=== PATIENT | female | born 1985 | race Caucasian/White ===

== ENCOUNTER 2023-12-06 06:38 | Outpatient (OUT) | payer BC, MEDICAID, SELFPAY ==
[2023-12-06 08:13] LABS: Basophils Percent Auto 0.3 % (0.2-2.0); Eosinophils Absolute Auto 0.2 10^3/uL (0.0-0.7); Eosinophils Percent Auto 1.7 % (0.9-7.0); Hematocrit 33.5 % (36.0-48.0); Hemoglobin 11.1 g/dL (12.0-16.0); Immature Granulocytes Abs Auto 0.16 10^3/uL (0.00-0.03); Immature Granulocytes Pct Auto 1.6 % (0.0-0.5); Lymphocytes Absolute Auto 1.2 10^3/uL (1.2-3.8); Lymphocytes Percent Auto 12.6 % (20.5-60.0); Mean Corpuscular HGB Conc 33.1 g/dL (29.9-35.2); Mean Corpuscular Hemoglobin 31.7 pg (26.7-34.0); Mean Corpuscular Volume 95.7 fL (81.0-99.0); Mean Platelet Volume 10.4 fL (9.5-13.5); Monocytes Absolute Auto 0.6 10^3/uL (0.3-0.8); Monocytes Percent Auto 6.3 % (1.7-12.0); Neutrophils Absolute Auto 7.5 10^3/uL (1.4-6.5); Neutrophils Percent Auto 77.5 % (43.0-75.0); Platelet Count 205 10^3/uL (150-450); Red Cell Distribution Width 12.3 % (11.0-15.0); White Blood Count 9.7 10^3/uL (4.0-11.0)
[2023-12-06 08:40] LABS: Glucose 1 Hour 140 mg/dL (<130)
== END 2023-12-06 06:39 | disposition home or self-care (01) ==
LOC: LAB 06:42
PROVIDERS: Visit Provider Obstetrics & Gynecology
DX: Z13.1 Encounter for screening for diabetes mellitus (principal)
CPT/HCPCS: 36415; 82950; 85025

== ENCOUNTER 2023-12-11 07:06 | Outpatient (OUT) | payer BC, MEDICAID, SELFPAY ==
[2023-12-11 07:27] LABS: Glucose Fasting 86 mg/dL (<95)
[2023-12-11 08:58] LABS: Glucose 1 Hour 173 mg/dL (<180)
[2023-12-11 09:35] LABS: Glucose 2 Hour 116 mg/dL (<155)
[2023-12-11 11:48] LABS: Glucose 3 Hour 60 mg/dL (<140)
== END 2023-12-11 07:07 | disposition home or self-care (01) ==
LOC: LAB 07:06
PROVIDERS: Visit Provider Obstetrics & Gynecology
DX: R73.09 Other abnormal glucose (principal)
CPT/HCPCS: 36415; 82951; 82952

== ENCOUNTER 2024-01-09 20:08 | Outpatient (OUT) | payer BC, MEDICAID, SELFPAY ==
--- NOTE | 2024-01-09 20:15 | US_ITS ---
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 TECHNIQUE: Ultrasound biophysical profile was performed in the radiology department. FINDINGS: BREATHING MOVEMENTS: 2 GROSS BODY MOVEMENTS: 2 TONE: 2 QUALITATIVE AMNIOTIC FLUID VOLUME: 2 PRESENTATION: Cephalic HEART RATE: 138 H.B./min AMNIOTIC FLUID VOLUME: 19 point cm GESTATIONAL AGE: 32 weeks 6 days CONCLUSION: Total biophysical profile score: 8/8 Electronically authenticated by: IMELDA GOLDEN Date: 01/10/2024 07:49
[2024-01-09 20:49] VITALS: BP 124/67; PULSE 78
[2024-01-09 20:50] VITALS: TEMP 35.8; TEMP 36.1
== END 2024-01-09 21:15 | disposition home or self-care (01) ==
LOC: US 20:12 → FBC 20:13
PROVIDERS: PCP Family Medicine; Visit Provider Obstetrics & Gynecology
DX: O09.523 Supervision of elderly multigravida, third trimester (principal); Z3A.32 32 weeks gestation of pregnancy
CPT/HCPCS: 76818

== ENCOUNTER 2024-01-13 07:20 | Outpatient (OUT) | payer BC, MEDICAID, SELFPAY ==
[2024-01-13 18:10] VITALS: BP 129/75; PULSE 89
== END 2024-01-13 18:56 | disposition home or self-care (01) ==
LOC: FBCO 17:57 → FBC 18:05
PROVIDERS: PCP Family Medicine; Visit Provider Obstetrics & Gynecology
DX: O09.529 Supervision of elderly multigravida, unspecified trimester (principal)
CPT/HCPCS: 59025

== ENCOUNTER 2024-01-16 07:06 | Outpatient (OUT) | payer BC, MEDICAID, SELFPAY ==
--- NOTE | 2024-01-16 19:59 | US_ITS ---
[address] [address] Patient Name: EDILBERTO MEJIA MRN: [facility]:[id number] date: 1985 Sex: F Assigned Patient Location: [facility] Current Patient Location: Accession/Order Number: [id number] Exam Date: 01/16/2024 20:04 Report Date: 01/17/2024 07:15 At the request of: JAH HERNANDEZ Procedure: US OB BPP w non-stress EXAMINATION: US OB BPP w non-stress HISTORY: MULTIGRAVIDA OF ADVANCED MATERNAL AGE O09.523 COMPARISON: No relevant comparison available. TECHNIQUE: Ultrasound biophysical profile was performed in the radiology department. non-reactive stress testing was performed by nursing staff in the birthing center. FINDINGS: BREATHING MOVEMENTS: 2.0 GROSS BODY MOVEMENTS: 2.0 TONE: 2.0 QUALITATIVE AMNIOTIC FLUID VOLUME: 2.0 PRESENTATION: CEPHALIC HEART RATE: 146.7 bpm H.B./min AMNIOTIC FLUID VOLUME: 13.4 cm cm GESTATIONAL AGE: 33 weeks 5 days CONCLUSION: Total biophysical profile score: 8.0 Electronically authenticated by: IMELDA GOLDEN Date: 01/17/2024 07:15
[2024-01-16 20:36] VITALS: BP 110/56; PULSE 76
[2024-01-16 20:38] VITALS: BP 110/56; PULSE 76; TEMP 36.4
== END 2024-01-16 21:00 | disposition home or self-care (01) ==
LOC: US 07:06 → FBC 20:00
PROVIDERS: PCP Family Medicine; Visit Provider Obstetrics & Gynecology
DX: O09.523 Supervision of elderly multigravida, third trimester (principal); Z3A.33 33 weeks gestation of pregnancy
CPT/HCPCS: 76818

== ENCOUNTER 2024-01-20 07:03 | Outpatient (OUT) | payer BC, MEDICAID, SELFPAY ==
--- OUTSIDE RECORDS SUMMARY | 2024-01-20 07:05 | XMS_ITS | CCD ---
Author Organization [facility] Care Team Providers Care Supervisor Broadloom Name Role Phone JAILENEJuan, ANJALI Unavailable Unavailable KARASIK, ANJALI Unavailable Unavailable KARASIK, ANJALI Unavailable Unavailable KARASIK, ANJALI Unavailable Unavailable KARASIK, ANJALI Unavailable Unavailable KARASIK, ANJALI Unavailable Unavailable Jesus Duran M Primary Care Unavailable Jesus Duran Attending Unavailable José Miguel Estes Admitting Unavailable Royce Charles Attending Unavailable Jesus Duran Primary Care Unavailable Ramiro Abarca Consulting Unavailable Services, [facility] Primary Care Provider KENNA BEJARANO Referring Unavailable SERVICES, [facility] Care Unava ilable DOCHEVA, NIKOLINA P Referring Unavailable SERVICES, [facility] Care Unava ilable AYANA LUND Attending Unavailable SERVICES, [facility] Unava ilable DOCHEVA, NIKOLINA P Referring Unavailable SERVICES, [facility] Unava ilable SERVICES, [facility] Care Unava ilable KENNA BEJARANO Referring Unavailable SERVICES, [facility] Care Unava ilable DOCHEVA, NIKOLINA P Attending Unavailable SERVICES, [facility] Care Unava ilable SERVICES, [facility] Primary Care Unava ilable JAH CARRANZA Attending Unavailable DAVID, JAH Attending Unavailable JAH CARRANZA Referring Unavailable SERVICES, [facility] Unava ilable DOCHEVA, NIKOLINA P Referring Unavailable SERVICES, [facility] Care Unava ilable DOCHEVA, NIKOLINA P Referring Unavailable SERVICES, [facility] Unava ilable Allergies Allergy Classification Reported Allergen(s) Allergy Type Date of Onset Reaction(s) Facility (1 source) No Known Medication Allergies; Translations: [No Known Medication Allergies] Propensity to adverse reactions to drug (disorder) [facility] Repository (2 sources) Penicillins; Translations: [PENICILLINS] Drug allergy (disorder) 8 [facility] Repository Medications Current Medications Medication Drug Class(es) Dates Sig (Normalized) Sig (Original) acetaminophen 325 mg oral tablet (7 sources) take 2 tablets by mouth every six hours as needed for pain acetaminophen (TYLENOL) 325 mg tablet Take 2 tablets (650 mg total) by mouth every 6 (six) hours as needed for pain. 0 Active docusate sodium 100 mg oral capsule (6 sources) Start: 10-14-2023 take 1 capsule by mouth once in the morning, then take 1 capsule by mouth at bedtime docusate sodium (COLACE) 100 mg capsule Indications: Constipation during in second trimester Take 1 capsule (100 mg total) by mouth in the morning and 1 capsule (100 mg total) before bedtime. 30 capsule 1 10/14/2023 Active doxylamine succinate 25 mg oral tablet (7 sources) Start: 09-10-2023 take 1 tablet by mouth once daily as needed for nausea doxylamine (UNISOM) 25 mg tablet Indications: Nausea and vomiting during Take 1 tablet (25 mg total) by mouth nightly as needed for sleep or nausea. 30 tablet 1 09/10/2023 Active loratadine 10 mg oral tablet (7 sources) take 1 tablet by mouth in the morning loratadine (CLARITIN) 10 mg tablet Take 1 tablet (10 mg total) by mouth in the morning. 0 Active montelukast 10 mg oral tablet (4 sources) Leukotriene Receptor Antagonist Start: 09-30-2023 take 1 tablet by mouth once daily montelukast (SINGULAIR) 10 mg tablet Take 1 tablet (10 mg total) by mouth nightly. 0 09/30/2023 Active polyethylene glycol 3350 59873 mg powder for oral solution (4 sources) Osmotic Laxative Start: 10-24-2023 End: 02-21-2024 polyethylene glycol (MIRALAX) 17 gram/dose powder Indications: 21 weeks gestation of , Constipation, unspecified constipation type Take 17 g by mouth in the morning for 120 days. 510 g 3 10/24/2023 02/21/2024 Active no115/iron/folic acid ( 19 ORAL) (7 sources) no115/iron/folic acid ( 19 ORAL) Take by mouth. 0 Active psyllium 3400 mg powder for oral suspension (4 sources) take 1 dose by mouth in the morning psyllium (METAMUCIL) 3.4 gram packet Take 1 packet (3.4 g total) by mouth in the morning and 1 packet (3.4 g total) before bedtime. 0 Active pyridoxine hydrochloride 25 mg oral tablet (7 sources) Start: 09-10-2023 pyridoxine, vitamin B6, (B-6) 25 mg tablet Indications: Nausea and vomiting during Take 1 tablet (25 mg total) by mouth in the morning and 1 tablet (25 mg total) at noon and 1 tablet (25 mg total) in the evening and 1 tablet (25 mg total) before bedtime. 120 tablet 1 09/10/2023 Active sennosides, senior living 8.6 mg oral tablet (4 sources) Start: 10-24-2023 senna (SENOKOT) 8.6 mg tablet Indications: 21 weeks gestation of , Constipation, unspecified constipation type Take 1 tablet (8.6 mg total) by mouth as needed for constipation for up to 5 doses. 5 tablet 0 10/24/2023 Active venlafaxine 75 mg oral tablet (7 sources) Serotonin and Norepinephrine Reuptake Inhibitor take 1 tablet by mouth in the morning venlafaxine (EFFEXOR) 75 mg tablet Take 1 tablet (75 mg total) by mouth in the morning. 0 Active Completed/Discontinued Medications Medication Drug Class(es) Dates Sig (Normalized) Sig (Original) aspirin 81 mg chewable tablet (7 sources) Platelet Aggregation Inhibitor, Nonsteroidal Anti-inflammatory Drug Start: 09-10-2023 aspirin 81 mg chewable tablet Indications: Obesity in , Multigravida of advanced maternal age in second trimester , with 15 completed weeks gestation Chew 1 tablet (81 mg total) and swallow in the morning. 90 tablet 2 09/10/2023 Active Problems Active Problems Problem Classification Problem Date Documented Da te Episodic/Chronic Abdominal hernia (14 sources) Incisional hernia; Translations: [Incisional hernia without obstruction or gangrene] Onset: 09-10-2023 09-10-2023 Episodic Anxiety disorders (8 sources) Anxiety; Translations: [Anxiety disorder, unspecified] Onset: 09-10-2023 09-10-2023 Chronic Cancer of cervix (9 sources) Low grade squamous intraepithelial lesion on cytologic smear of cervix (LGSIL); Translations: [Low grade squamous intraepithelial lesion on cervical Papanicolaou smear] Onset: 11-01-2017 10-24-2023 Episodic Headache; including migraine (7 sources) Migraine; Translations: [Migraine, unspecified, not intractable, without status migrainosus] Onset: 09-10-2023 09-10-2023 Chronic Mood disorders (8 sources) Mood disorders; Translations: [Depression, unspecified] Onset: 10-23-2023 06-23-2020 Other complications of (9 sources) Maternal obesity complicating , childbirth and the puerperium, antepartum; Translations: [Obesity complicating , unspecified trimester] Onset: 09-10-2023 09-10-2023 Chronic Other complications of (1 source) Obesity complicating , second trimester; Translations: [Obesity complicating , second trimester] Onset: 09-10-2023 Chronic Other complications of (2 sources) Obesity complicating , unspecified trimester; Translations: [Obesity complicating , unspecified trimester] Onset: 10-24-2023 Chronic Other complications of (10 sources) Multigravida of advanced maternal age; Translations: [Supervision of elderly multigravida, second trimester] Onset: 09-10-2023 10-07-2023 Episodic Other complications of (8 sources) Urinary tract infection in ; Translations: [Unspecified infection of urinary tract in , first trimester] Onset: 10-03-2023 10-07-2023 Episodic Other complications of (8 sources) Maternal syphilis during , childbirth and the puerperium; Translations: [Syphilis complicating , unspecified trimester] Onset: 09-10-2023 09-10-2023 Episodic Other complications of (7 sources) Nausea and vomiting; Translations: [Vomiting of , unspecified] Onset: 09-10-2023 09-10-2023 Episodic Other complications of (7 sources) Varicella non-immune; Translations: [Supervision of other high risk pregnancies, unspecified trimester] Onset: 10-03-2023 10-03-2023 Episodic Other complications of (3 sources) Diseases of the digestive system complicating , second trimester; Translations: [Other current conditions classifiable elsewhere of mother, antepartum condition or complication] Onset: 10-30-2023 10-14-2023 Episodic Other complications of (5 sources) Anxiety in ; Translations: [Other mental disorders complicating , unspecified trimester] Onset: 10-23-2023 10-23-2023 Episodic Other complications of (5 sources) Depressive disorder in mother complicating ; Translations: [Other mental disorders complicating , unspecified trimester] Onset: 10-23-2023 10-23-2023 Episodic Other complications of (2 sources) Syphilis complicating , second trimester; Translations: [Syphilis complicating , second trimester] Onset: 09-10-2023 Episodic Other complications of (1 source) Unspecified infection of urinary tract in , first trimester; Translations: [Unspecified infection of urinary tract in , first trimester] Onset: 10-03-2023 Episodic Other complications of (1 source) Supervision of elderly multigravida, second trimester; Translations: [Supervision of elderly multigravida, second trimester] Onset: 10-30-2023 Episodic Other complications of (1 source) Other mental disorders complicating , unspecified trimester; Translations: [Other mental disorders complicating , unspecified trimester] Onset: 10-23-2023 Episodic Other complications of (2 sources) Supervision of high risk , unspecified, unspecified trimester; Translations: [Supervision of high risk , unspecified, unspecified trimester] Onset: 10-24-2023 Episodic Other complications of (1 source) Syphilis complicating , third trimester; Translations: [Syphilis complicating , third trimester] Onset: 10-30-2023 Episodic Other gastrointestinal disorders (5 sources) Constipation; Translations: [Constipation, unspecified] Onset: 10-24-2023 10-24-2023 Episodic Other gastrointestinal disorders (1 source) Constipation, unspecified; Translations: [Constipation, unspecified] Onset: 10-24-2023 Episodic Other inflammatory condition of skin (2 sources) Psoriasis, unspecified; Translations: [Psoriasis, unspecified] Onset: 09-07-2020 Chronic Other inflammatory condition of skin (8 sources) Psoriasis; Translations: [Psoriasis, unspecified] Onset: 09-10-2023 09-10-2023 Chronic Other nutritional; endocrine; and metabolic disorders (1 source) Morbid (severe) obesity due to excess calories; Translations: [Morbid (severe) obesity due to excess calories] Onset: 09-07-2020 Chronic Other and delivery including normal (1 source) care status; Translations: [Encounter for supervision of normal , unspecified, third trimester] 11-04-2023 Episodic Other screening for suspected conditions (not mental disorders or infectious disease) (2 sources) Encounter for other specified screening; Translations: [Encounter for screening for cervical length] Onset: 10-24-2023 Episodic Residual codes; unclassified (1 source) Gestation period, 19 weeks; Translations: [19 weeks gestation of ] 10-03-2023 Episodic Residual codes; unclassified (1 source) Gestation period, 21 weeks; Translations: [21 weeks gestation of ] 10-23-2023 Episodic Residual codes; unclassified (3 sources) 21 weeks gestation of ; Translations: [21 weeks gestation of ] Onset: 10-24-2023 Episodic Residual codes; unclassified (1 source) Gestation period, 23 weeks; Translations: [23 weeks gestation of ] 11-04-2023 Episodic Residual codes; unclassified (1 source) 23 weeks gestation of ; Translations: [23 weeks gestation of ] Onset: 11-04-2023 Episodic Residual codes; unclassified (1 source) 19 weeks gestation of ; Translations: [19 weeks gestation of ] Onset: 10-07-2023 Episodic Unclassified (1 source) Cellulitis of right lower limb; Translations: [Cellulitis of right lower limb] Onset: 09-07-2020 Unclassified (1 source) Routine Visit Onset: 11-04-2023 Unclassified (1 source) mfm consult Onset: 10-24-2023 Unclassified (1 source) Initial Visit Onset: 09-10-2023 Viral infection (5 sources) Human papilloma virus infection; Translations: [Papillomavirus as the cause of diseases classified elsewhere] Onset: 10-24-2023 10-24-2023 Episodic Past or Other Problems Problem Classification Problem Date Documented Date Episodic/Chronic Skin and subcutaneous tissue infections (1 source) Cutaneous abscess of unspecified foot; Translations: [Cutaneous abscess of unspecified foot] Onset: 09-07-2020 Episodic STDs excluding HIV or hepatitis (1 source) Cervical high risk human papillomavirus (HPV) DNA test positive; Translations: [CERVICAL HIGH RISK HPV DNA TEST POS] Onset: 05-10-2017 Episodic Results Test Name Value Interpretation Reference Range Facility US ABDOMEN LMTD ABDOMEN WALL on 10-25-2023 US ABDOMEN LMTD ABDOMEN WALL US ABDOMEN LMTD ABDOMEN WALL Ultrasound the abdominal wall. INDICATION: Pain. Prior hernia repair. . COMPARISON: CT dated 03/25/2023. TECHNIQUE: Limited ultrasound of the body wall appear pain as delineated by the patient. FINDINGS: In the periumbilical region, community development aide demonstrates a circumscribed 5.3 x 1.3 x 5.1 cm isoechoic lesion, thought to be related to a fat-containing periumbilical hernia sac seen on CT scan of March 2023. This does not appear to significantly change with Valsalva. Velocity Shooter demonstrates potential associated fascial defect measuring approximately 1.2 cm, measured on cine clips. No herniated bowel demonstrated. No fluid collection demonstrate. IMPRESSION: 1. Lipomatous circumscribed lesion in the periumbilical region thought to reflect a narrowneck fat-containingHernia (over lipoma), somewhat similar to March 2023. Correlate with clinical reducibility. 2. No herniated bowel or other fluid collection/soft tissue lesion demonstrated Finalized by José Miguel Kapoor MD on 10/25/2023 11:30 AM Normal [facility] Reagin Ab RPR Ql (S)on 10-24 RPR SCREEN RESPONSE TO THERAPY, SERUM Negative Normal Negative [facility] Comment on above: Result Comment: NOTE Non-treponemal antibodies not detected. For additional information on interpretation of the syphilis reverse algorithm and results, see: [email or web address] Test Performed by: [facility] - [address] [address] Molecular Genetic Pathologist: Williams Joyce M.D. Ph.D.; CLIA# [id number] URINALYSISon 10-07-2023 Bilirubin Ql (U) Negative Normal NEG [facility] BLOOD/HGB Negative Normal NEG [facility] CA OXALATE CRYSTALS PRESENT Abnormal NONE [facility] Color (U) YELLOW Normal YELLOW [facility] Glucose Ql (U) Negative Normal NEG [facility] Ketones Ql (U) Trace Abnormal NEG [facility] Leukocyte esterase Test strip Ql (U) Small Abnormal NEG [facility] MUCOUS PRESENT Abnormal NONE [facility] Nitrite Ql (U) Negative Normal NEG [facility] pH (U) 6.0 [pH] Normal 5.0-8.5 [facility] Protein Ql (U) Trace Abnormal NEG [facility] R.B.CELLS 4 /hpf Normal 0-5 [facility] Specific gravity (U) [Rel density] 1.023 Normal 1.003-1.035 [facility] SQUAMOUS EPITHELIUM 15 /hpf High 0-5 [facility] TURBIDITY CLEAR Normal CLEAR [facility] Urobilinogen (U) [Mass/Vol] mg/dL Normal <1.1 [facility] W.B.CELLS 5 /hpf Normal 0-5 [facility] URINE CULTUREon 10-07-2023 Bacteria identified Cx Nom (U) CULTURE RESULTS NO GROWTH AT <1000 CFU/mL Normal [facility] Comment on above: Performed By: #### 6 30-4 #### [facility] ([id number]) [address] [place] [address], [address] [place] [address] Urinalysison 10-07-2023 Bilirubin Ql (U) Negative Negative^Ne gat nia [facility] Calcium oxalate crystals LM Ql (Urine sed) PRESENT Abnormal NONE^NONE [facility] Color (U) YELLOW YELLOW^YELLOW [facility] Epithelial cells Auto (Urine sed) [#/Area] 15 High [facility] Glucose (U) [Mass/Vol] Negative Negative^Negat nia mg/dL [facility] Hemoglobin Auto test strip Ql (U) Negative Negative^Negat nia [facility] Interpretation and review of laboratory results Abnormal [facility] Ketones (U) [Mass/Vol] Trace Abnormal Negative^Negat nia mg/dL [facility] Leukocyte esterase Auto test strip Ql (U) Small Abnormal Negative^Negat nia [facility] Mucus Ql (Urine sed) PRESENT Abnormal NONE^NONE [facility] Nitrite Auto test strip Ql (U) Negative Negative^Negat nia [facility] pH (U) 6.0 [pH] 5.0 - 8.5 [facility] Protein (U) [Mass/Vol] Trace Abnormal Negative^Negat nia mg/dL [facility] RBC Auto (Urine sed) [#/Area] 4 [facility] Specific gravity Refractometry automated (U) [Rel density] 1.023 1.003 - 1.035 [facility] Turbidity Ql (U) CLEAR CLEAR^CLEAR [facility] Urobilinogen Qn (U) NINF [facility] WBC Auto (Urine sed) [#/Area] 5 [facility] Outside Recordson 01-16-2023 Outside Records [id number]#[id number] Normal [facility] PAP RFX HPV IF ASCon 018 COMMENT Comment Normal [facility] Comment on above: Result Comment: [place] Performed By: #### P APHR7 ####[facility] [address] [place] [address] DIAGNOSIS: Comment Normal [facility] Comment on above: Result Comment: NEGA TIVE FOR INTRAEPITHELIAL LESION AND MALIGNANCY. Performed By: #### P APHR7 ####[facility] [address] [place] [address] Cristiane Methodology: BDFP Normal [facility] Comment on above: Result Comment: The TriPath(R) FocalPoint was unable to read and evaluate thisspecimen. Therefore a manual review was performed. Performed By: #### P APHR7 ####[facility] [address] [place] [address] Note: Comment Normal [facility] Comment on above: Result Comment: The Pap smear is a screening test designed to aid in the detection ofpremalignant and malignant conditions of the uterine cervix. It is not adiagnostic procedure and should not be used as the sole means of detectingcervical cancer. Both false-positive and false-negative reports do occur. . Performed By: #### P APHR7 ####[facility] [address] Cristiane Performed by: Comment Normal [facility] Comment on above: Result Comment: Chato Simon, Lead Instructor/Flight Attendant (ASCP) Performed By: #### P APHR7 ####[facility] [address] [place] [address] Cristiane Reflex Criteria: Comment Normal [facility] Comment on above: Result Comment: The HPV DNA reflex criteria were not met with this specimen resulttherefore, no HPV testing was performed. . Performed By: #### P APHR7 ####[facility] [address] [place] [address] Cristiane Specimen adequacy: Comment Normal [facility] Comment on above: Result Comment: Sati sfactory for evaluation. Endocervical and/or squamous metaplasticcells (endocervical component) are present. Performed By: #### P APHR7 ####[facility] [address] [place] [address] Cristiane . . Normal [facility] Comment on above: Performed By: #### P APHR7 ####[facility] [address] [place] [address] Cristiane LAB TESTINGon 05-09-2017 RECV HEADER SEE SCANNED REPORT I N HPF Normal [facility] Comment on above: Performed By: #### M ISC ####[facility] [address] [place] [address] Cristiane REV FROM REF LAB see scanned report Normal [facility] Comment on above: Performed By: #### M ISC ####[facility] [address] [place] [address] Cristiane SENT TO REF LAB see scanned report Normal T [facility] Comment on above: Performed By: #### M ISC ####[facility] [address] [place] [address] Cristiane Vital Signs Date Time Vital Sign Value Performing Clinician Epifanio lema 11-04-2023 11:26-0500 Body mass index (BMI) [Ratio] 41.14 kg/m2 Bethanylashay Hilles [employer] PRODUCTS CHECKER-CNM Work Phone: [facility] 11-04-2023 11:26-0500 Body weight 112.13 kg Bethany Superior [employer]ODU[employer] CHECKER-CNM Work Phone: [facility] 11-04-2023 11:26-0500 Diastolic blood pressure 68 mm[Hg] Bethanysameera Garcia B[employer] PRODU[employer] CHECKER-CNM Work Phone: [facility] 11-04-2023 11:26-0500 Systolic blood pressure 120 mm[Hg] Bethany Superior [employer]AK[employer]ODU[employer] CHECKER-CNM Work Phone: [facility] 10-24-2023 10:27-0500 Body height 165.1 cm Kamla Lester MD Work Phone: [facility] 10-24-2023 10:27-0500 Body mass index (BMI) [Ratio] 40.27 kg/m2 Kamla Lester MD Work Phone: [facility] 10-24-2023 10:27-0500 Body weight 109.77 kg Kamla Lester MD Work Phone: [facility] 10-24-2023 10:27-0500 Diastolic blood pressure 78 mm[Hg] Kamla Lester MD Work Phone: [facility] 10-24-2023 10:27-0500 Systolic blood pressure 118 mm[Hg] Kamla Lester MD Work Phone: [facility] 10-07-2023 11:23-0500 Body mass index (BMI) [Ratio] 39.99 kg/m2 [employer] [facility] 10-07-2023 11:23-0500 Body weight 109 kg Pfws [employer] [facility] 10-07-2023 11:23-0500 Diastolic blood pressure 80 mm[Hg] Pfws [employer] [facility] 10-07-2023 11:0500 Systolic blood pressure 100 mm[facility] Date Encounter Type Care Provider Facility Start: 01-14-2024 End: 01-15-2024 ambulatory [facility] Start: 01-08-2024 End: 01-08-2024 ambulatory JAH ROSSO Not Available Start: 12-17-2023 End: 12-18-2023 ambulatory JAH R. DAVID [facility] Start: 12-03-2023 End: 12-03-2023 ambulatory JAH DAVID Not Available Start: 11-21-2023 End: 11-21-2023 ambulatory [facility] Start: 11-14-2023 Telephone encounter Laila casillas [facility]Gynecology Start: 11-04-2023 End: 11-04-2023 ambulatory [facility] Start: 11-04-2023 End: 11-04-2023 Subsequent care visit Bethany Garcia [employer]ODU[employer] CHECKER-CNM Work Phone: [facility] Obstetric[facility]/Gynecology Comment on above: GA: 23w3d Start: 10-25-2023 End: 10-26-2023 ambulatory [facility] Start: 10-24-2023 End: 10-25-2023 Orders Only Rosalie Weston RN [facility] Comment on above: Multigravida of adva nced maternal age in second trimester (Primary Dx); Obesity affecting in second trimester, unspecified obesity type Start: 10-24-2023 End: 10-24-2023 Office consultation new/estab patient 80 min Kamla Lester MD Work Phone: [facility] [place] Comment on above: 21 weeks gestation o f (Primary Dx); Multigravida of advanced maternal age in second trimester; 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; Obesity affecting in second trimester, unspecified obesity type; Anxiety during ; Depression affecting ; Constipation, unspecified constipation type; Hernia of abdominal wall; Psoriasis; LGSIL on Pap smear of cervix; HPV in female Start: 10-14-2023 Orders Only Ayana Tess Osvaldo [employer] CHECKER-MOBILITY MANAGER Work Phone: [facility] Comment on above: Constipation during in second trimester (Primary Dx) Start: 10-07-2023 End: 10-08-2023 ambulatory [facility] Start: 10-07-2023 End: 10-07-2023 ambulatory [facility] Start: 10-07-2023 End: 10-07-2023 Subsequent care visit [facility] Ob Global Director [employer] [facility] Comment on above: GA: 19w3d Start: 09-10-2023 End: 09-10-2023 ambulatory AYANA Tess LUND [facility] Start: 01-28-2023 End: 01-29-2023 ambulatory Jesus Duran Facility:[facility] Start: 09-07-2020 End: 09-10-2020 Evaluation and management of inpatient José Miguel Estes Facility:[facility] Start: 11-01-2017 End: 11-01-2017 Ambulatory ANJALI BOOTHABELJuan Facility: Start: 05-09-2017 End: 05-09-2017 Ambulatory ANJALI KARABELJuan Facility: Procedures Date Procedure Procedure Detail Performing Clinician Start: 06-27-2023 Microscopic observat ion [Identifier] in Cervix by Cyto stain [facility] [employer] Director [employer] Plan of Treatment Date Care Activity Detail Author Start: 06-27-2026 Screening for malignant neoplasm of cervix Pap Smear [facility] Start: 11-04-2024 Adult BMI Screening Adult BMI Screen ing [facility] Start: 11-04-2024 Tobacco Screening Tobacco Screening [facility] Start: 10-24-2024 Adult BMI Screening Adult BMI Screen ing [facility] Start: 10-24-2024 Tobacco Screening Tobacco Screening [facility] Start: 10-24-2024 End: 10-24-2024 US MFM with or without consult US MFM with or without consult Imaging Routine Multigravida of advanced maternal age in second trimester Obesity affecting in second trimester, unspecified obesity type Expected: 10/24/2024 (Approximate), Expires: 10/24/2024 [facility] Work Phone: Comment on above: Expected: 10/24/2024 (Approximate), Expires: 10/24/2024 Start: 10-07-2024 Adult BMI Screening Adult BMI Screen ing [facility] Start: 10-07-2024 Tobacco Screening Tobacco Screening [facility] Start: 12-17-2023 End: 12-17-2023 Patient encounter procedure 12/17/2023 2:45 PM EDT Appointment [facility] [address] [place] [phone] [facility] Start: 12-02-2023 End: 12-02-2023 Patient encounter procedure 12/02/2023 11:45 AM EDT Routine [facility] [address] [place] [id number] [facility] Start: 11-21-2023 End: 11-21-2023 Patient encounter procedure 11/21/2023 2:15 PM EST Appointment [facility] [address] [place] [address] [facility] Start: 11-04-2023 End: 11-04-2023 Patient encounter procedure 11/04/2023 11:30 AM EST Routine [facility] [address] [place] [address] [facility] Start: 10-25-2023 Subsequent hospital visit by physician 10/25/2023 10:00 AM EST Hospital Encounter [facility] [address] [place] [phone] [facility] Start: 10-24-2023 End: 10-24-2024 Echo complete W/O contrast Echo complete W/O contrast Echocardiography Routine 21 weeks gestation of Multigravida of advanced maternal age in second trimester Expected: 10/24/2023, Expires: 10/24/2024 [facility] Comment on above: Expected: 10/24/2023 , Expires: 10/24/2024 Start: 10-24-2023 End: 10-24-2024 US Abdominal wall Ultrasound abdomen limited ADBOMEN WALL Imaging STAT 21 weeks gestation of Hernia of abdominal wall Expected: 10/24/2023, Expires: 10/24/2024 [facility] Comment on above: Expected: 10/24/2023 , Expires: 10/24/2024 Start: 10-24-2023 End: 10-24-2023 Patient encounter procedure [facility] Start: 10-07-2023 End: 10-07-2024 US MFM with or without consult US MFM with or without consult Imaging Routine Multigravida of advanced maternal age in second trimester Expected: 10/07/2023, Expires: 10/07/2024 [facility] Work Phone: Comment on above: Expected: 10/07/2023 , Expires: 10/07/2024 Start: 2002 DTaP,Tdap and Td Vaccines (1 - Tdap) DTaP,Tdap and Td Vaccines (1 - Tdap) [facility] Start: 2001 Adult BMI Follow Up Plan Adult BMI Follow Up Plan [facility] Start: 1995 [facility]: 10-06-2024 Bacteria identified in Urine by Culture Urine Culture Microbiology Routine UTI (urinary tract infection) during , first trimester 1 Occurrences starting 10/07/2023 until 10/06/2024 [facility] Comment on above: 1 Occurrences starti ng 10/07/2023 until 10/06/2024 Bacteria identified in Urine by Culture Urine Culture Microbiology Routine UTI (urinary tract infection) during , first trimester 10/07/2023 8:25 PM EST [facility] End: 11-04-2024 CBC W Auto Differential panel - Blood CBC auto differential Lab Routine care in third trimester 1 Occurrences starting 11/04/2023 until 11/04/2024 [facility] Comment on above: 1 Occurrences starti ng 11/04/2023 until 11/04/2024 End: 10-24-2024 ECG 12 lead ECG 12 lead ECG Routine 21 weeks gestation of Multigravida of advanced maternal age in second trimester 1 Occurrences starting 10/24/2023 until 10/24/2024 [facility] Comment on above: 1 Occurrences starti ng 10/24/2023 until 10/24/2024 End: 11-04-2024 Glucose 1h post 50g load Glucose 1h post 50g load Lab Routine care in third trimester 1 Occurrences starting 11/04/2023 until 11/04/2024 [facility] Work Phone: Comment on above: 1 Occurrences starti ng 11/04/2023 until 11/04/2024 Reagin Ab [Presence] in Serum by RPR RPR Screen Response to Therapy, Serum Lab Routine 21 weeks gestation of 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 10/24/2023 7:10 PM EST [facility] End: 10-24-2024 RPR Therapy Response(Previous Positive Screen) RPR Therapy Response(Previous Positive Screen) Lab Routine 21 weeks gestation of 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 1 Occurrences starting 10/24/2023 until 10/24/2024 [facility] Work Phone: Comment on above: 1 Occurrences starti ng 10/24/2023 until 10/24/2024 End: 11-04-2024 Syphilis Total(Unknown Syphilis Status) Syphilis Total(Unknown Syphilis Status) Lab Routine care in third trimester 1 Occurrences starting 11/04/2023 until 11/04/2024 [facility] Comment on above: 1 Occurrences starti ng 11/04/2023 until 11/04/2024 Payers Date Payer Category Payer Medicaid [employer] MEDICAID [facility] MEDICAID [id number] 2023-Present [address] [place] [address] [id number] 2023 Medicaid [id number] 2023 Unknown [employer] BLUE ACCE SS (PPO) [id number] 2023-Present [phone] [address] [place] [address] [id number] 2023 Unknown [id number] 2020 Self-pay 2019 Unknown [id number] 1983 Unknown [id number] 1983 Unknown [id number] 1983 Unknown [id number] 1983 Unknown [id number] 1983 Unknown [id number] [id number] 1983 Unknown [id number] [id number] 1983 Unknown [id number] [id number] 1983 Unknown [id number] [id number] 1983 Unknown [id number] [id number] 1983 Unknown [id number] [id number] 1983 Unknown [id number] [id number] 1983 Unknown [id number] [id number] 1983 Unknown [id number] 1959 Unknown [id number] Unknown [id number] Social History Date Type Detail Facility Start: 09-10-2023 Tobacco smoking stat us NHIS Ex-smoker [facility] End: 06-16-2023 History of tobacco use Current smoker [facility] End: 06-16-2023 History of tobacco use Cigarette Smoker [facility] Start: 09-10-2023 Tobacco use and exposure Smokeless tobacco non-user [facility] Start: 10-07-2023 End: 11-04-2023 Alcohol intake Ex-drinker (finding) [facility] Start: 10-27-2020 End: 10-07-2023 History of Social function [facility] Start: 10-27-2020 End: 10-07-2023 Tobacco use panel [facility] Adolescent depressio n screening assessment 0 [facility] Start: 03-25-2023 Tobacco Comment quit a year an d a half ago [facility] Start: 06-07-2020 Alcohol Comment 2 days a week [facility] Start: 06-07-2023 [facility] Start: 1985 Sex Assigned At Not on file P [facility] Medical Equipment Procedure Code Equipment Code Equipment Origin al Text Equipment Identifier Dates Mesh Pco Vntrl P tch 4.6cm Rpl [id number] - [id number] - [id number] Start: 07-01-2020 Clinical Notes 07-09-2022 to 11-14-2023 Telephone Encounter - Laila Gil - 11/14/2023 10:35 AM ESTTelephone Encounter - Laila Gil - 11/14/2023 10:35 AM HONEY Martinez - 11/04/2023 11:30 AM EST Note Date & Type Note Facility 11-14-2023 Miscellaneous Notes Received a record release from Dr. Carranza office. The patient is scheduled for an appointment with our office on 12/02/23. I attempted to call the patient to see if she is transferring care & if she still needs the appointment with our office on 12/02/23. The patient did not answer. The voicemail for for Rowan so I did not leave a message for the patient. Cece talked to the patient at her [facility] ultrasound appt today. Patient confirmed to Cece that she is transferring care to Dr. Carranza. Cece cancelled the scheduled appointment with our office. documented in this encounter [facility] 11-14-2023 Telephone encounter Note Received a record release from Dr. Carranza office. The patient is scheduled for an appointment with our office on 12/02/23. I attempted to call the patient to see if she is transferring care & if she still needs the appointment with our office on 12/02/23. The patient did not answer. The voicemail for for Rowan so I did not leave a message for the patient. [facility] 11-14-2023 Telephone encounter Note Cece talked to the patient at her [facility] ultrasound appt today. Patient confirmed to Cece that she is transferring care to Dr. Carranza. Cece cancelled the scheduled appointment with our office. [facility] 11-04-2023 History of Presen t illness Narrative 38 y.o. at 23w3d. No CTX, VB, LOF. + FM. Feeling well other than continues to have some constipation even with taking Miralax daily and colace twice a day. Her stools continue to come almost daily but she has to strain to pass them. Suggested she increase her fluid intake too. She can use Colace up to 3 times a day and Miralax twice daily if needed. She has an abdominal hernia just to the right of her umbilicus. She has been using tape to help keep it in. Should have this repaired after this . 1. Reviewed signs of labor and decreased movement 2. 28 wk labs between 26 weeks gestqation and next visit. 3. Return 4 wks. HONEY Clifford 11/04/23 1157 documented in this encounter [facility] 10-24-2023 History of Presen t illness Narrative Images from the original note were not included. Video Visit via Real-time Synchronous Audiovisual Provider Location: [facility]- [facility] [address], [address] [place] [address] Patient Location: [facility] Patient Location Sorter Operator: None Video Visit Consent Statement: I discussed risks, benefits, and alternatives of a real-time synchronous audiovisual consultation with the patient (and any accompanying persons) including the risks that the patient's personal health details and medical records will be discussed over real-time, synchronous, interactive video/audio/telecommunication technology, the visit will not be recorded without the express consent of both the provider and the patient, and that there are some limitations compared to [id number] evaluations. We elected to proceed. [facility]- Medicine Consult Note Reason For Consult: AMA, Syphilis, BMI HPI: Meka Brennan is a 38 y.o. at 21w6d with Estimated Date of Delivery: 02/28/24 b who presented for consultation from Ayana Lund regarding Chief Complaint Patient presents with AMA, syphilis, high BMI I have reviewed the pertinent available patient records including but not limited to notes, labs and images She presents today with her partner. She reports that she is doing well. She reports normal movements and she denies leakage of fluid, contractions or vaginal bleeding. She denies fever, chills, nausea, vomiting, shortness of breath, chest pain, headache, blurry vision, right upper quadrant pain or edema. Complications: AMA - was told low risk cell free DNA [place]. Report not available, on low dose aspirin History of syphilis - Jun 2023. PCN treatment x3. FOB test was negative was given only 1 dose. Both follows with healthcare department, have follow up at 28 weeks Obesity in Anxiety and depression was on Effexor, not taking - mood is ok. No SI E coli UTI s/p treatment repeat urine culture negative LSIL +ve HPV Psoriasis - no current flares, no joint pains, no hair loss Constipation - colace and matamucil. 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 I do not have the records this is per patient Recent hospitalization: no Review of systems: Review of systems was noncontributory OB History Para Term AB Living 3 2 2 2 SAB IAB Ectopic Multiple Live Births 2 # Outcome Date GA Lbr Pravin/2nd Weight Sex Delivery Anes PTL Lv 3 Current 2 Term 2009 40w0d 3.941 kg M Vag-Spont EPI N NATHAN 1 Term 2005 40w0d 2.977 kg F Vag-Spont None N NATHAN PMH: Past Medical History: Diagnosis Date Anxiety Migraines Prolonged emergence from general anesthesia Seasonal allergies PSHIST: Past Surgical History: Procedure Laterality Date HERNIA REPAIR 1989 REPAIR HERNIA VENTRAL N/A 07/01/2020 Performed by Juan Alberto Guthrie MD at [facility] Allergies: No Known Allergies Meds: Prior to Admission medications Medication Sig Start Date End Date Taking? Authorizing Provider acetaminophen (TYLENOL) 325 mg tablet Take 2 tablets (650 mg total) by mouth every 6 (six) hours as needed for pain. Not In System Ref Prov aspirin 81 mg chewable tablet Chew 1 tablet (81 mg total) and swallow in the morning. 09/10/23 JESSENIA Arora docusate sodium (COLACE) 100 mg capsule Take 1 capsule (100 mg total) by mouth in the morning and 1 capsule (100 mg total) before bedtime. 10/14/23 JESSENIA Arora doxylamine (UNISOM) 25 mg tablet Take 1 tablet (25 mg total) by mouth nightly as needed for sleep or nausea. 09/10/23 JESSENIA Arora loratadine (CLARITIN) 10 mg tablet Take 1 tablet (10 mg total) by mouth in the morning. Not In System Ref Prov no115/iron/folic acid ( 19 ORAL) Take by mouth. Not In System Ref Prov pyridoxine, vitamin B6, (B-6) 25 mg tablet Take 1 tablet (25 mg total) by mouth in the morning and 1 tablet (25 mg total) at noon and 1 tablet (25 mg total) in the evening and 1 tablet (25 mg total) before bedtime. 09/10/23 JESSENIA Arora venlafaxine (EFFEXOR) 75 mg tablet Take 1 tablet (75 mg total) by mouth in the morning. Not In System Ref Prov SH: Social History Socioeconomic History Marital status: Spouse name: leni Number of children: 2 Years of education: Not on file Highest education level: Not on file Occupational History Not on file Tobacco Use Smoking status: Former Types: Cigarettes Quit date: 06/2023 Years since quittin.3 Smokeless tobacco: Never Tobacco comments: quit a year and a half ago Vaping Use Vaping Use: Never used Substance and Sexual Activity Alcohol use: Not Currently Comment: 2 days a week Drug use: No Sexual activity: Yes Partners: Male Other Topics Concern Not on file Social History Narrative Not on file Social Determinants of Health Financial Resource Strain: Not on file Food Insecurity: No Food Insecurity (10/24/2023) Hunger Screening Food Insecurity - Worry: Never True Food Insecurity - Inability: Never True Transportation Needs: Not on file Physical Activity: Not on file Stress: Not on file Social Connections: Not on file Interpersonal Safety: Not on file Housing Instability: Not on file Physical Exam: Vital Signs Vitals: 10/24/23 1027 BP: 118/78 Weight: 109.8 kg (242 lb) Height: 165.1 cm (5' 5 ) Physical Exam: n/a video visit Appears alert and oriented on the camera Notes/Imaging/Labs reviewed Hospital Outpatient Visit on 10/07/2023 Component Date Value Ref Range Status Culture 10/07/2023 NO GROWTH AT <1000 CFU/mL Final Color 10/07/2023 YELLOW YELLOW^YELLOW Final Turbidity 10/07/2023 CLEAR CLEAR^CLEAR Final Specific gravity 10/07/2023 1.023 1.003 - 1.035 Final Nitrite 10/07/2023 Negative Negative^Negative Final Ph urine 10/07/2023 6.0 5.0 - 8.5 Final Leukocyte esterase 10/07/2023 Small (A) Negative^Negative Final Protein 10/07/2023 Trace (A) Negative^Negative mg/dL Final Glucose, Ur 10/07/2023 Negative Negative^Negative mg/dL Final Ketones urine 10/07/2023 Trace (A) Negative^Negative mg/dL Final Urobilinogen 10/07/2023 <1.1 <1.1 eu/dL Final Bilirubin, urine 10/07/2023 Negative Negative^Negative Final Hemoglobin 10/07/2023 Negative Negative^Negative Final Ca oxalate crystals 10/07/2023 PRESENT (A) NONE^NONE Final Mucus, UA 10/07/2023 PRESENT (A) NONE^NONE Final RBC 10/07/2023 4 0 - 5 /hpf Final Squamous epithelium 10/07/2023 15 (H) 0 - 5 /hpf Final WBC 10/07/2023 5 0 - 5 /hpf Final Hospital Outpatient Visit on 07/25/2023 Component Date Value Ref Range Status Culture 07/25/2023 >100,000 ORGANISMS/mL ESCHERICHIA COLI (A) Final Hospital Outpatient Visit on 07/16/2023 Component Date Value Ref Range Status Bact. Vaginosis DNA 07/16/2023 Not Detected Not Detected^Not Detected Final Comment: Qualitative results are reported based on detection and quantitation of targeted organism markers which include: Lactobacillus spp. (L. crispatus and L. jensenii), Gardnerella vaginalis, Atopobium vaginae, Bacterial Vaginosis Associated Bacteria-2 (BVAB-2) and Megasphaera-1 Tierra Species DNA 07/16/2023 Not Detected Not Detected^Not Detected Final Comment: Tierra species not detected include: C. albicans, C. tropicalis, C. parapsilosis or C. dubliniensis Tierra Krusei DNA 07/16/2023 Not Detected Not Detected^Not Detected Final No Tierra krusei detected Tierar Glabrata DNA 07/16/2023 Not Detected Not Detected^Not Detected Final No Tierra glabrata detected Trichomonas Vag DNA 07/16/2023 Not Detected Not Detected^Not Detected Final Comment: No Trichomonas vaginalis detected NOTE BD MAX Vaginal Panel has not been evaluated for patients under 18 years old. Results for these patients should be reviewed and assessed in accordance with clinical presentation to determine patient diagnosis. Specimen source 07/16/2023 CERVIX Final Chlamydia DNA PCR 07/16/2023 Negative Negative^Negative Final Comment: Chlamydia trachomatis not detected by nucleic acid amplification. This does not exclude the possibility of infection because results are dependent on adequate specimen collection. Gonorrhea DNA PCR 07/16/2023 Negative Negative^Negative Final Comment: Neisseria gonorrhoeae not detected by nucleic acid amplification. This does not exclude the possibility of infection because results are dependent on adequate specimen collection. Culture 07/16/2023 10-50,000 ORGANISMS/mL NORMAL UROGENITAL VIOLET Final Amphetamine/methamphetamine 07/16/2023 Negative Negative^Negative Final AMPH/METH screening cut off = 1000 ng/mL Barbiturate Screen, Ur 07/16/2023 Negative Negative^Negative Final Barbiturates screening cut off value = 200 ng/mL Benzodiazepine Screen, Urine 07/16/2023 Negative Negative^Negative Final Benzodiazepines screening cut off value = 200 ng/mL THC, urine 07/16/2023 Negative Negative^Negative Final Cannabinoids/THC screening cut off value = 50 ng/mL Cocaine (metabolite) 07/16/2023 Negative Negative^Negative Final Cocaine screening cut off value = 300 ng/mL Opiate Quant, Ur 07/16/2023 Negative Negative^Negative Final Comment: Opiates screening cut off value = 300 ng/mL NOTE: This test is used for the detection of codeine, hydrocodone (>1000 ng/mL), morphine and hydromorphone (>900 ng/mL) in urine. Phencyclidine 07/16/2023 Negative Negative^Negative Final Phencyclidine screening cut off value = 25 ng/mL Oxycodone 07/16/2023 Negative Negative^Negative Final Comment: Oxycodone screening cut off value = 300 ng/mL NOTE: This test is used for the detection of oxycodone and oxymorphone in urine. Ecstasy 07/16/2023 Negative Negative^Negative Final Comment: Ecstasy screening cut off value = 500 ng/mL This report is intended for use in clinical monitoring or management of patients. It is not for use in legal or employment-related testing. Color 07/16/2023 YELLOW YELLOW^YELLOW Final Turbidity 07/16/2023 CLEAR CLEAR^CLEAR Final Specific gravity 07/16/2023 1.014 1.003 - 1.035 Final Nitrite 07/16/2023 Negative Negative^Negative Final Ph urine 07/16/2023 6.0 5.0 - 8.5 Final Leukocyte esterase 07/16/2023 MODERATE (A) Negative^Negative Final Protein 07/16/2023 Negative Negative^Negative mg/dL Final Glucose, Ur 07/16/2023 Negative Negative^Negative mg/dL Final Ketones urine 07/16/2023 Negative Negative^Negative mg/dL Final Urobilinogen 07/16/2023 <1.1 <1.1 eu/dL Final Bilirubin, urine 07/16/2023 Negative Negative^Negative Final Hemoglobin 07/16/2023 Negative Negative^Negative Final Mucus, UA 07/16/2023 PRESENT (A) NONE^NONE Final RBC 07/16/2023 1 0 - 5 /hpf Final Squamous epithelium 07/16/2023 13 (H) 0 - 5 /hpf Final WBC 07/16/2023 8 (H) 0 - 5 /hpf Final Hospital Outpatient Visit on 07/16/2023 Component Date Value Ref Range Status Hb A Percent 07/16/2023 96.4 96.2 - 98.0 % Final Hb F Percent 07/16/2023 0.9 0.0 - 0.9 % Final Hb A2 Percent 07/16/2023 2.7 2.0 - 3.1 % Final Abnormal Hb 07/16/2023 See below No abnormal hemoglobin identified. Final Comment: NOTE No abnormal hemoglobin identified. Test Performed By: [facility] [address] [place] [address] Safety Director: Matias Menchaca III, M.D. IA #[id number]^ T4, free 07/16/2023 0.75 0.61 - 1.60 ng/dL Final Antibody Screen 07/16/2023 NEGATIVE Final ABORh 07/16/2023 A POSITIVE Final Rubella IgG 07/16/2023 72 IU/mL Final Comment: Interpretation-------- <8 NEGATIVE-considered Not Immune 8-9 EQUIVOCAL-consider retesting with new specimen >9 POSITIVE-considered Immune Hemoglobin A1C 07/16/2023 5.1 4.4 - 5.6 % Final Comment: NOTE ADA Guidelines Result HgbA1c Normal : less than 5.7 % Prediabetes : 5.7 % to 6.4 % Diabetes : > 6.4 % Use with caution in patients with abnormal hemoglobin variants as the half-life of red blood cells and in vivo glycation rates are affected. Average glucose 07/16/2023 100 mg/dL Final Varicella IgG 07/16/2023 0.7 <0.9 AI Final Comment: Interpretation-------- <0.9 Negative 0.9 - 1.0 Equivocal >1.0 Positive HIV 1&2 AB/AG 07/16/2023 Non-Reactive Non-Reactive^Non-Reactive Final Comment: This information has been disclosed to you from confidential records protected from disclosure by state law. You shall make no further disclosure of this information without the specific, written and informed release of the individual to whom it pertains, or as otherwise permitted by state law. A general authorization for the release of medical or other information is not sufficient for the purpose of the release of HIV test results or diagnoses. TSH 07/16/2023 0.67 0.49 - 4.67 uIU/mL Final Hepatitis B Surface Ag 07/16/2023 Negative Negative^Negative Final Glucose 07/16/2023 90 65 - 99 mg/dL Final Syphilis Total 07/16/2023 >8.0 (H) 0.0 - 0.8 AI Final Comment: REACTIVE This specimen will be sent to a reference lab for additional testing which includes RPR with reflex to TP-PA if RPR is negative. The RPR will help distinguish between infections with T.pallidum (syphilis) versus a falsely reactive treponemal antibody result. Please see the syphilis testing algorithm link below for more information. [email or web address] White Blood Cells 07/16/2023 9.3 4.0 - 11.0 X10E9/L Final RBC count 07/16/2023 4.18 3.80 - 5.20 X10E12/L Final Hemoglobin 07/16/2023 13.4 11.7 - 15.5 g/dL Final Hematocrit 07/16/2023 39.1 35 - 47 % Final MCV 07/16/2023 93 80 - 100 fL Final MCH 07/16/2023 31.9 27 - 34 pg Final MCHC 07/16/2023 34.2 32 - 36 g/dL Final RDW 07/16/2023 12.0 11.5 - 15.0 % Final Platelets 07/16/2023 256 150 - 450 X10E9/L Final MPV 07/16/2023 9.1 7 - 12 fL Final % neutrophils 07/16/2023 70.4 % Final % lymphocytes 07/16/2023 20.3 % Final % monocytes 07/16/2023 7.8 % Final % eosinophils 07/16/2023 1.3 % Final % Basophils 07/16/2023 0.2 % Final Neutrophils Absolute (A) 07/16/2023 6.6 1.5 - 6.6 X10E9/L Final Lymphocytes Absolute 07/16/2023 1.9 1.0 - 3.5 X10E9/L Final Monocytes Absolute 07/16/2023 0.7 0 - 0.9 X10E9/L Final Eosinophils Absolute 07/16/2023 0.1 0.0 - 0.4 X10E9/L Final Basophils Absolute 07/16/2023 0.0 0.0 - 0.2 X10E9/L Final ABORh 07/16/2023 A POSITIVE Final Anti HCV w/ PCR reflex 07/16/2023 Non-Reactive Non-Reactive^Non-Reactive Final Comment: If recent infection suspected, recommend repeat testing (>2 months). Eshrsi-qw-cphezs ratio is <0.80. RPR with Reflex to RTPPA 07/16/2023 Negative Negative Final Comment: NOTE Non-treponemal antibodies not detected. Testing on a new specimen collected in 2-3 weeks is recommended if acute infection is suspected. Sample reflexed for detection of Treponema pallidum specific antibodies by the Treponema pallidum particle agglutination (TP-PA) assay. For additional information on interpretation of the syphilis reverse algorithm and results, see: [email or web address] [email or web address] Test Performed by: [place] [address] Molecular Genetic Pathologist: Williams Joyce M.D. Ph.D.; CLIA# [id number] CLIA ID [id number] HGB Phoresis Interpretation 07/16/2023 See below Final Comment: NOTE Hemoglobins were analyzed by capillary electrophoresis. There is a normal hemoglobin capillary electrophoresis pattern. Alpha thalassemia trait is not excluded by the testing performed. Suggest correlation with clinical information, red blood cell indices and serum ferritin test results, if applicable. Staff review 07/16/2023 See below Final Comment: NOTE Reviewed by Sommer Garcia MD Test Performed By: [place] [address] Safety Director: Matias Menchaca III, M.D. CLIA #[id number]^ T.pallidum 07/16/2023 SEE COMMENTS 07/19/2023 12:59 PM (A) Final Comment: NOTE Test Result Flag Unit RefValue -- Syphilis Ab, TP-PA, S Positive A Negative Treponemal antibodies detected, consistent with previously treated syphilis, potentially early syphilis infection or latent disease. Clinical correlation to distinguish between these scenarios is required. For additional information on interpretation of the syphilis reverse algorithm and results, see: [email or web address] [email or web address] Test Performed by: [facility] [address] [place] [address] Molecular Genetic Pathologist: Williams Joyce M.D. Ph.D.; CLIA# [id number] Hospital Outpatient Visit on 06/27/2023 Component Date Value Ref Range Status Hpv specimen type 06/27/2023 ThinPrep Final Hpv 16 06/27/2023 Negative Negative^Negative Final Hpv 18 06/27/2023 Negative Negative^Negative Final Other high risk hpv 06/27/2023 Positive (A) Negative^Negative Final Comment: For the DNA of any or combination of the following HPV types: 31,33,35,45, 52,56,58,59,66 and 68. Ultrasound findings Pertinent Ultrasound findings are see report. Assessment/Plan 38 y.o. @ at 21w6d with Estimated Date of Delivery: 02/28/24 here for consultation regardin. 21 weeks gestation of - polyethylene glycol (MIRALAX) 17 gram/dose powder; Take 17 g by mouth in the morning for 120 days. Dispense: 510 g; Refill: 3 - senna (SENOKOT) 8.6 mg tablet; Take 1 tablet (8.6 mg total) by mouth as needed for constipation for up to 5 doses. Dispense: 5 tablet; Refill: 0 - Ultrasound abdomen limited; Future - [facility] - [place], [place]; Future - RPR Therapy Response(Previous Positive Screen); Future - ECG 12 lead; Future - Echo complete W/O contrast; Future 2. Multigravida of advanced maternal age in second trimester - ECG 12 lead; Future - Echo complete W/O contrast; Future The patient was informed of the associated increased risk in obstetric morbidities such as feteal aneuploidy, placental abruption, delivery and preeclampsia in the setting of advanced maternal age. Available epidemiologic evidence demonstrates that women > 35 and particularly >/= 40 have an increased risk of unexplained stillbirth. Would recommend also baseline maternal echocardiogram and EKG for patient >=40. At age 38 y.o. Ms. Meka Brennan's age based aneuploidy risks are: The risk of trisomy 21 (Down syndrome) is 1:86 The risk of trisomy 18 (Edward syndrome) is 1:336 The risk for any chromosomal abnormality is 1:39 Reviewed aneuploidy testing that could be performed during . I explained that definitive testing can be obtained by an amniocentesis, which has a 1/800 risk of loss. We also discussed noninvasive screening via cell free DNA testing and its limitations. Declined amniocentesis and desires evaluation if needed 3. 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 - RPR Therapy Response(Previous Positive Screen); Future The patient tested positive syphilis in the 1st trimester and she received 3 doses of penicillin. Her partner was tested negative and received 1 dose of penicillin. We reviewed syphilis in . All women should be screened serologically for syphilis at the first care visit. women with positive treponemal screening tests (e.g., EIA, ZEHRA, or immunoblot) should have additional quantitative nontreponemal testing because titers are essential for monitoring treatment response. Serologic testing should also be performed twice during the third trimester: at 28 weeks gestation and at delivery for women who live in communities with high rates of syphilis and for women who have been at risk for syphilis acquisition during . Failure to detect or adequately treat maternal disease often results in serious sequelae for the fetus and . Penicillin remains the gold standard for the treatment of syphilis in both and non patients. Penicillin desensitization is indicated for infected women with documented penicillin allergy. Diagnostic evaluation for syphilis is the same in and non women. A diagnosis of syphilis is made when both nontreponemal and treponemal tests are reactive. Penicillin G benzathine therapy is effective for treating maternal disease, preventing transmission to the fetus, and treating established disease. The appropriate penicillin G benzathine regimen depends on the stage of disease. Primary, secondary, or early latent disease: a single dose of penicillin G benzathine 2.4 million units intramuscularly. Some clinicians administer an additional dose of penicillin G benzathine 2.4 million units one week after the first dose. Late latent, tertiary, and disease of unknown duration: three doses of penicillin G benzathine 2.4 million unit intramuscularly at weekly intervals. If a dose is missed for more than 14 days, the full three dose course of therapy should be started again. If an asymptomatic patient with what could be latent syphilis was previously treated for syphilis but receipt of an appropriate treatment regimen cannot be verified, the full three-dose penicillin regimen recommended for late latent syphilis should be administered. We recommend desensitization for penicillin-allergic patients followed by penicillin G benzathine therapy. Alternative drugs are not as safe for the woman or fetus or not as effective for prevention of congenital syphilis. Treatment of syphilis may precipitate the Jarisch-Herxheimer reaction, which may precipitate uterine contractions, labor, and/or nonreassuring heart rate tracing in women treated in the second half of . Women treated for early syphilis should have a titer checked just before treatment, since it is not uncommon for this titer to be higher than that of the initial diagnostic titer due to elapsed time between diagnosis and therapy. The subsequent frequency of monitoring is the same as in non patients and depends upon the stage of disease and presence of HIV coinfection. When monitoring nontreponemal titers, the same test, preferably the rapid plasmin regain (RPR), should be performed each time and at the same laboratory. A majority of women will not achieve a fourfold decrease in titers before delivery, although this does not indicate treatment failure. However, a fourfold increase in titer after treatment (e.g., from 1:8 to 1:32) that is sustained for >2 weeks is concerning for reinfection or treatment failure. Nontreponemal titers can increase immediately after treatment, presumably related to the treatment response. Therefore, unless symptoms and signs exist of primary or secondary syphilis, follow-up titer should not be repeated until approximately 8 weeks after treatment. Inadequate maternal treatment is likely if delivery occurs within 30 days of therapy, clinical signs of infection are present at delivery, or the maternal antibody titer at delivery is fourfold higher than the pretreatment titer.A fourfold increase in the nontreponemal titer after treatment is always abnormal. A fall in maternal titers does not guarantee that treatment has been adequate. The patient that recently due to the rising pandemic of syphilis in the [place] some experts field recommending titers every 4 weeks in . serofast. Frequent testing of titers allows early identification of inappropriate titer decline, such as titer plateau or slowly rising titers, evenwithout a 4-fold rise (defined as a clinically significant titer rise), and thus earlier evaluation and retreatment if deemed clinically appropriate. It is true that there is no evidence to prove that this approach is superior to checking titers at the appropriate follow-up christopher defined by the CDC per above criteria. The patient desires to have her titers checked every 4 weeks The frequency of vertical transmission is higher with early stage than late stage syphilis. Among women who acquire syphilis during , the risk of vertical transmission increases with increasing gestational age at acquisition of maternal infection. infection should be suspected if there are characteristic findings on ultrasound examination after 20 weeks of gestation in a woman with untreated or inadequately treated syphilis. Hepatomegaly and placentomegaly are early sonographic findings suggestive of congenital syphilis. Anemia, ascites, and hydrops occur later in the course of infection. Maternal penicillin G benzathine treatment is curative for infection in most cases. Maternal treatment ?30 days before delivery is a risk factor for congenital infection. An abnormal ultrasound is not diagnostic of infection and a normal ultrasound does not exclude infection. Reviewed with the patient that on ultrasound today there is no sonographic stigmata of syphilis infection but the limitations of the ultrasound were reviewed. The pediatricians we will need to be notified at delivery about the maternal syphilis PMID: [id number] 4. Obesity affecting in second trimester, unspecified obesity type The patient has a BMI of > 40, which is a risk factor for adverse outcomes in . These possible complications including increased risks for miscarriage in the first trimester, congenital anomalies, hypertensive disorders of including preeclampsia, diabetes mellitus, demise, and delivery (with subsequent risks of wound infection, wound complications otherwise, and/or VTE). While we do not recommend weight loss during (inadequate weight gain and weight loss are associated with increased risks of growth restriction or SGA), we discussed the importance of a healthy diet and exercise. Her goal for weight gain throughout gestation should be 11-20 pounds. 5. Anxiety during 6. Depression affecting She is off the Effexor and her mood is stable. Denies suicidal ideations. Reviewed with the patient that she is at risk of depression and close monitoring of her mood is recommended. 7. Constipation, unspecified constipation type - polyethylene glycol (MIRALAX) 17 gram/dose powder; Take 17 g by mouth in the morning for 120 days. Dispense: 510 g; Refill: 3 - senna (SENOKOT) 8.6 mg tablet; Take 1 tablet (8.6 mg total) by mouth as needed for constipation for up to 5 doses. Dispense: 5 tablet; Refill: 0 8. Hernia of abdominal wall - Ultrasound abdomen limited; Future - [facility] - [place], [place]; Future She tells me that she has pain at the hernia site. Denies nausea or vomiting but reports that when she calls there is still a bulge coming. I was not able to physically examined the patient as this is a telehealth visit. I ordered an ultrasound of the abdomen to evaluate the hernia and I referred her back to her surgeons 9. Psoriasis Psoriasis improves during in 40 to 60 percent of patients, worsens in 10 to 20 percent, and remains stable in the remainder. In patients who improve, the degree of improvement can be dramatic. In the period, psoriasis severity remains the same or worsens in most patients. For patients with limited psoriasis (ie, nondebilitating psoriasis that involves less than 5 to 10 percent of the body surface area), topical rather than systemic therapy is suggested. Emollients and moisturizers are useful for reducing bothersome scale. Our first-line medical treatment is a low- to medium-potency topical corticosteroid. Topical tazarotene, methotrexate, and acitretin are contraindicated during . If her symptoms worsened during the , please refer her back for a Maternal- Medicine consultation and recommend also to see a Inspector Structural Bonding. 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 Colposcopy in reviewed. 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 Discussed with the patient that I would recommend that she does not run the chemicals because of her letter provided. Strongly recommended that she continues to wear her appropriate PPE. Recommendations: Continue low-dose aspirin Follow-up with titers. Bowdens for rising titers as per above. The patient desires to have the titers done every 4 weeks. I ordered repeat titers today please follow from then onwards. 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 Continue to monitor mood Plan reviewed with patient. She vocalized understanding all questions answered. The patient is to continue with routine care in your office Thank you for allowing me to participate in her care. Please contact me if you have any concerns. Kamla Lester MD, FACOG (she/hers) Maternal- Medicine [facility] [address] [place] [address] [facility], the CDC, and other organizations representing maternal and public health professionals recommend that , , and lactating people and those considering receive the COVID-19 vaccination. Vaccination is the best method to reduce maternal and complications of SARS-CoV-2 infection. This document was created with [employer] technology. Though I make every effort to review the dictation as it is transcribed, on occasion the spoken word can be misinterpreted by the technology leading to inappropriate words, phrases, or sentences. This note is addressed to the requesting provider as a consultation for clinical guidance. Specific medical abbreviations are occasionally used and those are generally approved by the [place]?Board of?Obstetrics and?Gynecology?as well as?[place] s abbreviations. The above plan of care was based solely on the diagnoses for which a consultation was requested. ?More frequent testing may be indicated based on her other medical/obstetrical conditions. The management of other or medical conditions is beyond the scope of requested consultation and will continue to be followed by the primary mobile unit assistant or primary care provider. Note to patient: The 21st Century Cures Act makes medical notes like these available to patients in the interest of transparency. However, be advised this is a medical document. It is intended as peer to peer communication. It is written in medical language and may contain abbreviations or verbiage that are unfamiliar. It may appear blunt or direct. Medical documents are intended to carry relevant information, facts as evident, and the clinical opinion of the practitioner. Headache/epigastric pain/blurry vision/swelling? Some headaches with her allergies and a pulsing in her ear / denies vision changes or swelling Cramping/contractions? denies Abnormal vaginal discharge? denies Spotting/vaginal bleeding? denies Loss of fluid like your water may have broken? denies Cats in the home? yes Do you change the litter box? No, the kids do Flu vaccine? Received the vaccine this year Genetic testing done this here or other office? yes, [facility] Neg for trisomies per patient, Not on chart, will call for results. Have you been seen here at [facility] in a previous ? no Recent ER visits or hospitalizations? no Bring blood sugar log or meter with you today? (Please bring them with you for every visit at [facility]) Traveled outside the country in the past 6 month no Any concerns that you would like me to mention to the provider today? Patient states she is worried about the chemicals that she uses at her job and her constipation issues with her hernia. Taking Metamucil and Colace BID Labs ordered today per [facility]. Labs drawn on 1st attempt (L) antecubital here in our office at this time without difficulty. Patient tolerated well. documented in this encounter [facility] [employer] 10-14-2023 Miscellaneous Notes Pt states she is experiencing constipation. Pt states she is constantly straining to only have a little bit come out. Pt states she is drinking approximately 4 48oz bottles of water daily. Pt states she has tried Prune juice and Metamucil with no relief. Please advise. Thank you RX for colace sent to pharmacy Advised Pt of RX sent to Pharmacy. documented in this encounter [facility] [place] 10-14-2023 Telephone encounter Note Pt states she is experiencing constipation. Pt states she is constantly straining to only have a little bit come out. Pt states she is drinking approximately 4 48oz bottles of water daily. Pt states she has tried Prune juice and Metamucil with no relief. Please advise. Thank you [facility] 10-14-2023 Telephone encounter Note RX for colace sent to pharmacy [facility] 10-14-2023 Telephone encounter Note Advised Pt of RX sent to Pharmacy. [facility] 10-07-2023 History of Presen t illness Narrative 38 y.o. at 19w3d. No CTX, VB, LOF. positive FM. Pt. Reports sneezing and nasal congestion despite taking claritin daily and flonase occasionally. 1. Survey US ordered with M consult for AMA, positive syphilis 2. Discussed can use OTC benadryl instead of claritin and doxyalamine, use of cool mist humidifier, reduction in environmental triggers, I.e. pet hair, use of hepa filter. Also discussed it is a common discomfort of 3. Answered all questions 4. Urine culture sent for RODOLFO 5. Discussed testing beginning at 32wks for AMA, Obesity 6. Return 4 wks. [facility] 10/07/23 1242 documented in this encounter [facility] 10-07-2023 Miscellaneous Notes Addended by: LEROY ANN on: 10/07/2023 12:55 PM Modules accepted: [facility] 10-07-2023 Note Addended by: LEROY ANN on: 10/07/2023 12:55 PM Modules accepted: [facility] 01-14-2023 Note Entered by Nirali Bingham on January 14, 2023 08:38:33 EDT From: Aarti Bingham To: [facility]/pharmacy #[id number] Sent: 01/14/2023 08:38:33 EDT Subject: Medication Management Submitted: Complete:venlafaxine (venlafaxine 75 mg oral capsule, extended release) Signed by Aarti Bingham 01/14/2023 08:38:00 EDT Approved venlafaxine (VENLAFAXINE HCL ER 75 MG CAP) TAKE 1 CAPSULE BY MOUTH EVERY DAY Qty: 30 cap(s) Days Supply: 30 Refills: 5 Substitutions Allowed Route To Pharmacy - [facility]/pharmacy #[id number] Signed by Aarti Bingham From: [facility] STORE [id number] To: Jesus Duran MD Sent: January 12, 2023 6:47:36 AM CDT Subject: Medication Management Due: January 13, 2023 6:45:46 AM CDT On Hold Pending Signature Dispensed Drug: venlafaxine (venlafaxine 75 mg oral capsule, extended release), TAKE 1 CAPSULE BY MOUTH EVERY DAY Quantity: 30 cap(s) Days Supply: 30 Refills: 5 Substitutions Allowed Notes from Pharmacy: [facility] 07-09-2022 Note Entered by Nirali Bingham on July 09, 2022 07:51:14 EDT From: Aarti Bingham To: [facility]/pharmacy #[id number] Sent: 07/09/2022 07:51:14 EDT Subject: Medication Management Submitted: Complete:venlafaxine (venlafaxine 75 mg oral capsule, extended release) Signed by Aarti Bingham 07/09/2022 07:51:00 EDT Approved with modifications: venlafaxine (VENLAFAXINE HCL ER 75 MG CAP) TAKE 1 CAPSULE BY MOUTH EVERY DAY Qty: 90 cap(s) Days Supply: 90 Refills: 1 Substitutions Allowed Route To Pharmacy - [facility]/pharmacy #[id number] Signed by Aarti Bingham From: [id number] To: Jesus Duran MD Sent: July 08, 2022 7:45:20 AM CDT Subject: Medication Management Due: July 09, 2022 12:25:55 AM CDT On Hold Pending Signature Dispensed Drug: venlafaxine (venlafaxine 75 mg oral capsule, extended release), TAKE 1 CAPSULE BY MOUTH EVERY DAY Quantity: 90 cap(s) Days Supply: 90 Refills: 2 Substitutions Allowed Notes from Pharmacy: [facility] Evaluation note Diagnosis with 19 completed weeks gestation- Primary Multigravida of advanced maternal age in second trimester UTI (urinary tract infection) during , first trimester documented [facility] encounter [facility] Diagnosis Constipation during in second trimester- Primary [facility] in [facility]* Diagnosis 21 weeks gestation of - Primary Multigravida of advanced maternal age in second trimester 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 Obesity affecting in second trimester, unspecified obesity type Anxiety during Depression affecting Constipation, unspecified constipation type Hernia of abdominal wall Unspecified ventral hernia without mention of obstruction or gangrene Psoriasis Other psoriasis 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 [facility] Diagnosis Multigravida of advanced maternal age in second trimester- Primary Obesity affecting in second trimester, unspecified obesity type [facility] Diagnosis 23 weeks gestation of - Primary care in third trimester documented in this encounter [facility] filedocumented in this encounter [facility]ructionsNot on filedocumented in this encounter [facility]* Attachments The following attachments cannot be sent through Care Everywhere. * Movement (Danish) * Preeclampsia (Danish) [facility] SystemInstructionsNot on file documented in this [facility] SystemInstructionsNot on file documented in this [facility] SystemInstructionsNot on file [facility] in [facility] Purpose Family History No Family History Records FoundNo Family History Records FoundNo Family History Records FoundNo Family History Records FoundNo Family History Records FoundNo Family History Records FoundNo Family History Records Found Advance Directives No Advanced Directives Records FoundNo Advanced Directives Records FoundNo Advanced Directives Records FoundNo Advanced Directives Records FoundNo Advanced Directives Records FoundNo Advanced Directives Records FoundNo Advanced Directives Records Found Reason for Referral Specialty Diagnoses / Procedures Referred By Contac t Referred To Contact Maternal and Medicine Diagnoses Multigravida of advanced maternal age in second trimester Procedures [facility] with or without consult Kenna Bejarano, [employer] [address] [place] [address] [facility] Maternal [facility] [address] [facility] [place] [address] Referral ID Status Reason Start Date Expiration Date V isits Requested Visits Authorized [id number] Pending Review 10/07/2023 10/06/2024 1 1 Specialty Diagnoses / Procedures Referred By Contac t Referred To Contact Diagnoses 21 weeks gestation of Multigravida of advanced maternal age in second trimester Procedures Echo complete W/O contrast Kamla Lester MD [address], [address] [place] [id number] Referral ID Status Reason Start Date Expiration Date V isits Requested Visits Authorized [id number] Pending Review 10/24/2023 10/23/2024 1 1 Specialty Diagnoses / Procedures Referred By Contac t Referred To Contact Diagnoses 21 weeks gestation of Multigravida of advanced maternal age in second trimester Procedures ECG 12 lead Kamla Lester MD [address], [address] [place] [id number] Referral ID Status Reason Start Date Expiration Date V isits Requested Visits Authorized [id number] Pending Review 10/24/2023 10/23/2024 1 1 Specialty Diagnoses / Procedures Referred By Contac t Referred To Contact General Surgery Diagnoses 21 weeks gestation of Hernia of abdominal wall Kamla Lester MD [address], [address] [place] [id number] [facility] Gen Surg Grillis [address] [place] [address] Referral ID Status Reason Start Date Expiration Date Visits Requested Visits Authorized [id number] Pending Review Specialty Services Required 10/24/2023 10/23/2024 1 1 Specialty Diagnoses / Procedures Referred By Contac t Referred To Contact Maternal and Medicine Diagnoses Multigravida of advanced maternal age in second trimester Obesity affecting in second trimester, unspecified obesity type Procedures US MFM with or without consult Kamla Lester MD [address], [address] [place] [id number] [facility] Maternal Med [address] [place] [address] Referral ID Status Reason Start Date Expiration Date V isits Requested Visits Authorized [id number] Pending Review 10/24/2023 10/23/2024 1 1 Additional Source Comments INFORMATION SOURCE (unrecogn ized section and content) DATE CREATED AUTHOR 03/07/2018 [facility] DATE CREATED AUTHOR AUTHOR'S ORGANIZ ATION 01/29/2023 [facility] DATE CREATED AUTHOR AUTHOR'S ORGANIZ ATION 06/22/2023 [facility] DATE CREATED AUTHOR AUTHOR'S ORGANIZ ATION 10/30/2023 [facility] DATE CREATED AUTHOR AUTHOR'S ORGANIZ ATION 11/22/2023 [facility] DATE CREATED AUTHOR AUTHOR'S ORGANIZ ATION 01/10/2024 [facility] EPIC DATE CREATED AUTHOR AUTHOR'S ORGANIZ ATION 01/15/2024 [facility] Care Teams (unrecognized sec tion and content) 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 [employer] Relationship Specialty Start Date End Date Services, [facility] [address] PCP - General Family Medicine 03/25/23 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 [employer] Relationship Specialty Start Date End Date Services, [facility] [address], [place] PCP - General Family Medicine 03/25/23 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[employer] Relationship Specialty Start Date End Date Services, [facility] [address] PCP - General Family Medicine 03/25/23 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[employer] Relationship Specialty Start Date End Date Services, [facility] [address] PCP - General Family Medicine 03/25/23 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[employer] Relationship 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 Start Date End Date Services, [facility] [address] PCP - General Family Medicine 03/25/23 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[employer] Relationship Specialty Start Date End Date Services, [facility] [address] PCP - General Family Medicine 03/25/23 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 This clinical summary was aggregated from multiple sources. Caution should be exercised in using it in the provision of clinical care. This summary normalizes information from multiple sources, and as a consequence, information in this document may materially change the coding, format and clinical context of patient data. In addition, data may be omitted in some cases. CLINICAL DECISIONS SHOULD BE BASED ON THE PRIMARY CLINICAL RECORDS. [facility] [employer] [facility]. provides no warranty or guarantee of the accuracy or completeness of information in this document.
[2024-01-20 18:06] VITALS: BP 118/78; PULSE 81
== END 2024-01-20 18:45 | disposition home or self-care (01) ==
LOC: FBCO 07:03 → FBC 18:00
PROVIDERS: PCP Family Medicine; Visit Provider Obstetrics & Gynecology
DX: O09.529 Supervision of elderly multigravida, unspecified trimester (principal)
CPT/HCPCS: 59025

== ENCOUNTER 2024-01-23 07:30 | Outpatient (OUT) | payer BC, MEDICAID, SELFPAY ==
--- OUTSIDE RECORDS SUMMARY | 2024-01-23 07:51 | XMS_ITS | CCD ---
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 Name Role Phone JAILENEJuan, ANJALI Unavailable Unavailable KARASIK, ANJALI Unavailable Unavailable KARASIK, ANJALI Unavailable Unavailable KARASIK, ANJALI Unavailable Unavailable KARASIK, ANJALI Unavailable Unavailable KARASIK, ANJALI Unavailable Unavailable Jesus Duran M Primary Care Unavailable Jesus Duran Attending Unavailable José Miguel Estes Admitting Unavailable Royce Charles Attending Unavailable Jesus Duran Primary Care Unavailable Ramiro Abarca Consulting Unavailable Services, [facility] Primary Care Provider KENNA BEJARANO Referring Unavailable SERVICES, [facility] Care Unava ilable DOCHEVA, NIKOLINA P Referring Unavailable SERVICES, [facility] Care Unava ilable AYANA LUND Attending Unavailable SERVICES, [facility] Unava ilable DOCHEVA, NIKOLINA P Referring Unavailable SERVICES, [facility] Unava ilable SERVICES, [facility] Care Unava ilable KENNA BEJARANO Referring Unavailable SERVICES, [facility] Care Unava ilable DOCHEVA, NIKOLINA P Attending Unavailable SERVICES, [facility] Care Unava ilable SERVICES, [facility] Primary Care Unava ilable JAH CARRANZA Attending Unavailable DAVID, JAH Attending Unavailable JAH CARRANZA Referring Unavailable SERVICES, [facility] Unava ilable DOCHEVA, NIKOLINA P Referring Unavailable SERVICES, [facility] Care Unava ilable DOCHEVA, NIKOLINA P Referring Unavailable SERVICES, [facility] Unava ilable Allergies Allergy Classification Reported Allergen(s) Allergy Type Date of Onset Reaction(s) Facility (1 source) No Known Medication Allergies; Translations: [No Known Medication Allergies] Propensity to adverse reactions to drug (disorder) [facility] Repository (2 sources) Penicillins; Translations: [PENICILLINS] Drug allergy (disorder) 8 [facility] Repository Medications Current Medications Medication Drug [...] nightly. 0 09/30/2023 Active polyethylene glycol 3350 55232 mg powder for oral solution (4 sources) [...] bedtime. 120 tablet 1 09/10/2023 Active sennosides, group home 8.6 mg oral tablet (4 sources) Start: [...] the patient. FINDINGS: In the periumbilical region, learning support aide demonstrates a circumscribed 5.3 x 1.3 x 5.1 cm isoechoic lesion, thought to be related to a fat-containing periumbilical hernia sac seen on CT scan of March 2023. This does not appear to significantly change with Valsalva. Contracting Officer demonstrates potential associated fascial defect measuring approximately [...] Kapoor MD on 10/25/2023 11:30 AM Normal [facility] Reagin Ab RPR Ql (S)on 10-24 RPR SCREEN RESPONSE TO THERAPY, SERUM Negative Normal Negative [facility] Comment on above: Result Comment: NOTE Non-treponemal antibodies not detected. For additional information on interpretation of the syphilis reverse algorithm and results, see: [email or web address] Test Performed by: [facility] - [address] [address] [address] Deputy: Williams Joyce M.D. Ph.D.; CLIA# [id number] URINALYSISon 10-07-2023 Bilirubin Ql (U) Negative Normal NEG [facility] BLOOD/HGB Negative Normal NEG [facility] CA OXALATE CRYSTALS PRESENT Abnormal NONE [facility] Color (U) YELLOW Normal YELLOW [facility] Glucose Ql (U) Negative Normal NEG [facility] Ketones Ql (U) Trace Abnormal NEG [facility] Leukocyte esterase Test strip Ql (U) Small Abnormal NEG [facility] MUCOUS PRESENT Abnormal NONE [facility] Nitrite Ql (U) Negative Normal NEG [facility] pH (U) 6.0 [pH] Normal 5.0-8.5 [facility] Protein Ql (U) Trace Abnormal NEG [facility] R.B.CELLS 4 /hpf Normal 0-5 [facility] Specific gravity (U) [Rel density] 1.023 Normal 1.003-1.035 [facility] SQUAMOUS EPITHELIUM 15 /hpf High 0-5 [facility] TURBIDITY CLEAR Normal CLEAR [facility] Urobilinogen (U) [Mass/Vol] mg/dL Normal <1.1 [facility] W.B.CELLS 5 /hpf Normal 0-5 [facility] URINE CULTUREon 10-07-2023 Bacteria identified Cx Nom (U) CULTURE RESULTS NO GROWTH AT <1000 CFU/mL Normal [facility] Comment on above: Performed By: #### 6 30-4 #### [facility] ([id number]) [address] [place] [address], [address] [place] [address] Urinalysison 10-07-2023 Bilirubin Ql (U) Negative Negative^Ne gat nia [facility] Calcium oxalate crystals LM Ql (Urine sed) PRESENT Abnormal NONE^NONE [facility] Color (U) YELLOW YELLOW^YELLOW [facility] Epithelial cells Auto (Urine sed) [#/Area] 15 High [facility] Glucose (U) [Mass/Vol] Negative Negative^Negat nia mg/dL [facility] Hemoglobin Auto test strip Ql (U) Negative Negative^Negat nia [facility] Interpretation and review of laboratory results Abnormal [facility] Ketones (U) [Mass/Vol] Trace Abnormal Negative^Negat nia mg/dL [facility] Leukocyte esterase Auto test strip Ql (U) Small Abnormal Negative^Negat nia [facility] Mucus Ql (Urine sed) PRESENT Abnormal NONE^NONE [facility] Nitrite Auto test strip Ql (U) Negative Negative^Negat nia [facility] pH (U) 6.0 [pH] 5.0 - 8.5 [facility] Protein (U) [Mass/Vol] Trace Abnormal Negative^Negat nia mg/dL [facility] RBC Auto (Urine sed) [#/Area] 4 [facility] Specific gravity Refractometry automated (U) [Rel density] 1.023 1.003 - 1.035 [facility] Turbidity Ql (U) CLEAR CLEAR^CLEAR [facility] Urobilinogen Qn (U) NINF [facility] WBC Auto (Urine sed) [#/Area] 5 [facility] Outside Recordson 01-16-2023 Outside Records [id number] [facility] PAP RFX HPV IF ASCon 018 COMMENT Comment Normal [facility] Comment on above: Result Comment: [place] Performed By: #### P APHR7 ####[facility] [address] [place] [address] DIAGNOSIS: Comment Normal [facility] Comment on above: Result Comment: NEGA TIVE FOR INTRAEPITHELIAL LESION AND MALIGNANCY. Performed By: #### P APHR7 ####[facility] [address] [place] [address] Cristiane Methodology: BDFP Normal [facility] Comment on above: Result Comment: The TriPath(R) FocalPoint was unable to read and evaluate thisspecimen. Therefore a manual review was performed. Performed By: #### P APHR7 ####[facility] [address] [place] [address] Note: Comment Normal [facility] Comment on above: Result Comment: The Pap smear is a screening test designed to aid in the detection ofpremalignant and malignant conditions of the uterine cervix. It is not adiagnostic procedure and should not be used as the sole means of detectingcervical cancer. Both false-positive and false-negative reports do occur. . Performed By: #### P APHR7 ####[facility] [address] Cristiane Performed by: Comment Normal [facility] Comment on above: Result Comment: Chato Simon, Boot And Shoe Repairman (ASCP) Performed By: #### P APHR7 ####[facility] [address] [place] [address] Cristiane Reflex Criteria: Comment Normal [facility] Comment on above: Result Comment: The HPV DNA reflex criteria were not met with this specimen resulttherefore, no HPV testing was performed. . Performed By: #### P APHR7 ####[facility] [address] [place] [address] Cristiane Specimen adequacy: Comment Normal [facility] Comment on above: Result Comment: Sati sfactory for evaluation. Endocervical and/or squamous metaplasticcells (endocervical component) are present. Performed By: #### P APHR7 ####[facility] [address] [place] [address] Cristiane . . Normal [facility] Comment on above: Performed By: #### P APHR7 ####[facility] [address] [place] [address] Cristiane LAB TESTINGon 05-09-2017 RECV HEADER SEE SCANNED REPORT I N HPF Normal [facility] Comment on above: Performed By: #### M ISC ####[facility] [address] [place] [address] Cristiane REV FROM REF LAB see scanned report Normal [facility] Comment on above: Performed By: #### M ISC ####[facility] [address] [place] [address] Cristiane SENT TO REF LAB see scanned report Normal T [facility] Comment on above: Performed By: #### M ISC ####[facility] [address] [place] [address] Cristiane Vital Signs Date Time Vital Sign Value Performing Clinician Epifanio lema 11-04-2023 11:26-0500 Body mass index (BMI) [Ratio] 41.14 kg/m2 Bethanylashay Hilles GRADE RECORDER-CNM Work Phone: [facility] 11-04-2023 11:26-0500 Body weight 112.13 kg Bethany Maytown GRADE RECORDER-CNM Work Phone: [facility] 11-04-2023 11:26-0500 Diastolic blood pressure 68 mm[Hg] Bethanysameera Garcia GRADE RECORDER-CNM Work Phone: [facility] 11-04-2023 11:26-0500 Systolic blood pressure 120 mm[Hg] Bethany [place]town GRADE RECORDER-CNM Work Phone: [facility] 10-24-2023 10:27-0500 Body height 165.1 cm Kamla Lester MD Work Phone: [facility] 10-24-2023 10:27-0500 Body mass index (BMI) [Ratio] 40.27 kg/m2 Kamla Lester MD Work Phone: [facility] 10-24-2023 10:27-0500 Body weight 109.77 kg Kamla Lester MD Work Phone: [facility] 10-24-2023 10:27-0500 Diastolic blood pressure 78 mm[Hg] Kamla Lester MD Work Phone: [facility] 10-24-2023 10:27-0500 Systolic blood pressure 118 mm[Hg] Kamla Lester MD Work Phone: [facility] 10-07-2023 11:23-0500 Body mass index (BMI) [Ratio] 39.99 kg/m2 Pfws Product Marketing Specialist [facility] 10-07-2023 11:23-0500 Body weight 109 kg Pfws Product Marketing Specialist [facility] 10-07-2023 11:23-0500 Diastolic blood pressure 80 mm[Hg] Pfws Product Marketing Specialist [facility] 10-07-2023 11:0500 Systolic blood pressure 100 mm[Hg] PfNEA [facility] Encounters Encounter Date Encounter Type Care Provider Facility Start: 01-14-2024 End: 01-15-2024 ambulatory [facility] Start: 01-08-2024 End: 01-08-2024 ambulatory JAH ROSSO Not Available Start: 12-17-2023 End: 12-18-2023 ambulatory JAH R. DAVID [facility] Start: 12-03-2023 End: 12-03-2023 ambulatory JAH DAVID Not Available Start: 11-21-2023 End: 11-21-2023 ambulatory [facility] Start: 11-14-2023 Telephone encounter Laila casillas [facility] Start: 11-04-2023 End: 11-04-2023 ambulatory [facility] Start: 11-04-2023 End: 11-04-2023 Subsequent care visit Bethany Garcia GRADE RECORDER-CNM Work Phone: [facility] Comment on above: GA: 23w3d Start: 10-25-2023 End: 10-26-2023 ambulatory [facility] Start: 10-24-2023 End: 10-25-2023 Orders Only Rosalie Weston RN [facility] Comment on above: Multigravida of adva nced maternal age in second trimester (Primary Dx); Obesity affecting in second trimester, unspecified obesity type Start: 10-24-2023 End: 10-24-2023 Office consultation new/estab patient 80 min Kamla Lester MD Work Phone: [facility] [place] Comment on above: 21 weeks gestation o f (Primary Dx); Multigravida of advanced maternal age in second trimester; 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; Obesity affecting in second trimester, unspecified obesity type; Anxiety during ; Depression affecting ; Constipation, unspecified constipation type; Hernia of abdominal wall; Psoriasis; LGSIL on Pap smear of cervix; HPV in female Start: 10-14-2023 Orders Only Ayana Tess Osvaldo GRADE RECORDER-NFL PLAYER Work Phone: [facility] Comment on above: Constipation during in second trimester (Primary Dx) Start: 10-07-2023 End: 10-08-2023 ambulatory [facility] Start: 10-07-2023 End: 10-07-2023 ambulatory [facility] Start: 10-07-2023 End: 10-07-2023 Subsequent care visit [facility] Ob Product Marketing Specialist [facility] Comment on above: GA: 19w3d Start: 09-10-2023 End: 09-10-2023 ambulatory AYANA Tess LUND [facility] Start: 01-28-2023 End: 01-29-2023 ambulatory Jesus Duran Facility:[facility] Start: 09-07-2020 End: 09-10-2020 Evaluation and management of inpatient José Miguel Estes Facility:[facility] Start: 11-01-2017 End: 11-01-2017 Ambulatory ANJALI BOOTHABELJuan Facility: Start: 05-09-2017 End: 05-09-2017 Ambulatory ANJALI KARABELJuan Facility: Procedures Date Procedure Procedure Detail Performing Clinician Start: 06-27-2023 Microscopic observat ion [Identifier] in Cervix by Cyto stain [employer] Product Marketing Specialist Plan of Treatment Date Care Activity Detail Author Start: 06-27-2026 Screening for malignant neoplasm of cervix Pap Smear [facility] Start: 11-04-2024 Adult BMI Screening Adult BMI Screen ing [facility] Start: 11-04-2024 Tobacco Screening Tobacco Screening [facility] Start: 10-24-2024 Adult BMI Screening Adult BMI Screen ing [facility] Start: 10-24-2024 Tobacco Screening Tobacco Screening [facility] Start: 10-24-2024 End: 10-24-2024 US MFM with or without consult US MFM with or without consult Imaging Routine Multigravida of advanced maternal age in second trimester Obesity affecting in second trimester, unspecified obesity type Expected: 10/24/2024 (Approximate), Expires: 10/24/2024 [facility] Work Phone: Comment on above: Expected: 10/24/2024 (Approximate), Expires: 10/24/2024 Start: 10-07-2024 Adult BMI Screening Adult BMI Screen ing [facility] Start: 10-07-2024 Tobacco Screening Tobacco Screening [facility] Start: 12-17-2023 End: 12-17-2023 Patient encounter procedure 12/17/2023 2:45 PM EDT Appointment [facility] - Ul[facility]ound [address] [place] [id number] [facility] Start: 12-02-2023 End: 12-02-2023 Patient encounter procedure 12/02/2023 11:45 AM EDT Routine [facility] [address] [place] [id number] [facility] Start: 11-21-2023 End: 11-21-2023 Patient encounter procedure 11/21/2023 2:15 PM EST Appointment [facility] [place] [address] [place] [address] [facility] [place] Start: 11-04-2023 End: 11-04-2023 Patient encounter procedure 11/04/2023 11:30 AM EST Routine [facility] [address] [place] [address] [facility] Start: 10-25-2023 Subsequent hospital visit by physician 10/25/2023 10:00 AM EST Hospital Encounter [facility] - [facility] [address] [place] [id number] [facility] Start: 10-24-2023 End: 10-24-2024 Echo complete W/O contrast Echo complete W/O contrast Echocardiography Routine 21 weeks gestation of Multigravida of advanced maternal age in second trimester Expected: 10/24/2023, Expires: 10/24/2024 [facility] Comment on above: Expected: 10/24/2023 , Expires: 10/24/2024 Start: 10-24-2023 End: 10-24-2024 US Abdominal wall Ultrasound abdomen limited ADBOMEN WALL Imaging STAT 21 weeks gestation of Hernia of abdominal wall Expected: 10/24/2023, Expires: 10/24/2024 [facility] Comment on above: Expected: 10/24/2023 , Expires: 10/24/2024 Start: 10-24-2023 End: 10-24-2023 Patient encounter procedure [facility] [place] Start: 10-07-2023 End: 10-07-2024 US MFM with or without consult US MFM with or without consult Imaging Routine Multigravida of advanced maternal age in second trimester Expected: 10/07/2023, Expires: 10/07/2024 [facility] Work Phone: Comment on above: Expected: 10/07/2023 , Expires: 10/07/2024 Start: 2002 DTaP,Tdap and Td Vaccines (1 - Tdap) DTaP,Tdap and Td Vaccines (1 - Tdap) [facility] Start: 2001 Adult BMI Follow Up Plan Adult BMI Follow Up Plan [facility] Start: 1995 [facility] End: 10-06-2024 Bacteria identified in Urine by Culture Urine Culture Microbiology Routine UTI (urinary tract infection) during , first trimester 1 Occurrences starting 10/07/2023 until 10/06/2024 [facility] Comment on above: 1 Occurrences starti ng 10/07/2023 until 10/06/2024 Bacteria identified in Urine by Culture Urine Culture Microbiology Routine UTI (urinary tract infection) during , first trimester 10/07/2023 8:25 PM EST [facility] End: 11-04-2024 CBC W Auto Differential panel - Blood CBC auto differential Lab Routine care in third trimester 1 Occurrences starting 11/04/2023 until 11/04/2024 [facility] Comment on above: 1 Occurrences starti ng 11/04/2023 until 11/04/2024 End: 10-24-2024 ECG 12 lead ECG 12 lead ECG Routine 21 weeks gestation of Multigravida of advanced maternal age in second trimester 1 Occurrences starting 10/24/2023 until 10/24/2024 [facility] Comment on above: 1 Occurrences starti ng 10/24/2023 until 10/24/2024 End: 11-04-2024 Glucose 1h post 50g load Glucose 1h post 50g load Lab Routine care in third trimester 1 Occurrences starting 11/04/2023 until 11/04/2024 [employer] Work Phone: Comment on above: 1 Occurrences starti ng 11/04/2023 until 11/04/2024 Reagin Ab [Presence] in Serum by RPR RPR Screen Response to Therapy, Serum Lab Routine 21 weeks gestation of 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 10/24/2023 7:10 PM EST [facility] End: 10-24-2024 RPR Therapy Response(Previous Positive Screen) RPR Therapy Response(Previous Positive Screen) Lab Routine 21 weeks gestation of 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 1 Occurrences starting 10/24/2023 until 10/24/2024 [employer] Work Phone: Comment on above: 1 Occurrences starti ng 10/24/2023 until 10/24/2024 End: 11-04-2024 Syphilis Total(Unknown Syphilis Status) Syphilis Total(Unknown Syphilis Status) Lab Routine care in third trimester 1 Occurrences starting 11/04/2023 until 11/04/2024 [facility] Comment on above: 1 Occurrences starti ng 11/04/2023 until 11/04/2024 Payers Date Payer Category Payer Medicaid [employer] MEDICAID [facility] MEDICAID [id number] 2023-Present [address] [place] [address] [id number] 2023 Medicaid [id number] 2023 Unknown [employer] BLUE ACCE SS (PPO) [id number] 2023-Present [phone] [address] [place] [address] [id number] 2023 Unknown [id number] 2020 Self-pay 2019 Unknown [id number] 1983 Unknown [id number] 1983 Unknown [id number] [id number] 1983 Unknown [id number] [id number] 1983 Unknown [id number] [id number] 1983 Unknown [id number] 2.840.1.402200.3.579.2.128 1983 Unknown [id number] 2.840.1.683270.3.579.2.128 1983 Unknown [id number] 2.840.1.456790.3.579.2.128 1983 Unknown [id number] 2.840.1.033706.3.579.2.128 1983 Unknown [id number] [id number] 1983 Unknown [id number] 2.840.1.363542.3.579.2.1259 1983 Unknown [id number] 2.840.1.540875.3.579.2.128 1983 Unknown [id number] [id number] 1983 Unknown [id number] [id number] 1959 Unknown [id number] Unknown [id number] Social History Date Type Detail Facility Start: 09-10-2023 Tobacco smoking stat us [facility]IS Ex-smoker [facility] End: 06-16-2023 History of tobacco use Current smoker [facility] End: 06-16-2023 History of tobacco use Cigarette Smoker [facility] Start: 09-10-2023 Tobacco use and exposure Smokeless tobacco non-user [facility] Start: 10-07-2023 End: 11-04-2023 Alcohol intake Ex-drinker (finding) [facility] Start: 10-27-2020 End: 10-07-2023 History of Social function [facility] Start: 10-27-2020 End: 10-07-2023 Tobacco use panel [facility] Adolescent depressio n screening assessment 0 [facility] Start: 03-25-2023 Tobacco Comment quit a year an d a half ago [facility] Start: 06-07-2020 Alcohol Comment 2 days a week [facility] Start: 06-07-2023 [facility] Start: 1985 Sex Assigned At Not on file P [facility] Medical Equipment Procedure Code Equipment Code Equipment Origin al Text Equipment Identifier Dates Mesh Pco Vntrl P tch 4.6cm Rpl [id number] - Sna - [id number] Start: 07-01-2020 Clinical Notes 07-09-2022 to [...] Cece talked to the patient at her [facility] ultrasound appt today. Patient confirmed to Cece that she is transferring care to Dr. Carranza. Cece cancelled the scheduled appointment with our office. documented in this encounter [facility] 11-14-2023 Telephone encounter Note Received a record [...] a message for the patient. [facility] 11-14-2023 Telephone encounter Note Cece talked to the patient at her [facility] ultrasound appt today. Patient confirmed to Cece that she is transferring care to Dr. Carranza. Cece cancelled the scheduled appointment with our office. [facility] 11-04-2023 History of Presen t illness Narrative [...] [id number] documented in this encounter [facility] 10-24-2023 History of Presen t illness Narrative Images from the original note were not included. Video Visit via Real-time Synchronous Audiovisual Provider Location: [facility]- MEDICINE [address], [address] [place] [address] Patient Location: [facility] Patient Location Senior Marketing Coordinator: None Video Visit Consent Statement: I discussed [...] that there are some limitations compared to yzzu-tp-eale evaluations. We elected to proceed. [facility] Maternal- Medicine Consult Note Reason For Consult: [...] was told low risk cell free DNA Martin. 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 albicans, C. tropicalis, C. parapsilosis or C. dubliniensis Tierra Krusei DNA 07/16/2023 Not Detected Not Detected^Not Detected Final No Tierra krusei detected Tierra Glabrata DNA 07/16/2023 Not Detected Not Detected^Not [...] No abnormal hemoglobin identified. Test Performed By: [facility] [address] [place] [address] Linotypist: Matias Menchaca III, M.D. IA #[id number]^ T4, free 07/16/2023 0.75 0.61 - 1.60 [...] testing algorithm link below for more information. [email or web address] White Blood Cells 07/16/2023 9.3 4.0 [...] infection suspected, recommend repeat testing (>2 months). Ripcbu-rq-fbhdao ratio is <0.80. RPR with Reflex to [...] the syphilis reverse algorithm and results, see: [email or web address] [email or web address] Test Performed by: [place] [address] Court Deputy: Williams Joyce M.D. Ph.D.; CLIA# [id number] CLIA ID [id number] HGB Phoresis Interpretation 07/16/2023 See below Final [...] by Sommer Garcia MD Test Performed By: [place] [address] Linotypist: Matias Menchaca III, M.D. CLIA #[id number]^ T.pallidum 07/16/2023 SEE COMMENTS 07/19/2023 12:59 PM (A) Final Comment: NOTE Test Result Flag Unit RefValue -- Syphilis Ab, TP-PA, S Positive A Negative Treponemal antibodies detected, consistent with previously treated syphilis, potentially early syphilis infection or latent disease. Clinical correlation to distinguish between these scenarios is required. For additional information on interpretation of the syphilis reverse algorithm and results, see: [email or web address] [email or web address].pdf Test Performed by: [facility] [address] [place] [address] Court Deputy: Williams Joyce M.D. Ph.D.; CLIA# [id number] Hospital Outpatient Visit on 06/27/2023 Component Date [...] Ultrasound abdomen limited; Future - [facility] [place], [place]; Future - RPR Therapy Response(Previous Positive [...] at delivery about the maternal syphilis PMID: [id number] 4. Obesity affecting in second trimester, unspecified [...] Future - [facility] [place], [place]; Future She tells me that she [...] consultation and recommend also to see a Career Technical Counselor. 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 Colposcopy in reviewed. 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 Discussed with the patient that I would recommend that she does not run the chemicals because of her letter provided. Strongly recommended that she continues to wear her appropriate PPE. Recommendations: Continue low-dose aspirin Follow-up with titers. [place] for rising titers as per above. The patient desires to have the titers done every 4 weeks. I ordered repeat titers today please follow from then onwards. Follow-up with the Health Department and recommend communication, testing and treatment of partner to avoid reinfection Serial growth assessments every 4 weeks after the anatomy scan through [facility] testing to be initiated at 32 weeks weekly with twice weekly testing at 36 weeks and weekly DVP (to be done at OB office) Delivery at 39 weeks due to advanced maternal age and obesity, sooner if clinically indicated Vaginal delivery preferred reserved section for routine indications Rv Repairer should be notified about the syphilis in [...] Kamla Lester MD, FACOG (she/hers) Maternal- Medicine [facility] [address] [facility] 1st [place] [address] [facility], the CDC, and other organizations representing maternal and public health professionals recommend that , , and lactating people and those considering receive the COVID-19 vaccination. Vaccination is the best method to reduce maternal and complications of SARS-CoV-2 infection. This document was created with IDMission technology. Though I make every effort to review the dictation as it is transcribed, on occasion the spoken word can be misinterpreted by the technology leading to inappropriate words, phrases, or sentences. This note is addressed to the requesting provider as a consultation for clinical guidance. Specific medical abbreviations are occasionally used and those are generally approved by the [place]?Board of?Obstetrics and?Gynecology?as well as?Moncho s abbreviations. The above plan of care was based solely on the diagnoses for which a consultation was requested. ?More frequent testing may be indicated based on her other medical/obstetrical conditions. The management of other or medical conditions is beyond the scope of requested consultation and will continue to be followed by the primary plumbing mechanic or primary care provider. Note to patient: [...] done this here or other office? yes, Martin testing Neg for trisomies per patient, Not on chart, will call for results. Have you been seen here at [facility] in a previous ? no Recent ER visits or hospitalizations? no Bring blood sugar log or meter with you today? (Please bring them with you for every visit at [facility]) Traveled outside the country in the past 6 month no Any concerns that you would like me to mention to the provider today? Patient states she is worried about the chemicals that she uses at her job and her constipation issues with her hernia. Taking Metamucil and Colace BID Labs ordered today per [facility]. Labs drawn on 1st attempt (L) antecubital here in our office at this time without difficulty. Patient tolerated well. documented in this encounter [facility] 10-14-2023 Miscellaneous Notes Pt states she is [...] Pharmacy. documented in this encounter [facility] 10-14-2023 Telephone encounter Note Pt states she is experiencing constipation. Pt states she is constantly straining to only have a little bit come out. Pt states she is drinking approximately 4 48oz bottles of water daily. Pt states she has tried Prune juice and Metamucil with no relief. Please advise. Thank you [facility] 10-14-2023 Telephone encounter Note RX for colace sent to pharmacy [facility] 10-14-2023 Telephone encounter Note Advised Pt of RX sent to Pharmacy. [facility] 10-07-2023 History of Presen t illness Narrative [...] 1242 documented in this encounter [facility] 10-07-2023 Miscellaneous Notes Addended by: LEROY ANN on: 10/07/2023 12:55 PM Modules accepted: Orders [facility] 10-07-2023 Note Addended by: LEROY ANN on: 10/07/2023 12:55 PM Modules accepted: [facility] 01-14-2023 Note Entered by Nirali Bingham on January 14, 2023 08:38:33 EDT From: Aarti Bingham To: [facility]/pharmacy #[id number] Sent: 01/14/2023 08:38:33 EDT Subject: Medication Management Submitted: Complete:venlafaxine (venlafaxine 75 mg oral capsule, extended release) Signed by Aarti Bingham 01/14/2023 08:38:00 EDT Approved venlafaxine (VENLAFAXINE HCL ER 75 MG CAP) TAKE 1 CAPSULE BY MOUTH EVERY DAY Qty: 30 cap(s) Days Supply: 30 Refills: 5 Substitutions Allowed Route To Pharmacy - [facility]/pharmacy #[id number] Signed by Aarti Bingham From: [id number] To: Jesus Duran MD Sent: January 12, 2023 6:47:36 AM CDT Subject: Medication Management Due: January 13, 2023 6:45:46 AM CDT On Hold Pending Signature Dispensed Drug: venlafaxine (venlafaxine 75 mg oral capsule, extended release), TAKE 1 CAPSULE BY MOUTH EVERY DAY Quantity: 30 cap(s) Days Supply: 30 Refills: 5 Substitutions Allowed Notes from Pharmacy: [facility] 07-09-2022 Note Entered by Nirali Bingham on July 09, 2022 07:51:14 EDT From: Aarti Bingham To: [facility]/pharmacy #[id number] Sent: 07/09/2022 07:51:14 EDT Subject: Medication Management Submitted: Complete:venlafaxine (venlafaxine 75 mg oral capsule, extended release) Signed by Aarti Bingham 07/09/2022 07:51:00 EDT Approved with modifications: venlafaxine (VENLAFAXINE HCL ER 75 MG CAP) TAKE 1 CAPSULE BY MOUTH EVERY DAY Qty: 90 cap(s) Days Supply: 90 Refills: 1 Substitutions Allowed Route To Pharmacy - [facility]/pharmacy #[id number] Signed by Aarti Bingham From: [id number] To: Jesus Duran MD Sent: July 08, 2022 7:45:20 AM CDT Subject: Medication Management Due: July 09, 2022 12:25:55 AM CDT On Hold Pending Signature Dispensed Drug: venlafaxine (venlafaxine 75 mg oral capsule, extended release), TAKE 1 CAPSULE BY MOUTH EVERY DAY Quantity: 90 cap(s) Days Supply: 90 Refills: 2 Substitutions Allowed Notes from Pharmacy: [facility] Evaluation note Diagnosis with 19 completed weeks gestation- Primary Multigravida of advanced maternal age in second trimester UTI (urinary tract infection) during , first trimester [facility] Diagnosis Constipation during in second trimester- Primary [facility] Diagnosis 21 weeks gestation of [...] HPV in female [facility] Diagnosis Multigravida of advanced maternal age in second trimester- Primary Obesity affecting in second trimester, unspecified obesity type [facility] Diagnosis 23 weeks gestation of - Primary care in third trimester documented in this encounter [facility] filedocumented in this encounter [facility]ructionsNot on filedocumented in this encounter [facility]* Attachments The following attachments cannot be sent through Care Everywhere. * Movement (Luxembourgish) * Preeclampsia (Luxembourgish) [facility] System[facility]ructionsNot on file documented in this [facility] SystemInstructionsNot on file documented in this [facility] SystemInstructionsNot on file documented in [facility] Summary Purpose Family History No [...] advanced maternal age in second trimester Procedures [facility] with or without consult Kenna Bejarano, GRADE RECORDER-CNM [address] [place] [address] [facility] Maternal Med [address] [facility] [place] [place] [address] Referral ID Status Reason Start Date Expiration Date V isits Requested Visits Authorized [id number] Pending Review 10/07/2023 10/06/2024 1 1 Specialty Diagnoses / Procedures Referred By Contac t Referred To Contact Diagnoses 21 weeks gestation of Multigravida of advanced maternal age in second trimester Procedures Echo complete W/O contrast Kamla Lester MD [address], [address] [place] [id number] Referral ID Status Reason Start Date Expiration Date V isits Requested Visits Authorized [id number] Pending Review 10/24/2023 10/23/2024 1 1 Specialty Diagnoses / Procedures Referred By Contac t Referred To Contact Diagnoses 21 weeks gestation of Multigravida of advanced maternal age in second trimester Procedures ECG 12 lead Kamla Lester MD [address], [address] [place] [id number] Referral ID Status Reason Start Date Expiration Date V isits Requested Visits Authorized [id number] Pending Review 10/24/2023 10/23/2024 1 1 Specialty Diagnoses / Procedures Referred By Contac t Referred To Contact General Surgery Diagnoses 21 weeks gestation of Hernia of abdominal wall Kamla Lester MD [address], [address] [place] [id number] [facility] [address] [place] [address] Referral ID Status Reason Start Date Expiration Date Visits Requested Visits Authorized [id number] Pending Review Specialty Services Required 10/24/2023 10/23/2024 1 1 Specialty Diagnoses / Procedures Referred By Contac t Referred To Contact Maternal and Medicine Diagnoses Multigravida of advanced maternal age in second trimester Obesity affecting in second trimester, unspecified obesity type Procedures US MFM with or without consult Kamla Lester MD [address], [address] [place] [id number] [facility] Maternal Med [address] [place] [address] Referral ID Status Reason Start Date Expiration Date V isits Requested Visits Authorized [id number] Pending Review 10/24/2023 10/23/2024 1 1 Additional Source Comments INFORMATION SOURCE (unrecogn ized section and content) DATE CREATED AUTHOR 03/07/2018 [facility] DATE CREATED AUTHOR AUTHOR'S ORGANIZ ATION 01/29/2023 [facility] DATE CREATED AUTHOR AUTHOR'S ORGANIZ ATION 06/22/2023 [facility] DATE CREATED AUTHOR AUTHOR'S ORGANIZ ATION 10/30/2023 [facility] DATE CREATED AUTHOR AUTHOR'S ORGANIZ ATION 11/22/2023 [facility] DATE CREATED AUTHOR AUTHOR'S ORGANIZ ATION 01/10/2024 [facility] EPIC DATE CREATED AUTHOR AUTHOR'S ORGANIZ ATION 01/15/2024 [facility] Care Teams (unrecognized sec tion and content) 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 Relationship Specialty Start Date End Date Services, [facility] [address] [place] PCP - General Family Medicine 03/25/23 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 Relationship Specialty Start Date End Date Services, [facility] [address] PCP - General Family Medicine 03/25/23 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 Relationship Specialty Start Date End Date Services, [facility] [address] PCP - General Family Medicine 03/25/23 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 Relationship Specialty Start Date End Date Services, [facility] [address] PCP - General Family Medicine 03/25/23 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 Relationship Specialty Start Date End Date Services, [facility] [address] PCP - General Family Medicine 03/25/23 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 [facility] [email or web address] [facility]. provides no warranty or guarantee of the accuracy or completeness of information in this document.
--- NOTE | 2024-01-23 20:42 | US_ITS ---
[address] [address] Patient Name: EDILBERTO MEJIA MRN: [id number] date: 1985 Sex: F Assigned Patient Location: US Current Patient Location: US Accession/Order Number: [id number] Exam Date: 01/23/2024 20:50 Report Date: 01/24/2024 07:20 At the request of: JAH HERNANDEZ Procedure: US OB BPP w non-stress EXAMINATION: US OB BPP w non-stress HISTORY: MULTIGRAVIDA OF ADVANCED MATERNAL AGE O09.523 COMPARISON: No relevant comparison available. TECHNIQUE: Ultrasound biophysical profile was performed in the radiology department. BREATHING MOVEMENTS: 2.0 GROSS BODY MOVEMENTS: 2.0 TONE: 2.0 QUALITATIVE AMNIOTIC FLUID VOLUME: 2.0 PRESENTATION: CEPHALIC HEART RATE: 136.4 bpm bpm. AMNIOTIC FLUID VOLUME: 15.1 cm GESTATIONAL AGE: 34 weeks 5 days CONCLUSION: Total biophysical profile score 8.0. Electronically authenticated by: MARTIN CAMPOS Date: 01/24/2024 07:20
[2024-01-23 21:10] VITALS: BP 118/69; PULSE 76
== END 2024-01-23 21:10 | disposition home or self-care (01) ==
LOC: US 07:46 → FBC 20:17
PROVIDERS: PCP Family Medicine; Visit Provider Obstetrics & Gynecology
DX: O09.523 Supervision of elderly multigravida, third trimester (principal); Z3A.34 34 weeks gestation of pregnancy
CPT/HCPCS: 76818

== ENCOUNTER 2024-01-27 07:19 | Outpatient (OUT) | payer BC, MEDICAID, SELFPAY ==
--- OUTSIDE RECORDS SUMMARY | 2024-01-27 07:27 | XMS_ITS | CCD ---
Author Organization [facility] Care Team Providers Care Surgery Technician Name Role Phone KARABELK, ANJALI Unavailable Unavailable KARASIK, ANJALI Unavailable Unavailable KARASIK, ANJALI Unavailable Unavailable KARASIK, ANJALI Unavailable Unavailable KARASIK, ANJALI Unavailable Unavailable KARASIK, ANJALI Unavailable Unavailable Jesus Duran Primary Care Unavailable Jesus Duran Attending Unavailable José Miguel Estes Admitting Unavailable Royce Charles Attending Unavailable Jesus Duran Primary Care Unavailable Ramiro Abarca Consulting Unavailable Services, [facility] Primary Care Provider KENNA BEJARANO Referring Unavailable SERVICES, [facility] Care Unava ilable DOCHEVA, NIKOLINA P Referring Unavailable SERVICES, [facility] Care Unava ilable AYANA LUND Attending Unavailable SERVICES, [facility] Care Unava ilable DOCHEVA, NIKOLINA P Referring Unavailable SERVICES, [facility] Care Unava ilable SERVICES, [facility] Care Unava ilable KENNA BEJARANO Referring Unavailable SERVICES, [facility] Care Unava ilable DOCHEVA, NIKOLINA P Attending Unavailable SERVICES, [facility] Care Unava ilable SERVICES, [facility] Primary Care Unava ilable JAH CARRANZA Referring Unavailable SERVICES, [facility] Unava ilable DOCHEVA, NIKOLINA P Referring Unavailable SERVICES, [facility] Care Unava ilable DOCHEVA, NIKOLINA P Referring Unavailable SERVICES, [facility] Unava ilable JAH CARRANZA Attending Unavailable JAH CARRANZA Attending Unavailable ANNA MARIE MILLER Attending Unavailable Allergies Allergy Classification Reported Allergen(s) Allergy Type Date of Onset Reaction(s) Facility (1 source) No Known Medication Allergies; Translations: [No Known Medication Allergies] Propensity to adverse reactions to drug (disorder) [facility] Repository (2 sources) Penicillins; Translations: [PENICILLINS] Drug allergy (disorder) 8 [facility] Repository Medications Current Medications Medication Drug Class(es) [...] nightly. 0 09/30/2023 Active polyethylene glycol 3350 88438 mg powder for oral solution (4 sources) [...] bedtime. 120 tablet 1 09/10/2023 Active sennosides, detention 8.6 mg oral tablet (4 sources) Start: [...] the patient. FINDINGS: In the periumbilical region, quartz orientator demonstrates a circumscribed 5.3 x 1.3 x 5.1 cm isoechoic lesion, thought to be related to a fat-containing periumbilical hernia sac seen on CT scan of March 2023. This does not appear to significantly change with Valsalva. Telegraph Office Route Aide demonstrates potential associated fascial defect measuring approximately [...] Kapoor MD on 10/25/2023 11:30 AM Normal [facility] Reagin Ab RPR Ql (S)on 10-24 RPR SCREEN RESPONSE TO THERAPY, SERUM Negative Normal Negative [facility] Comment on above: Result Comment: NOTE Non-treponemal antibodies not detected. For additional information on interpretation of the syphilis reverse algorithm and results, see: [email or web address] Test Performed by: [address] [address] Infant Lead Teacher: Williams Joyce M.D. Ph.D.; CLIA# [id number] URINALYSISon 10-07-2023 Bilirubin Ql (U) Negative Normal NEG [facility] BLOOD/HGB Negative Normal NEG [facility] CA OXALATE CRYSTALS PRESENT Abnormal NONE [facility] Color (U) YELLOW Normal YELLOW [facility] Glucose Ql (U) Negative Normal NEG [facility] Ketones Ql (U) Trace Abnormal NEG [facility] Leukocyte esterase Test strip Ql (U) Small Abnormal NEG [facility] MUCOUS PRESENT Abnormal NONE [facility] Nitrite Ql (U) Negative Normal NEG [facility] pH (U) 6.0 [pH] Normal 5.0-8.5 [facility] Protein Ql (U) Trace Abnormal NEG [facility] R.B.CELLS 4 /hpf Normal 0-5 [facility] Specific gravity (U) [Rel density] 1.023 Normal 1.003-1.035 [facility] SQUAMOUS EPITHELIUM 15 /hpf High 0-5 [facility] TURBIDITY CLEAR Normal CLEAR [facility] Urobilinogen (U) [Mass/Vol] mg/dL Normal <1.1 [facility] W.B.CELLS 5 /hpf Normal 0-5 [facility] URINE CULTUREon 10-07-2023 Bacteria identified Cx Nom (U) CULTURE RESULTS NO GROWTH AT <1000 CFU/mL Normal [facility] Comment on above: Performed By: #### 6 30-4 #### [facility] ([id number]) [address] [place] [address], [address] [place] [address] Urinalysison 10-07-2023 Bilirubin Ql (U) Negative Negative^Ne gat nia [facility] Calcium oxalate crystals LM Ql (Urine sed) PRESENT Abnormal NONE^NONE [facility] Color (U) YELLOW YELLOW^YELLOW [facility] Epithelial cells Auto (Urine sed) [#/Area] 15 [facility] Glucose (U) [Mass/Vol] Negative Negative^Negat nia mg/dL [facility] Hemoglobin Auto test strip Ql (U) Negative Negative^Negat nia [facility] Interpretation and review of laboratory results Abnormal [facility] Ketones (U) [Mass/Vol] Trace Abnormal Negative^Negat nia mg/dL [facility] Leukocyte esterase Auto test strip Ql (U) Small Abnormal Negative^Negat nia [facility] Mucus Ql (Urine sed) PRESENT Abnormal NONE^NONE [facility] Nitrite Auto test strip Ql (U) Negative Negative^Negat nia [facility] pH (U) 6.0 [pH] 5.0 - 8.5 [facility] Protein (U) [Mass/Vol] Trace Abnormal Negative^Negat nia mg/dL [facility] RBC Auto (Urine sed) [#/Area] 4 [facility] Specific gravity Refractometry automated (U) [Rel density] 1.023 1.003 - 1.035 [facility] Turbidity Ql (U) CLEAR CLEAR^CLEAR [facility] Urobilinogen Qn (U) NINF [facility] WBC Auto (Urine sed) [#/Area] 5 [facility] Outside Recordson 01-16-2023 Outside Records [id number]#1.[address] [facility] PAP RFX HPV IF ASCon 018 COMMENT Comment Normal [facility] Comment on above: Result Comment: [place] Performed By: #### P APHR7 ####[facility] [address] [place] [address] DIAGNOSIS: Comment Normal [facility] Comment on above: Result Comment: NEGA TIVE FOR INTRAEPITHELIAL LESION AND MALIGNANCY. Performed By: #### P APHR7 ####[facility] [address] [place] [address] Cristiane Methodology: BDFP Normal [facility] Comment on above: Result Comment: The TriPath(R) FocalPoint was unable to read and evaluate thisspecimen. Therefore a manual review was performed. Performed By: #### P APHR7 ####[facility] [address] [place] [address] Note: Comment Normal [facility] Comment on above: Result Comment: The Pap smear is a screening test designed to aid in the detection ofpremalignant and malignant conditions of the uterine cervix. It is not adiagnostic procedure and should not be used as the sole means of detectingcervical cancer. Both false-positive and false-negative reports do occur. . Performed By: #### P APHR7 ####[facility] [address] Cristiane Performed by: Comment Normal [facility] Comment on above: Result Comment: Chato Simon, Wash Box Operator (ASCP) Performed By: #### P APHR7 ####[facility] [address] Cristiane Reflex Criteria: Comment Normal [facility] Comment on above: Result Comment: The HPV DNA reflex criteria were not met with this specimen resulttherefore, no HPV testing was performed. . Performed By: #### P APHR7 ####[facility] [address] [place] [address] Cristiane Specimen adequacy: Comment Normal [facility] Comment on above: Result Comment: Sati sfactory for evaluation. Endocervical and/or squamous metaplasticcells (endocervical component) are present. Performed By: #### P APHR7 ####[facility] [address] Cristiane . . Normal [facility] Comment on above: Performed By: #### P APHR7 ####[facility] [address] Cristiane LAB TESTINGon 05-09-2017 RECV HEADER SEE SCANNED REPORT I N HPF Normal [facility] Comment on above: Performed By: #### M ISC ####[facility] [address] Cristiane REV FROM REF LAB see scanned report [facility] Comment on above: Performed By: #### M ISC ####[facility] [address] Cristiane SENT TO REF LAB see scanned report Normal [facility] Comment on above: Performed By: #### M ISC ####[facility] [address] [place], [place] [address]DrxrvfMichele Sauer Vital Signs Date Time Vital Sign Value Performing Clinician Epifanio lema 11-04-2023 11:26-0500 Body mass index (BMI) [Ratio] 41.14 kg/m2 Bethany Destin QA AUDITOR-CNM Work Phone: [facility] 11-04-2023 11:26-0500 Body weight 112.13 kg Bethany Destin QA AUDITOR-CNM Work Phone: [facility] 11-04-2023 11:26-0500 Diastolic blood pressure 68 mm[Hg] Bethany Destin QA AUDITOR-CNM Work Phone: [facility] 11-04-2023 11:26-0500 Systolic blood pressure 120 mm[Hg] Bethany Destin QA AUDITOR-CNM Work Phone: [facility] 10-24-2023 10:27-0500 Body height 165.1 cm Kamla Lester MD Work Phone: [facility] 10-24-2023 10:27-0500 Body mass index (BMI) [Ratio] 40.27 kg/m2 Kamla Lester MD Work Phone: [facility] 10-24-2023 10:27-0500 Body weight 109.77 kg Kamla Lester MD Work Phone: [facility] 10-24-2023 10:27-0500 Diastolic blood pressure 78 mm[Hg] Kamla Lester MD Work Phone: [facility] 10-24-2023 10:27-0500 Systolic blood pressure 118 mm[Hg] Kamla Lester MD Work Phone: [facility] 10-07-2023 11:23-0500 Body mass index (BMI) [Ratio] 39.99 kg/m2 [employer] Pl[employer] [facility] 10-07-2023 11:23-0500 Body weight 109 kg [employer] [facility] 10-07-2023 11:23-0500 Diastolic blood pressure 80 mm[Hg] [employer] As[employer] [facility] 10-07-2023 11:23-0500 Systolic blood pressure 100 mm[Hg] [employer] [facility] Encounters Encounter Date Encounter Type Care Provider Facility Start: 01-23-2024 End: 01-23-2024 ambulatory ANNA MARIE MILLER Not Available Start: 01-14-2024 End: 01-15-2024 [facility] Start: 01-08-2024 End: 01-08-2024 ambulatory JAH ROSSO Not Available Start: 12-17-2023 End: 12-18-2023 ambulatory JAH R. DAVID [facility] Start: 12-03-2023 End: 12-03-2023 ambulatory JAH DAVID Not Available Start: 11-21-2023 End: 11-21-2023 ambulatory [facility] Start: 11-14-2023 Telephone encounter Laila casillas [facility] Start: 11-04-2023 End: 11-04-2023 ambulatory [facility] Start: 11-04-2023 End: 11-04-2023 Subsequent care visit Bethany Garcia APRN-CNM Work Phone: [facility] Comment on above: GA: 23w3d Start: 10-25-2023 End: 10-26-2023 ambulatory [facility] Start: 10-24-2023 End: 10-25-2023 Orders Only Rosalie Weston RN [facility] Comment on above: Multigravida of adva nced maternal age in second trimester (Primary Dx); Obesity affecting in second trimester, unspecified obesity type Start: 10-24-2023 End: 10-24-2023 Office consultation new/estab patient 80 min Kamla Lester MD Work Phone: [facility] Comment on above: 21 weeks gestation o f (Primary Dx); Multigravida of advanced maternal age in second trimester; 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; Obesity affecting in second trimester, unspecified obesity type; Anxiety during ; Depression affecting ; Constipation, unspecified constipation type; Hernia of abdominal wall; Psoriasis; LGSIL on Pap smear of cervix; HPV in female Start: 10-14-2023 Orders Only Ayana Lund QA AUDITOR-DIRECTOR PATIENT ACCOUNTING Work Phone: [facility] Comment on above: Constipation during in second trimester (Primary Dx) Start: 10-07-2023 End: 10-08-2023 ambulatory [facility] Start: 10-07-2023 End: 10-07-2023 ambulatory [facility] Start: 10-07-2023 End: 10-07-2023 Subsequent care visit [facility] [employer] [facility] Comment on above: GA: 19w3d Start: 09-10-2023 End: 09-10-2023 ambulatory AYANA LUND [facility] Start: 01-28-2023 End: 01-29-2023 ambulatory Jesus Tess Duran Facility:[facility] Start: 09-07-2020 End: 09-10-2020 Evaluation and management of inpatient José Miguel Estes Facility:[facility] Start: 11-01-2017 End: 11-01-2017 Ambulatory ANJALI MESSINA Facility: Start: 05-09-2017 End: 05-09-2017 Ambulatory ANJALI EMMYBUCK Facility: Procedures Date Procedure Procedure Detail Performing Clinician Start: 06-27-2023 Microscopic observat ion [Identifier] in Cervix by Cyto stain [employer] Assembler Plan of Treatment Date Care Activity Detail Author Start: 06-27-2026 Screening for malignant neoplasm of cervix Pap Smear [facility] Start: 11-04-2024 Adult BMI Screening Adult BMI Screen ing [facility] Start: 11-04-2024 Tobacco Screening Tobacco Screening [facility] Start: 10-24-2024 Adult BMI Screening Adult BMI Screen ing [facility] Start: 10-24-2024 Tobacco Screening Tobacco Screening [facility] Start: 10-24-2024 End: 10-24-2024 US MFM with or without consult US MFM with or without consult Imaging Routine Multigravida of advanced maternal age in second trimester Obesity affecting in second trimester, unspecified obesity type Expected: 10/24/2024 (Approximate), Expires: [facility]24 [facility]: Comment on above: Expected: 10/24/2024 (Approximate), Expires: 10/24/2024 Start: 10-07-2024 Adult BMI Screening Adult BMI Screen ing [facility] Start: 10-07-2024 Tobacco Screening Tobacco Screening [facility] Start: 12-17-2023 End: 12-17-2023 Patient encounter procedure 12/17/2023 2:45 PM EDT Appointment [facility] - Ultrasound [address] [place] [address] [facility] - Ultrasound Start: 12-02-2023 End: 12-02-2023 Patient encounter procedure 12/02/2023 11:45 AM EDT Routine [facility] [address] [place] [address] [facility] Start: 11-21-2023 End: 11-21-2023 Patient encounter procedure 11/21/2023 2:15 PM EST Appointment [facility] [address] [facility] [address] [place] [address] [facility] Start: 11-04-2023 End: 11-04-2023 Patient encounter procedure 11/04/2023 11:30 AM EST Routine [facility] [address] [place] [address] [facility] Start: 10-25-2023 Subsequent hospital visit by physician 10/25/2023 10:00 AM EST Hospital Encounter [facility] - Ultrasound [address] [place] [address] [facility] - [facility] Start: 10-24-2023 End: 10-24-2024 Echo complete W/O contrast Echo complete W/O contrast Echocardiography Routine 21 weeks gestation of Multigravida of advanced maternal age in second trimester Expected: 10/24/2023, Expires: 10/24/2024 [facility] Comment on above: Expected: 10/24/2023 , Expires: 10/24/2024 Start: 10-24-2023 End: 10-24-2024 US Abdominal wall Ultrasound abdomen limited ADBOMEN WALL Imaging STAT 21 weeks gestation of Hernia of abdominal wall Expected: 10/24/2023, Expires: 10/24/2024 [facility] Comment on above: Expected: 10/24/2023 , Expires: 10/24/2024 Start: 10-24-2023 End: 10-24-2023 Patient encounter procedure [facility] Start: 10-07-2023 End: 10-07-2024 US MFM with or without consult US MFM with or without consult Imaging Routine Multigravida of advanced maternal age in second trimester Expected: 10/07/2023, Expires: 10/07/2024 [facility] Work Phone: Comment on above: Expected: 10/07/2023 , Expires: 10/07/2024 Start: 2002 DTaP,Tdap and Td Vaccines (1 - Tdap) DTaP,Tdap and Td Vaccines (1 - Tdap) [facility] Start: 2001 Adult BMI Follow Up Plan Adult BMI Follow Up Plan [facility] Start: 1995 Depression Screening Depression Scre ening [facility] End: 10-06-2024 Bacteria identified in Urine by Culture Urine Culture Microbiology Routine UTI (urinary tract infection) during , first trimester 1 Occurrences starting 10/07/2023 until 10/06/2024 [facility] Comment on above: 1 Occurrences starti ng 10/07/2023 until 10/06/2024 Bacteria identified in Urine by Culture Urine Culture Microbiology Routine UTI (urinary tract infection) during , first trimester 10/07/2023 8:25 PM EST [facility] End: 11-04-2024 CBC W Auto Differential panel - Blood CBC auto differential Lab Routine care in third trimester 1 Occurrences starting 11/04/2023 until 11/04/2024 [facility] Comment on above: 1 Occurrences starti ng 11/04/2023 until 11/04/2024 End: 10-24-2024 ECG 12 lead ECG 12 lead ECG Routine 21 weeks gestation of Multigravida of advanced maternal age in second trimester 1 Occurrences starting 10/24/2023 until 10/24/2024 [facility] on above: 1 Occurrences starti ng 10/24/2023 until 10/24/2024 End: 11-04-2024 Glucose 1h post 50g load Glucose 1h post 50g load Lab Routine care in third trimester 1 Occurrences starting 11/04/2023 until 11/04/2024 [employer] Work Phone: Comment on above: 1 Occurrences starti ng 11/04/2023 until 11/04/2024 Reagin Ab [Presence] in Serum by RPR RPR Screen Response to Therapy, Serum Lab Routine 21 weeks gestation of 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 10/24/2023 7:10 PM EST [facility] End: 10-24-2024 RPR Therapy Response(Previous Positive Screen) RPR Therapy Response(Previous Positive Screen) Lab Routine 21 weeks gestation of 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 1 Occurrences starting 10/24/2023 until 10/24/2024 [employer] Work Phone: Comment on above: 1 Occurrences starti ng 10/24/2023 until 10/24/2024 End: 11-04-2024 Syphilis Total(Unknown Syphilis Status) Syphilis Total(Unknown Syphilis Status) Lab Routine care in third trimester 1 Occurrences starting 11/04/2023 until 11/04/2024 [facility] Comment on above: 1 Occurrences starti ng 11/04/2023 until 11/04/2024 Payers Date Payer Category Payer Medicaid [facility] MEDICAID FORMERLY [facility] MEDICAID [id number] 2023-Present [address] [place] [address] [id number] 2023 Medicaid [id number] 2023 Unknown KIM MILLER ACCNini SS (PPO) [id number] 2023-Present [phone] [address] [place] [address] [id number] 2023 Unknown [id number] 2020 Self-pay 2019 Unknown [id number] 1983 Unknown [id number] 1983 Unknown [id number] [id number] 1983 Unknown [id number] 2.840.1.227724.3.579.2.1286 1983 Unknown [id number] 2.840.1.399290.3.579.2.1286 1983 Unknown [id number] 2.840.1.240478.3.579.2.1286 1983 Unknown [id number] 2.840.1.637548.3.579.2.1286 1983 Unknown [id number] 2.840.1.522306.3.579.2.1286 1983 Unknown [id number] 2.840.1.378527.3.579.2.128 1983 Unknown [id number] 2.840.1.366523.3.579.2.1286 1983 Unknown [id number] 2.840.1.582665.3.579.2.128 1983 Unknown [id number] 2.16840.1.908380.3.579.2.1286 1983 Unknown [id number] 2.16840.1.787732.3.579.2.1259 1983 Unknown [id number] 2.16840.1.110940.3.579.2.1259 1983 Unknown [id number] [id number]59 1959 Unknown [id number] Unknown [id number] [id number] Social History Date Type Detail Facility Start: [facility]10[facility]2023 [facility] End: 06-16-2023 History of tobacco use Current smoker [facility] End: 06-16-2023 History of tobacco use Cigarette Smoker [facility] Start: 09-10-2023 Tobacco use and exposure Smokeless tobacco non-user [facility] Start: 10-07-2023 End: 11-04-2023 Alcohol intake Ex-drinker (finding) [facility] Start: 10-27-2020 End: 10-07-2023 History of Social function [facility] Start: 10-27-2020 End: 10-07-2023 Tobacco use panel [facility] Adolescent depressio n screening assessment 0 [facility] Start: 03-25-2023 Tobacco Comment quit a year an d a half ago [facility] Start: 06-07-2020 Alcohol Comment 2 days a week [facility] Start: 06-07-2023 [facility] Start: 1985 Sex Assigned At Not on file P [facility] Medical Equipment Procedure Code Equipment Code Equipment Origin al Text Equipment Identifier Dates Mesh Pco Vntrl P tch 4.6cm Rpl [id number] - [facility] - [id number] Start: 07-01-2020 Clinical Notes 07-09-2022 to [...] Cece talked to the patient at her [facility] ultrasound appt today. Patient confirmed to Cece that she is transferring care to Dr. Carranza. Cece cancelled the scheduled appointment with our office. documented in this encounter [facility] 11-14-2023 Telephone encounter Note Received a record release from Dr. Carranza office. The patient is scheduled for an appointment with our office on 12/02/23. I attempted to call the patient to see if she is transferring care & if she still needs the appointment with our office on 12/02/23. The patient did not answer. The voicemail for for [place] so I did not leave a message for the patient. [facility] 11-14-2023 Telephone encounter Note Cece talked to the patient at her [facility] ultrasound appt today. Patient confirmed to Cece that she is transferring care to Dr. Carranza. Cece cancelled the scheduled appointment with our office. [employer] 11-04-2023 History of Presen t illness Narrative [...] Clifford 11/04/23 1157 documented in this encounter [facility] 10-24-2023 History of Presen t illness Narrative Images from the original note were not included. Video Visit via Real-time Synchronous Audiovisual Provider Location: [facility]- MEDICINE [address] [place] [address], [address] [place] [address] Patient Location: Other [facility] Patient Location Senior Business Development Analyst: None Video Visit Consent Statement: I discussed [...] that there are some limitations compared to [id number] evaluations. We elected to proceed. [facility] Maternal- Medicine Consult Note Reason For Consult: [...] was told low risk cell free [facility]. 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 10/14/23 Ayana M JESSENIA Lund doxylamine (UNISOM) 25 mg tablet Take 1 tablet (25 mg total) by mouth nightly as needed for sleep or nausea. 09/10/23 Ayana Tess JESSENIA Lund loratadine (CLARITIN) 10 mg tablet Take 1 [...] No abnormal hemoglobin identified. Test Performed By: [facility] [employer] [place] [address] Back Up Worker: Matias Menchaca III, M.D. [facility] #[id number]^ T4, free 07/16/2023 0.75 0.61 - 1.60 [...] testing algorithm link below for more information. [email or web address]/dv/[email or web address] [email or web address] h=acaea White Blood Cells 07/16/2023 9.3 4.0 [...] infection suspected, recommend repeat testing (>2 months). Jnclic-bh-xowpeo ratio is <0.80. RPR with Reflex to [...] the syphilis reverse algorithm and results, see: [email or web address].[employer].Avosoft/ it-mmfiles/Syphilis_Serology_Alg orithm.pdf Test Performed by: [address] [place] [address] Infant Lead Teacher: Williams Joyce M.D. Ph.D.; CLIA# [id number] CLIA ID [id number] HGB Phoresis Interpretation 07/16/2023 See below Final [...] by Sommer Garcia MD Test Performed By: [facility] [employer] [place] [address] Back Up Worker: Matias Menchaca III, M.D. CLIA #[id number]^ T.pallidum 07/16/2023 SEE COMMENTS 07/19/2023 12:59 PM (A) Final Comment: NOTE Test Result Flag Unit RefValue -- Syphilis Ab, TP-PA, S Positive A Negative Treponemal antibodies detected, consistent with previously treated syphilis, potentially early syphilis infection or latent disease. Clinical correlation to distinguish between these scenarios is required. For additional information on interpretation of the syphilis reverse algorithm and results, see: https://www.[employer].Avosoft/ it-mmfiles/Syphilis_Serology_Alg orithm.pdf Test Performed by: [facility] [address] [id number] Infant Lead Teacher: Williams Joyce M.D. Ph.D.; CLIA# [id number] Hospital Outpatient Visit on 06/27/2023 Component Date [...] abdomen limited; Future - [facility] [place], [place]; Future - RPR Therapy Response(Previous Positive [...] at delivery about the maternal syphilis PMID: [id number] 4. Obesity affecting in second trimester, unspecified [...] wall - Ultrasound abdomen limited; Future - [facility] [place], [place]; Future She tells me that she [...] consultation and recommend also to see a Multi Craft Maintenance Technician. 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 Colposcopy in reviewed. 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 Discussed with the patient that I would recommend that she does not run the chemicals because of her letter provided. Strongly recommended that she continues to wear her appropriate PPE. Recommendations: Continue low-dose aspirin Follow-up with titers. [place] for rising titers as per above. The patient desires to have the titers done every 4 weeks. I ordered repeat titers today please follow from then onwards. Follow-up with the Health Department and recommend communication, testing and treatment of partner to avoid reinfection Serial growth assessments every 4 weeks after the anatomy scan through [facility] testing to be initiated at 32 weeks weekly with twice weekly testing at 36 weeks and weekly DVP (to be done at OB office) Delivery at 39 weeks due to advanced maternal age and obesity, sooner if clinically indicated Vaginal delivery preferred reserved section for routine indications Care Technician should be notified about the syphilis in [...] Kamla Lester MD, FACOG (she/hers) Maternal- Medicine [facility] [address] [facility] 1st [place] [address] [facility], the CDC, and other organizations representing maternal and public health professionals recommend that , , and lactating people and those considering receive the COVID-19 vaccination. Vaccination is the best method to reduce maternal and complications of SARS-CoV-2 infection. This document was created with [employer] technology. Though I make every effort to review the dictation as it is transcribed, on occasion the spoken word can be misinterpreted by the technology leading to inappropriate words, phrases, or sentences. This note is addressed to the requesting provider as a consultation for clinical guidance. Specific medical abbreviations are occasionally used and those are generally approved by the [place]?Board of?Obstetrics and?Gynecology?as well as?[place] s abbreviations. The above plan of care was based solely on the diagnoses for which a consultation was requested. ?More frequent testing may be indicated based on her other medical/obstetrical conditions. The management of other or medical conditions is beyond the scope of requested consultation and will continue to be followed by the primary burr bench operator or primary care provider. Note to patient: The Century Cures Act makes medical notes like [...] done this here or other office? yes, Campus testing Neg for trisomies per patient, Not on chart, will call for results. Have you been seen here at [facility] in a previous ? no Recent ER visits or hospitalizations? no Bring blood sugar log or meter with you today? (Please bring them with you for every visit at [facility]) Traveled outside the country in the past 6 month no Any concerns that you would like me to mention to the provider today? Patient states she is worried about the chemicals that she uses at her job and her constipation issues with her hernia. Taking Metamucil and Colace BID Labs ordered today per [facility]. Labs drawn on 1st attempt (L) antecubital here in our office at this time without difficulty. Patient tolerated well. documented in this encounter [facility] 10-14-2023 Miscellaneous Notes Pt states she is [...] sent to Pharmacy. documented in this encounter [facility] Information 10-14-2023 Telephone encounter Note Pt states she is experiencing constipation. Pt states she is constantly straining to only have a little bit come out. Pt states she is drinking approximately 4 48oz bottles of water daily. Pt states she has tried Prune juice and Metamucil with no relief. Please advise. Thank you [facility] 10-14-2023 Telephone encounter Note RX for colace sent to pharmacy [facility] 10-14-2023 Telephone encounter Note Advised Pt of RX sent to Pharmacy. [facility] 10-07-2023 History of Presen t illness Narrative [...] Turner 10/07/23 1242 documented in this encounter [facility] 10-07-2023 Miscellaneous Notes Addended by: LEROY ANN on: 10/07/2023 12:55 PM Modules accepted: Orders documented in this encounter [facility] 10-07-2023 Note Addended by: LEROY ANN on: 10/07/2023 12:55 PM Modules accepted: Orders [facility] 01-14-2023 Note Entered by Nirali Bingham on January 14, 2023 08:38:33 EDT From: Aarti Bingham To: [facility]/pharmacy #[id number] Sent: 01/14/2023 08:38:33 EDT Subject: Medication Management Submitted: Complete:venlafaxine (venlafaxine 75 mg oral capsule, extended release) Signed by Aarti Bingham 01/14/2023 08:38:00 EDT Approved venlafaxine (VENLAFAXINE HCL ER 75 MG CAP) TAKE 1 CAPSULE BY MOUTH EVERY DAY Qty: 30 cap(s) Days Supply: 30 Refills: 5 Substitutions Allowed Route To Pharmacy - [facility]/pharmacy #[id number] Signed by Aarti Bingham From: [id number] To: Jesus Duran MD Sent: January 12, 2023 6:47:36 AM CDT Subject: Medication Management Due: January 13, 2023 6:45:46 AM CDT On Hold Pending Signature Dispensed Drug: venlafaxine (venlafaxine 75 mg oral capsule, extended release), TAKE 1 CAPSULE BY MOUTH EVERY DAY Quantity: 30 cap(s) Days Supply: 30 Refills: 5 Substitutions Allowed Notes from Pharmacy: [facility] 07-09-2022 Note Entered by Nirali Bingham on July 09, 2022 07:51:14 EDT From: Aarti Bingham To: [facility]/pharmacy #[id number] Sent: 07/09/2022 07:51:14 EDT Subject: Medication Management Submitted: Complete:venlafaxine (venlafaxine 75 mg oral capsule, extended release) Signed by Aarti Bingham 07/09/2022 07:51:00 EDT Approved with modifications: venlafaxine (VENLAFAXINE HCL ER 75 MG CAP) TAKE 1 CAPSULE BY MOUTH EVERY DAY Qty: 90 cap(s) Days Supply: 90 Refills: 1 Substitutions Allowed Route To Pharmacy - [facility]/pharmacy #[id number] Signed by Aarti Bingham From: [id number] To: Jesus Duran MD Sent: July 08, 2022 7:45:20 AM CDT Subject: Medication Management Due: July 09, 2022 12:25:55 AM CDT On Hold Pending Signature Dispensed Drug: venlafaxine (venlafaxine 75 mg oral capsule, extended release), TAKE 1 CAPSULE BY MOUTH EVERY DAY Quantity: 90 cap(s) Days Supply: 90 Refills: 2 Substitutions Allowed Notes from Pharmacy: 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 in this [facility]* Diagnosis Multigravida of advanced maternal age in second trimester- Primary Obesity affecting in second trimester, unspecified obesity type [facility] Diagnosis 23 weeks gestation of - Primary care in third trimester documented [facility] filedocumented in this encounter [facility] on filedocumented in this encounter [facility]* Attachments The following attachments cannot be sent through Care Everywhere. * Movement (Maltese) * Preeclampsia (Maltese) [facility] SystemInstructionsNot on file documented in [facility] SystemInstructionsNot on file [facility] Purpose Family History No [...] advanced maternal age in second trimester Procedures US MFM with or without consult Kenna Bejarano, QA AUDITOR-CNM [address] [facility] [place] [address] [facility] Maternal Med [address] [facility] [place] [address] Referral ID Status Reason Start Date Expiration Date V isits Requested Visits Authorized [id number] Pending Review 10/07/2023 10/06/2024 1 1 Specialty Diagnoses / Procedures Referred By Contac t Referred To Contact Diagnoses 21 weeks gestation of Multigravida of advanced maternal age in second trimester Procedures Echo complete W/O contrast Kamla Lester MD [address], [address] [place] [address] Referral ID Status Reason Start Date Expiration Date V isits Requested Visits Authorized [id number] Pending Review 10/24/2023 10/23/2024 1 1 Specialty Diagnoses / Procedures Referred By Contac t Referred To Contact Diagnoses 21 weeks gestation of Multigravida of advanced maternal age in second trimester Procedures ECG 12 lead Kamla Lester MD [address], [address] [place] [address] Referral ID Status Reason Start Date Expiration Date V isits Requested Visits Authorized [id number] Pending Review 10/24/2023 10/23/2024 1 1 Specialty Diagnoses / Procedures Referred By Contac t Referred To Contact General Surgery Diagnoses 21 weeks gestation of Hernia of abdominal wall Kamla Lester MD [address], [address] [place] [address] [facility] Surg [address] [place] [address] Referral ID Status Reason Start Date Expiration Date Visits Requested Visits Authorized [id number] Pending Review Specialty Services Required 10/24/2023 10/23/2024 1 1 Specialty Diagnoses / Procedures Referred By Contac t Referred To Contact Maternal and Medicine Diagnoses Multigravida of advanced maternal age in second trimester Obesity affecting in second trimester, unspecified obesity type Procedures US MFM with or without consult Kamla Lester MD [address], [address] [place] [address] [facility] Maternal Med [address] [place] [address] Referral ID Status Reason Start Date Expiration Date V isits Requested Visits Authorized [id number] Pending Review 10/24/2023 10/23/2024 1 1 Additional Source Comments INFORMATION SOURCE (unrecogn ized section and content) DATE CREATED AUTHOR 03/07/2018 [facility] DATE CREATED AUTHOR AUTHOR'S ORGANIZ ATION 01/29/2023 [facility] DATE CREATED AUTHOR AUTHOR'S ORGANIZ ATION 06/22/2023 [facility] DATE CREATED AUTHOR AUTHOR'S ORGANIZ ATION 10/30/2023 [facility] DATE CREATED AUTHOR AUTHOR'S ORGANIZ ATION 11/22/2023 [facility] DATE CREATED AUTHOR AUTHOR'S ORGANIZ ATION 01/15/2024 [facility] DATE CREATED AUTHOR AUTHOR'S ORGANIZ ATION 01/25/2024 [facility] dical Specialists EPIC Care Teams (unrecognized sec tion and content) Surgery Technician Relationship Specialty Start Date End Date Services, [facility] [address] [place], [place] PCP - General Family Medicine 03/25/23 Surgery Technician Relationship Specialty Start Date End Date Services, [facility] [address] [place] PCP - General Family Medicine 03/25/23 Surgery Technician Relationship Specialty Start Date End Date Services, [facility] [address] [place]CP - General Family Medicine 03/25/23 Surgery Technician Relationship Specialty Start Date End Date Services, [facility] [address] [place] PCP - General Family Medicine 03/25/23 Surgery Technician Relationship Specialty Start Date End Date Services, [facility] [address] [place] PCP - General Family Medicine 03/25/23 Surgery Technician Relationship Specialty Start Date End Date Services, [facility] [address] [place] PCP - General Family Medicine 03/25/23 Surgery Technician Relationship Specialty Start Date End Date Services, [facility] [address] [place] PCP - General Family Medicine 03/25/23 [...] BE BASED ON THE PRIMARY CLINICAL RECORDS. [facility] [employer] [facility]. provides no warranty or guarantee of the accuracy or completeness of information in this document.
[2024-01-27 18:07] VITALS: BP 110/75; PULSE 77
== END 2024-01-27 18:50 | disposition home or self-care (01) ==
LOC: FBCO 07:19 → FBC 18:02
PROVIDERS: PCP Family Medicine; Visit Provider Obstetrics & Gynecology
DX: O09.523 Supervision of elderly multigravida, third trimester (principal)
CPT/HCPCS: 59025

== ENCOUNTER 2024-01-30 07:08 | Outpatient (OUT) | payer BC, MEDICAID, SELFPAY ==
--- OUTSIDE RECORDS SUMMARY | 2024-01-30 07:10 | XMS_ITS | CCD ---
Author Organization [facility] Care Team Providers Care Wildlife Biostation Research Ecologist Name Role Phone KARABELK, ANJALI Unavailable Unavailable KARASIK, ANAJLI Unavailable Unavailable KARASIK, ANJALI Unavailable Unavailable KARASIK, ANJALI Unavailable Unavailable KARASIK, ANJALI Unavailable Unavailable KARASIK, ANJALI Unavailable Unavailable Jesus Duran Primary Care Unavailable Jesus Duran Attending Unavailable José Miguel Estes Admitting Unavailable Royce Charles Attending Unavailable Jesus Duran Primary Care Unavailable Ramiro Abarca Consulting Unavailable Services, [facility] Primary Care Provider KENNA BEJARANO Referring Unavailable SERVICES, [facility] Care Unava ilable DOCHEVA, NIKOLINA P Referring Unavailable SERVICES, [facility] Care Unava ilable AYANA LUND Attending Unavailable SERVICES, [facility] Care Unava ilable DOCHEVA, NIKOLINA P Referring Unavailable SERVICES, [facility] Care Unava ilable SERVICES, [facility] Care Unava ilable KENNA BEJARANO Referring Unavailable SERVICES, [facility] Care Unava ilable DOCHEVA, NIKOLINA P Attending Unavailable SERVICES, [facility] Care Unava ilable SERVICES, [facility] Primary Care Unava ilable JAH CARRANZA Referring Unavailable SERVICES, [facility] Unava ilable DOCHEVA, NIKOLINA P Referring Unavailable SERVICES, [facility] Care Unava ilable DOCHEVA, NIKOLINA P Referring Unavailable SERVICES, [facility] Unava ilable JAH CARRANZA Attending Unavailable JAH CARRANZA Attending Unavailable ANNA MARIE MILLER Attending Unavailable Allergies Allergy Classification Reported Allergen(s) Allergy Type Date of Onset Reaction(s) Facility (1 source) No Known Medication Allergies; Translations: [No Known Medication Allergies] Propensity to adverse reactions to drug (disorder) [facility] Repository (2 sources) Penicillins; Translations: [PENICILLINS] Drug allergy (disorder) 8 [facility] Repository Medications Current Medications Medication Drug [...] nightly. 0 09/30/2023 Active polyethylene glycol 3350 05848 mg powder for oral solution (4 sources) [...] the patient. FINDINGS: In the periumbilical region, wrapper caser demonstrates a circumscribed 5.3 x 1.3 x 5.1 cm isoechoic lesion, thought to be related to a fat-containing periumbilical hernia sac seen on CT scan of March 2023. This does not appear to significantly change with Valsalva. Director Of Undergraduate Admissions demonstrates potential associated fascial defect measuring approximately [...] Kapoor MD on 10/25/2023 11:30 AM Normal [facility] Reagin Ab RPR Ql (S)on 10-24 RPR SCREEN RESPONSE TO THERAPY, SERUM Negative Normal Negative [facility] Comment on above: Result Comment: NOTE Non-treponemal antibodies not detected. For additional information on interpretation of the syphilis reverse algorithm and results, see: [email or web address] Test Performed by: [address] [address] [employer]: Williams Joyce M.D. Ph.D.; CLIA# [id number] URINALYSISon 10-07-2023 Bilirubin Ql (U) Negative Normal NEG [facility] BLOOD/HGB Negative Normal NEG [facility] CA OXALATE CRYSTALS PRESENT Abnormal NONE [facility] Color (U) YELLOW Normal YELLOW [facility] Glucose Ql (U) Negative Normal NEG [facility] Ketones Ql (U) Trace Abnormal NEG [facility] Leukocyte esterase Test strip Ql (U) Small Abnormal NEG [facility] MUCOUS PRESENT Abnormal NONE [facility] Nitrite Ql (U) Negative Normal NEG [facility] pH (U) 6.0 [pH] Normal 5.0-8.5 [facility] Protein Ql (U) Trace Abnormal NEG [facility] R.B.CELLS 4 /hpf Normal 0-5 [facility] Specific gravity (U) [Rel density] 1.023 Normal 1.003-1.035 [facility] SQUAMOUS EPITHELIUM 15 /hpf High 0-5 [facility] TURBIDITY CLEAR Normal CLEAR [facility] Urobilinogen (U) [Mass/Vol] mg/dL Normal <1.1 [facility] W.B.CELLS 5 /hpf Normal 0-5 [facility] URINE CULTUREon 10-07-2023 Bacteria identified Cx Nom (U) CULTURE RESULTS NO GROWTH AT <1000 CFU/mL Normal [facility] Comment on above: Performed By: #### 6 30-4 #### [facility] ([id number]) [address] [place] [address], [address] [place] [address] Urinalysison 10-07-2023 Bilirubin Ql (U) Negative Negative^Ne gat nia [facility] Calcium oxalate crystals LM Ql (Urine sed) PRESENT Abnormal NONE^NONE [facility] Color (U) YELLOW YELLOW^YELLOW [facility] Epithelial cells Auto (Urine sed) [#/Area] 15 High [facility] Glucose (U) [Mass/Vol] Negative Negative^Negat nia mg/dL [facility] Hemoglobin Auto test strip Ql (U) Negative Negative^Negat nia [facility] Interpretation and review of laboratory results Abnormal [facility] Ketones (U) [Mass/Vol] Trace Abnormal Negative^Negat nia mg/dL [facility] Leukocyte esterase Auto test strip Ql (U) Small Abnormal Negative^Negat nia [facility] Mucus Ql (Urine sed) PRESENT Abnormal NONE^NONE [facility] Nitrite Auto test strip Ql (U) Negative Negative^Negat nia [facility] pH (U) 6.0 [pH] 5.0 - 8.5 [facility] Protein (U) [Mass/Vol] Trace Abnormal Negative^Negat nia mg/dL [facility] RBC Auto (Urine sed) [#/Area] 4 [facility] Specific gravity Refractometry automated (U) [Rel density] 1.023 1.003 - 1.035 [facility] Turbidity Ql (U) CLEAR CLEAR^CLEAR [facility] Urobilinogen Qn (U) NINF [facility] WBC Auto (Urine sed) [#/Area] 5 [facility] Outside Recordson 01-16-2023 Outside Records [id number] Normal [facility] PAP RFX HPV IF ASCon 018 COMMENT Comment Normal [facility] Comment on above: Result Comment: [place] Performed By: #### P APHR7 ####[facility] [address] [place] [address] DIAGNOSIS: Comment Normal [facility] Comment on above: Result Comment: NEGA TIVE FOR INTRAEPITHELIAL LESION AND MALIGNANCY. Performed By: #### P APHR7 ####[facility] [address] [place] [address] Crist[place] Methodology: BDFP Normal [facility] Comment on above: Result Comment: The TriPath(R) FocalPoint was unable to read and evaluate thisspecimen. Therefore a manual review was performed. Performed By: #### P APHR7 ####[facility] [address] [place] [address] Note: Comment Normal [facility] Comment on above: Result Comment: The Pap smear is a screening test designed to aid in the detection ofpremalignant and malignant conditions of the uterine cervix. It is not adiagnostic procedure and should not be used as the sole means of detectingcervical cancer. Both false-positive and false-negative reports do occur. . Performed By: #### P APHR7 ####[facility] Hi[address]uy[address] Cristiane Performed by: Comment Normal [facility] Comment on above: Result Comment: Chato Simon, Police Officer (ASCP) Performed By: #### P APHR7 ####[facility] Smpoev[address]uh7[address] [place] Reflex Criteria: Comment Normal [facility] Comment on above: Result Comment: The HPV DNA reflex criteria were not met with this specimen resulttherefore, no HPV testing was performed. . Performed By: #### P APHR7 ####[facility] [address] [place] [address] Cristiane Specimen adequacy: Comment Normal [facility] Comment on above: Result Comment: Sati sfactory for evaluation. Endocervical and/or squamous metaplasticcells (endocervical component) are present. Performed By: #### P APHR7 ####[facility] P[address] Cristiane . . Normal [facility] Comment on above: Performed By: #### P APHR7 ####[facility] J[address]butaygw45[address] Cristiane LAB TESTINGon 05-09-2017 RECV HEADER SEE SCANNED REPORT I N HPF Normal [facility] Comment on above: Performed By: #### M ISC ####[facility] Lvfzypsmka[address] Cristiane REV FROM REF LAB see scanned report [facility] Comment on above: Performed By: #### M ISC ####[facility] G[address]fwvx[address] Cristiane SENT TO REF LAB see scanned report Normal T [facility] Comment on above: Performed By: #### M ISC ####[facility] [address] [place], [place] [address]BlmbrdMichele Sauer Vital Signs Date Time Vital Sign Value Performing Clinician Epifanio lema 11-04-2023 11:26-0500 Body mass index (BMI) [Ratio] 41.14 kg/m2 Bethany [place] EQUIPMENT SERVICE TECHNICIAN-CNM Work Phone: [facility] 11-04-2023 11:26-0500 Body weight 112.13 kg Bethany [place] EQUIPMENT SERVICE TECHNICIAN-CNM Work Phone: [facility] 11-04-2023 11:26-0500 Diastolic blood pressure 68 mm[Hg] Bethany [place] EQUIPMENT SERVICE TECHNICIAN-CNM Work Phone: [facility] 11-04-2023 11:26-0500 Systolic blood pressure 120 mm[Hg] [place]any [place] EQUIPMENT SERVICE TECHNICIAN-CNM Work Phone: [facility] 10-24-2023 10:27-0500 Body height 165.1 cm Kamla Lester MD Work Phone: [facility] 10-24-2023 10:27-0500 Body mass index (BMI) [Ratio] 40.27 kg/m2 Kamla Lester MD Work Phone: [facility] 10-24-2023 10:27-0500 Body weight 109.77 kg Kamla Lester MD Work Phone: [facility] 10-24-2023 10:27-0500 Diastolic blood pressure 78 mm[Hg] Kamla Lester MD Work Phone: [facility] 10-24-2023 10:27-0500 Systolic blood pressure 118 mm[Hg] Kamla Lester MD Work Phone: [facility] 10-07-2023 11:23-0500 Body mass index (BMI) [Ratio] 39.99 kg/m2 Pfws Supervisor Bonding [facility] 10-07-2023 11:23-0500 Body weight 109 kg Pfws Supervisor Bonding [facility] 10-07-2023 11:23-0500 Diastolic blood pressure 80 mm[Hg] Pfws Supervisor Bonding [facility] 10-07-2023 11:23-0500 Systolic blood pressure 100 mm[Hg] Pfws Supervisor Bonding [facility] Encounters Encounter Date Encounter Type Care Provider Facility Start: 01-23-2024 End: 01-23-2024 ambulatory ANNA MARIE MILLER Not Available Start: 01-14-2024 End: 01-15-[facility]24 [facility] Start: 01-08-2024 End: 01-08-2024 ambulatory JAH ROSSO Not Available Start: 12-17-2023 End: 12-18-2023 ambulatory JAH R. DAVID [facility] Start: 12-03-2023 End: 12-03-2023 ambulatory JAH DAVID Not Available Start: 11-21-2023 End: 11-21-2023 ambulatory [facility] Start: 11-14-2023 Telephone encounter Laila casillas [facility] Start: 11-04-2023 End: 11-04-2023 ambulatory [facility] Start: 11-04-2023 End: 11-04-2023 Subsequent care visit Bethany Garcia APRN-CNM Work Phone: [facility] Comment on above: GA: 23w3d Start: 10-25-2023 End: 10-26-2023 ambulatory [facility] Start: 10-24-2023 End: 10-25-2023 Orders Only Rosalie Weston RN Maternal- Medicine at [facility] Comment on above: Multigravida of adva nced maternal age in second trimester (Primary Dx); Obesity affecting in second trimester, unspecified obesity type Start: 10-24-2023 End: 10-24-2023 Office consultation new/estab patient 80 min Kamla Lester MD Work Phone: [facility] [place] Comment on above: 21 weeks gestation o f (Primary Dx); Multigravida of advanced maternal age in second trimester; 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; Obesity affecting in second trimester, unspecified obesity type; Anxiety during ; Depression affecting ; Constipation, unspecified constipation type; Hernia of abdominal wall; Psoriasis; LGSIL on Pap smear of cervix; HPV in female Start: 10-14-2023 Orders Only Ayana Lund EQUIPMENT SERVICE TECHNICIAN-BLOOMING MILL SUPERVISOR Work Phone: [facility] Comment on above: Constipation during in second trimester (Primary Dx) Start: 10-07-2023 End: 10-08-2023 ambulatory [facility] Start: 10-07-2023 End: 10-07-2023 ambulatory [facility] Start: 10-07-2023 End: 10-07-2023 Subsequent care visit [facility] Ob Supervisor Bond[facility] Comment on above: GA: 19w3d Start: 09-10-2023 End: 09-10-2023 ambulatory AYANA LUND [facility] Start: 01-28-2023 End: 01-29-2023 ambulatory Jesus Tess Duran Facility:[facility] Start: 09-07-2020 End: 09-10-2020 Evaluation and management of inpatient José Miguel Estes Facility:[facility] Start: 11-01-2017 End: 11-01-2017 Ambulatory ANJALI MESSINA Facility: Start: 05-09-2017 End: 05-09-2017 Ambulatory ANJALI EMMYBUCK Facility: Procedures Date Procedure Procedure Detail Performing Clinician Start: 06-27-2023 Microscopic observat ion [Identifier] in Cervix by Cyto stain Pfws Supervisor Bonding Plan of Treatment Date Care Activity Detail Author Start: 06-27-2026 Screening for malignant neoplasm of cervix Pap Smear [facility] Start: 11-04-2024 Adult BMI Screening Adult BMI Screen ing [facility] Start: 11-04-2024 Tobacco Screening Tobacco Screening [facility] Start: 10-24-2024 Adult BMI Screening Adult BMI Screen ing [facility] Start: 10-24-2024 Tobacco Screening Tobacco Screening [facility] Start: 10-24-2024 End: 10-24-2024 US MFM with or without consult US MFM with or without consult Imaging Routine Multigravida of advanced maternal age in second trimester Obesity affecting in second trimester, unspecified obesity type Expected: 10/24/2024 (Approximate), Expires: 10/24/2024 [facility] Work Phone: Comment on above: Expected: 10/24/2024 (Approximate), Expires: 10/24/2024 Start: 10-07-2024 Adult BMI Screening Adult BMI Screen ing [facility] Start: 10-07-2024 Tobacco Screening Tobacco Screening [facility] Start: 12-17-2023 End: 12-17-2023 Patient encounter procedure 12/17/2023 2:45 PM EDT Appointment [facility] - Ul[facility]ound [address] [place] [address] [facility] Start: 12-02-2023 End: 12-02-2023 Patient encounter procedure 12/02/2023 11:45 AM EDT Routine [facility] [address] [place] [address] [facility] Start: 11-21-2023 End: 11-21-2023 Patient encounter procedure 11/21/2023 2:15 PM EST Appointment [facility] [place] [address] [facility] [address] [place] [address] [facility] [place] Start: 11-04-2023 End: 11-04-2023 Patient encounter procedure 11/04/2023 11:30 AM EST Routine [facility] [address] [place] [address] [facility] Start: 10-25-2023 Subsequent hospital visit by physician 10/25/2023 10:00 AM EST Hospital Encounter [facility] [address] [place] [address] [facility] Start: 10-24-2023 End: 10-24-2024 Echo complete W/O contrast Echo complete W/O contrast Echocardiography Routine 21 weeks gestation of Multigravida of advanced maternal age in second trimester Expected: 10/24/2023, Expires: 10/24/2024 [facility] Comment on above: Expected: 10/24/2023 , Expires: 10/24/2024 Start: 10-24-2023 End: 10-24-2024 US Abdominal wall Ultrasound abdomen limited ADBOMEN WALL Imaging STAT 21 weeks gestation of Hernia of abdominal wall Expected: 10/24/2023, Expires: 10/24/2024 [facility] Comment on above: Expected: 10/24/2023 , Expires: 10/24/2024 Start: 10-24-2023 End: 10-24-2023 Patient encounter procedure [facility] [place] Start: 10-07-2023 End: 10-07-2024 US MFM with or without consult US MFM with or without consult Imaging Routine Multigravida of advanced maternal age in second trimester Expected: 10/07/2023, Expires: 10/07/2024 [facility] [place] Work Phone: Comment on above: Expected: 10/07/2023 , Expires: 10/07/2024 Start: 2002 DTaP,Tdap and Td Vaccines (1 - Tdap) DTaP,Tdap and Td Vaccines (1 - Tdap) [facility] Start: 2001 Adult BMI Follow Up Plan Adult BMI Follow Up Plan [facility] Start: 1995 Depression Screening Depression Scre ening [facility] End: 10-06-2024 Bacteria identified in Urine by Culture Urine Culture Microbiology Routine UTI (urinary tract infection) during , first trimester 1 Occurrences starting 10/07/2023 until 10/06/2024 [facility] Comment on above: 1 Occurrences starti ng 10/07/2023 until 10/06/2024 Bacteria identified in Urine by Culture Urine Culture Microbiology Routine UTI (urinary tract infection) during , first trimester 10/07/2023 8:[address] [facility] End: 11-04-2024 CBC W Auto Differential panel - Blood CBC auto differential Lab Routine care in third trimester 1 Occurrences starting 11/04/2023 until 11/04/2024 [facility] Comment on above: 1 Occurrences starti ng 11/04/2023 until 11/04/2024 End: 10-24-2024 ECG 12 lead ECG 12 lead ECG Routine 21 weeks gestation of Multigravida of advanced maternal age in second trimester 1 Occurrences starting 10/24/2023 until 10/24/2024 [facility] Comment on above: 1 Occurrences starti ng 10/24/2023 until 10/24/2024 End: 11-04-2024 Glucose 1h post 50g load Glucose 1h post 50g load Lab Routine care in third trimester 1 Occurrences starting 11/04/2023 until 11/04/2024 [employer] Work Phone: Comment on above: 1 Occurrences starti ng 11/04/2023 until 11/04/2024 Reagin Ab [Presence] in Serum by RPR RPR Screen Response to Therapy, Serum Lab Routine 21 weeks gestation of 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 10/24/2023 7:10 PM EST [facility] End: 10-24-2024 RPR Therapy Response(Previous Positive Screen) RPR Therapy Response(Previous Positive Screen) Lab Routine 21 weeks gestation of 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 1 Occurrences starting 10/24/2023 until 10/24/2024 [employer] Work Phone: Comment on above: 1 Occurrences starti ng 10/24/2023 until 10/24/2024 End: 11-04-2024 Syphilis Total(Unknown Syphilis Status) Syphilis Total(Unknown Syphilis Status) Lab Routine care in third trimester 1 Occurrences starting 11/04/2023 until 11/04/2024 [facility] Comment on above: 1 Occurrences starti ng 11/04/2023 until 11/04/2024 Payers Date Payer Category Payer Medicaid [facility] MEDICAID [facility] MEDICAID [id number] 2023-Present [address] [place] [address] [id number] 2023 Medicaid [id number] 2023 Unknown KIM MILLER ACCNini SS (PPO) [id number] 2023-Present [phone] [address] [place] [address] [id number] 2023 Unknown [id number] 2020 Self-pay 2019 Unknown [id number] 1983 Unknown [id number] 1983 Unknown [id number] [id number] 1983 Unknown [id number] 2.840.1.273714.3.579.2.1286 1983 Unknown [id number] 2.840.1.065618.3.579.2.1286 1983 Unknown [id number] 2.840.1.243695.3.579.2.1286 1983 Unknown [id number] 2.840.1.312906.3.579.2.1286 1983 Unknown [id number] 2.840.1.003228.3.579.2.1286 1983 Unknown [id number] 2.840.1.364946.3.579.2.128 1983 Unknown [id number] 2.840.1.750831.3.579.2.1286 1983 Unknown [id number] 2.840.1.751143.3.579.2.128 1983 Unknown [id number] 2.16840.1.012303.3.579.2.1286 1983 Unknown [id number] 2.16840.1.225578.3.579.2.1259 1983 Unknown [id number] 2.16840.1.407058.3.579.2.1259 1983 Unknown [id number] [id number] 1959 Unknown [id number] Unknown [id number] [id number] Social History Date Type Detail Facility Start: [facility]10[facility] End: 06-16-2023 History of tobacco use Current smoker [facility] End: 06-16-2023 History of tobacco use Cigarette Smoker [facility] Start: 09-10-2023 Tobacco use and exposure Smokeless tobacco non-user [facility] Start: 10-07-2023 End: 11-04-2023 Alcohol intake Ex-drinker (finding) [facility] Start: 10-27-2020 End: 10-07-2023 History of [address] [facility] Start: 10-27-2020 End: 10-07-[address] [facility] Adolescent depressio n screening assessment 0 [facility] Start: 03-25-2023 Tobacco Comment quit a year an d a half ago [facility] Start: 06-07-2020 Alcohol Comment 2 days a week [facility] Start: 06-07-2023 [facility] Start: 1985 Sex Assigned At Not on file [facility] Medical Equipment Procedure Code Equipment Code Equipment Origin al Text Equipment Identifier Dates Mesh Pco Vntrl P tch 4.6cm Rpl [id number] - [facility] - [id number] Start: 07-01-2020 Clinical Notes 07-09-2022 to [...] Cece talked to the patient at her [facility] ultrasound appt today. Patient confirmed to Cece that she is transferring care to Dr. Carranza. Cece cancelled the scheduled appointment with our office. documented in this encounter [facility] [employer] [facility] 11-14-2023 Telephone encounter Note Received a record release from Dr. Carranza office. The patient is scheduled for an appointment with our office on 12/02/23. I attempted to call the patient to see if she is transferring care & if she still needs the appointment with our office on 12/02/23. The patient did not answer. The voicemail for for [place] so I did not leave a message for the patient. [facility] 11-14-2023 Telephone encounter Note Cece talked to the patient at her [facility] ultrasound appt today. Patient confirmed to Cece that she is transferring care to Dr. Carranza. Cece cancelled the scheduled appointment with our office. [facility] 11-04-2023 History of Presen t illness Narrative [...] Clifford 11/04/23 1157 documented in this encounter [facility] 10-24-2023 History of Presen t illness Narrative Images from the original note were not included. Video Visit via Real-time Synchronous Audiovisual Provider Location: [facility], MATERNAL- MEDICINE [address] [place] [address], [address] [place] [address] Patient Location: Other [facility] Patient Location Sharepoint Specialist: None Video Visit Consent Statement: I discussed [...] that there are some limitations compared to [id number] evaluations. We elected to proceed. [facility] Maternal- Medicine Consult Note Reason For Consult: [...] was told low risk cell free DNA [place]. 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 Test Performed By: [facility] [address] [place] [address] Glass Inspector: Matias Menchaca III, M.D. [facility] #[id number]^ T4, free 07/16/2023 0.75 0.61 - 1.60 [...] testing algorithm link below for more information. [email or web address] White Blood Cells 07/16/2023 9.3 4.0 [...] infection suspected, recommend repeat testing (>2 months). Vdqosh-cp-ggfqhs ratio is <0.80. RPR with Reflex to [...] the syphilis reverse algorithm and results, see: https://www.[employer])/ it-mmfiles/Syphilis_Serology_Alg orithm.pdf Test Performed by: [id number] [place] [address] Guard Dance Hall: Williams Joyce M.D. Ph.D.; CLIA# [id number] CLIA ID [id number] HGB Phoresis Interpretation 07/16/2023 See below Final [...] by Sommer Garcia MD Test Performed By: [facility] [address] [place] [address] Glass Inspector: Matias Menchaca III, M.D. CLIA #[id number]^ T.pallidum 07/16/2023 SEE COMMENTS 07/19/2023 12:59 PM (A) Final Comment: NOTE Test Result Flag Unit RefValue -- Syphilis Ab, TP-PA, S Positive A Negative Treponemal antibodies detected, consistent with previously treated syphilis, potentially early syphilis infection or latent disease. Clinical correlation to distinguish between these scenarios is required. For additional information on interpretation of the syphilis reverse algorithm and results, see: https://www.[employer])/ it-mmfiles/Syphilis_Serology_Alg orithm.pdf Test Performed by: [facility] [address] [id number] Guard Dance [employer]: Williams Joyce M.D. Ph.D.; CLIA# [id number] Hospital Outpatient Visit on 06/27/2023 Component Date [...] abdomen limited; Future - [facility] [place], [place]; Future - RPR Therapy Response(Previous Positive [...] at delivery about the maternal syphilis PMID: [id number] 4. Obesity affecting in second trimester, unspecified [...] Future - [facility] [place], [place]; Future She tells me that she [...] consultation and recommend also to see a Pay Station Department Manager. 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 Colposcopy in reviewed. 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 Discussed with the patient that I would recommend that she does not run the chemicals because of her letter provided. Strongly recommended that she continues to wear her appropriate PPE. Recommendations: Continue low-dose aspirin Follow-up with titers. Perley for rising titers as per above. The patient desires to have the titers done every 4 weeks. I ordered repeat titers today please follow from then onwards. Follow-up with the Health Department and recommend communication, testing and treatment of partner to avoid reinfection Serial growth assessments every 4 weeks after the anatomy scan through [facility] testing to be initiated at 32 weeks weekly with twice weekly testing at 36 weeks and weekly DVP (to be done at OB office) Delivery at 39 weeks due to advanced maternal age and obesity, sooner if clinically indicated Vaginal delivery preferred reserved section for routine indications Street Vendor should be notified about the syphilis in [...] MD, FACOG (she/hers) Maternal- Medicine [facility] [address] [facility] [address] [place] [address] [facility], the CDC, and other organizations representing maternal and public health professionals recommend that , , and lactating people and those considering receive the COVID-19 vaccination. Vaccination is the best method to reduce maternal and complications of SARS-CoV-2 infection. This document was created with [employer] technology. Though I make every effort to review the dictation as it is transcribed, on occasion the spoken word can be misinterpreted by the technology leading to inappropriate words, phrases, or sentences. This note is addressed to the requesting provider as a consultation for clinical guidance. Specific medical abbreviations are occasionally used and those are generally approved by the [place]?Board of?Obstetrics and?Gynecology?as well as?Moncho s abbreviations. The above plan of care was based solely on the diagnoses for which a consultation was requested. ?More frequent testing may be indicated based on her other medical/obstetrical conditions. The management of other or medical conditions is beyond the scope of requested consultation and will continue to be followed by the primary wall man or primary care provider. Note to patient: [...] done this here or other office? yes, [place] testing Neg for trisomies per patient, Not on chart, will call for results. Have you been seen here at [facility] in a previous ? no Recent ER visits or hospitalizations? no Bring blood sugar log or meter with you today? (Please bring them with you for every visit at [facility]) Traveled outside the country in the past 6 month no Any concerns that you would like me to mention to the provider today? Patient states she is worried about the chemicals that she uses at her job and her constipation issues with her hernia. Taking Metamucil and Colace BID Labs ordered today per [facility]. Labs drawn on 1st attempt (L) antecubital here in our office at this time without difficulty. Patient tolerated well. documented in this encounter [facility] 10-14-2023 Miscellaneous Notes Pt states she is [...] sent to Pharmacy. documented in this encounter [facility] [employer] 10-14-2023 Telephone encounter Note Pt states she is experiencing constipation. Pt states she is constantly straining to only have a little bit come out. Pt states she is drinking approximately 4 48oz bottles of water daily. Pt states she has tried Prune juice and Metamucil with no relief. Please advise. Thank you [facility] 10-14-2023 Telephone encounter Note RX for colace sent to pharmacy [facility] 10-14-2023 Telephone encounter Note Advised Pt of RX sent to Pharmacy. [facility] [employer] [facility] 10-07-2023 History of Presen t illness [...] [place] 10/07/23 1242 documented in this encounter [facility] 10-07-2023 Miscellaneous Notes Addended by: LEROY ANN on: 10/07/2023 12:55 PM Modules accepted: Orders documented in this encounter [facility] 10-07-2023 Note Addended by: LEROY ANN on: 10/07/2023 12:55 PM Modules accepted: Orders [facility] 01-14-2023 Note Entered by Nirali Bingham on January 14, 2023 08:38:33 EDT From: Aarti Bingham To: [facility]/pharmacy #[id number] Sent: 01/14/2023 08:38:33 EDT Subject: Medication Management Submitted: Complete:venlafaxine (venlafaxine 75 mg oral capsule, extended release) Signed by Aarti Bingham 01/14/2023 08:38:00 EDT Approved venlafaxine (VENLAFAXINE HCL ER 75 MG CAP) TAKE 1 CAPSULE BY MOUTH EVERY DAY Qty: 30 cap(s) Days Supply: 30 Refills: 5 Substitutions Allowed Route To Pharmacy - [facility]/pharmacy #[id number] Signed by Aarti Bingham From: [id number] To: Jesus Duran MD Sent: January 12, 2023 6:47:36 AM CDT Subject: Medication Management Due: January 13, 2023 6:45:46 AM CDT On Hold Pending Signature Dispensed Drug: venlafaxine (venlafaxine 75 mg oral capsule, extended release), TAKE 1 CAPSULE BY MOUTH EVERY DAY Quantity: 30 cap(s) Days Supply: 30 Refills: 5 Substitutions Allowed Notes from Pharmacy: [facility] 07-09-2022 Note Entered by Nirali Bingham on July 09, 2022 07:51:14 EDT From: Aarti Bingham To: [facility]/pharmacy #[id number] Sent: 07/09/2022 07:51:14 EDT Subject: Medication Management Submitted: Complete:venlafaxine (venlafaxine 75 mg oral capsule, extended release) Signed by Aarti Bingham 07/09/2022 07:51:00 EDT Approved with modifications: venlafaxine (VENLAFAXINE HCL ER 75 MG CAP) TAKE 1 CAPSULE BY MOUTH EVERY DAY Qty: 90 cap(s) Days Supply: 90 Refills: 1 Substitutions Allowed Route To Pharmacy - [facility]/pharmacy #[id number] Signed by Aarti Bingham From: [id number] To: Jesus Duran MD Sent: July 08, 2022 7:45:20 AM CDT Subject: Medication Management Due: July 09, 2022 12:25:55 AM CDT On Hold Pending Signature Dispensed Drug: venlafaxine (venlafaxine 75 mg oral capsule, extended release), TAKE 1 CAPSULE BY MOUTH EVERY DAY Quantity: 90 cap(s) Days Supply: 90 Refills: 2 Substitutions Allowed Notes from Pharmacy: [facility] Evaluation note Diagnosis with 19 completed weeks gestation- Primary Multigravida of advanced maternal age in second trimester UTI (urinary tract infection) during , first trimester documented in this encounter [facility]* Diagnosis Constipation during in second trimester- Primary [facility] Diagnosis 21 weeks gestation [...] HPV in female documented in this [facility] Diagnosis Multigravida of advanced [...] be sent through Care Everywhere. * Movement (Belarusian) * Preeclampsia ([place]ian) [facility]ructionsNot on file [facility] SystemInstructionsNot on file documented in [facility] SystemInstructionsNot on file [facility] in [facility] Summary Purpose Family History No [...] MFM with or without consult Kenna Bejarano, EQUIPMENT SERVICE TECHNICIAN-CNM [address] [place] [address] [facility] Maternal Med [address] [facility] [place] [address] Referral ID Status Reason Start Date Expiration Date V isits Requested Visits Authorized [id number] Pending Review 10/07/2023 10/06/2024 1 1 Specialty Diagnoses / Procedures Referred By Contac t Referred To Contact Diagnoses 21 weeks gestation of Multigravida of advanced maternal age in second trimester Procedures Echo complete W/O contrast Kamla Lester MD [address], [address] [place] [id number] Referral ID Status Reason Start Date Expiration Date V isits Requested Visits Authorized [id number] Pending Review 10/24/2023 10/23/2024 1 1 Specialty Diagnoses / Procedures Referred By Contac t Referred To Contact Diagnoses 21 weeks gestation of Multigravida of advanced maternal age in second trimester Procedures ECG 12 lead Kamla Lester MD [address], [address] [place] [id number] Referral ID Status Reason Start Date Expiration Date V isits Requested Visits Authorized [id number] Pending Review 10/24/2023 10/23/2024 1 1 Specialty Diagnoses / Procedures Referred By Contac t Referred To Contact General Surgery Diagnoses 21 weeks gestation of Hernia of abdominal wall Kamla Lester MD [address], [address] [place] [id number] [facility] Gen Surg Grillis [address] [place] [address] Referral ID Status Reason Start Date Expiration Date Visits Requested Visits Authorized [id number] Pending Review Specialty Services Required 10/24/2023 10/23/2024 1 1 Specialty Diagnoses / Procedures Referred By Contac t Referred To Contact Maternal and Medicine Diagnoses Multigravida of advanced maternal age in second trimester Obesity affecting in second trimester, unspecified obesity type Procedures US MFM with or without consult Kamla Lester MD [address], [address] [place] [id number] [facility] Maternal Med [address] [place] [address] Referral ID Status Reason Start Date Expiration Date V isits Requested Visits Authorized [id number] Pending Review 10/24/2023 10/23/2024 1 1 Additional Source Comments INFORMATION SOURCE (unrecogn ized section and content) DATE CREATED AUTHOR 03/07/2018 [facility] DATE CREATED AUTHOR AUTHOR'S ORGANIZ ATION 01/29/2023 [facility] DATE CREATED AUTHOR AUTHOR'S ORGANIZ ATION 06/22/2023 [facility] DATE CREATED AUTHOR AUTHOR'S ORGANIZ ATION 10/30/2023 [facility] DATE CREATED AUTHOR AUTHOR'S ORGANIZ ATION 11/22/2023 [facility] DATE CREATED AUTHOR AUTHOR'S ORGANIZ ATION 01/15/2024 [facility] DATE CREATED AUTHOR AUTHOR'S ORGANIZ ATION 01/25/2024 [facility] dical Specialists EPIC Care Teams (unrecognized sec tion and content) Wildlife Biostation Research Ecologist Relationship Specialty Start Date End Date Services, [facility] [address] [place], [place] PCP - General Family Medicine 03/25/23 [employer] Bi[employer] Research Ecologist Relationship Specialty Start Date End Date Services, [facility] [address] [place], [place] PCP - General Family Medicine 03/25/23 Wildlife Biostation Research Ecologist Relationship Specialty Start Date End Date Services, [facility] [address] [place] PCP - General Family Medicine 03/25/23 Wildlife Biostation Research Ecologist Relationship Specialty Start Date End Date Services, [facility] [address] [place] PCP - General Family Medicine 03/25/23 Wildlife Biostation Research Ecologist Relationship Specialty Start Date End Date Services, [facility] [address] [place] PCP - General Family Medicine 03/25/23 Wildlife Biostation Research Ecologist Relationship Specialty Start Date End Date Services, [facility] [address] [place] PCP - General Family Medicine 03/25/23 Wildlife Biostation Research Ecologist Relationship Specialty Start Date End Date Services, [facility] [address] [place] PCP - General Family Medicine 03/25/23 [...] BE BASED ON THE PRIMARY CLINICAL RECORDS. [facility] [employer]Notebook [facility]. provides no warranty or guarantee of the accuracy or completeness of information in this document.
--- NOTE | 2024-01-30 20:01 | US_ITS ---
[address] [address] Patient Name: EDILBERTO MEJIA MRN: [facility]:[id number] date: 1985 Sex: F Assigned Patient Location: [facility] Current Patient Location: Accession/Order Number: [id number] Exam Date: 01/30/2024 20:04 Report Date: 01/31/2024 06:05 At the request of: JAH HERNANDEZ Procedure: US OB BPP w non-stress EXAMINATION: US OB BPP w non-stress HISTORY: MULTIGRAVIDA OF ADVANCED MATERNAL AGE O09.523 COMPARISON: Ultrasound OB biophysical 01/23/2024 TECHNIQUE: Ultrasound biophysical profile was performed in the radiology department. BREATHING MOVEMENTS: 2.0 GROSS BODY MOVEMENTS: 2.0 TONE: 2.0 QUALITATIVE AMNIOTIC FLUID VOLUME: 2.0 PRESENTATION: CEPHALIC HEART RATE: 137.8 bpm bpm. AMNIOTIC FLUID VOLUME: 17.0 cm GESTATIONAL AGE: 35 weeks 5 days CONCLUSION: Total biophysical profile score 8.0. Electronically authenticated by: MARTIN CAMPOS Date: 01/31/2024 06:05
[2024-01-30 20:26] VITALS: BP 114/74; PULSE 74
[2024-01-30 20:31] VITALS: PULSE 74; TEMP 36.8
[2024-02-03 17:21] LABS: RPR Reactive (Non Reactive); Treponema pallidum Antibodies Reactive (Non Reactive)
== END 2024-01-30 21:00 | disposition home or self-care (01) ==
LOC: US 07:08 → FBC 19:56
PROVIDERS: PCP Family Medicine; Visit Provider Obstetrics & Gynecology
DX: O09.523 Supervision of elderly multigravida, third trimester (principal); A53.0 Latent syphilis, unspecified as early or late; Z3A.35 35 weeks gestation of pregnancy
CPT/HCPCS: 36415; 76818; 86592

== ENCOUNTER 2024-02-03 11:03 | Outpatient (OUT) | payer BC, MEDICAID, SELFPAY ==
[2024-02-03 17:56] VITALS: BP 121/70; PULSE 78
== END 2024-02-03 18:28 | disposition home or self-care (01) ==
LOC: FBCO 11:03 → FBC 17:51
PROVIDERS: PCP Family Medicine; Visit Provider Obstetrics & Gynecology
DX: O09.523 Supervision of elderly multigravida, third trimester (principal)
CPT/HCPCS: 59025

== ENCOUNTER 2024-02-04 | Outpatient (REF) | payer BC, MEDICAID, SELFPAY | END 2024-02-04 00:01 | disposition home or self-care (01) | LOC: LAB | PROVIDERS: PCP Family Medicine; Visit Provider Obstetrics & Gynecology | DX: Z34.93 Encounter for supervision of normal pregnancy, unspecified, third trimester (principal) | CPT/HCPCS: 87081 ==

== ENCOUNTER 2024-02-06 07:35 | Outpatient (OUT) | payer BC, MEDICAID, SELFPAY ==
--- OUTSIDE RECORDS SUMMARY | 2024-02-06 07:52 | XMS_ITS | CCD ---
Author Organization [facility] Care Team Providers Care Graphic Pre Press Trades Worker Name Role Phone JAILENEJuan ANJALI Unavailable Unavailable KARASIK, ANJALI Unavailable Unavailable KARASIK, ANJALI Unavailable Unavailable KARASIK, ANJALI Unavailable Unavailable KARASIK, ANJALI Unavailable Unavailable KARASIK, ANJALI Unavailable Unavailable Jesus Duran Primary Care Unavailable Jesus Duran Attending Unavailable José Miguel Estes Admitting Unavailable Royce Charles Attending Unavailable Jesus Duran Primary Care Unavailable Ramiro Abarca Consulting Unavailable Services, [facility] Primary Care Provider KENNA BEJARANO Referring Unavailable SERVICES, [facility] Care Unava ilable DOCHEVA, NIKOLINA P Referring Unavailable SERVICES, [facility] Care Unava ilable AYANA LUND Attending Unavailable SERVICES, [facility] Care Unava ilable DOCHEVA, NIKOLINA P Referring Unavailable SERVICES, [facility] Care Unava ilable SERVICES, [facility] Unava ilable KENNA BEJARANO Referring Unavailable SERVICES, [facility] Primary Care Unava ilable DOCHEVA, NIKOLINA P Attending Unavailable SERVICES, [facility] Care Unava ilable SERVICES, [facility] Primary Care Unava ilable DAVIDJAH Referring Unavailable SERVICES, [facility] Care Unava ilable DOCHEVA, NIKOLINA P Referring Unavailable SERVICES, [facility] Unava ilable DOCHEVA, NIKOLINA P Referring Unavailable SERVICES, [facility] Unava ilable NINI CARRANZAY Attending Unavailable DAVID, JAH Attending Unavailable ANNA MARIE MILLER Attending Unavailable DAVIDJAH REZA Attending Unavailable Allergies Allergy Classification Reported Allergen(s) Allergy Type Date of Onset Reaction(s) Facility (1 source) No Known Medication Allergies; Translations: [No Known Medication Allergies] Propensity to adverse reactions to drug (disorder) [facility] Repository (2 sources) Penicillins; Translations: [PENICILLINS] Drug allergy (disorder) [address] [facility] Repository Medications Current Medications Medication [...] nightly. 0 09/30/2023 Active polyethylene glycol 3350 49241 mg powder for oral solution (4 sources) [...] bedtime. 120 tablet 1 09/10/2023 Active sennosides, long term 8.6 mg oral tablet (4 sources) Start: [...] the patient. FINDINGS: In the periumbilical region, immigration specialist demonstrates a circumscribed 5.3 x 1.3 x 5.1 cm isoechoic lesion, thought to be related to a fat-containing periumbilical hernia sac seen on CT scan of March 2023. This does not appear to significantly change with Valsalva. Scaffolding Helper demonstrates potential associated fascial defect measuring approximately [...] Kapoor MD on 10/25/2023 11:30 AM Normal [facility] Reagin Ab RPR Ql (S)on 10-24 RPR SCREEN RESPONSE TO THERAPY, SERUM Negative Normal Negative [facility] Comment on above: Result Comment: NOTE Non-treponemal antibodies not detected. For additional information on interpretation of the syphilis reverse algorithm and results, see: [email or web address] Test Performed by: [address] [address] Jack Frame Tender: Williams Joyce M.D. Ph.D.; CLIA# [id number] URINALYSISon 10-07-2023 Bilirubin Ql (U) Negative Normal NEG [facility] BLOOD/HGB Negative Normal NEG [facility] CA OXALATE CRYSTALS PRESENT Abnormal NONE [facility] Color (U) YELLOW Normal YELLOW [facility] Glucose Ql (U) Negative Normal NEG [facility] Ketones Ql (U) Trace Abnormal NEG [facility] Leukocyte esterase Test strip Ql (U) Small Abnormal NEG [facility] MUCOUS PRESENT Abnormal NONE [facility] Nitrite Ql (U) Negative Normal NEG [facility] pH (U) 6.0 [pH] Normal 5.0-8.5 [facility] Protein Ql (U) Trace Abnormal NEG [facility] R.B.CELLS 4 /hpf Normal 0-5 [facility] Specific gravity (U) [Rel density] 1.023 Normal 1.003-1.035 [facility] SQUAMOUS EPITHELIUM 15 /hpf High 0-5 [facility] TURBIDITY CLEAR Normal CLEAR [facility] Urobilinogen (U) [Mass/Vol] mg/dL Normal <1.1 [facility] W.B.CELLS 5 /hpf Normal 0-5 [facility] URINE CULTUREon 10-07-2023 Bacteria identified Cx Nom (U) CULTURE RESULTS NO GROWTH AT <1000 CFU/mL Normal [facility] Comment on above: Performed By: #### 6 30-4 #### [facility] ([id number]) [address] [place] [address], [address] [place] [address] Urinalysison 10-07-2023 Bilirubin Ql (U) Negative Negative^Ne gat nia [facility] Calcium oxalate crystals LM Ql (Urine sed) PRESENT Abnormal NONE^NONE [facility] Color (U) YELLOW YELLOW^YELLOW [facility] Epithelial cells Auto (Urine sed) [#/Area] 15 [facility] Glucose (U) [Mass/Vol] Negative Negative^Negat nia mg/dL [facility] Hemoglobin Auto test strip Ql (U) Negative Negative^Negat nia [facility] Interpretation and review of laboratory results Abnormal [facility] Ketones (U) [Mass/Vol] Trace Abnormal Negative^Negat nia mg/dL [facility] Leukocyte esterase Auto test strip Ql (U) Small Abnormal Negative^Negat nia [facility] Mucus Ql (Urine sed) PRESENT Abnormal NONE^NONE [facility] Nitrite Auto test strip Ql (U) Negative Negative^Negat nia [facility] pH (U) 6.0 [pH] 5.0 - 8.5 [facility] Protein (U) [Mass/Vol] Trace Abnormal Negative^Negat nia mg/dL [facility] RBC Auto (Urine sed) [#/Area] 4 [facility] Specific gravity Refractometry automated (U) [Rel density] 1.023 1.003 - 1.035 [facility] Turbidity Ql (U) CLEAR CLEAR^CLE[facility] Urobilinogen Qn (U) NINF [facility] WBC Auto (Urine sed) [#/Area] 5 [facility] Outside Recordson 01-16-2023 Outside Records [id number]#[id number] 0OTGTIFF Normal [facility] PAP RFX HPV IF ASCon 018 COMMENT Comment Normal [facility] Comment on above: Result Comment: [place] Performed By: #### P APHR7 ####[facility] [address] [place] [address] DIAGNOSIS: Comment Normal [facility] Comment on above: Result Comment: NEGA TIVE FOR INTRAEPITHELIAL LESION AND MALIGNANCY. Performed By: #### P APHR7 ####[facility] [address] [place] [address] Cristiane Methodology: BDFP [facility] Comment on above: Result Comment: The TriPath(R) FocalPoint was unable to read and evaluate thisspecimen. Therefore a manual review was performed. Performed By: #### P APHR7 ####[facility] [address] [place] [address] Cristiane Note: Comment Normal [facility] Comment on above: Result Comment: The Pap smear is a screening test designed to aid in the detection ofpremalignant and malignant conditions of the uterine cervix. It is not adiagnostic procedure and should not be used as the sole means of detectingcervical cancer. Both false-positive and false-negative reports do occur. . Performed By: #### P APHR7 ####[facility] [address] [place] [address] Cristiane Performed by: Comment Normal [facility] Comment on above: Result Comment: Chato Simon, Coil Maker (ASCP) Performed By: #### P APHR7 ####[facility] [address] [place] [address] Cristiane Reflex Criteria: Comment Normal [facility] Comment on above: Result Comment: The HPV DNA reflex criteria were not met with this specimen resulttherefore, no HPV testing was performed. . Performed By: #### P APHR7 ####[facility] [address] [place] [address] Cristiane Specimen adequacy: Comment Normal [facility] Comment on above: Result Comment: Sati sfactory for evaluation. Endocervical and/or squamous metaplasticcells (endocervical component) are present. Performed By: #### P APHR7 ####[facility] [address] [place] [address] Cristiane . . Normal [facility] Comment on above: Performed By: #### P APHR7 ####[facility] [address] [place] [address] Cristiane LAB TESTINGon 05-09-2017 RECV HEADER SEE SCANNED REPORT I N HPF Normal [facility] Comment on above: Performed By: #### M ISC ####[facility] [address] [place] [address] Cristiane REV FROM REF LAB see scanned report [facility] Comment on above: Performed By: #### M ISC ####[facility] [address] [place] [address] Cristiane SENT TO REF LAB see scanned report Normal [facility] Comment on above: Performed By: #### M ISC ####[facility] [address] [place], [place] [address]Ubfkgk Cristiane Vital Signs Date Time Vital Sign Value Performing Clinician Epifanio lema 11-04-2023 11:26-0500 Body mass index (BMI) [Ratio] 41.14 kg/m2 Bethany Centralia ELASTIC ASSEMBLER-CNM Work Phone: [facility] 11-04-2023 11:26-0500 Body weight 112.13 kg Bethany Centralia ELASTIC ASSEMBLER-CNM Work Phone: [facility] 11-04-2023 11:26-0500 Diastolic blood pressure 68 mm[Hg] Bethany Centralia ELASTIC ASSEMBLER-CNM Work Phone: [facility] 11-04-2023 11:26-0500 Systolic blood pressure 120 mm[Hg] Bethany Centralia ELASTIC ASSEMBLER-CNM Work Phone: [facility] 10-24-2023 10:27-0500 Body height 165.1 cm Kamla Lester MD Work Phone: [facility] 10-24-2023 10:27-0500 Body mass index (BMI) [Ratio] 40.27 kg/m2 Kamla Lester MD Work Phone: [facility] 10-24-2023 10:27-0500 Body weight 109.77 kg Kamla Lester MD Work Phone: [facility] 10-24-2023 10:27-0500 Diastolic blood pressure 78 mm[Hg] Kamla Lester MD Work Phone: [facility] 10-24-2023 10:27-0500 Systolic blood pressure 118 mm[Hg] Kamla Lester MD Work Phone: [facility] 10-07-2023 11:23-0500 Body mass index (BMI) [Ratio] 39.99 kg/m2 Pfws Distribution Agent [facility] 10-07-2023 11:23-0500 Body weight 109 kg Pfws Distribution Agent [facility] 10-07-2023 11:23-0500 Diastolic blood pressure 80 mm[Hg] [facility] 10-07-2023 11:23-0500 Systolic blood pressure 100 mm[Hg] [facility] Encounters Encounter Date Encounter Type Care Provider Facility Start: 01-29-2024 End: 01-29-2024 ambulatory JAH ROSSO Not Available Start: 01-23-2024 End: 01-23-2024 ambulatory ANNA MARIE MILLER Not Available Start: 01-14-2024 End: 01-15-2024 [facility] Start: 01-08-2024 End: 01-08-2024 ambulatory JAH DAVID Not Available Start: 12-17-2023 End: 12-18-2023 ambulatory JAH SELLERSZIO [facility] Start: 12-03-2023 End: 12-03-2023 ambulatory JAH DAVID Not Available Start: 11-21-2023 End: 11-21-2023 ambulatory [facility] Start: 11-14-2023 Telephone encounter Laila casillas [facility]stetrics[facility]Gynecology Start: 11-04-2023 End: 11-04-2023 ambulatory [facility] Start: 11-04-2023 End: 11-04-2023 Subsequent care visit Bethany Garcia ELASTIC ASSEMBLER-CNM Work Phone: [facility] Comment on above: GA: 23w3d Start: 10-25-2023 End: 10-26-2023 [facility] Start: 10-24-2023 End: 10-25-2023 Orders Only Rosalie Weston RN M[facility]- [facility] at [facility] Comment on above: Multigravida of adva nced maternal age in second trimester (Primary Dx); Obesity affecting in second trimester, unspecified obesity type Start: 10-24-2023 End: 10-24-2023 Office consultation new/estab patient 80 min Kamla Lester MD Work Phone: [facility] [place] Comment on above: 21 weeks gestation o f (Primary Dx); Multigravida of advanced maternal age in second trimester; 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; Obesity affecting in second trimester, unspecified obesity type; Anxiety during ; Depression affecting ; Constipation, unspecified constipation type; Hernia of abdominal wall; Psoriasis; LGSIL on Pap smear of cervix; HPV in female Start: 10-14-2023 Orders Only Ayana Lund ELASTIC ASSEMBLER-PSYCHOLOGY TEACHER Work Phone: [facility] Comment on above: Constipation during in second trimester (Primary Dx) Start: 10-07-2023 End: 10-08-2023 ambulatory [facility] Start: 10-07-2023 End: 10-07-2023 ambulatory [facility] Start: 10-07-2023 End: 10-07-2023 Subsequent care visit [facility] Ob Distribution Agent [facility] Comment on above: GA: 19w3d Start: 09-10-2023 End: 09-10-2023 ambulatory AYANA Pulido KEVON [facility] Start: 01-28-2023 End: 01-29-2023 ambulatory Jesus Duran Facility:[facility] Start: 09-07-2020 End: 09-10-2020 Evaluation and management of inpatient José Miguel Estes Facility:[facility] Start: 11-01-2017 End: 11-01-2017 Ambulatory ANJALI MESSINA Facility: Start: 05-09-2017 End: 05-09-2017 Ambulatory ANJALI MESSINA Facility: Procedures Date Procedure Procedure Detail Performing Clinician Start: 06-27-2023 Microscopic observat ion [Identifier] in Cervix by Cyto stain Pfws Distribution Agent Plan of Treatment Date Care Activity Detail Author Start: 06-27-2026 Screening for malignant neoplasm of cervix Pap Smear [facility] Start: 11-04-2024 Adult BMI Screening Adult BMI Screen ing [facility] Start: 11-04-2024 Tobacco Screening Tobacco Screening [facility] Start: 10-24-2024 Adult BMI Screening Adult BMI Screen ing [facility] Start: 10-24-2024 Tobacco Screening Tobacco Screening [facility] Start: 10-24-2024 End: 10-24-2024 US MFM with or without consult US MFM with or without consult Imaging Routine Multigravida of advanced maternal age in second trimester Obesity affecting in second trimester, unspecified obesity type Expected: 10/24/2024 (Approximate), Expires: 10/24/2024 [facility] Work Phone: Comment on above: Expected: 10/24/2024 (Approximate), Expires: 10/24/2024 Start: 10-07-2024 Adult BMI Screening Adult BMI Screen ing [facility] Start: 10-07-2024 Tobacco Screening Tobacco Screening [facility] Start: 12-17-2023 End: 12-17-2023 Patient encounter procedure 12/17/2023 2:45 PM EDT Appointment [facility] [address] [place] [address] [facility] Start: 12-02-2023 End: 12-02-2023 Patient encounter procedure 12/02/2023 11:45 AM EDT Routine [facility] [id number] [facility] Start: 11-21-2023 End: 11-21-2023 Patient encounter procedure 11/21/2023 2:15 PM EST Appointment [facility] [place] [address] [facility] [address] [place] [address] [facility] [place] Start: 11-04-2023 End: 11-04-2023 Patient encounter procedure 11/04/2023 11:30 AM EST Routine [facility] [id number] [facility] Start: 10-25-2023 Subsequent hospital visit by physician 10/25/2023 10:00 AM EST Hospital Encounter [facility] [address] [place] [id number] [facility] Start: 10-24-2023 End: 10-24-2024 Echo complete W/O contrast Echo complete W/O contrast Echocardiography Routine 21 weeks gestation of Multigravida of advanced maternal age in second trimester Expected: 10/24/2023, Expires: 10/24/2024 [facility] Comment on above: Expected: 10/24/2023 , Expires: 10/24/2024 Start: 10-24-2023 End: 10-24-2024 US Abdominal wall Ultrasound abdomen limited ADBOMEN WALL Imaging STAT 21 weeks gestation of Hernia of abdominal wall Expected: 10/24/2023, Expires: 10/24/2024 [facility] Comment on above: Expected: 10/24/2023 , Expires: 10/24/2024 Start: 10-24-2023 End: 10-24-2023 Patient encounter procedure [facility] [place] Start: 10-07-2023 End: 10-07-2024 US MFM with or without consult US MFM with or without consult Imaging Routine Multigravida of advanced maternal age in second trimester Expected: 10/07/2023, Expires: 10/07/2024 [facility] Work Phone: Comment on above: Expected: 10/07/2023 , Expires: 10/07/2024 Start: 2002 DTaP,Tdap and Td Vaccines (1 - Tdap) DTaP,Tdap and Td Vaccines (1 - Tdap) [facility] Start: 2001 Adult BMI Follow Up Plan Adult BMI Follow Up Plan [facility] Start: 1995 [facility] End: 10-06-2024 Bacteria identified in Urine by Culture Urine Culture Microbiology Routine UTI (urinary tract infection) during , first trimester 1 Occurrences starting 10/07/2023 until 10/06/2024 [facility] Comment on above: 1 Occurrences starti ng 10/07/2023 until 10/06/2024 Bacteria identified in Urine by Culture Urine Culture Microbiology Routine UTI (urinary tract infection) during , first trimester 10/07/2023 8:25 PM EST [facility] End: 11-04-2024 CBC W Auto Differential panel - Blood CBC auto differential Lab Routine care in third trimester 1 Occurrences starting 11/04/2023 until 11/04/2024 [facility] Comment on above: 1 Occurrences starti ng 11/04/2023 until 11/04/2024 End: 10-24-2024 ECG 12 lead ECG 12 lead ECG Routine 21 weeks gestation of Multigravida of advanced maternal age in second trimester 1 Occurrences starting 10/24/2023 until 10/24/2024 [facility]: 1 Occurrences starti ng 10/24/2023 until 10/24/2024 End: 11-04-2024 Glucose 1h post 50g load Glucose 1h post 50g load Lab Routine care in third trimester 1 Occurrences starting 11/04/2023 until 11/04/2024 [employer] Work Phone: Comment on above: 1 Occurrences starti ng 11/04/2023 until 11/04/2024 Reagin Ab [Presence] in Serum by RPR RPR Screen Response to Therapy, Serum Lab Routine 21 weeks gestation of 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 10/24/2023 7:10 PM EST [facility] End: 10-24-2024 RPR Therapy Response(Previous Positive Screen) RPR Therapy Response(Previous Positive Screen) Lab Routine 21 weeks gestation of 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 1 Occurrences starting 10/24/2023 until 10/24/2024 [employer] Work Phone: Comment on above: 1 Occurrences starti ng 10/24/2023 until 10/24/2024 End: 11-04-2024 Syphilis Total(Unknown Syphilis Status) Syphilis Total(Unknown Syphilis Status) Lab Routine care in third trimester 1 Occurrences starting 11/04/2023 until 11/04/2024 [facility] Comment on above: 1 Occurrences starti ng 11/04/2023 until 11/04/2024 Payers Date Payer Category Payer Medicaid ANTH MEDICAID [facility] MEDICAID [id number] 2023-Present [address] [place] [address] [id number] 2023 Medicaid [id number] 2023 Unknown KIM SMITH (PPO) [id number] 2023-Present [phone] [address] [place] [address] [id number] 2023 Unknown [id number] 2020 Self-pay 2019 Unknown [id number] 1983 Unknown [id number] 1983 Unknown [id number] [id number] 1983 Unknown [id number] 1983 Unknown [id number] 2.840.1.330822.3.579.2.128 1983 Unknown [id number] 2.840.1.066825.3.579.2.128 1983 Unknown [id number] 2.840.1.592809.3.579.2.1286 1983 Unknown [id number] 2.840.1.591872.3.579.2.128 1983 Unknown [id number] 2.16840.1.953850.3.579.2.128 1983 Unknown [id number] 2.840.1.082792.3.579.2.128 1983 Unknown [id number] 2.16840.1.561041.3.579.2.128 1983 Unknown [id number] 1983 Unknown [id number] 2.16840.1.241952.3.579.2.1259 1983 Unknown [id number] [id number]59 1983 Unknown [id number] [id number]59 1983 Unknown [id number] [id number] 1959 Unknown [id number] Unknown [id number] Social History Date Type Detail Facility Start: 09-10-2023 Tobacco smoking stat [facility] Ex-smoker [facility] End: 06-16-2023 History of tobacco use Current smoker [facility] End: 06-16-2023 History of tobacco use Cigarette Smoker [facility] Start: 09-10-2023 Tobacco use and exposure Smokeless tobacco non-user [facility] Start: 10-07-2023 End: 11-04-2023 Alcohol intake Ex-drinker (finding) [facility] Start: 10-27-2020 End: 10-07-2023 History of Social function [facility] Start: 10-27-2020 End: 10-07-2023 Tobacco use panel [facility] Adolescent depressio n screening assessment 0 [facility] Start: 03-25-2023 Tobacco Comment quit a year an d a half ago [facility] Start: 06-07-2020 Alcohol Comment 2 days a week [facility] Start: 06-07-2023 [facility] Start: 1985 Sex Assigned At Not on file P [facility] Medical Equipment Procedure Code Equipment Code Equipment Origin al Text Equipment Identifier Dates Mesh Pco Vntrl P tch 4.6cm Rpl [id number] - Sna - [id number] Start: 07-01-2020 Clinical Notes 07-09-2022 to 11-14-2023 Telephone Encounter - Laila Gil - 11/14/2023 10:35 AM ESTTelephone Encounter - Laila Gil - 11/14/2023 10:35 AM [facility]any [facility] 11/04/[facility]23 11:30 AM EST Note Date [...] Cece talked to the patient at her [facility] ultrasound appt today. Patient confirmed to Cece that she is transferring care to Dr. Carranza. Cece cancelled the scheduled appointment with our office. documented in this encounter [facility] 11-14-2023 Telephone encounter Note Received a [...] not leave a message for the patient. [facility] 11-14-2023 Telephone encounter Note Cece talked to the patient at her [facility] ultrasound appt today. Patient confirmed to Cece that she is transferring care to Dr. Carranza. Cece cancelled the scheduled appointment with our office. [facility] 11-04-2023 History of Presen t illness Narrative [...] Clifford 11/04/23 1157 documented in this encounter [facility] 10-24-2023 History of Presen t illness Narrative Images from the original note were not included. Video Visit via Real-time Synchronous Audiovisual Provider Location: [facility], MATERNAL- MEDICINE [facility], [facility] [address] [address] Patient Location: Other [facility] Patient Location Post Hole Digger: None Video Visit Consent Statement: I discussed [...] that there are some limitations compared to pfcf-cu-kxuz evaluations. We elected to proceed. [facility] Maternal- Medicine Consult Note Reason For [...] was told low risk cell free DNA Bittinger. 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 Test Performed By: [facility] [address] [place] [address] Director Of Collections: Matias Menchaca III, M.D. [facility] #[id number]^ T4, free 07/16/2023 0.75 0.61 - 1.60 [...] testing algorithm link below for more information. [email or web address]/dv/dl.a [email or web address] h=acaea White Blood Cells 07/16/2023 9.3 4.0 [...] infection suspected, recommend repeat testing (>2 months). Mvrjui-ac-yurwuu ratio is <0.80. RPR with Reflex to [...] the syphilis reverse algorithm and results, see: [email or web address]/ it-[email or web address]_Serology_Alg [email or web address].pdf Test Performed by: [facility] [address] [place] [address] Jack Frame Tender: Williams Joyce M.D. Ph.D.; CLIA# [id number] CLIA ID [id number] HGB Phoresis Interpretation 07/16/2023 See below Final [...] by Sommer Garcia MD Test Performed By: [facility] [address] [place] [address] Director Of Collections: Matias Menchaca III, M.D. CLIA #[id number]^ T.pallidum 07/16/2023 SEE COMMENTS 07/19/2023 12:59 PM (A) Final Comment: NOTE Test Result Flag Unit RefValue -- Syphilis Ab, TP-PA, S Positive A Negative Treponemal antibodies detected, consistent with previously treated syphilis, potentially early syphilis infection or latent disease. Clinical correlation to distinguish between these scenarios is required. For additional information on interpretation of the syphilis reverse algorithm and results, see: [email or web address] [email or web address] Test Performed by: [facility] [id number] [place] [address] Jack Frame Tender: Williams Joyce M.D. Ph.D.; CLIA# [id number] Hospital Outpatient Visit on 06/27/2023 Component Date [...] Ultrasound abdomen limited; Future - [facility] - [place], [place]; Future - RPR Therapy Response(Previous Positive [...] at delivery about the maternal syphilis PMID: [id number] 4. Obesity affecting in second trimester, unspecified [...] wall - Ultrasound abdomen limited; Future - [facility] - [place], [place]; Future She tells me that she [...] consultation and recommend also to see a Supervisor Nurse. 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 Colposcopy in reviewed. 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 Discussed with the patient that I would recommend that she does not run the chemicals because of her letter provided. Strongly recommended that she continues to wear her appropriate PPE. Recommendations: Continue low-dose aspirin Follow-up with titers. [place] for rising titers as per above. The patient desires to have the titers done every 4 weeks. I ordered repeat titers today please follow from then onwards. Follow-up with the Health Department and recommend communication, testing and treatment of partner to avoid reinfection Serial growth assessments every 4 weeks after the anatomy scan through [facility] testing to be initiated at 32 weeks weekly with twice weekly testing at 36 weeks and weekly DVP (to be done at OB office) Delivery at 39 weeks due to advanced maternal age and obesity, sooner if clinically indicated Vaginal delivery preferred reserved section for routine indications Banking Pin Adjuster should be notified about the syphilis in [...] Kamla Lester MD, FACOG (she/hers) Maternal- Medicine [facility] [address] [place] [address] [facility], the CDC, and other organizations representing maternal and public health professionals recommend that , , and lactating people and those considering receive the COVID-19 vaccination. Vaccination is the best method to reduce maternal and complications of SARS-CoV-2 infection. This document was created with Rank By Search technology. Though I make every effort to review the dictation as it is transcribed, on occasion the spoken word can be misinterpreted by the technology leading to inappropriate words, phrases, or sentences. This note is addressed to the requesting provider as a consultation for clinical guidance. Specific medical abbreviations are occasionally used and those are generally approved by the [place]?Board of?Obstetrics and?Gynecology?as well as?Moncho sepulveda abbreviations. The above plan of care was based solely on the diagnoses for which a consultation was requested. ?More frequent testing may be indicated based on her other medical/obstetrical conditions. The management of other or medical conditions is beyond the scope of requested consultation and will continue to be followed by the primary cell stripper or primary care provider. Note to patient: [...] done this here or other office? yes, [facility] testing Neg for trisomies per patient, Not on chart, will call for results. Have you been seen here at [facility] in a previous ? no Recent ER visits or hospitalizations? no Bring blood sugar log or meter with you today? (Please bring them with you for every visit at [facility]) Traveled outside the country in the past 6 month no Any concerns that you would like me to mention to the provider today? Patient states she is worried about the chemicals that she uses at her job and her constipation issues with her hernia. Taking Metamucil and Colace BID Labs ordered today per [facility]. Labs drawn on 1st attempt (L) antecubital here in our office at this time without difficulty. Patient tolerated well. documented in this encounter [facility] 10-14-2023 Miscellaneous Notes Pt states she is [...] sent to Pharmacy. [facility] Tele[facility] encounter Note Pt states she is experiencing constipation. Pt states she is constantly straining to only have a little bit come out. Pt states she is drinking approximately 4 48oz bottles of water daily. Pt states she has tried Prune juice and Metamucil with no relief. Please advise. [facility] Telephone encounter Note [facility] Telephone encounter Note Advised Pt of RX sent to [facility] History of Presen t illness Narrative [...] [place] 10/07/23 1242 documented in this encounter [facility] 10-07-2023 Miscellaneous Notes Addended by: LEROY ANN on: 10/07/2023 12:55 PM Modules accepted: Orders documented in this encounter [facility] 10-07-2023 Note Addended by: LEORY ANN on: 10/07/2023 12:55 PM Modules accepted: Orders [facility] 01-14-2023 Note Entered by Nirali Bingham on January 14, 2023 08:38:33 EDT From: Aarti Bingham To: [facility]/pharmacy #[id number] Sent: 01/14/2023 08:38:33 EDT Subject: Medication Management Submitted: Complete:venlafaxine (venlafaxine 75 mg oral capsule, extended release) Signed by Aarti Bingham 01/14/2023 08:38:00 EDT Approved venlafaxine (VENLAFAXINE HCL ER 75 MG CAP) TAKE 1 CAPSULE BY MOUTH EVERY DAY Qty: 30 cap(s) Days Supply: 30 Refills: 5 Substitutions Allowed Route To Pharmacy - [facility]/pharmacy #[id number] Signed by Aarti Bingham From: [id number] To: Jesus Duran MD Sent: January 12, 2023 6:47:36 AM CDT Subject: Medication Management Due: January 13, 2023 6:45:46 AM CDT On Hold Pending Signature Dispensed Drug: venlafaxine (venlafaxine 75 mg oral capsule, extended release), TAKE 1 CAPSULE BY MOUTH EVERY DAY Quantity: 30 cap(s) Days Supply: 30 Refills: 5 Substitutions Allowed Notes from Pharmacy: [facility] 07-09-2022 Note Entered by Nirali Bingham on July 09, 2022 07:51:14 EDT From: Aarti Bingham To: [facility]/pharmacy #[id number] Sent: 07/09/2022 07:51:14 EDT Subject: Medication Management Submitted: Complete:venlafaxine (venlafaxine 75 mg oral capsule, extended release) Signed by Aarti Bingham 07/09/2022 07:51:00 EDT Approved with modifications: venlafaxine (VENLAFAXINE HCL ER 75 MG CAP) TAKE 1 CAPSULE BY MOUTH EVERY DAY Qty: 90 cap(s) Days Supply: 90 Refills: 1 Substitutions Allowed Route To Pharmacy - [facility]/pharmacy #[id number] Signed by Aarti Bingham From: [id number] To: Jesus Duran MD Sent: July 08, 2022 7:45:20 AM CDT Subject: Medication Management Due: July 09, 2022 12:25:55 AM CDT On Hold Pending Signature Dispensed Drug: venlafaxine (venlafaxine 75 mg oral capsule, extended release), TAKE 1 CAPSULE BY MOUTH EVERY DAY Quantity: 90 cap(s) Days Supply: 90 Refills: 2 Substitutions Allowed Notes from Pharmacy: [facility] Evaluation note Diagnosis with 19 completed weeks gestation- Primary Multigravida of advanced maternal age in second trimester UTI (urinary tract infection) during , first trimester [facility] Diagnosis Constipation during in second trimester- Primary [facility] Diagnosis 21 weeks gestation of [...] HPV in female [facility]* Diagnosis Multigravida of advanced maternal age in second trimester- Primary Obesity affecting in second trimester, unspecified obesity type documented [facility]* Diagnosis 23 weeks gestation of - Primary care in third trimester documented [facility] this [facility] on filedocumented in this encounter [facility] System[facility]ructionsNot on filedocumented in this encounter [facility]* Attachments The following attachments cannot be sent through Care Everywhere. * Movement (Moroccan) * Preeclampsia (Moroccan) [facility] System[facility]ructionsNot on file documented in this encounterProSt. [facility] SystemInstructionsNot on file documented in this encounterProSt. [facility] SystemInstructionsNot on file [facility] Summary Purpose Family History No Family [...] Referral Specialty Diagnoses / Procedures Referred By Fabiano bauer Referred To Contact Maternal and Medicine Diagnoses Multigravida of advanced maternal age in second trimester Procedures US [facility] with or without consult Kenna Bejarano, ELASTIC ASSEMBLER-CNM [address] [place] [address] [facility] Maternal Med [address] [place] [address] Referral ID Status Reason Start Date Expiration Date V isits Requested Visits Authorized [id number] Pending Review 10/07/2023 10/06/2024 1 1 Specialty Diagnoses / Procedures Referred By Contac t Referred To Contact Diagnoses 21 weeks gestation of Multigravida of advanced maternal age in second trimester Procedures Echo complete W/O contrast Kamla Lester MD [address], [address] [place] [address] Referral ID Status Reason Start Date Expiration Date V isits Requested Visits Authorized [id number] Pending Review 10/24/2023 10/23/2024 1 1 Specialty Diagnoses / Procedures Referred By Contac t Referred To Contact Diagnoses 21 weeks gestation of Multigravida of advanced maternal age in second trimester Procedures ECG 12 lead Kamla Lester MD [address], [address] [place] [address] Referral ID Status Reason Start Date Expiration Date V isits Requested Visits Authorized [id number] Pending Review 10/24/2023 10/23/2024 1 1 Specialty Diagnoses / Procedures Referred By Contac t Referred To Contact General Surgery Diagnoses 21 weeks gestation of Hernia of abdominal wall Kamla Lester MD [address], [address] [place] [phone] [facility] [address] [place] [address] Referral ID Status Reason Start Date Expiration Date Visits Requested Visits Authorized [id number] Pending Review Specialty Services Required 10/24/2023 10/23/2024 1 1 Specialty Diagnoses / Procedures Referred By Contac t Referred To Contact Maternal and Medicine Diagnoses Multigravida of advanced maternal age in second trimester Obesity affecting in second trimester, unspecified obesity type Procedures US MFM with or without consult Kamla Lester MD [address], [address] [place] [address] [facility] Maternal Med [address] [place] [address] Referral ID Status Reason Start Date Expiration Date V isits Requested Visits Authorized [id number] Pending Review 10/24/2023 10/23/2024 1 1 Additional Source Comments INFORMATION SOURCE (unrecogn ized section and content) DATE CREATED AUTHOR 03/07/2018 [facility] DATE CREATED AUTHOR AUTHOR'S ORGANIZ ATION 01/29/2023 [facility] DATE CREATED AUTHOR AUTHOR'S ORGANIZ ATION 06/22/2023 [facility] DATE CREATED AUTHOR AUTHOR'S ORGANIZ ATION 10/30/2023 [facility] DATE CREATED AUTHOR AUTHOR'S ORGANIZ ATION 11/22/2023 [facility] DATE CREATED AUTHOR AUTHOR'S ORGANIZ ATION 01/15/2024 [facility] DATE CREATED AUTHOR AUTHOR'S ORGANIZ ATION 01/31/2024 [facility] EPIC Care Teams (unrecognized sec tion and content) Graphic Pre Press Trades Worker Relationship Specialty Start Date End Date Services, [facility] [address] [place], [place] PCP - General Family Medicine 03/25/23 Graphic [employer] Press Trades Worker Relationship Specialty Start Date End Date Services, [facility] [address] [place], [place] PCP - General Family Medicine 03/25/23 Graphic Pre Press Trades Worker Relationship Specialty Start Date End Date Services, [facility] [address] [place], [place] PCP - General Family Medicine 03/25/23 Graphic Pre Press Trades Worker Relationship Specialty Start Date End Date Services, [facility] [address] [place], [place] PCP - General Family Medicine 03/25/23 Graphic Pre Press Trades Worker Relationship Specialty [facility] [address] [place] P[facility] - [facility] 03/25/23 Graphic Pre Press Trades Worker Relationship Specialty Start Date End Date Services, [facility] [address] [place] PCP - [facility] 03/25/23 Graphic Pre Press Trades Worker Relationship Specialty Start Date End [facility] [address] [place] PCP - General Family Medicine 03/25/23 [...] BE BASED ON THE PRIMARY CLINICAL RECORDS. [facility]. provides no warranty or guarantee of the accuracy or completeness of information in this document.
--- NOTE | 2024-02-06 20:06 | US_ITS ---
[address] [address] Patient Name: EDILBERTO MEJIA MRN: [id number]:[id number] date: 1985 Sex: F Assigned Patient Location: [facility] Current Patient Location: LAB Accession/Order Number: [id number] Exam Date: 02/06/2024 20:10 Report Date: 02/07/2024 07:59 At the request of: JAH HERNANDEZ Procedure: US OB BPP w non-stress EXAMINATION: US OB BPP w non-stress HISTORY: MULTIGRAVIDA OF ADVANCED MATERNAL AGE O09.523 COMPARISON: Ultrasound OB biophysical 01/30/2024 TECHNIQUE: Ultrasound biophysical profile was performed in the radiology department. BREATHING MOVEMENTS: 2.0 GROSS BODY MOVEMENTS: 2.0 TONE: 2.0 QUALITATIVE AMNIOTIC FLUID VOLUME: 2.0 PRESENTATION: CEPHALIC HEART RATE: 144.4 bpm bpm. AMNIOTIC FLUID VOLUME: 13.4 cm GESTATIONAL AGE: 36 weeks 5 days CONCLUSION: Total biophysical profile score 8.0. Electronically authenticated by: MARTIN CAMPOS Date: 02/07/2024 07:59
[2024-02-06 20:40] VITALS: BP 133/60; PULSE 79
== END 2024-02-06 21:07 | disposition home or self-care (01) ==
LOC: US 07:49 → FBC 20:07
PROVIDERS: PCP Family Medicine; Visit Provider Obstetrics & Gynecology
DX: O09.523 Supervision of elderly multigravida, third trimester (principal); Z3A.36 36 weeks gestation of pregnancy
CPT/HCPCS: 59025; 76818

== ENCOUNTER 2024-02-10 08:33 | Outpatient (OUT) | payer BC, MEDICAID, SELFPAY ==
--- OUTSIDE RECORDS SUMMARY | 2024-02-10 08:37 | XMS_ITS | CCD ---
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 Name Role Phone JAILENEJuan ANJALI Unavailable Unavailable KARASIK, ANJALI Unavailable Unavailable KARASIK, ANJALI Unavailable Unavailable KARASIK, ANJALI Unavailable Unavailable KARASIK, ANJALI Unavailable Unavailable KARASIK, ANJALI Unavailable Unavailable Jesus Duran Primary Care Unavailable Renee, Jesus Pulido Attending Unavailable José Miguel Estes Admitting Unavailable Royce Charles Attending Unavailable Jesus Duran Primary Care Unavailable Ramiro Abarca Consulting Unavailable Services, [facility] Primary Care Provider KENNA BEJARANO Referring Unavailable SERVICES, [facility] Care Unava ilable DOCHEVA, NIKOLINA P Referring Unavailable SERVICES, [facility] Primary Care Unava ilable AYANA LUND Attending Unavailable SERVICES, [facility] Care Unava ilable DOCHEVA, NIKOLINA P Referring Unavailable SERVICES, [facility] Care Unava ilable SERVICES, [facility] Primary Care Unava ilable KENNA BEJARANO Referring Unavailable SERVICES, [facility] Primary Care Unava ilable DOCHEVA, NIKOLINA P Attending Unavailable SERVICES, [facility] Care Unava ilable SERVICES, [facility] Primary Care Unava ilable DAVIDNINIY Dillon Referring Unavailable SERVICES, [facility] Primary Care Unava ilable DOCHEVA, NIKOLINA P Referring Unavailable SERVICES, [facility] Primary Care Unava ilable DOCHEVA, NIKOLINA P Referring Unavailable SERVICES, [facility] Unava ilable NINI CARRANZAY Attending Unavailable DAVID, JAH Attending Unavailable ANNA MARIE MILLER Attending Unavailable DAVID, JAH Attending Unavailable DAVID, JAH Attending Unavailable Allergies Allergy Classification Reported Allergen(s) Allergy Type Date of Onset Reaction(s) Facility (1 source) No Known Medication Allergies; Translations: [No Known Medication Allergies] Propensity to adverse reactions to drug (disorder) [facility] Repository (2 sources) Penicillins; Translations: [PENICILLINS] Drug allergy (disorder) 8 [facility] Repository Medications Current Medications Medication [...] nightly. 0 09/30/2023 Active polyethylene glycol 3350 06875 mg powder for oral solution (4 sources) [...] bedtime. 120 tablet 1 09/10/2023 Active sennosides, care home 8.6 mg oral tablet (4 sources) [...] the patient. FINDINGS: In the periumbilical region, c++ professor demonstrates a circumscribed 5.3 x 1.3 x 5.1 cm isoechoic lesion, thought to be related to a fat-containing periumbilical hernia sac seen on CT scan of March 2023. This does not appear to significantly change with Valsalva. Protocol Manager demonstrates potential associated fascial defect measuring approximately [...] Kapoor MD on 10/25/2023 11:30 AM Normal [facility] Reagin Ab RPR Ql (S)on 10-24 RPR SCREEN RESPONSE TO THERAPY, SERUM Negative Normal Negative [facility] Comment on above: Result Comment: NOTE Non-treponemal antibodies not detected. For additional information on interpretation of the syphilis reverse algorithm and results, see: [email or web address] Test Performed by: [address] [address] Research Geneticist: Williams Joyce M.D. Ph.D.; CLIA# [id number] URINALYSISon 10-07-2023 Bilirubin Ql (U) Negative Normal NEG [facility] BLOOD/HGB Negative Normal NEG [facility] CA OXALATE CRYSTALS PRESENT Abnormal NONE [facility] Color (U) YELLOW Normal YELLOW [facility] Glucose Ql (U) Negative Normal NEG [facility] Ketones Ql (U) Trace Abnormal NEG [facility] Leukocyte esterase Test strip Ql (U) Small Abnormal NEG [facility] MUCOUS PRESENT Abnormal NONE [facility] Nitrite Ql (U) Negative Normal NEG [facility] pH (U) 6.0 [pH] Normal 5.0-8.5 [facility] Protein Ql (U) Trace Abnormal NEG [facility] R.B.CELLS 4 /hpf Normal 0-5 [facility] Specific gravity (U) [Rel density] 1.023 Normal 1.003-1.035 [facility] SQUAMOUS EPITHELIUM 15 /hpf High 0-5 [facility] TURBIDITY CLEAR Normal CLEAR [facility] Urobilinogen (U) [Mass/Vol] mg/dL Normal <1.1 [facility] W.B.CELLS 5 /hpf Normal 0-5 [facility] URINE CULTUREon 10-07-2023 Bacteria identified Cx Nom (U) CULTURE RESULTS NO GROWTH AT <1000 CFU/mL Normal [facility] Comment on above: Performed By: #### 6 30-4 #### [facility] ([id number]) [address] [place] [address], [address] [place] [address] Urinalysison 10-07-2023 Bilirubin Ql (U) Negative Negative^Ne gat nia [facility] Calcium oxalate crystals LM Ql (Urine sed) PRESENT Abnormal NONE^NONE [facility] Color (U) YELLOW YELLOW^YELLOW [facility] Epithelial cells Auto (Urine sed) [#/Area] 15 High [facility] Glucose (U) [Mass/Vol] Negative Negative^Negat nia mg/dL [facility] Hemoglobin Auto test strip Ql (U) Negative Negative^Negat nia [facility] Interpretation and review of laboratory results Abnormal [facility] Ketones (U) [Mass/Vol] Trace Abnormal Negative^Negat nia mg/dL [facility] Leukocyte esterase Auto test strip Ql (U) Small Abnormal Negative^Negat nia [facility] Mucus Ql (Urine sed) PRESENT Abnormal NONE^NONE [facility] Nitrite Auto test strip Ql (U) Negative Negative^Negat nia [facility] pH (U) 6.0 [pH] 5.0 - 8.5 [facility] Protein (U) [Mass/Vol] Trace Abnormal Negative^Negat nia mg/dL [facility] RBC Auto (Urine sed) [#/Area] 4 [facility] Specific gravity Refractometry automated (U) [Rel density] 1.023 1.003 - 1.035 [facility] Turbidity Ql (U) CLEAR CLEAR^CLEAR [facility] Urobilinogen Qn (U) NINF [facility] WBC Auto (Urine sed) [#/Area] 5 [facility] Outside Recordson 01-16-2023 Outside Records [id number]#1.0 [id number] Normal [facility] PAP RFX HPV IF ASCon 018 COMMENT Comment Normal [facility] Comment on above: Result Comment: [place] Performed By: #### P APHR7 ####[facility] [address] [place] [address] Cristiane DIAGNOSIS: Comment Normal [facility] Comment on above: Result Comment: NEGA TIVE FOR INTRAEPITHELIAL LESION AND MALIGNANCY. Performed By: #### P APHR7 ####[facility] [address] [place] [address] Cristiane Methodology: BDFP Normal [facility] Comment on above: Result Comment: The TriPath(R) FocalPoint was unable to read and evaluate thisspecimen. Therefore a manual review was performed. Performed By: #### P APHR7 ####[facility] [address] [place] [address] Cristiane Note: Comment Normal [facility] Comment on above: Result Comment: The Pap smear is a screening test designed to aid in the detection ofpremalignant and malignant conditions of the uterine cervix. It is not adiagnostic procedure and should not be used as the sole means of detectingcervical cancer. Both false-positive and false-negative reports do occur. . Performed By: #### P APHR7 ####[facility] [address] [place] [address] Cristiane Performed by: Comment Normal [facility] Comment on above: Result Comment: Chato Simon, Office Support Clerk (ASCP) Performed By: #### P APHR7 ####[facility] [address] [place] [address] Reflex Criteria: Comment Normal [facility] Comment on above: Result Comment: The HPV DNA reflex criteria were not met with this specimen resulttherefore, no HPV testing was performed. . Performed By: #### P APHR7 ####[facility] [address] [place], [place] [address] Specimen adequacy: Comment Normal [facility] Comment on above: Result Comment: Sati sfactory for evaluation. Endocervical and/or squamous metaplasticcells (endocervical component) are present. Performed By: #### P APHR7 ####[facility] [address] [place] [address] Cristiane . . Normal [facility] Comment on above: Performed By: #### P APHR7 ####[facility] [address] [place] [address] Cristiane LAB TESTINGon 05-09-2017 RECV HEADER SEE SCANNED REPORT I N HPF Normal [facility] Comment on above: Performed By: #### M ISC ####[facility] [address] [place] [address] Cristiane REV FROM REF LAB see scanned report [facility] Comment on above: Performed By: #### M ISC ####[facility] [address] [place] [address] Cristiane SENT TO REF LAB see scanned report Normal [facility] Comment on above: Performed By: #### M ISC ####[facility] [address] [place] [address] Cristiane Vital Signs Date Time Vital Sign Value Performing Clinician Epifanio lema 11-04-2023 11:26-0500 Body mass index (BMI) [Ratio] 41.14 kg/m2 Bethany Waldron [employer] Work Phone: [facility] 11-04-2023 11:26-0500 Body weight 112.13 kg Bethany Waldron [employer] Work Phone: [facility] 11-04-2023 11:26-0500 Diastolic blood pressure 68 mm[Hg] Bethany Waldron [employer] Work Phone: [facility] 11-04-2023 11:26-0500 Systolic blood pressure 120 mm[Hg] Bethany Waldron [employer] Work Phone: [facility] 10-24-2023 10:27-0500 Body height 165.1 cm Kamla Lester MD Work Phone: [facility] 10-24-2023 10:27-0500 Body mass index (BMI) [Ratio] 40.27 kg/m2 Kamla Lester MD Work Phone: [facility] 10-24-2023 10:27-0500 Body weight 109.77 kg Kamla Lester MD Work Phone: [facility] 10-24-2023 10:27-0500 Diastolic blood pressure 78 mm[Hg] Kamla Lester MD Work Phone: [facility] 10-24-2023 10:27-0500 Systolic blood pressure 118 mm[Hg] Kamla Lester MD Work Phone: [facility] 10-07-2023 11:23-0500 Body mass index (BMI) [Ratio] 39.99 kg/m2 Pfws Director Family [facility] 10-07-2023 11:23-0500 Body weight 109 [facility] 10-07-2023 11:230500 Diastolic blood pressure 80 mm[Hg] Pfws [facility] 10-07-2023 11:230500 Systolic blood pressure 100 mm[Hg] [facility] Encounters Encounter Date Encounter Type Care Provider Facility Start: 02-04-2024 End: 02-04-2024 ambulatory JAH DAVID Not Available Start: 01-29-2024 End: 01-29-2024 ambulatory JAH DAVID Not Available Start: 01-23-2024 End: 01-23-2024 ambulatory ANNA MARIE MILLER Not Available Start: 01-14-2024 End: 01-15-2024 ambulatory [facility] Start: 01-08-2024 End: 01-08-2024 ambulatory JAH DAVID Not Available Start: 12-17-2023 End: 12-18-2023 ambulatory JAH R. DAVID [facility] Start: 12-03-2023 End: 12-03-2023 ambulatory JAH DAVID Not Available Start: 11-21-2023 End: 11-21-2023 ambulatory [facility] Start: 11-14-2023 Telephone encounter Laila casillas [facility] Start: 11-04-2023 End: 11-04-2023 ambulatory [facility] Start: 11-04-2023 End: 11-04-2023 Subsequent care visit Bethany Garcia [employer] Work Phone: [facility] Comment on above: GA: 23w3d Start: 10-25-2023 End: 10-26-2023 ambulatory [facility] Start: 10-24-2023 End: 10-25-2023 Orders Only Rosalie Weston RN [facility] Comment on above: Multigravida of adva nced maternal age in second trimester (Primary Dx); Obesity affecting in second trimester, unspecified obesity type Start: 10-24-2023 End: 10-24-2023 Office consultation new/estab patient 80 min Kamla Lester MD Work Phone: [facility] [place] Comment on above: 21 weeks gestation o f (Primary Dx); Multigravida of advanced maternal age in second trimester; 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; Obesity affecting in second trimester, unspecified obesity type; Anxiety during ; Depression affecting ; Constipation, unspecified constipation type; Hernia of abdominal wall; Psoriasis; LGSIL on Pap smear of cervix; HPV in female Start: 10-14-2023 Orders Only Ayana Tess Osvaldo [employer] Work Phone: [facility] Comment on above: Constipation during in second trimester (Primary Dx) Start: 10-07-2023 End: 10-08-2023 ambulatory [facility] Start: 10-07-2023 End: 10-07-2023 ambulatory [facility] Start: 10-07-2023 End: 10-07-2023 Subsequent care visit Pf[facility] Ob Director Family [facility] Comment on above: GA: 19w3d Start: 09-10-2023 End: 09-10-2023 ambulatory [facility] Start: 01-28-2023 End: 01-29-2023 ambulatory Jesus Tess Duran Facility:[facility] Start: 09-07-2020 End: 09-10-2020 Evaluation and management of inpatient José Miguel Estes Facility:[facility] Start: 11-01-2017 End: 11-01-2017 Ambulatory ANJALI MESSINA Facility: Start: 05-09-2017 End: 05-09-2017 Ambulatory ANJALI MESSINA Facility:[facility] Procedures Date Procedure Procedure Detail Performing Clinician Start: 06-27-2023 Microscopic observat ion [Identifier] in Cervix by Cyto stain Pf[facility] Director Family Plan of Treatment Date Care Activity Detail Author Start: 06-27-2026 Screening for malignant neoplasm of cervix Pap Smear [facility] Start: 11-04-2024 Adult BMI Screening Adult BMI Screen ing [facility] Start: 11-04-2024 Tobacco Screening Tobacco Screening [facility] Start: 10-24-2024 Adult BMI Screening Adult BMI Screen ing [facility] Start: 10-24-2024 Tobacco Screening Tobacco Screening [facility] Start: 10-24-2024 End: 10-24-2024 US MFM with or without consult US MFM with or without consult Imaging Routine Multigravida of advanced maternal age in second trimester Obesity affecting in second trimester, unspecified obesity type Expected: 10/24/2024 (Approximate), Expires: 10/24/2024 [employer] Work Phone: Comment on above: Expected: 10/24/2024 (Approximate), Expires: 10/24/2024 Start: 10-07-2024 Adult BMI Screening Adult BMI Screen ing [facility] Start: 10-07-2024 Tobacco Screening Tobacco Screening [facility] Start: 12-17-2023 End: 12-17-2023 Patient encounter procedure 12/17/2023 2:45 PM EDT Appointment [facility] - Ultrasound [address] [place] [address] [facility] - Ultrasound Start: 12-02-2023 End: 12-02-2023 Patient encounter procedure 12/02/2023 11:45 AM EDT Routine [facility] [address] [place] [address] [facility] Start: 11-21-2023 End: 11-21-2023 Patient encounter procedure 11/21/2023 2:15 PM EST Appointment [facility] [address] [place] [address] [facility] [place] Start: 11-04-2023 End: 11-04-2023 Patient encounter procedure 11/04/2023 11:30 AM EST Routine [facility] [address] [place] [address] [facility] Start: 10-25-2023 Subsequent hospital visit by physician 10/25/2023 10:00 AM EST Hospital Encounter [facility] - Ul[facility]ound [address] [place] [address] [facility] - [facility]tras[facility] Start: 10-24-2023 End: 10-24-2024 Echo complete W/O contrast Echo complete W/O contrast Echocardiography Routine 21 weeks gestation of Multigravida of advanced maternal age in second trimester Expected: 10/24/2023, Expires: 10/24/2024 [facility] Comment on above: Expected: 10/24/2023 , Expires: 10/24/2024 Start: 10-24-2023 End: 10-24-2024 US Abdominal wall Ultrasound abdomen limited ADBOMEN WALL Imaging STAT 21 weeks gestation of Hernia of abdominal wall Expected: 10/24/2023, Expires: 10/24/2024 [facility] Comment on above: Expected: 10/24/2023 , Expires: 10/24/2024 Start: 10-24-2023 End: 10-24-2023 Patient encounter procedure [facility] Start: 10-07-2023 End: 10-07-2024 US MFM with or without consult US MFM with or without consult Imaging Routine Multigravida of advanced maternal age in second trimester Expected: 10/07/2023, Expires: 10/07/2024 [facility] Work Phone: Comment on above: Expected: 10/07/2023 , Expires: 10/07/2024 Start: 2002 DTaP,Tdap and Td Vaccines (1 - Tdap) DTaP,Tdap and Td Vaccines (1 - Tdap) [facility] Start: 2001 Adult BMI Follow Up Plan Adult BMI Follow Up Plan [facility] Start: 1995 Depression Screening Depression Scre ening [facility] End: 10-06-2024 Bacteria identified in Urine by Culture Urine Culture Microbiology Routine UTI (urinary tract infection) during , first trimester 1 Occurrences starting 10/07/2023 until 10/06/2024 [facility] Comment on above: 1 Occurrences starti ng 10/07/2023 until 10/06/2024 Bacteria identified in Urine by Culture Urine Culture Microbiology Routine UTI (urinary tract infection) during , first trimester 10/07/2023 8:25 PM EST [facility]: 11-04-2024 CBC W Auto Differential panel - Blood CBC auto differential Lab Routine care in third trimester 1 Occurrences starting 11/04/2023 until 11/04/2024 [facility] Comment on [facility]: 1 Occurrences starti ng 11/04/2023 until 11/04/2024 End: 10-24-2024 ECG 12 lead ECG 12 lead ECG Routine 21 weeks gestation of Multigravida of advanced maternal age in second trimester 1 Occurrences starting 10/24/2023 until 10/24/2024 [facility] Comment on above: 1 Occurrences starti ng 10/24/2023 until 10/24/2024 End: 11-04-2024 Glucose 1h post 50g load Glucose 1h post 50g load Lab Routine care in third trimester 1 Occurrences starting 11/04/2023 until 11/04/2024 [employer] Work Phone: Comment on above: 1 Occurrences starti ng 11/04/2023 until 11/04/2024 Reagin Ab [Presence] in Serum by RPR RPR Screen Response to Therapy, Serum Lab Routine 21 weeks gestation of 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 10/24/2023 7:10 PM EST [facility] End: 10-24-2024 RPR Therapy Response(Previous Positive Screen) RPR Therapy Response(Previous Positive Screen) Lab Routine 21 weeks gestation of 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 1 Occurrences starting 10/24/2023 until 10/24/2024 [employer] Work Phone: Comment on above: 1 Occurrences starti ng 10/24/2023 until 10/24/2024 End: 11-04-2024 Syphilis Total(Unknown Syphilis Status) Syphilis Total(Unknown Syphilis Status) Lab Routine care in third trimester 1 Occurrences starting 11/04/2023 until 11/04/2024 [facility] Comment on above: 1 Occurrences starti ng 11/04/2023 until 11/04/2024 Payers Date Payer Category Payer Medicaid [facility] MED[facility] MEDICAID [id number] 2023-Present [address] [place] [address] [id number] 2023 Medicaid [id number] 2023 Unknown KIM SMITH (PPO) [id number] 2023-Present [phone] [address] [place] [address] [id number] 2023 Unknown [id number] 2020 Self-pay 2019 Unknown [id number] 1983 Unknown [id number] 1983 Unknown [id number] 1983 Unknown [id number] 1983 Unknown [id number] 1983 Unknown [id number] 1983 Unknown [id number] 1983 Unknown [id number] 1983 Unknown [id number] 1983 Unknown [id number] 1983 Unknown [id number] 1983 Unknown [id number] 1983 Unknown [id number] 2..[id number] 1983 Unknown [id number]59 1983 Unknown [id number] 2.16.840.1.007994.3.579.2.9 1983 Unknown [id number] [id number]59 1983 Unknown [id number] 1959 Unknown [id number] Unknown [id number] Social History Date Type Detail Facility Start: 09-10-2023 Tobacco smoking stat [facility] Ex-smoker [facility] End: 06-16-2023 History of tobacco use Current smoker [facility] End: 06-16-2023 History of tobacco use Cigarette Smoker [facility] Start: 09-10-2023 Tobacco use and exposure Smokeless tobacco non-user [facility] Start: 10-07-2023 End: 11-04-2023 Alcohol intake Ex-drinker (finding) [facility] Start: 10-27-2020 End: 10-07-2023 History of Social function [facility] Start: 10-27-2020 End: 10-07-2023 Tobacco use panel [facility] Adolescent depressio n screening assessment 0 [facility] Start: 03-25-2023 Tobacco Comment quit a year an d a half ago [facility] Start: 06-07-2020 Alcohol Comment 2 days a week [facility] Start: 06-07-2023 [facility] Start: 1985 Sex Assigned At Not on file P [facility] Medical Equipment Procedure Code Equipment Code Equipment Origin al Text Equipment Identifier Dates Mesh Pco Vntrl P tch 4.6cm Rpl [id number] - Sna - [id number] Start: 07-01-2020 Clinical Notes 07-09-2022 to 11-14-2023 Telephone Encounter - Laila Gil - 11/14/2023 10:35 AM ESTTelephone Encounter - Laila Louise - 11/14/2023 10:35 AM ESTBethany Garcia [facility] - 11/04/2023 11:30 AM EST Note Date [...] Cece talked to the patient at her [facility] ultrasound appt today. Patient confirmed to Cece that she is transferring care to Dr. Carranza. Cece cancelled the scheduled appointment with our office. documented in this encounter [facility] 11-14-2023 Telephone encounter Note Received a [...] not leave a message for the patient. [facility] 11-14-2023 Telephone encounter Note Cece talked to the patient at her [facility] ultrasound appt today. Patient confirmed to Cece that she is transferring care to Dr. Carranza. Cece cancelled the scheduled appointment with our office. [facility] [email or web address] 11-04-2023 History of Presen t illness Narrative [...] Clifford 11/04/23 1157 documented in this encounter [facility] 10-24-2023 History of Presen t illness Narrative Images from the original note were not included. Video Visit via Real-time Synchronous Audiovisual Provider Location: [facility], MATERNAL- MEDICINE [address] [place] [address], [address] [place] [id number] Patient Location: Other [facility] Patient Location Director Of Outside Sales: None Video Visit Consent Statement: I discussed [...] that there are some limitations compared to uihs-yt-[id number] evaluations. We elected to proceed. [facility] Maternal- Medicine Consult Note Reason For Consult: [...] was told low risk cell free DNA [place]. 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 Test Performed By: [facility] [employer] [address] [place] [address] Public Address Systems Mechanic: Matias Menchaca III, M.D. [facility] #[id number]^ T4, free 07/16/2023 0.75 0.61 - 1.60 [...] testing algorithm link below for more information. [email or web address] White Blood Cells 07/16/2023 9.3 4.0 [...] infection suspected, recommend repeat testing (>2 months). Utchft-np-zcaino ratio is <0.80. RPR with Reflex to [...] the syphilis reverse algorithm and results, see: [email or web address] Test Performed by: [place] [id number] [place] [address] Research Geneticist: Williams Joyce M.D. Ph.D.; CLIA# [id number] CLIA ID [id number] HGB Phoresis Interpretation 07/16/2023 See below Final [...] by Sommer Garcia MD Test Performed By: [facility] [address] [place] [address] Public Address Systems Mechanic: Matias Menchaca III, M.D. CLIA #[id number]^ T.pallidum 07/16/2023 SEE COMMENTS 07/19/2023 12:59 PM (A) Final Comment: NOTE Test Result Flag Unit RefValue -- Syphilis Ab, TP-PA, S Positive A Negative Treponemal antibodies detected, consistent with previously treated syphilis, potentially early syphilis infection or latent disease. Clinical correlation to distinguish between these scenarios is required. For additional information on interpretation of the syphilis reverse algorithm and results, see: [email or web address] [email or web address] Test Performed by: [facility] [address] [place] [address] Research Geneticist: Williams Joyce M.D. Ph.D.; CLIA# [id number] Hospital Outpatient Visit on 06/27/2023 Component Date [...] - Ultrasound abdomen limited; Future - [facility] - [place], [place]; Future - RPR Therapy Response(Previous Positive [...] at delivery about the maternal syphilis PMID: [id number] 4. Obesity affecting in second trimester, unspecified [...] wall - Ultrasound abdomen limited; Future - [facility] - [place], [place]; Future She tells me that she [...] consultation and recommend also to see a Construction [employer]. 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 Colposcopy in reviewed. 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 Discussed with the patient that I would recommend that she does not run the chemicals because of her letter provided. Strongly recommended that she continues to wear her appropriate PPE. Recommendations: Continue low-dose aspirin Follow-up with titers. [place] for rising titers as per above. The patient desires to have the titers done every 4 weeks. I ordered repeat titers today please follow from then onwards. 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 Vaccination is the best method to reduce maternal and complications of SARS-CoV-2 infection. This document was created with CUPR technology. Though I make every effort to review the dictation as it is transcribed, on occasion the spoken word can be misinterpreted by the technology leading to inappropriate words, phrases, or sentences. This note is addressed to the requesting provider as a consultation for clinical guidance. Specific medical abbreviations are occasionally used and those are generally approved by the [place]?Board of?Obstetrics and?Gynecology?as well as?Moncho ulrich. The above plan of care was based solely on the diagnoses for which a consultation was requested. ?More frequent testing may be indicated based on her other medical/obstetrical conditions. The management of other or medical conditions is beyond the scope of requested consultation and will continue to be followed by the primary senior financial reporting analyst or primary care provider. Note to patient: The Cures Act makes medical notes like these [...] done this here or other office? yes, [place] testing Neg for trisomies per patient, Not on chart, will call for results. Have you been seen here at [facility] in a previous ? no Recent ER visits or hospitalizations? no Bring blood sugar log or meter with you today? (Please bring them with you for every visit at [facility]) Traveled outside the country in the past 6 month no Any concerns that you would like me to mention to the provider today? Patient states she is worried about the chemicals that she uses at her job and her constipation issues with her hernia. Taking Metamucil and Colace BID Labs ordered today per [facility]. Labs drawn on 1st attempt (L) antecubital here in our office at this time without difficulty. Patient tolerated well. documented in this encounter [facility] 10-14-2023 Miscellaneous Notes Pt states she is [...] sent to Pharmacy. documented in this encounter [facility] 10-14-2023 Telephone encounter Note Pt states she is experiencing constipation. Pt states she is constantly straining to only have a little bit come out. Pt states she is drinking approximately 4 48oz bottles of water daily. Pt states she has tried Prune juice and Metamucil with no relief. Please advise. Thank you [facility] 10-14-2023 Telephone encounter Note RX for colace sent to pharmacy [facility] 10-14-2023 Telephone encounter Note Advised Pt of RX sent to Pharmacy. [facility] 10-07-2023 History of Presen t illness [...] Turner 10/07/23 1242 documented in this encounter [facility] 10-07-2023 Miscellaneous Notes Addended by: LEROY ANN on: 10/07/2023 12:55 PM Modules accepted: Orders documented in this encounter [facility] 10-07-2023 Note Addended by: LEROY ANN on: 10/07/2023 12:55 PM Modules accepted: Orders [facility] 01-14-2023 Note Entered by Nirali Bingham on January 14, 2023 08:38:33 EDT From: Aarti Bingham To: [facility]/pharmacy #[id number] Sent: 01/14/2023 08:38:33 EDT Subject: Medication Management Submitted: Complete:venlafaxine (venlafaxine 75 mg oral capsule, extended release) Signed by Aarti Bingham 01/14/2023 08:38:00 EDT Approved venlafaxine (VENLAFAXINE HCL ER 75 MG CAP) TAKE 1 CAPSULE BY MOUTH EVERY DAY Qty: 30 cap(s) Days Supply: 30 Refills: 5 Substitutions Allowed Route To Pharmacy - [id number] Signed by Aarti Bingham From: [employer] To: Jesus Duran MD Sent: January 12, 2023 6:47:36 AM CDT Subject: Medication Management Due: January 13, 2023 6:45:46 AM CDT On Hold Pending Signature Dispensed Drug: venlafaxine (venlafaxine 75 mg oral capsule, extended release), TAKE 1 CAPSULE BY MOUTH EVERY DAY Quantity: 30 cap(s) Days Supply: 30 Refills: 5 Substitutions Allowed Notes from Pharmacy: [facility] 07-09-2022 Note Entered by Nirali Bingham on July 09, 2022 07:51:14 EDT From: Aarti Bingham To: [facility]/pharmacy #[id number] Sent: 07/09/2022 07:51:14 EDT Subject: Medication Management Submitted: Complete:venlafaxine (venlafaxine 75 mg oral capsule, extended release) Signed by Aarti Bingham 07/09/2022 07:51:00 EDT Approved with modifications: venlafaxine (VENLAFAXINE HCL ER 75 MG CAP) TAKE 1 CAPSULE BY MOUTH EVERY DAY Qty: 90 cap(s) Days Supply: 90 Refills: 1 Substitutions Allowed Route To Pharmacy - [facility]/pharmacy #[id number] Signed by Aarti Bingham From: [employer] To: Jesus Duran MD Sent: July 08, 2022 7:45:20 AM CDT Subject: Medication Management Due: July 09, 2022 12:25:55 AM CDT On Hold Pending Signature Dispensed Drug: venlafaxine (venlafaxine 75 mg oral capsule, extended release), TAKE 1 CAPSULE BY MOUTH EVERY DAY Quantity: 90 cap(s) Days Supply: 90 Refills: 2 Substitutions Allowed Notes from Pharmacy: [facility] Evaluation note Diagnosis with 19 completed weeks gestation- Primary Multigravida of advanced maternal age in second trimester UTI (urinary tract infection) during , first trimester [facility] Constipation during in second trimester- Primary [facility] Diagnosis 21 weeks gestation [...] HPV in female [facility] Diagnosis Multigravida of advanced maternal age in second trimester- Primary Obesity affecting in second trimester, unspecified obesity type [facility] Diagnosis 23 weeks gestation of - Primary care in third trimester documented in this encounter [facility] Wear SystemInstructionsNot on filedocumented in this encounter [facility] Wear SystemInstructionsNot on filedocumented in this encounter [facility]* Attachments The following attachments cannot be sent through Care Everywhere. * Movement (Tristanian) * Preeclampsia (Tristanian) [facility] SystemInstructionsNot on file [facility] SystemInstructionsNot on file documented [facility] SystemInstructionsNot on file [facility] Summary Purpose Family History No Family [...] advanced maternal age in second trimester Procedures [facility] with or without consult Kenna Bejarano, WATCHER [employer] [address] [place] [address] [facility]aternal [facility] [address] [place] [address] Referral ID Status Reason Start Date Expiration Date V isits Requested Visits Authorized [id number] Pending Review 10/07/2023 10/06/2024 1 1 Specialty Diagnoses / Procedures Referred By Contac t Referred To Contact Diagnoses 21 weeks gestation of Multigravida of advanced maternal age in second trimester Procedures Echo complete W/O contrast Kamla Lester MD [address], [address] [place] [address] Referral ID Status Reason Start Date Expiration Date V isits Requested Visits Authorized [id number] Pending Review 10/24/2023 10/23/2024 1 1 Specialty Diagnoses / Procedures Referred By Contac t Referred To Contact Diagnoses 21 weeks gestation of Multigravida of advanced maternal age in second trimester Procedures ECG 12 lead Kamla Lester MD [address], [address] [place] [address] Referral ID Status Reason Start Date Expiration Date V isits Requested Visits Authorized [id number] Pending Review 10/24/2023 10/23/2024 1 1 Specialty Diagnoses / Procedures Referred By Contac t Referred To Contact General Surgery Diagnoses 21 weeks gestation of Hernia of abdominal wall Kamla Lester MD [address], [address] [place] [id number] [facility] [address] [place] [address] Referral ID Status Reason Start Date Expiration Date Visits Requested Visits Authorized [id number] Pending Review Specialty Services Required 10/24/2023 10/23/2024 1 1 Specialty Diagnoses / Procedures Referred By Fabiano t Referred To Contact Maternal and Medicine Diagnoses Multigravida of advanced maternal age in second trimester Obesity affecting in second trimester, unspecified obesity type Procedures US MF with or without consult Kamla Lester MD [address], [facility] [place] [address] [facility]aternal [facility] [address] [place] [address] Referral ID Status Reason Start Date Expiration Date V isits Requested Visits Authorized [id number] Pending Review 10/24/2023 10/23/2024 1 1 Additional Source Comments INFORMATION SOURCE (unrecogn ized section and content) DATE CREATED AUTHOR 03/07/2018 [facility] DATE CREATED AUTHOR AUTHOR'S ORGANIZ ATION 01/29/2023 [facility] DATE CREATED AUTHOR AUTHOR'S ORGANIZ ATION 06/22/2023 [facility] DATE CREATED AUTHOR AUTHOR'S ORGANIZ ATION 10/30/2023 [facility] DATE CREATED AUTHOR AUTHOR'S ORGANIZ ATION 11/22/2023 [facility] DATE CREATED AUTHOR AUTHOR'S ORGANIZ ATION 01/15/2024 [facility] DATE CREATED AUTHOR AUTHOR'S ORGANIZ ATION 02/06/2024 [facility] dical Specialists EPIC Care Teams (unrecognized sec tion and content) Maid Cleaning Cooking Relationship Specialty Start Date End Date Services, [facility] [address] [place], [place] PCP - General Family Medicine 03/25/23 Maid Cleaning Cooking Relationship Specialty Start Date End Date Services, [facility] [address] [place] PCP - General Family Medicine 03/25/23 Maid Cleaning Cooking Relationship Specialty Start Date End Date Services, [facility] [address] [place] PCP - General Family Medicine 03/25/23 Maid Cleaning Cooking Relationship Specialty Start Date End Date Services, [facility] [address], [place] PCP - [facility] 03/25/23 Maid Cleaning Cooking Relationship Specialty Start Date End Date Services, [facility] [address], [place] PCP - General [facility] 03/25/23 Maid Cleaning Cooking Relationship Specialty Start Date End Date Services, [facility] [address], [place] PCP [facility] 03/25/23 Maid Cleaning Cooking Relationship Specialty Start Date End Date Services, [facility] [address], [place] PCP - General [facility] 03/25/23 Reason for Visit (unrecogniz ed section [...] BE BASED ON THE PRIMARY CLINICAL RECORDS. [facility] [employer] [facility]. provides no warranty or guarantee of the accuracy or completeness of information in this document.
[2024-02-10 18:22] VITALS: BP 127/63; PULSE 84
== END 2024-02-10 18:46 | disposition home or self-care (01) ==
LOC: FBCO 08:34 → FBC 18:19
PROVIDERS: PCP Family Medicine; Visit Provider Obstetrics & Gynecology
DX: O09.523 Supervision of elderly multigravida, third trimester (principal)
CPT/HCPCS: 59025

== ENCOUNTER 2024-02-13 07:10 | Outpatient (OUT) | payer BC, MEDICAID, SELFPAY ==
--- OUTSIDE RECORDS SUMMARY | 2024-02-13 07:13 | XMS_ITS | CCD ---
Author Organization [facility] Care Team Providers Care Needle Valve Operator Name Role Phone JAILENEJuna ANJALI Unavailable Unavailable KARASIK, ANJALI Unavailable Unavailable KARASIK, ANJALI Unavailable Unavailable KARASIK, ANJALI Unavailable Unavailable KARASIK, ANJALI Unavailable Unavailable KARASIK, ANJALI Unavailable Unavailable Jesus Duran Primary Care Unavailable Jesus Duran Attending Unavailable José Miguel Estes Admitting Unavailable Royce Charles Attending Unavailable Jesus Duran Primary Care Unavailable Ramiro Abarca Consulting Unavailable Services, [facility] Primary Care Provider KENNA BEJARANO Referring Unavailable SERVICES, [facility] Care Unava ilable DOCHEVA, NIKOLINA P Referring Unavailable SERVICES, [facility] Primary Care Unava ilable AYANA LUND Attending Unavailable SERVICES, [facility] Care Unava ilable DOCHEVA, NIKOLINA P Referring Unavailable SERVICES, [facility] Care Unava ilable SERVICES, [facility] Care Unava ilable KENNA BEJARANO Referring Unavailable SERVICES, [facility] Primary Care Unava ilable DOCHEVA, NIKOLINA P Attending Unavailable SERVICES, [facility] Care Unava ilable SERVICES, [facility] Primary Care Unava ilable DAVIDNINIY Dillon Referring Unavailable SERVICES, [facility] Care Unava ilable DOCHEVA, NIKOLINA P Referring Unavailable SERVICES, [facility] Primary Care Unava ilable DOCHEVA, NIKOLINA P Referring Unavailable SERVICES, [facility] Unava ilable NINI CARRANZAY Attending Unavailable DAVID, JAH Attending Unavailable ANNA MARIE MILLER Attending Unavailable DAVID, JAH Attending Unavailable DAVID, JAH Attending Unavailable DAVID, JAH Attending Unavailable Allergies Allergy Classification Reported Allergen(s) Allergy Type Date of Onset Reaction(s) Facility (1 source) No Known Medication Allergies; Translations: [No Known Medication Allergies] Propensity to adverse reactions to drug (disorder) [facility] Repository (2 sources) Penicillins; Translations: [PENICILLINS] Drug allergy (disorder) [facility] Repository Medications Current Medications Medication Drug Class(es) [...] nightly. 0 09/30/2023 Active polyethylene glycol 3350 53811 mg powder for oral solution (4 sources) [...] bedtime. 120 tablet 1 09/10/2023 Active sennosides, snf 8.6 mg oral tablet (4 sources) Start: [...] the patient. 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 This does not appear to significantly change with Valsalva. Button Sewer Hand demonstrates potential associated fascial defect measuring approximately [...] Kapoor MD on 10/25/2023 11:30 AM Normal [facility] Reagin Ab RPR Ql (S)on 10-24 RPR SCREEN RESPONSE TO THERAPY, SERUM Negative Normal Negative [facility] Comment on above: Result Comment: NOTE Non-treponemal antibodies not detected. For additional information on interpretation of the syphilis reverse algorithm and results, see: [email or web address] Test Performed by: [place] [address] Content Producer: Williams Joyce M.D. Ph.D.; CLIA# [id number] URINALYSISon 10-07-2023 Bilirubin Ql (U) Negative Normal NEG [facility] BLOOD/HGB Negative Normal NEG [facility] CA OXALATE CRYSTALS PRESENT Abnormal NONE [facility] Color (U) YELLOW Normal YELLOW [facility] Glucose Ql (U) Negative Normal NEG [facility] Ketones Ql (U) Trace Abnormal NEG [facility] Leukocyte esterase Test strip Ql (U) Small Abnormal NEG [facility] MUCOUS PRESENT Abnormal NONE [facility] Nitrite Ql (U) Negative Normal NEG [facility] pH (U) 6.0 [pH] Normal 5.0-8.5 [facility] Protein Ql (U) Trace Abnormal NEG [facility] R.B.CELLS 4 /hpf Normal 0-5 [facility] Specific gravity (U) [Rel density] 1.023 Normal 1.003-1.035 [facility] SQUAMOUS EPITHELIUM 15 /hpf High 0-5 [facility] TURBIDITY CLEAR Normal CLEAR [facility] Urobilinogen (U) [Mass/Vol] mg/dL Normal <1.1 [facility] W.B.CELLS 5 /hpf Normal 0-5 [facility] URINE CULTUREon 10-07-2023 Bacteria identified Cx Nom (U) CULTURE RESULTS NO GROWTH AT <1000 CFU/mL Normal [facility] Comment on above: Performed By: #### 6 30-4 #### [facility] ([id number]) [address] [place] [address], [address] [place] [address] Urinalysison 10-07-2023 Bilirubin Ql (U) Negative Negative^Ne gat nia [facility] Calcium oxalate crystals LM Ql (Urine sed) PRESENT Abnormal NONE^NONE [facility] Color (U) YELLOW YELLOW^YELLOW [facility] Epithelial cells Auto (Urine sed) [#/Area] 15 High [facility] Glucose (U) [Mass/Vol] Negative Negative^Negat nia mg/dL [facility] Hemoglobin Auto test strip Ql (U) Negative Negative^Negat nia [facility] Interpretation and review of laboratory results Abnormal [facility] Ketones (U) [Mass/Vol] Trace Abnormal Negative^Negat nia mg/dL [facility] Leukocyte esterase Auto test strip Ql (U) Small Abnormal Negative^Negat nia [facility] Mucus Ql (Urine sed) PRESENT Abnormal NONE^NONE [facility] Nitrite Auto test strip Ql (U) Negative Negative^Negat nia [facility] pH (U) 6.0 [pH] 5.0 - 8.5 [facility] Protein (U) [Mass/Vol] Trace Abnormal Negative^Negat nia mg/dL [facility] RBC Auto (Urine sed) [#/Area] 4 [facility] Specific gravity Refractometry automated (U) [Rel density] 1.023 1.003 - 1.035 [facility] Turbidity Ql (U) CLEAR CLEAR^CLEAR [facility] Urobilinogen Qn (U) NINF [facility] WBC Auto (Urine sed) [#/Area] 5 [facility] Outside Recordson 01-16-2023 Outside Records [id number] Normal [facility] PAP RFX HPV IF ASCon 018 COMMENT Comment Normal [facility] Comment on above: Result Comment: [place] Performed By: #### P APHR7 ####[facility] [address] [place] [address] DIAGNOSIS: Comment Normal [facility] Comment on above: Result Comment: NEGA TIVE FOR INTRAEPITHELIAL LESION AND MALIGNANCY. Performed By: #### P APHR7 ####[facility] [address] [place] [address] Cristiane Methodology: BDFP [facility] Comment on above: Result Comment: The TriPath(R) FocalPoint was unable to read and evaluate thisspecimen. Therefore a manual review was performed. Performed By: #### P APHR7 ####[facility] [address] [place] [address] Cristiane Note: Comment Normal [facility] Comment on above: Result Comment: The Pap smear is a screening test designed to aid in the detection ofpremalignant and malignant conditions of the uterine cervix. It is not adiagnostic procedure and should not be used as the sole means of detectingcervical cancer. Both false-positive and false-negative reports do occur. . Performed By: #### P APHR7 ####[facility] [address] [place] [address] Cristiane Performed by: Comment Normal [facility] Comment on above: Result Comment: Chato Simon, Correction Officer [facility] (ASCP) Performed By: #### P APHR7 ####[facility] [address] [place] [address] Cristiane Reflex Criteria: Comment Normal [facility] Comment on above: Result Comment: The HPV DNA reflex criteria were not met with this specimen resulttherefore, no HPV testing was performed. . Performed By: #### P APHR7 ####[facility] [address] [place] [address] Cristiane Specimen adequacy: Comment Normal [facility] Comment on above: Result Comment: Sati sfactory for evaluation. Endocervical and/or squamous metaplasticcells (endocervical component) are present. Performed By: #### P APHR7 ####[facility] [address] [place] [address] Cristiane . . Normal [facility] Comment on above: Performed By: #### P APHR7 ####[facility] [address] [place] [address] Cristiane LAB TESTINGon 05-09-2017 RECV HEADER SEE SCANNED REPORT I N HPF Normal [facility] Comment on above: Performed By: #### M ISC ####[facility] [address] [place] [address] Cristiane REV FROM REF LAB see scanned report Normal [facility] Comment on above: Performed By: #### M ISC ####[facility] [address] [place] [address] Cristiane SENT TO REF LAB see scanned report Normal T [facility] Comment on above: Performed By: #### M ISC ####[facility] [address] [place] [id number] Sauer Vital Signs Date Time Vital Sign Value Performing Clinician Epifanio lema 11-04-2023 11:26-0500 Body mass index (BMI) [Ratio] 41.14 kg/m2 Bethanylashay Hilles TILE LAYER HELPER-CNM Work Phone: [facility] 11-04-2023 11:26-0500 Body weight 112.13 kg Bethanylashay Hilles TILE LAYER HELPER-CNM Work Phone: [facility] 11-04-2023 11:26-0500 Diastolic blood pressure 68 mm[Hg] Bethany Guadalupe TILE LAYER HELPER-CNM Work Phone: [facility] 11-04-2023 11:26-0500 Systolic blood pressure 120 mm[Hg] Bethany Guadalupe TILE LAYER HELPER-CNM Work Phone: [facility] 10-24-2023 10:27-0500 Body height 165.1 cm Kamla Lester MD Work Phone: [facility] 10-24-2023 10:27-0500 Body mass index (BMI) [Ratio] 40.27 kg/m2 Kamla Lester MD Work Phone: [facility] 10-24-2023 10:27-0500 Body weight 109.77 kg Kamla Lester MD Work Phone: [facility] 10-24-2023 10:27-0500 Diastolic blood pressure 78 mm[Hg] Kamla Lester MD Work Phone: [facility] 10-24-2023 10:27-0500 Systolic blood pressure 118 mm[Hg] Kamla Lester MD Work Phone: [facility] 10-07-2023 11:23-0500 Body mass index (BMI) [Ratio] 39.99 kg/m2 Pfws Remedial Teacher [facility] 10-07-2023 11:23-0500 Body weight 109 kg Pfws Remedial Teacher [facility] 10-07-2023 11:23-0500 Diastolic blood pressure 80 mm[Hg] Pfws Remedial Teacher [facility] 10-07-2023 11:0500 Systolic blood pressure 100 mm[Hg] Pfws [facility] Encounters Encounter Date Encounter Type Care Provider Facility Start: 02-11-2024 End: 02-11-2024 ambulatory JAH DAVID Not Available Start: 02-04-2024 End: 02-04-2024 ambulatory JAH DAVID Not Available Start: 01-29-2024 End: 01-29-2024 ambulatory JAH DAVID Not Available Start: 01-23-2024 End: 01-23-2024 ambulatory ANNA MARIE MILLER Not Available Start: 01-14-2024 End: 01-15-2024 ambulatory [facility] Start: 01-08-2024 End: 01-08-2024 ambulatory JAH DAVID Not Available Start: 12-17-2023 End: 12-18-2023 ambulatory JAH R. DAVID [facility] Start: 12-03-2023 End: 12-03-2023 ambulatory JAH DAVID Not Available Start: 11-21-2023 End: 11-21-2023 ambulatory [facility] Start: 11-14-2023 Telephone encounter Laila casillas [facility] Start: 11-04-2023 End: 11-04-2023 ambulatory [facility] Start: 11-04-2023 End: 11-04-2023 Subsequent care visit Bethany Garcia TILE LAYER HELPER-CNM Work Phone: [facility] Comment on above: GA: 23w3d Start: 10-25-2023 End: 10-26-2023 ambulatory [facility] Start: 10-24-2023 End: 10-25-2023 Orders Only Rosalie Weston RN [facility] Comment on above: Multigravida of adva nced maternal age in second trimester (Primary Dx); Obesity affecting in second trimester, unspecified obesity type Start: 10-24-2023 End: 10-24-2023 Office consultation new/estab patient 80 min Kamla Lester MD Work Phone: [facility] Comment on above: 21 weeks gestation o f (Primary Dx); Multigravida of advanced maternal age in second trimester; 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; Obesity affecting in second trimester, unspecified obesity type; Anxiety during ; Depression affecting ; Constipation, unspecified constipation type; Hernia of abdominal wall; Psoriasis; LGSIL on Pap smear of cervix; HPV in female Start: 10-14-2023 Orders Only Ayana Lund APRN-AUTOMOTIVE PARTS MANAGER Work Phone: [facility] Comment on above: Constipation during in second trimester (Primary Dx) Start: 10-07-2023 End: 10-08-2023 ambulatory [facility] Start: 10-07-2023 End: 10-07-2023 ambulatory [facility] Start: 10-07-2023 End: 10-07-2023 Subsequent care visit [facility] Comment on above: GA: 19w3d Start: 09-10-2023 End: 09-10-2023 ambulatory AYANA Pulido [facility] Start: 01-28-2023 End: 01-29-2023 ambulatory Jesus Duran Facility:[facility] Start: 09-07-2020 End: 09-10-2020 Evaluation and management of inpatient José Miguel Hillkulwantderick Facility:[facility] Start: 11-01-2017 End: 11-01-2017 Ambulatory ANJALI MESSINA Facility:[facility] Start: 05-09-2017 End: 05-09-2017 Ambulatory ANJALI MESSINA Facility: Procedures Date Procedure Procedure Detail Performing Clinician Start: 06-27-2023 Microscopic observat ion [Identifier] in Cervix by Cyto stain [facility] Remedial Teacher Plan of Treatment Date Care Activity Detail Author Start: 06-27-2026 Screening for malignant neoplasm of cervix Pap Smear [facility] Start: 11-04-2024 Adult BMI Screening Adult BMI Screen ing [facility] Start: 11-04-2024 Tobacco Screening Tobacco Screening [facility] Start: 10-24-2024 Adult BMI Screening Adult BMI Screen ing [facility] Start: 10-24-2024 Tobacco Screening Tobacco Screening [facility] Start: 10-24-2024 End: 10-24-2024 US MFM with or without consult US MFM with or without consult Imaging Routine Multigravida of advanced maternal age in second trimester Obesity affecting in second trimester, unspecified obesity type Expected: 10/24/2024 (Approximate), Expires: 10/24/2024 [facility] Work Phone: Comment on above: Expected: 10/24/2024 (Approximate), Expires: 10/24/2024 Start: 10-07-2024 Adult BMI Screening Adult BMI Screen ing [facility] Start: 10-07-2024 Tobacco Screening Tobacco Screening [facility] Start: 12-17-2023 End: 12-17-2023 Patient encounter procedure 12/17/2023 2:45 PM EDT Appointment [facility] [address] [place] [id number] [facility] Start: 12-02-2023 End: 12-02-2023 Patient encounter procedure 12/02/2023 11:45 AM EDT Routine [facility] [address] [place] [id number] [facility] Start: 11-21-2023 End: 11-21-2023 Patient encounter procedure 11/21/2023 2:15 PM EST Appointment [facility] [address] [place] [id number] [facility] Start: 11-04-2023 End: 11-04-2023 Patient encounter procedure 11/04/2023 11:30 AM EST Routine [facility] [address] [facility] Start: 10-25-2023 Subsequent hospital visit by physician 10/25/2023 10:00 AM EST Hospital Encounter [facility] [address] [place] [address] [facility] Start: 10-24-2023 End: 10-24-2024 Echo complete W/O contrast Echo complete W/O contrast Echocardiography Routine 21 weeks gestation of Multigravida of advanced maternal age in second trimester Expected: 10/24/2023, Expires: 10/24/2024 [facility] Comment on above: Expected: 10/24/2023 , Expires: 10/24/2024 Start: 10-24-2023 End: 10-24-2024 US Abdominal wall Ultrasound abdomen limited ADBOMEN WALL Imaging STAT 21 weeks gestation of Hernia of abdominal wall Expected: 10/24/2023, Expires: 10/24/2024 [facility] Comment on above: Expected: 10/24/2023 , Expires: 10/24/2024 Start: 10-24-2023 End: 10-24-2023 Patient encounter procedure [facility] Start: 10-07-2023 End: 10-07-2024 US MFM with or without consult US MFM with or without consult Imaging Routine Multigravida of advanced maternal age in second trimester Expected: 10/07/2023, Expires: 10/07/2024 [facility] Work Phone: Comment on above: Expected: 10/07/2023 , Expires: 10/07/2024 Start: 2002 DTaP,Tdap and Td Vaccines (1 - Tdap) DTaP,Tdap and Td Vaccines (1 - Tdap) [facility] Start: 2001 Adult BMI Follow Up Plan Adult BMI Follow Up Plan [facility] Start: 1995 Depression Screening Depression Scre ening [facility] End: 10-06-2024 Bacteria identified in Urine by Culture Urine Culture Microbiology Routine UTI (urinary tract infection) during , first trimester 1 Occurrences starting 10/07/2023 until 10/06/2024 [facility] Comment on above: 1 Occurrences starti ng 10/07/2023 until 10/06/2024 Bacteria identified in Urine by Culture Urine Culture Microbiology Routine UTI (urinary tract infection) during , first trimester 10/07/2023 8:25 PM [facility] End: 11-04-2024 CBC W Auto Differential panel - Blood CBC auto differential Lab Routine care in third trimester 1 Occurrences starting 11/04/2023 until 11/04/2024 [facility] Comment on above: 1 Occurrences starti ng 11/04/2023 until 11/04/2024 End: 10-24-2024 ECG 12 lead ECG 12 lead ECG Routine 21 weeks gestation of Multigravida of advanced maternal age in second trimester 1 Occurrences starting 10/24/2023 until 10/24/2024 [facility] Comment on above: 1 Occurrences starti ng 10/24/2023 until 10/24/2024 End: 11-04-2024 Glucose 1h post 50g load Glucose 1h post 50g load Lab Routine care in third trimester 1 Occurrences starting 11/04/2023 until 11/04/2024 [facility] Work Phone: Comment on above: 1 Occurrences starti ng 11/04/2023 until 11/04/2024 Reagin Ab [Presence] in Serum by RPR RPR Screen Response to Therapy, Serum Lab Routine 21 weeks gestation of 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 10/24/2023 7:10 PM [facility] End: 10-24-2024 RPR Therapy Response(Previous Positive Screen) RPR Therapy Response(Previous Positive Screen) Lab Routine 21 weeks gestation of 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 1 Occurrences starting 10/24/2023 until 10/24/2024 [facility] Work Phone: Comment on above: 1 Occurrences starti ng 10/24/2023 until 10/24/2024 End: 11-04-2024 Syphilis Total(Unknown Syphilis Status) Syphilis Total(Unknown Syphilis Status) Lab Routine care in third trimester 1 Occurrences starting 11/04/2023 until 11/04/2024 [facility] Comment on above: 1 Occurrences starti ng 11/04/2023 until 11/04/2024 Payers Date Payer Category Payer Medicaid [place] [id number] 2023-Present [address] [place] [address] [id number] 2023 Medicaid [id number] 2023 Unknown ANTHEM BLUE ACCE SS (PPO) [id number] 2023-Present [phone] [address] [place] [address] [id number] 2023 Unknown [id number] 2020 Self-pay 2019 Unknown [id number] 1983 Unknown [id number] 1983 Unknown [id number] 1983 Unknown [id number] 1983 Unknown [id number] 1983 Unknown [id number] 1983 Unknown [id number] 1983 Unknown [id number] 1983 Unknown [id number] 2.16840.1.468483.3.579.2.128 1983 Unknown [id number] [id number] 1983 Unknown [id number] [id number] 1983 Unknown [id number] 2.16.840.1.748484.3.579.2.1286 1983 Unknown [id number] 2.16.840.1.830027.3.579.2.1259 1983 Unknown [id number] 2.16.840.1.489559.3.579.2.9 1983 Unknown [id number] 2.16.840.1.246130.3.579.2.1259 1983 Unknown [id number] 2.16.840.1.160597.3.579.2.1259 1983 Unknown [id number] 2.16.840.1.281481.3.579.2.1259 1983 Unknown [id number] 2.16.840.1.261750.3.579.2.1259 1959 Unknown [id number] Unknown [id number]1 Social History Date Type Detail Facility Start: 09-10-2023 [facility] End: 06-16-2023 History of tobacco use Current smoker [facility] End: 06-16-2023 History of tobacco use Cigarette Smoker [facility] Start: 09-10-2023 Tobacco use and exposure Smokeless tobacco non-user [facility] Start: 10-07-2023 End: 11-04-2023 Alcohol intake Ex-drinker (finding) [facility] Start: 10-27-2020 End: 10-07-2023 History of Social function [facility] Start: 10-27-2020 End: 10-07-2023 Tobacco use panel [facility] Adolescent depressio n screening assessment 0 [facility] Start: 03-25-2023 Tobacco Comment quit a year an d a half ago [facility] Start: 06-07-2020 Alcohol Comment 2 days a week [facility] Start: 06-07-2023 [facility] Start: 1985 Sex Assigned At Not on file P Incujector [facility] Medical Equipment Procedure Code Equipment Code Equipment Origin al Text Equipment Identifier Dates Mesh Pco Vntrl P tch 4.6cm Rpl [id number] - [facility] - [id number] Start: 07-01-2020 Clinical Notes 07-09-2022 to 11-14-2023 Telephone Encounter - Laila Gil - 11/14/2023 10:35 AM ESTTelephone Encounter - Laila Gil - 11/14/2023 10:35 AM [facility]/04/[facility]23 11:30 AM EST Note [...] with our office. documented in this encounter [facility] 11-14-2023 Telephone encounter Note Received a [...] a message for the patient. [facility] 11-14-2023 Telephone encounter Note Cece talked to the patient at her [facility] ultrasound appt today. Patient confirmed to Cece that she is transferring care to Dr. Carranza. Cece cancelled the scheduled appointment with our office. [facility] 11-04-2023 History of Presen t illness [...] Clifford 11/04/23 1157 documented in this encounter [facility] 10-24-2023 History of Presen t illness Narrative Images from the original note were not included. Video Visit via Real-time Synchronous Audiovisual Provider Location: [facility], MATERNAL- MEDICINE [address], [address] [place] [id number] Patient Location: Other [facility] Patient Location Statistics Intern: None Video Visit Consent Statement: I discussed [...] that there are some limitations compared to gylo-om-uixo evaluations. We elected to proceed. 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 Test Performed By: [facility] [employer] [address] [place] [address] Mangle Press Catcher: Matias Menchaca III, M.D. [facility] #[id number]^ T4, free 07/16/2023 0.75 0.61 - 1.60 [...] testing algorithm link below for more information. [email or web address] h=acaea White Blood Cells 07/16/2023 9.3 4.0 [...] infection suspected, recommend repeat testing (>2 months). Kzfxea-qa-ruikam ratio is <0.80. RPR with Reflex to [...] the syphilis reverse algorithm and results, see: [email or web address] Volume Wizard [email or web address]/ it-mmfiles/Syphilis_Serology_Alg orithm.pdf Test Performed by: [facility] [address] [place] [id number] Content Producer: Williams Joyce M.D. Ph.D.; CLIA# [id number] CLIA ID [id number] HGB Phoresis Interpretation 07/16/2023 See below Final [...] by Sommer Garcia MD Test Performed By: [facility] [employer] [address] [place] [address] Mangle Press Catcher: Matias Menchaca III, M.D. CLIA #[id number]^ T.pallidum 07/16/2023 SEE COMMENTS 07/19/2023 12:59 PM (A) Final Comment: NOTE Test Result Flag Unit RefValue -- Syphilis Ab, TP-PA, S Positive A Negative Treponemal antibodies detected, consistent with previously treated syphilis, potentially early syphilis infection or latent disease. Clinical correlation to distinguish between these scenarios is required. For additional information on interpretation of the syphilis reverse algorithm and results, see: [email or web address] it-[email or web address]_Serology_Alg orithm.pdf Test Performed by: [place] [id number] Content Producer: Williams Joyce M.D. Ph.D.; CLIA# [id number] Hospital Outpatient Visit on 06/27/2023 Component Date [...] - Ultrasound abdomen limited; Future - [facility] [place], [place]; Future - RPR Therapy Response(Previous Positive [...] at delivery about the maternal syphilis PMID: [id number] 4. Obesity affecting in second trimester, unspecified [...] wall - Ultrasound abdomen limited; Future - [facility] [place], [place]; Future She tells me that she [...] consultation and recommend also to see a Leather Currier. 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 Colposcopy in reviewed. 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 Discussed with the patient that I would recommend that she does not run the chemicals because of her letter provided. Strongly recommended that she continues to wear her appropriate PPE. Recommendations: Continue low-dose aspirin Follow-up with titers. [place] for rising titers as per above. The [...] delivery preferred reserved section for routine indications Olap Developer should be notified about the syphilis in [...] Kamla Lester MD, FACOG (she/hers) Maternal- Medicine [facility] [address] [place] [address] [facility], the CDC, and other organizations representing maternal and public health professionals recommend that , , and lactating people and those considering receive the COVID-19 vaccination. Vaccination is the best method to reduce maternal and complications of SARS-CoV-2 infection. This document was created with iDubba technology. Though I make every effort to review the dictation as it is transcribed, on occasion the spoken word can be misinterpreted by the technology leading to inappropriate words, phrases, or sentences. This note is addressed to the requesting provider as a consultation for clinical guidance. Specific medical abbreviations are occasionally used and those are generally approved by the [place]?Board of?Obstetrics and?Gynecology?as well as?Moncho sepulveda abbreviations. The above plan of care was based solely on the diagnoses for which a consultation was requested. ?More frequent testing may be indicated based on her other medical/obstetrical conditions. The management of other or medical conditions is beyond the scope of requested consultation and will continue to be followed by the primary film and video graphics designer or primary care provider. Note to patient: [...] done this here or other office? yes, Amigo testing Neg for trisomies per patient, Not [...] Patient tolerated well. [facility] Miscellaneous Notes Pt states she [...] sent to Pharmacy. documented in this encounter [facility] 10-14-2023 Telephone encounter Note Pt states she is experiencing constipation. Pt states she is constantly straining to only have a little bit come out. Pt states she is drinking approximately 4 48oz bottles of water daily. Pt states she has tried Prune juice and Metamucil with no relief. Please advise. Thank you [facility] 10-14-2023 Telephone encounter Note RX [facility]ace [facility]-14-2023 Telephone encounter Note Advised Pt of RX sent to Pharmacy. [facility] 10-07-2023 History of Presen t illness [...] Turner 10/07/23 1242 documented in this encounter [facility] 10-07-2023 Miscellaneous Notes Addended by: LEROY ANN on: 10/07/2023 12:55 PM Modules accepted: Orders documented in this encounter [facility] 10-07-2023 Note Addended by: LEROY ANN on: 10/07/2023 12:55 PM Modules accepted: Orders [facility] 01-14-2023 Note Entered by Nirali Bingham on January 14, 2023 08:38:33 EDT From: Aarti Bingham To: [facility]/pharmacy #[id number] Sent: 01/14/2023 08:38:33 EDT Subject: Medication Management Submitted: Complete:venlafaxine (venlafaxine 75 mg oral capsule, extended release) Signed by Aarti Bingham 01/14/2023 08:38:00 EDT Approved venlafaxine (VENLAFAXINE HCL ER 75 MG CAP) TAKE 1 CAPSULE BY MOUTH EVERY DAY Qty: 30 cap(s) Days Supply: 30 Refills: 5 Substitutions Allowed Route To Pharmacy - [facility]/pharmacy #[id number] Signed by Aarti Bingham From: [id number] To: Jesus Duran MD Sent: January 12, 2023 6:47:36 AM CDT Subject: Medication Management Due: January 13, 2023 6:45:46 AM CDT On Hold Pending Signature Dispensed Drug: venlafaxine (venlafaxine 75 mg oral capsule, extended release), TAKE 1 CAPSULE BY MOUTH EVERY DAY Quantity: 30 cap(s) Days Supply: 30 Refills: 5 Substitutions Allowed Notes from Pharmacy: [facility] 07-09-2022 Note Entered by Nirali Bingham on July 09, 2022 07:51:14 EDT From: Aarti Bingham To: [facility]/pharmacy #[id number] Sent: 07/09/2022 07:51:14 EDT Subject: Medication Management Submitted: Complete:venlafaxine (venlafaxine 75 mg oral capsule, extended release) Signed by Aarti Bingham 07/09/2022 07:51:00 EDT Approved with modifications: venlafaxine (VENLAFAXINE HCL ER 75 MG CAP) TAKE 1 CAPSULE BY MOUTH EVERY DAY Qty: 90 cap(s) Days Supply: 90 Refills: 1 Substitutions Allowed Route To Pharmacy - [facility]/pharmacy #[id number] Signed by Aarti Bingham From: [facility] [id number] To: Jesus Duran MD Sent: July 08, 2022 7:45:20 AM CDT Subject: Medication Management Due: July 09, 2022 12:25:55 AM CDT On Hold Pending Signature Dispensed Drug: venlafaxine (venlafaxine 75 mg oral capsule, extended release), TAKE 1 CAPSULE BY MOUTH EVERY DAY Quantity: 90 cap(s) Days Supply: 90 Refills: 2 Substitutions Allowed Notes from Pharmacy: [facility] Evaluation note Diagnosis with 19 completed weeks gestation- Primary Multigravida of advanced maternal age in second trimester UTI (urinary tract infection) during , first trimester documented [facility] Diagnosis Constipation during in second trimester- Primary documented in this encounter [facility]* Diagnosis 21 weeks [...] HPV in female [facility] Diagnosis Multigravida of advanced maternal age in second trimester- Primary Obesity affecting in second trimester, unspecified obesity type documented in this encounter [facility]* Diagnosis 23 weeks gestation of - Primary care in third trimester documented in this encounter [facility] SystemInstructionsNot on filedocumented in this encounter [facility] SystemInstructionsNot on filedocumented in this encounter [facility] SystemInstructions* Attachments The following attachments cannot be sent through Care Everywhere. * Movement (Malian) * Preeclampsia (Malian) [facility] documented [facility] System[facility]ructionsNot on file documented in [facility] System[facility]ructionsNot on file [facility] Summary Purpose Family History [...] advanced maternal age in second trimester Procedures [facility] with or without consult Kenna Bejarano, TILE LAYER HELPER-CN [address] [place] [address] [facility] Maternal Med [address] [place] [address] Referral ID Status Reason Start Date Expiration Date V isits Requested Visits Authorized [id number] Pending Review 10/07/2023 10/06/2024 1 1 Specialty Diagnoses / Procedures Referred By Contac t Referred To Contact Diagnoses 21 weeks gestation of Multigravida of advanced maternal age in second trimester Procedures Echo complete W/O contrast Kamla Lester MD [address], [address] [place] [address] Referral ID Status Reason Start Date Expiration Date V isits Requested Visits Authorized [id number] Pending Review 10/24/2023 10/23/2024 1 1 Specialty Diagnoses / Procedures Referred By Contac t Referred To Contact Diagnoses 21 weeks gestation of Multigravida of advanced maternal age in second trimester Procedures ECG 12 lead Kamla Lester MD [address], [address] [place] [address] Referral ID Status Reason Start Date Expiration Date V isits Requested Visits Authorized [id number] Pending Review 10/24/2023 10/23/2024 1 1 Specialty Diagnoses / Procedures Referred By Contac t Referred To Contact General Surgery Diagnoses 21 weeks gestation of Hernia of abdominal wall Kamla Lester MD [address], [address] [place] [address] [facility] Grillis Mario [address] [place] [address] Referral ID Status Reason Start Date Expiration Date Visits Requested Visits Authorized [id number] Pending Review Specialty Services Required 10/24/2023 10/23/2024 1 1 Specialty Diagnoses / Procedures Referred By Contniki t Referred To Contact Maternal and Medicine Diagnoses Multigravida of advanced maternal age in second trimester Obesity affecting in second trimester, unspecified obesity type Procedures [facility] with or without consult Kamla Lester MD [address], [address] [place] [address] [facility] Maternal Med [address] [place] [address] Referral ID Status Reason Start Date Expiration Date V isits Requested Visits Authorized [id number] Pending Review 10/24/2023 10/23/2024 1 1 Additional Source Comments INFORMATION SOURCE (unrecogn ized section and content) DATE CREATED AUTHOR [facility]/07/[facility] DATE CREATED AUTHOR AUTHOR'S ORGANIZ ATION 01/29/2023 [facility] DATE CREATED AUTHOR AUTHOR'S ORGANIZ ATION 06/22/2023 [facility] DATE CREATED AUTHOR AUTHOR'S ORGANIZ ATION 10/30/2023 [facility] DATE CREATED AUTHOR AUTHOR'S ORGANIZ ATION 11/22/2023 [facility] Amb[facility] DATE CREATED AUTHOR AUTHOR'S ORGANIZ ATION 01/15/2024 [facility] DATE CREATED AUTHOR AUTHOR'S ORGANIZ ATION 02/12/2024 [facility] dical Specialists EPIC Care Teams (unrecognized sec tion and content) Needle Valve Operator Relationship Specialty Start Date End Date [facility] [address] [place], [place] PCP - General Family Medicine 03/25/23 Needle Valve Operator Relationship Specialty Start Date End Date [facility] [address] [place], [place] PCP - General Family Medicine 03/25/23 Needle Valve Operator Relationship Specialty Start Date End Date Services, [facility] [address] [place], [place] PCP - General Family Medicine 03/25/23 Needle Valve Operator Relationship Specialty Start Date End Date Services, [place] [address] [address] [place] PCP - General Family Medicine 03/25/23 Needle Valve Operator Relationship Specialty Start Date End Date Services, [place] [address] [address] [place] PCP General Family Medicine 03/25/23 Needle Valve Operator Relationship Specialty Start Date End Date Services, [place] [address] [address] [place] PCP - General Family Medicine 03/25/23 Needle Valve Operator Relationship Specialty Start Date End Date Services, [facility] [address] [place], [place] PCP - General Family Medicine 03/25/23 [...] BASED ON THE PRIMARY CLINICAL RECORDS. [facility] [employer] [facility]. provides no warranty or guarantee of the accuracy or completeness of information in this document.
--- NOTE | 2024-02-13 20:06 | US_ITS ---
[address] [address] Patient Name: EDILBERTO MEJIA MRN: [facility]:[id number] date: 1985 Sex: F Assigned Patient Location: US Current Patient Location: US Accession/Order Number: [id number] Exam Date: 02/13/2024 20:30 Report Date: 02/14/2024 07:24 At the request of: JAH HERNANDEZ Procedure: US OB BPP w non-stress EXAMINATION: US OB BPP w non-stress HISTORY: Advanced Maternal Age COMPARISON: Ultrasound OB biophysical 02/06/2024 TECHNIQUE: Ultrasound biophysical profile was performed in the radiology department. BREATHING MOVEMENTS: 2.0 GROSS BODY MOVEMENTS: 2.0 TONE: 2.0 QUALITATIVE AMNIOTIC FLUID VOLUME: 2.0 PRESENTATION: CEPHALIC HEART RATE: 147.5 bpm bpm. AMNIOTIC FLUID VOLUME: 9.8 cm GESTATIONAL AGE: 37 weeks 5 days CONCLUSION: Total biophysical profile score 8.0. Electronically authenticated by: MARTIN CAMPOS Date: 02/14/2024 07:24
[2024-02-13 20:10] VITALS: TEMP 35.4
[2024-02-13 20:11] VITALS: BP 116/61; PULSE 80
== END 2024-02-13 21:00 | disposition home or self-care (01) ==
LOC: US 07:10 → FBC 20:02
PROVIDERS: PCP Family Medicine; Visit Provider Obstetrics & Gynecology
DX: O09.523 Supervision of elderly multigravida, third trimester (principal); Z3A.37 37 weeks gestation of pregnancy
CPT/HCPCS: 76818

== ENCOUNTER 2024-02-17 07:15 | Outpatient (OUT) | payer BC, MEDICAID, SELFPAY ==
--- OUTSIDE RECORDS SUMMARY | 2024-02-17 07:31 | XMS_ITS | CCD ---
Author Organization [facility] Care Team Providers Care Head [employer] Custodian Name Role Phone JAILENEJuan ANJALI Unavailable Unavailable KARASIK, ANJALI Unavailable Unavailable KARASIK, ANJALI Unavailable Unavailable KARASIK, ANJALI Unavailable Unavailable KARASIK, ANJALI Unavailable Unavailable KARASIK, ANJALI Unavailable Unavailable Jesus Duran Primary Care Unavailable Jesus Duran Attending Unavailable José Miguel Estes Admitting Unavailable Royce Charles Attending Unavailable Jesus Duran Primary Care Unavailable Ramiro Abarca Consulting Unavailable Services, [facility] Primary Care Provider KENNA BEJARANO Referring Unavailable SERVICES, [facility] Unava ilable DOCHEVA, NIKOLINA P Referring Unavailable SERVICES, [facility] Unava ilable AYANA LUND Attending Unavailable SERVICES, [facility] Unava ilable DOCHEVA, NIKOLINA P Referring Unavailable SERVICES, [facility] Unava ilable SERVICES, [facility] Care Unava ilable KENNA BEJARANO Referring Unavailable SERVICES, [facility] Care Unava ilable DOCHEVA, NIKOLINA P Attending Unavailable SERVICES, [facility] Primary Care Unava ilable SERVICES, [facility] Care Unava ilable JAH CARRANZA Attending Unavailable DVAID, JAH Attending Unavailable ANNA MARIE MILLER Attending Unavailable DAVID, JAH Attending Unavailable DAVID, JAH Attending Unavailable DAVID, JAH Attending Unavailable DAVIDJAH REZA R Referring Unavailable SERVICES, [facility] Unava ilable DOCHEVA, NIKOLINA P Referring Unavailable SERVICES, [facility] Unava ilable DOCHEVA, NIKOLINA P Referring Unavailable SERVICES, [facility] Unava ilable SCAR SALVADOR Referring Unavailable SERVICES, [facility] Primary Care Unava ilable Allergies Allergy Classification Reported Allergen(s) Allergy Type Date of Onset Reaction(s) Facility (1 source) No Known Medication Allergies; Translations: [No Known Medication Allergies] Propensity to adverse reactions to drug (disorder) [facility] Repository (2 sources) Penicillins; Translations: [PENICILLINS] Drug allergy (disorder) 8 [facility] Repository Medications Current Medications Medication Drug Class(es) [...] nightly. 0 09/30/2023 Active polyethylene glycol 3350 39044 mg powder for oral solution (4 sources) [...] bedtime. 120 tablet 1 09/10/2023 Active sennosides, fdc 8.6 mg oral tablet (4 sources) Start: [...] Classification Problem Date Documented Da te Episodic/Chronic Anxiety disorders (8 sources) Anxiety; Translations: [Anxiety [...] unspecified, unspecified trimester] Onset: 10-24-2023 Episodic Other gastrointestinal disorders (5 sources) Constipation; [...] of ] 10-23-2023 Episodic Residual codes; unclassified (1 source) Gestation [...] Problem Classification Problem Date Documented Date Episodic/Chronic Abdominal hernia (14 sources) Incisional hernia; Translations: [Incisional hernia without obstruction or gangrene] Onset: 09-10-2023 09-10-2023 Episodic Other complications of (1 source) Syphilis complicating , third trimester; Translations: [Syphilis complicating , third trimester] Onset: 10-30-2023 Episodic Residual codes; unclassified (3 sources) 21 weeks gestation of ; Translations: [21 weeks gestation of ] Onset: 10-24-2023 Episodic Skin and subcutaneous tissue infections (1 source) Cutaneous abscess of unspecified foot; Translations: [Cutaneous abscess of unspecified foot] Onset: 09-07-2020 Episodic STDs excluding HIV or hepatitis (1 source) Cervical high risk human papillomavirus (HPV) DNA test positive; Translations: [CERVICAL HIGH RISK HPV DNA TEST POS] Onset: 05-10-2017 Episodic Results Test Name Value Interpretation Reference Range Facility Reagin Ab RPR Ql (S)on 02-11 RPR SCREEN RESPONSE TO THERAPY, SERUM Negative Normal Negative [facility] Comment on above: Result Comment: NOTE Non-treponemal antibodies not detected. For additional information on interpretation of the syphilis reverse algorithm and results, see: [email or web address] Test Performed by: [facility] [address] [place] [address] Collection Advisor: Williams Joyce M.D. Ph.D.; CLIA# [id number] Performed By: #### 2 [id number] #### [facility] ([id number]) [address] [place] [address], [place] [address] US ABDOMEN LMTD ABDOMEN WALL on 10-25-2023 US ABDOMEN LMTD ABDOMEN WALL US ABDOMEN LMTD ABDOMEN WALL Ultrasound the abdominal wall. INDICATION: Pain. Prior hernia repair. . COMPARISON: CT dated 03/25/2023. TECHNIQUE: Limited ultrasound of the body wall appear pain as delineated by the patient. FINDINGS: In the periumbilical region, restorative aide demonstrates a circumscribed 5.3 x 1.3 x 5.1 cm isoechoic lesion, thought to be related to a fat-containing periumbilical hernia sac seen on CT scan of March 2023. This does not appear to significantly change with Valsalva. Income Tax Analyst demonstrates potential associated fascial defect measuring approximately [...] Kapoor MD on 10/25/2023 11:30 AM Normal [facility] Reagin Ab RPR Ql (S)on 10-24 RPR SCREEN RESPONSE TO THERAPY, SERUM Negative Normal Negative [facility] Comment on above: Result Comment: NOTE Non-treponemal antibodies not detected. For additional information on interpretation of the syphilis reverse algorithm and results, see: [email or web address] Test Performed by: [place] [address] Collection Advisor: Williams Joyce M.D. Ph.D.; CLIA# [id number] URINALYSISon 10-07-2023 Bilirubin Ql (U) Negative Normal NEG [facility] BLOOD/HGB Negative Normal NEG [facility] CA OXALATE CRYSTALS PRESENT Abnormal [facility] Color (U) YELLOW Normal YELLOW [facility] Glucose Ql (U) Negative Normal NEG [facility] Ketones Ql (U) Trace Abnormal NEG [facility] Leukocyte esterase Test strip Ql (U) Small Abnormal NEG [facility] MUCOUS PRESENT Abnormal [facility] Nitrite Ql (U) Negative Normal NEG [facility] pH (U) 6.0 [pH] Normal 5.0-8.5 [facility] Protein Ql (U) Trace Abnormal NEG [facility] R.B.CELLS 4 /hpf Normal 0-5 [facility] Specific gravity (U) [Rel density] 1.023 Normal 1.003-1.035 [facility] SQUAMOUS EPITHELIUM 15 /hpf High 0-5 [facility] TURBIDITY CLEAR Normal CLEAR [facility] Urobilinogen (U) [Mass/Vol] mg/dL Normal <1.1 [facility] W.B.CELLS 5 /hpf Normal 0-5 [facility] URINE CULTUREon 10-07-2023 Bacteria identified Cx Nom (U) CULTURE RESULTS NO GROWTH AT <1000 CFU/mL Normal [facility] Comment on above: Performed By: #### 6 30-4 #### [facility] ([id number]) [address], [address] [place] [address] Urinalysison 10-07-2023 Bilirubin Ql (U) Negative Negative^Ne gat nia [facility] Calcium oxalate crystals LM Ql (Urine sed) PRESENT Abnormal NONE^NONE [facility] Color (U) YELLOW YELLOW^YELLOW [facility] Epithelial cells Auto (Urine sed) [#/Area] 15 High [facility] Glucose (U) [Mass/Vol] Negative Negative^Negat nia mg/dL [facility] Hemoglobin Auto test strip Ql (U) Negative Negative^Negat nia [facility] Interpretation and review of laboratory results Abnormal [facility] Ketones (U) [Mass/Vol] Trace Abnormal Negative^Negat nia mg/dL [facility] Leukocyte esterase Auto test strip Ql (U) Small Abnormal Negative^Negat nia [facility] Mucus Ql (Urine sed) PRESENT Abnormal NONE^NONE [facility] Nitrite Auto test strip Ql (U) Negative Negative^Negat nia [facility] pH (U) 6.0 [pH] 5.0 - 8.5 [facility] Protein (U) [Mass/Vol] Trace Abnormal Negative^Negat nia mg/dL [facility] RBC Auto (Urine sed) [#/Area] 4 [facility] Specific gravity Refractometry automated (U) [Rel density] 1.023 1.003 - 1.035 [facility] Turbidity Ql (U) CLEAR CLEAR^CLEAR [facility] Urobilinogen Qn (U) NINF [facility] WBC Auto (Urine sed) [#/Area] 5 [facility] Outside Recordson 01-16-2023 Outside Records [id number]#[id number] Normal [facility] PAP RFX HPV IF ASCon 018 COMMENT Comment Normal [facility] Comment on above: Result Comment: [place] Performed By: #### P APHR7 ####[facility] [address] [place] [address] DIAGNOSIS: Comment Normal [facility] Comment on above: Result Comment: NEGA TIVE FOR INTRAEPITHELIAL LESION AND MALIGNANCY. Performed By: #### P APHR7 ####[facility] [address] [place] [address] Methodology: BDFP Normal [facility] Comment on above: Result Comment: The TriPath(R) FocalPoint was unable to read and evaluate thisspecimen. Therefore a manual review was performed. Performed By: #### P APHR7 ####[facility] [address] [place] [address] Note: Comment Normal [facility] Comment on above: Result Comment: The Pap smear is a screening test designed to aid in the detection ofpremalignant and malignant conditions of the uterine cervix. It is not adiagnostic procedure and should not be used as the sole means of detectingcervical cancer. Both false-positive and false-negative reports do occur. . Performed By: #### P APHR7 ####[facility] [address] [place] [address] Performed by: Comment Normal [facility] Comment on above: Result Comment: Chato Simon, Hydroelectric Component Machinist (ASCP) Performed By: #### P APHR7 ####[facility] [address] [place] [address] Reflex Criteria: Comment Normal [facility] Comment on above: Result Comment: The HPV DNA reflex criteria were not met with this specimen resulttherefore, no HPV testing was performed. . Performed By: #### P APHR7 ####[facility] [address] [place] [address] Specimen adequacy: Comment [facility] Comment on above: Result Comment: Sati sfactory for evaluation. Endocervical and/or squamous metaplasticcells (endocervical component) are present. Performed By: #### P APHR7 ####[facility] [address] [place] [id number] . . Normal [facility] Comment on above: Performed By: #### P APHR7 ####[facility] [address] [place], [place] [address]Sohesw Cristiane LAB TESTINGon 05-09-2017 RECV HEADER SEE SCANNED REPORT I N HPF Normal [facility] Comment on above: Performed By: #### M ISC ####[facility] [address] [place] REV FROM REF LAB see scanned report Normal [facility] Comment on above: Performed By: #### M ISC ####[facility] [address] Cristiane SENT TO REF LAB see scanned report Normal T [facility] Comment on above: Performed By: #### M ISC ####[facility] [address] [place] Vital Signs Date Time Vital Sign Value Performing Clinician Faci lity 11-04-2023 11:26-0500 Body mass index (BMI) [Ratio] 41.14 kg/m2 Bethany Garcia MOTION STUDY ENGINEER-CNM Work Phone: [facility] 11-04-2023 11:26-0500 Body weight 112.13 kg Bethany Garcia MOTION STUDY ENGINEER-CNM Work Phone: [facility] 11-04-2023 11:26-0500 Diastolic blood pressure 68 mm[Hg] Bethany Garcia MOTION STUDY ENGINEER-CNM Work Phone: [facility] 11-04-2023 11:26-0500 Systolic blood pressure 120 mm[Hg] Bethany Garcia MOTION STUDY ENGINEER-CNM Work Phone: [facility] 10-24-2023 10:27-0500 Body height 165.1 cm Kamla Lester MD Work Phone: [facility] 10-24-2023 10:27-0500 Body mass index (BMI) [Ratio] 40.27 kg/m2 Kamla Lester MD Work Phone: [facility] 10-24-2023 10:27-0500 Body weight 109.77 kg Kamla Lester MD Work Phone: [facility] 10-24-2023 10:27-0500 Diastolic blood pressure 78 mm[Hg] Kamla Lester MD Work Phone: [facility] 10-24-2023 10:27-0500 Systolic blood pressure 118 mm[Hg] Kamla Lester MD Work Phone: [facility] 10-07-2023 11:23-0500 Body mass index (BMI) [Ratio] 39.99 kg/m2 [employer]ws Print Developer [facility] 10-07-2023 11:23-0500 Body weight 109 kg Pfws Print Developer [facility] 10-07-2023 11:23-0500 Diastolic blood pressure 80 mm[Hg] Pfws Print Developer [facility] 10-07-2023 11:23-0500 Systolic blood pressure 100 mm[Hg] [facility] Encounters Encounter Date Encounter Type Care Provider Facility Start: 02-12-2024 End: 02-12-2024 ambulatory SCAR SALVADOR [facility] Start: 02-11-2024 End: 02-11-2024 ambulatory JAH DAVID Not Available Start: 02-04-2024 End: 02-04-2024 ambulatory JAH DAVID Not Available Start: 01-29-2024 End: 01-29-2024 ambulatory JAH DAVID Not Available Start: 01-23-2024 End: 01-23-2024 ambulatory ANNA MARIE MILLER Not Available Start: 01-14-2024 End: 01-14-2024 ambulatory SANYA Barbara LESTERMILAGROS [facility] Start: 01-08-2024 End: 01-08-2024 ambulatory JAH DAVID Not Available Start: 12-17-2023 End: 12-17-2023 ambulatory JAH R DAVID [facility] Start: 12-03-2023 End: 12-03-2023 ambulatory JAH CARRANZA Not Available Start: 11-21-2023 End: 11-21-2023 ambulatory [facility] Start: 11-14-2023 Telephone encounter [facility] Start: 11-04-2023 End: 11-04-2023 ambulatory [facility] Start: 11-04-2023 End: 11-04-2023 Subsequent care visit Bethany Elizondo Ignacio MOTION STUDY ENGINEER-CNM Work Phone: [facility] Comment on above: GA: 23w3d Start: 10-25-2023 End: 10-25-2023 ambulatory [facility] Start: 10-24-2023 End: 10-25-2023 Orders Only Rosalie Weston RN [facility] at [facility] Comment on above: Multigravida of adva nced maternal age in second trimester (Primary Dx); Obesity affecting in second trimester, unspecified obesity type Start: 10-24-2023 End: 10-24-2023 Office consultation new/estab patient 80 min Kamla Lester MD Work Phone: [facility] [place] Comment on above: 21 weeks gestation o f (Primary Dx); Multigravida of advanced maternal age in second trimester; 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; Obesity affecting in second trimester, unspecified obesity type; Anxiety during ; Depression affecting ; Constipation, unspecified constipation type; Hernia of abdominal wall; Psoriasis; LGSIL on Pap smear of cervix; HPV in female Start: 10-14-2023 Orders Only Ayana Lund MOTION STUDY ENGINEER-GEAR MACHINE OPERATOR Work Phone: [facility] Comment on above: Constipation during in second trimester (Primary Dx) Start: 10-07-2023 End: 10-08-2023 [facility] Start: 10-07-2023 End: 10-07-2023 ambulatory [facility] Start: 10-07-2023 End: 10-07-2023 Subsequent care visit Pfws Ob Print Developer [facility] Comment on above: GA: 19w3d Start: 09-10-2023 End: 09-10-2023 ambulatory AYANA LUND [facility] Start: 01-28-2023 End: 01-29-2023 ambulatory Jesus Duran Facility:[facility] Start: 09-07-2020 End: 09-10-2020 Evaluation and management of inpatient José Miguel Estes Facility:[facility] Start: 11-01-2017 End: 11-01-2017 Ambulatory ANJALI MESSINA Facility:[facility] Start: 05-09-2017 End: 05-09-2017 Ambulatory ANJALI MESSINA Facility:[facility] Procedures Date Procedure Procedure Detail Performing Clinician Start: 06-27-2023 Microscopic observat ion [Identifier] in Cervix by Cyto stain [employer] Print Developer Plan of Treatment Date Care Activity Detail Author Start: 06-27-2026 Screening for malignant neoplasm of cervix Pap Smear [facility] Start: 11-04-2024 Adult [facility] Start: 11-04-2024 Tobacco [facility]ening [facility] Start: 10-24-2024 Adult BMI Screening [facility] Start: 10-24-2024 Tobacco Screening [facility]ening [facility] Start: 10-24-2024 End: 10-24-2024 US MFM with or without consult US MFM with or without consult Imaging Routine Multigravida of advanced maternal age in second trimester Obesity affecting in second trimester, unspecified obesity type Expected: 10/24/2024 (Approximate), Expires: 10/24/2024 [email or web address] Work Phone: Comment on above: Expected: 10/24/2024 (Approximate), Expires: 10/24/2024 Start: 10-07-2024 Adult BMI Screening [facility] Start: 10-07-2024 Tobacco Screening [facility] Start: 12-17-2023 End: 12-17-2023 Patient encounter procedure 12/17/2023 2:45 PM EDT Appointment [facility] [address] [place] [address] [facility] Start: 12-02-2023 End: 12-02-2023 Patient encounter procedure 12/02/2023 11:45 AM EDT Routine [facility] [address] [place] [address] [facility] Start: 11-21-2023 End: 11-21-2023 Patient encounter procedure 11/21/2023 2:15 PM EST Appointment [facility] [place] [address] [place] [address] [facility] [place] Start: 11-04-2023 End: 11-04-2023 Patient encounter procedure 11/04/2023 11:30 AM EST Routine [facility] [address] [place] [address] [facility] Start: 10-25-2023 Subsequent hospital visit by physician 10/25/2023 10:00 AM EST Hospital Encounter [facility] [address] [facility] [address] [facility] Start: 10-24-2023 End: 10-24-2024 Echo complete W/O contrast Echo complete W/O contrast Echocardiography Routine 21 weeks gestation of Multigravida of advanced maternal age in second trimester Expected: 10/24/2023, Expires: 10/24/2024 [facility] Comment on above: Expected: 10/24/2023 , Expires: 10/24/2024 Start: 10-24-2023 End: 10-24-2024 US Abdominal wall Ultrasound abdomen limited ADBOMEN WALL Imaging STAT 21 weeks gestation of Hernia of abdominal wall Expected: 10/24/2023, Expires: 10/24/2024 [facility] Comment on above: Expected: 10/24/2023 , Expires: 10/24/2024 Start: 10-24-2023 End: 10-24-2023 Patient encounter procedure [facility] [place] Start: 10-07-2023 End: 10-07-2024 US MFM with or without consult US MFM with or without consult Imaging Routine Multigravida of advanced maternal age in second trimester Expected: 10/07/2023, Expires: 10/07/2024 [facility] Work Phone: Comment on above: Expected: 10/07/2023 , Expires: 10/07/2024 Start: 2002 DTaP,Tdap and Td Vaccines (1 - Tdap) DTaP,Tdap and Td Vaccines (1 - Tdap) [facility] Start: 2001 Adult BMI Follow Up Plan Adult BMI Follow Up Plan [facility] Start: 1995 Depression Screening Depression Scre ening [facility] End: 10-06-2024 Bacteria identified in Urine by Culture Urine Culture Microbiology Routine UTI (urinary tract infection) during , first trimester 1 Occurrences starting 10/07/2023 until 10/06/2024 [facility] Comment on above: 1 Occurrences starti ng 10/07/2023 until 10/06/2024 Bacteria identified in Urine by Culture Urine Culture Microbiology Routine UTI (urinary tract infection) during , first trimester 10/07/2023 8:25 PM EST [facility] End: 11-04-2024 CBC W Auto Differential panel - Blood CBC auto differential Lab Routine care in third trimester 1 Occurrences starting 11/04/2023 until 11/04/2024 [facility] Comment on above: 1 Occurrences starti ng 11/04/2023 until 11/04/2024 End: 10-24-2024 ECG 12 lead ECG 12 lead ECG Routine 21 weeks gestation of Multigravida of advanced maternal age in second trimester 1 Occurrences starting 10/24/2023 until 10/24/2024 [facility] Comment on above: 1 Occurrences starti ng 10/24/2023 until 10/24/2024 End: 11-04-2024 Glucose 1h post 50g load Glucose 1h post 50g load Lab Routine care in third trimester 1 Occurrences starting 11/04/2023 until 11/04/2024 [email or web address] Work Phone: Comment on above: 1 Occurrences starti ng 11/04/2023 until 11/04/2024 Reagin Ab [Presence] in Serum by RPR RPR Screen Response to Therapy, Serum Lab Routine 21 weeks gestation of 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 10/24/2023 7:10 PM EST [employer] End: 10-24-2024 RPR Therapy Response(Previous Positive Screen) RPR Therapy Response(Previous Positive Screen) Lab Routine 21 weeks gestation of 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 1 Occurrences starting 10/24/2023 until 10/24/2024 [email or web address] Work Phone: Comment on above: 1 Occurrences starti ng 10/24/2023 until 10/24/2024 End: 11-04-2024 Syphilis Total(Unknown Syphilis Status) Syphilis Total(Unknown Syphilis Status) Lab Routine care in third trimester 1 Occurrences starting 11/04/2023 until 11/04/2024 [facility] Comment on above: 1 Occurrences starti ng 11/04/2023 until 11/04/2024 Payers Date Payer Category Payer Medicaid [facility] MEDICAID [facility] MEDICAID [id number] 2023-Present [address] [place] [address] [id number] 2023 Unknown [facility] ACCE SS (PPO) [id number] 2023-Present [phone] [address] [place] [address] [id number] 2023 Medicaid [id number] 2023 Unknown [id number] 2020 Self-pay 2019 Unknown [id number] 1983 Unknown [id number] [id number]8 1983 Unknown [id number] 2.16.840.1.349618.3.579.2.1286 1983 Unknown [id number] 2.840.1.397103.3.579.2.1286 1983 Unknown [id number] 2.16840.1.810721.3.579.2.128 1983 Unknown [id number] 2.16840.1.047323.3.579.2.128 1983 Unknown [id number] 2.840.1.515655.3.579.2.1285 1983 Unknown [id number] 2.840.1.159300.3.579.2.128 1983 Unknown [id number] 2.840.1.031012.3.579.2.1285 1983 Unknown [id number] 2.840.1.944608.3.579.2.9 1983 Unknown [id number] 2.0.1.179748.3.579.2.1258 1983 Unknown [id number] 2.840.1.918494.3.579.2.9 1983 Unknown [id number] 2.840.1.034302.3.579.2.1258 1983 Unknown [id number] 2.840.1.806111.3.579.2.9 1983 Unknown [id number] 2.0.1.477295.3.579.2.1258 1983 Unknown [id number] 2.840.1.780674.3.579.2.128 1983 Unknown [id number] 2.840.1.744497.3.579.2.1285 1983 Unknown [id number] 2.16840.1.719349.3.579.2.128 1983 Unknown [id number] 2.840.1.634292.3.579.2.128 1959 Unknown [id number] Unknown [id number] Social History Date Type Detail Facility Start: 09-10-2023 Tobacco smoking stat us [facility] Ex-smoker [facility] End: 06-16-2023 History of tobacco use Current smoker [facility] End: 06-16-2023 History of tobacco use Cigarette Smoker [facility] Start: 09-10-2023 Tobacco use and exposure Smokeless tobacco non-user [facility] Start: 10-07-2023 End: 11-04-2023 Alcohol intake Ex-drinker (finding) [facility] Start: 10-27-2020 End: 10-07-2023 History of Social function [facility] Start: 10-27-2020 End: 10-07-2023 Tobacco use panel [facility] Adolescent depressio n screening assessment 0 [facility] Start: 03-25-2023 Tobacco Comment quit a year an d a half ago [facility] Start: 06-07-2020 Alcohol Comment 2 days a week [facility] Start: 06-07-2023 [facility] Start: 1985 Sex Assigned At Not on file P [facility] Medical Equipment Procedure Code Equipment Code Equipment Origin al Text Equipment Identifier Dates Mesh Pco Vntrl P tch 4.6cm Rpl [id number] - Sna - [id number] Start: 07-01-2020 Clinical Notes 07-09-2022 to 11-14-2023 Telephone Encounter - Laila Gil - 11/14/2023 10:35 AM ESTTelephone Encounter - Lailanina Gil - 11/14/2023 10:35 AM HONEY Martinez [...] Cece talked to the patient at her [facility] ultrasound appt today. Patient confirmed to Cece that she is transferring care to Dr. Carranza. Cece cancelled the scheduled appointment with our office. documented in this encounter [facility] 11-14-2023 Telephone encounter Note Received a [...] not leave a message for the patient. [employer] 11-14-2023 Telephone encounter Note Cece talked to the patient at her [facility] ultrasound appt today. Patient confirmed to Cece that she is transferring care to Dr. Carranza. Cece cancelled the scheduled appointment with our office. [employer] 11-04-2023 History of Presen t illness Narrative [...] Clifford 11/04/23 1157 documented in this encounter [facility] 10-24-2023 History of Presen t illness Narrative Images from the original note were not included. Video Visit via Real-time Synchronous Audiovisual Provider Location: [facility], MATERNAL- MEDICINE [address] [place] [address], [facility] [address] [address] Patient Location: Other [facility] Patient Location Program Planner: None Video Visit Consent Statement: I discussed [...] that there are some limitations compared to xtjm-ve-sjjx evaluations. We elected to proceed. [facility] Maternal- Medicine Consult Note Reason For [...] was told low risk cell free DNA [place]. 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 Authorizing Provider acetaminophen (TYLENOL) 325 mg tablet Take 2 tablets (650 mg total) by mouth every 6 (six) hours as needed for pain. Not In System Ref Prov aspirin 81 mg chewable tablet Chew 1 tablet (81 mg total) and swallow in the morning. 09/10/23 Ayana Lund APRN-HARRY docusate sodium (COLACE) 100 mg capsule Take [...] No abnormal hemoglobin identified. Test Performed By: [facility] [employer] [address] [place] [address] Director Physical Therapy: Matias Menchaca III, M.D. [facility] #[id number]^ T4, free 07/16/2023 0.75 0.61 - 1.60 [...] testing algorithm link below for more information. [email or web address].[email or web address]/dv/dl.a [email or web address] h=acaea White Blood Cells 07/16/2023 9.3 4.0 [...] infection suspected, recommend repeat testing (>2 months). Ssqkst-zk-acojrq ratio is <0.80. RPR with Reflex to [...] the syphilis reverse algorithm and results, see: [email or web address] it-[email or web address]_Alg [email or web address].pdf Test Performed by: [place] [address] Collection Advisor: Williams Joyce M.D. Ph.D.; CLIA# [id number] CLIA ID [id number] HGB Phoresis Interpretation 07/16/2023 See below Final [...] by Sommer Garcia MD Test Performed By: [place] [address] Director Physical Therapy: Matias Menchaca III, M.D. CLIA #[id number]^ T.pallidum 07/16/2023 SEE COMMENTS 07/19/2023 12:59 PM (A) Final Comment: NOTE Test Result Flag Unit RefValue -- Syphilis Ab, TP-PA, S Positive A Negative Treponemal antibodies detected, consistent with previously treated syphilis, potentially early syphilis infection or latent disease. Clinical correlation to distinguish between these scenarios is required. For additional information on interpretation of the syphilis reverse algorithm and results, see: [email or web address] [email or web address]_Serology_Alg orithm.pdf Test Performed by: [facility] [address] [place] [address] Collection Advisor: Williams Joyce M.D. Ph.D.; CLIA# [id number] Hospital Outpatient Visit on 06/27/2023 Component Date [...] Ultrasound abdomen limited; Future - [facility] [place], [place]; Future - [facility] Response(Previous Positive [...] at delivery about the maternal syphilis PMID: [id number] 4. Obesity affecting in second trimester, unspecified [...] Future - [facility] [place], [place]; Future She tells me that she [...] consultation and recommend also to see a Bindery Helper. 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 Colposcopy in reviewed. 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 Discussed with the patient that I would recommend that she does not run the chemicals because of her letter provided. Strongly recommended that she continues to wear her appropriate PPE. Recommendations: Continue low-dose aspirin Follow-up with titers. [place] for rising titers as per above. The patient desires to have the titers done every 4 weeks. I ordered repeat titers today please follow from then onwards. Follow-up with the Health Department and recommend communication, testing and treatment of partner to avoid reinfection Serial growth assessments every 4 weeks after the anatomy scan through [facility] testing to be initiated at 32 weeks weekly with twice weekly testing at 36 weeks and weekly DVP (to be done at OB office) Delivery at 39 weeks due to advanced maternal age and obesity, sooner if clinically indicated Vaginal delivery preferred reserved section for routine indications Computer Artist should be notified about the syphilis in [...] Kamla Lester MD, FACOG (she/hers) Maternal- Medicine [facility] [address] [facility] [address] [place] [address] [facility], the CDC, and other organizations representing maternal and public health professionals recommend that , , and lactating people and those considering receive the COVID-19 vaccination. Vaccination is the best method to reduce maternal and complications of SARS-CoV-2 infection. This document was created with [employer] technology. Though I make every effort to review the dictation as it is transcribed, on occasion the spoken word can be misinterpreted by the technology leading to inappropriate words, phrases, or sentences. This note is addressed to the requesting provider as a consultation for clinical guidance. Specific medical abbreviations are occasionally used and those are generally approved by the English?Board of?Obstetrics and?Gynecology?as well as?Moncho s abbreviations. The above plan of care was based solely on the diagnoses for which a consultation was requested. ?More frequent testing may be indicated based on her other medical/obstetrical conditions. The management of other or medical conditions is beyond the scope of requested consultation and will continue to be followed by the primary repatcher or primary care provider. Note to patient: [...] done this here or other office? yes, [place] testing Neg for trisomies per patient, Not on chart, will call for results. Have you been seen here at [facility] in a previous ? no Recent ER visits or hospitalizations? no Bring blood sugar log or meter with you today? (Please bring them with you for every visit at [facility]) Traveled outside the country in the past 6 month no Any concerns that you would like me to mention to the provider today? Patient states she is worried about the chemicals that she uses at her job and her constipation issues with her hernia. Taking Metamucil and Colace BID Labs ordered today per [facility]. Labs drawn on 1st attempt (L) antecubital here in our office at this time without difficulty. Patient tolerated well. documented in this encounter [facility] 10-14-2023 Miscellaneous Notes Pt states she is [...] sent to Pharmacy. documented in this encounter [facility] 10-14-2023 Telephone encounter Note Pt states she is experiencing constipation. Pt states she is constantly straining to only have a little bit come out. Pt states she is drinking approximately 4 48oz bottles of water daily. Pt states she has tried Prune juice and Metamucil with no relief. Please advise. Thank you [facility] 10-14-2023 Telephone encounter Note RX for colace sent to pharmacy [facility] 10-14-2023 Telephone encounter Note Advised Pt of RX sent to Pharmacy. [facility] 10-07-2023 History of Presen t illness [...] [place] 10/07/23 1242 documented in this encounter [facility] [employer] 10-07-2023 Miscellaneous Notes Addended by: LEROY ANN on: 10/07/2023 12:55 PM Modules accepted: Orders documented in this encounter [facility] [facility] 10-07-2023 Note Addended by: LEROY ANN on: 10/07/2023 12:55 PM Modules accepted: [facility] 01-14-2023 Note Entered by Nirali Bingham on January 14, 2023 08:38:33 EDT From: Aarti Bingham To: [facility]/pharmacy #[id number] Sent: 01/14/2023 08:38:33 EDT Subject: Medication Management Submitted: Complete:venlafaxine (venlafaxine 75 mg oral capsule, extended release) Signed by Aarti Bingham 01/14/2023 08:38:00 EDT Approved venlafaxine (VENLAFAXINE HCL ER 75 MG CAP) TAKE 1 CAPSULE BY MOUTH EVERY DAY Qty: 30 cap(s) Days Supply: 30 Refills: 5 Substitutions Allowed Route To Pharmacy - [facility]/pharmacy #[id number] Signed by Aarti Bingham From: [facility] STORE [id number] To: Jesus Duran MD Sent: January 12, 2023 6:47:36 AM CDT Subject: Medication Management Due: January 13, 2023 6:45:46 AM CDT On Hold Pending Signature Dispensed Drug: venlafaxine (venlafaxine 75 mg oral capsule, extended release), TAKE 1 CAPSULE BY MOUTH EVERY DAY Quantity: 30 cap(s) Days Supply: 30 Refills: 5 Substitutions Allowed Notes from Pharmacy: [facility] 07-09-2022 Note Entered by Nirali Bingham on July 09, 2022 07:51:14 EDT From: Aarti Bingham To: [facility]/pharmacy #[id number] Sent: 07/09/2022 07:51:14 EDT Subject: Medication Management Submitted: Complete:venlafaxine (venlafaxine 75 mg oral capsule, extended release) Signed by Aarti Bingham 07/09/2022 07:51:00 EDT Approved with modifications: venlafaxine (VENLAFAXINE HCL ER 75 MG CAP) TAKE 1 CAPSULE BY MOUTH EVERY DAY Qty: 90 cap(s) Days Supply: 90 Refills: 1 Substitutions Allowed Route To Pharmacy - [facility]/pharmacy #[id number] Signed by Aarti Bingham From: [id number] To: Jesus Duran MD Sent: July 08, 2022 7:45:20 AM CDT Subject: Medication Management Due: July 09, 2022 12:25:55 AM CDT On Hold Pending Signature Dispensed Drug: venlafaxine (venlafaxine 75 mg oral capsule, extended release), TAKE 1 CAPSULE BY MOUTH EVERY DAY Quantity: 90 cap(s) Days Supply: 90 Refills: 2 Substitutions Allowed Notes from Pharmacy: [facility] Evaluation note Diagnosis with 19 completed weeks gestation- Primary Multigravida of advanced maternal age in second trimester UTI (urinary tract infection) during , first trimester documented [facility] Diagnosis Constipation during in second trimester- Primary [facility]* Diagnosis 21 weeks gestation [...] HPV in female [facility] Diagnosis Multigravida of advanced maternal age in second trimester- Primary Obesity affecting in second trimester, unspecified obesity type documented [facility]* Diagnosis 23 weeks gestation of - Primary care in third trimester documented [facility] filedocumented in this encounter [facility]ructionsNot on filedocumented in this encounter [facility]* Attachments The following attachments cannot be sent through Care Everywhere. * Movement (South Korean) * Preeclampsia ([place]) [facility]ructionsNot on file [facility] SystemInstructionsNot on file [facility] SystemInstructionsNot on file [facility] Summary Purpose Family History No [...] advanced maternal age in second trimester Procedures [facility] with or without consult Kenna Bejarano, MOTION STUDY ENGINEER-CNM [address] [place] [address] [facility] Maternal Med [address] [facility] [place] [address] Referral ID Status Reason Start Date Expiration Date V isits Requested Visits Authorized [id number] Pending Review 10/07/2023 10/06/2024 1 1 Specialty Diagnoses / Procedures Referred By Contniki t Referred To Contact Diagnoses 21 weeks gestation of Multigravida of advanced maternal age in second trimester Procedures Echo complete W/O contrast Kamla Lester MD [address], [address] [place] [address] Referral ID Status Reason Start Date Expiration Date V isits Requested Visits Authorized [id number] Pending Review 10/24/2023 10/23/2024 1 1 Specialty Diagnoses / Procedures Referred By Contac t Referred To Contact Diagnoses 21 weeks gestation of Multigravida of advanced maternal age in second trimester Procedures ECG 12 lead Kamla Lester MD [address], [address] [place] [address] Referral ID Status Reason Start Date Expiration Date V isits Requested Visits Authorized [id number] Pending Review 10/24/2023 10/23/2024 1 1 Specialty Diagnoses / Procedures Referred By Contac t Referred To Contact General Surgery Diagnoses 21 weeks gestation of Hernia of abdominal wall Kamla Lester MD [address], [address] [place] [address] [facility] Grillis Mario [address] [place] [address] Referral ID Status Reason Start Date Expiration Date Visits Requested Visits Authorized [id number] Pending Review Specialty Services Required 10/24/2023 10/23/2024 1 1 Specialty Diagnoses / Procedures Referred By Contac t Referred To Contact Maternal and Medicine Diagnoses Multigravida of advanced maternal age in second trimester Obesity affecting in second trimester, unspecified obesity type Procedures US MFM with or without consult Kamla Lester MD [address], [address] [place] [address] [facility] Maternal Med [address] [place] [address] Referral ID Status Reason Start Date Expiration Date V isits Requested Visits Authorized [id number] Pending Review 10/24/2023 10/23/2024 1 1 Additional Source Comments INFORMATION SOURCE (unrecogn ized section and content) DATE CREATED AUTHOR 03/07/2018 [facility] DATE CREATED AUTHOR AUTHOR'S ORGANIZ ATION 01/29/2023 [facility] DATE CREATED AUTHOR AUTHOR'S ORGANIZ ATION 06/22/2023 [facility] DATE CREATED AUTHOR AUTHOR'S ORGANIZ ATION 10/30/2023 [facility] DATE CREATED AUTHOR AUTHOR'S ORGANIZ ATION 11/22/2023 [facility] DATE CREATED AUTHOR AUTHOR'S ORGANIZ ATION 02/12/2024 [facility] EPIC DATE CREATED AUTHOR AUTHOR'S ORGANIZ ATION 02/16/2024 [facility] Care Teams (unrecognized sec tion and content) Head School Custodian Relationship Specialty Start Date End Date Services, [facility] [address] [place] PCP - General Family Medicine 03/25/23 Head School Custodian Relationship Specialty Start Date End Date Services, [facility] [address] [place] PCP - General Family Medicine 03/25/23 Head School Custodian Relationship Specialty Start Date End Date Services, [facility] [address] [place] PCP - General Family Medicine 03/25/23 Head School Custodian Relationship Specialty Start Date End Date Services, [facility] [address] [place] PCP - General Family Medicine 03/25/23 Head School Custodian Relationship Specialty Start Date End Date Services, [facility] [address] [place] PCP - General Family Medicine 03/25/23 Head School Custodian Relationship Specialty Start Date End Date Services, [facility] [address] [place] PCP - General Family Medicine 03/25/23 Head School Custodian Relationship Specialty Start Date End Date [facility], [facility] [address] [place], [place] PCP - General Family Medicine 03/25/23 [...] BE BASED ON THE PRIMARY CLINICAL RECORDS. [employer] provides no warranty or guarantee of the accuracy or completeness of information in this document.
[2024-02-17 18:19] VITALS: BP 129/73; PULSE 71
== END 2024-02-17 18:36 | disposition home or self-care (01) ==
LOC: FBCO 07:27 → FBC 17:59
PROVIDERS: PCP Family Medicine; Visit Provider Obstetrics & Gynecology
DX: O09.529 Supervision of elderly multigravida, unspecified trimester (principal)
CPT/HCPCS: 59025

== ENCOUNTER 2024-02-21 23:10 | Inpatient (IN) | payer BC, MEDICAID, SELFPAY ==
--- OUTSIDE RECORDS SUMMARY | 2024-02-21 23:14 | XMS_ITS | CCD ---
Author Organization [facility] Care Team Providers Care Manufacturer Representative Name Role Phone EMMYBUCK ANJALI Unavailable Unavailable KARASIK, ANJALI Unavailable Unavailable KARASIK, ANJALI Unavailable Unavailable KARASIK, ANJALI Unavailable Unavailable KARASIK, ANJALI Unavailable Unavailable KARASIK, ANJALI Unavailable Unavailable Jesus Duran Primary Care Unavailable Jesus Duran Attending Unavailable José Miguel Estes Admitting Unavailable Royce Charles Attending Unavailable Jesus Duran Primary Care Unavailable Ramiro Abarca Consulting Unavailable Services, [facility] Primary Care Provider KENNA BEJARANO Referring Unavailable SERVICES, [facility] Primary Care Unava ilable DOCHEVA, NIKOLINA P Referring Unavailable SERVICES, [facility] Primary Care Unava ilable AYANA LUND Attending Unavailable SERVICES, [facility] Primary Care Unava ilable DOCHEVA, NIKOLINA P Referring Unavailable SERVICES, [facility] Primary Care Unava ilable SERVICES, [facility] Primary Care Unava ilable KENNA BEJARANO Referring Unavailable SERVICES, [facility] Primary Care Unava ilable DOCHEVA, NIKOLINA P Attending Unavailable SERVICES, [facility] Primary Care Unava ilable SERVICES, [facility] Primary Care Unava ilable PROVIDER, UNKNOWN Referring Unavailable SERVICES, [facility] Primary Care Unava ilable DOCHEVA, NIKOLINA P Referring Unavailable SERVICES, [facility] Primary Care Unava ilable DOCHEVA, NIKOLINA P Referring Unavailable SERVICES, [facility] Primary Care Unava ilable SCAR SALVADOR Referring Unavailable SERVICES, [facility] Primary Care Unava ilable DIANA SCHOFIELD Referring Unavailable SERVICES, [facility] Primary Care Unava ilable JAH CARRANZA Attending Unavailable DAVID, JAH Attending Unavailable PAULANNA MARIE DAVE Attending Unavailable DAVID, JAH Attending Unavailable DAVID, JAH Attending Unavailable DAVID, JAH Attending Unavailable JAH CARRANZA Attending Unavailable Allergies Allergy Classification Reported Allergen(s) Allergy Type Date of Onset Reaction(s) Facility (1 source) No Known Medication Allergies; Translations: [No Known Medication Allergies] Propensity to adverse reactions to drug (disorder) [facility] Repository (2 sources) Penicillins; Translations: [PENICILLINS] Drug allergy (disorder) [address] [place] [address] Repository Medications Current Medications Medication Drug Class(es) [...] nightly. 0 09/30/2023 Active polyethylene glycol 3350 07773 mg powder for oral solution (4 sources) [...] bedtime. 120 tablet 1 09/10/2023 Active sennosides, correction 8.6 mg oral tablet (4 sources) Start: [...] complications of (1 source) Syphilis complicating , unspecified trimester; Translations: [Syphilis complicating , unspecified trimester] Onset: 02-18-2024 Episodic Other complications of (1 source) Supervision of elderly primigravida, unspecified trimester; Translations: [Supervision of elderly primigravida, unspecified trimester] Onset: 02-18-2024 Episodic Other gastrointestinal disorders (5 sources) Constipation; [...] the syphilis reverse algorithm and results, see: [email or web address] Test Performed by: [place] [address] Modern Greek Studies Professor: Williams Joyce M.D. Ph.D.; CLIA# [id number] Performed By: #### 2 [id number] #### [facility] ([id number]) [address] [place] [address] US ABDOMEN LMTD ABDOMEN WALL on 10-25-2023 US ABDOMEN LMTD ABDOMEN WALL US ABDOMEN LMTD ABDOMEN WALL Ultrasound the abdominal wall. INDICATION: Pain. Prior hernia repair. . COMPARISON: CT dated 03/25/2023. TECHNIQUE: Limited ultrasound of the body wall appear pain as delineated by the patient. FINDINGS: In the periumbilical region, social science teacher demonstrates a circumscribed 5.3 x 1.3 x 5.1 cm isoechoic lesion, thought to be related to a fat-containing periumbilical hernia sac seen on CT scan of March 2023. This does not appear to significantly change with Valsalva. Activity Coordinator demonstrates potential associated fascial defect measuring approximately [...] Kapoor MD on 10/25/2023 11:30 AM Normal [facility] Reagin Ab RPR Ql (S)on 10-24 RPR SCREEN RESPONSE TO THERAPY, SERUM Negative Normal Negative [facility] Comment on above: Result Comment: NOTE Non-treponemal antibodies not detected. For additional information on interpretation of the syphilis reverse algorithm and results, see: [email or web address] Test Performed by: [place] [address] Modern Greek Studies Professor: Williams Joyce M.D. Ph.D.; CLIA# [id number] URINALYSISon 10-07-2023 Bilirubin Ql (U) Negative Normal NEG [facility] BLOOD/HGB Negative Normal NEG [facility] CA OXALATE CRYSTALS PRESENT Abnormal NONE [facility] Color (U) YELLOW Normal YELLOW [facility] Glucose Ql (U) Negative Normal NEG [facility] Ketones Ql (U) Trace Abnormal NEG [facility] Leukocyte esterase Test strip Ql (U) Small Abnormal NEG [facility] MUCOUS PRESENT Abnormal NONE [facility] Nitrite Ql (U) Negative Normal NEG [facility] pH (U) 6.0 [pH] Normal 5.0-8.5 [facility] Protein Ql (U) Trace Abnormal NEG [facility] R.B.CELLS 4 /hpf Normal 0-5 [facility] Specific gravity (U) [Rel density] 1.023 Normal 1.003-1.035 [facility] SQUAMOUS EPITHELIUM 15 /hpf High 0-5 [facility] TURBIDITY CLEAR Normal CLEAR [facility] Urobilinogen (U) [Mass/Vol] mg/dL Normal <1.1 [facility] W.B.CELLS 5 /hpf Normal 0-5 [facility] URINE CULTUREon 10-07-2023 Bacteria identified Cx Nom (U) CULTURE RESULTS NO GROWTH AT <1000 CFU/mL Normal [facility] Comment on above: Performed By: #### 6 30-4 #### [facility] ([id number]) [address] [place] [address], [address] [place] [address] Urinalysison 10-07-2023 Bilirubin Ql (U) Negative Negative^Ne gat nia [facility] Calcium oxalate crystals LM Ql (Urine sed) PRESENT Abnormal NONE^NONE [facility] Color (U) YELLOW YELLOW^YELLOW [facility] Epithelial cells Auto (Urine sed) [#/Area] 15 High [facility] Glucose (U) [Mass/Vol] Negative Negative^Negat nia mg/dL [facility] Hemoglobin Auto test strip Ql (U) Negative Negative^[facility]at nia [facility] Interpretation and review of laboratory results Abnormal [facility] Ketones (U) [Mass/Vol] Trace Abnormal Negative^Negat nia mg/dL [facility] Leukocyte esterase Auto test strip Ql (U) Small Abnormal Negative^Negat nia [facility] Mucus Ql (Urine sed) PRESENT Abnormal NONE^NONE [facility] Nitrite Auto test strip Ql (U) Negative Negative^Negat nia [facility] pH (U) 6.0 [pH] 5.0 - 8.5 [facility] Protein (U) [Mass/Vol] Trace Abnormal Negative^Negat nia mg/dL [facility] RBC Auto (Urine sed) [#/Area] 4 [facility] Specific gravity Refractometry automated (U) [Rel density] 1.023 1.003 - 1.035 [facility] Turbidity Ql (U) CLEAR CLEAR^CLEAR [facility] Urobilinogen Qn (U) NINF [employer] [facility] WBC Auto (Urine sed) [#/Area] 5 [facility] Outside Recordson 01-16-2023 Outside Records [id number] [id number] Normal [facility] PAP RFX HPV IF ASCon 018 COMMENT Comment Normal [facility] Comment on above: Result Comment: [place] Performed By: #### P APHR7 ####[facility] [address] [place] [address] Cristiane DIAGNOSIS: Comment Normal [facility] Comment on above: Result Comment: NEGA TIVE FOR INTRAEPITHELIAL LESION AND MALIGNANCY. Performed By: #### P APHR7 ####[facility] [address] [place] [address] Cristiane Methodology: BDFP Normal [facility] Comment on above: Result Comment: The Memoir(R) [employer] was unable to read and evaluate thisspecimen. Therefore a manual review was performed. Performed By: #### P APHR7 ####[facility] [address] [place] [address] Cristiane Note: Comment Normal [facility] Comment on above: Result Comment: The Pap smear is a screening test designed to aid in the detection ofpremalignant and malignant conditions of the uterine cervix. It is not adiagnostic procedure and should not be used as the sole means of detectingcervical cancer. Both false-positive and false-negative reports do occur. . Performed By: #### P APHR7 ####[facility] [address] [place] [address] Cristiane Performed by: Comment Normal [facility] Comment on above: Result Comment: Chato Simon, Cash Applications Associate (ASCP) Performed By: #### P APHR7 ####[facility] [address] [place] [address] Cristiane Reflex Criteria: Comment Normal [facility] Comment on above: Result Comment: The HPV DNA reflex criteria were not met with this specimen resulttherefore, no HPV testing was performed. . Performed By: #### P APHR7 ####[facility] [address] Cristiane Specimen adequacy: Comment Normal [facility] Comment on above: Result Comment: Sati sfactory for evaluation. Endocervical and/or squamous metaplasticcells (endocervical component) are present. Performed By: #### P APHR7 ####[facility] [address] Cristiane . . Normal [facility] Comment on above: Performed By: #### P APHR7 ####[facility] [address] [place] [address] Cristiane LAB TESTINGon 05-09-2017 RECV HEADER SEE SCANNED REPORT I N HPF Normal [facility] Comment on above: Performed By: #### M ISC ####[facility] [address] [place] [address] Cristiane REV FROM REF LAB see scanned report Normal [facility] Comment on above: Performed By: #### M ISC ####[facility] [address] [place] [address] Cristiane SENT TO REF LAB see scanned report Normal [facility] Comment on above: Performed By: #### M ISC ####[facility] [address] [place] [address] Cristiane Vital Signs Date Time Vital Sign Value Performing Clinician Rasheedai torey 11-04-2023 11:26-0500 Body mass index (BMI) [Ratio] 41.14 kg/m2 Bethany Jose INCLINED RAILWAY OPERATOR-CNM Work Phone: [facility] 11-04-2023 11:26-0500 Body weight 112.13 kg Bethany Garcia INCLINED RAILWAY OPERATOR-CNM Work Phone: [facility] 11-04-2023 11:26-0500 Diastolic blood pressure 68 mm[Hg] Bethany Garcia INCLINED RAILWAY OPERATOR-CNM Work Phone: [facility] 11-04-2023 11:26-0500 Systolic blood pressure 120 mm[Hg] Bethany Garcia INCLINED RAILWAY OPERATOR-CNM Work Phone: [facility] 10-24-2023 10:27-0500 Body height 165.1 cm Kamla Lester MD Work Phone: [facility] 10-24-2023 10:27-0500 Body mass index (BMI) [Ratio] 40.27 kg/m2 Kamla Lester MD Work Phone: [facility] 10-24-2023 10:27-0500 Body weight 109.77 kg Kamla Lester MD Work Phone: [facility] 10-24-2023 10:27-0500 Diastolic blood pressure 78 mm[Hg] Kamla Lester MD Work Phone: [facility] 10-24-2023 10:27-0500 Systolic blood pressure 118 mm[Hg] Kamla Lester MD Work Phone: [facility] 10-07-2023 11:23-0500 Body mass index (BMI) [Ratio] 39.99 kg/m2 [facility] 10-07-2023 11:23-0500 Body weight 109 kg [facility] 10-07-2023 11:23-0500 Diastolic blood pressure 80 mm[Hg] [facility] 10-07-2023 11:23-0500 Systolic blood pressure 100 mm[Hg] [facility] Encounters Encounter Date Encounter Type Care Provider Facility Start: 02-19-2024 End: 02-19-2024 ambulatory JAH CARRANZA Not Available Start: 02-18-2024 End: 02-18-2024 ambulatory DIANA SCHOFIELD [facility] Start: 02-12-2024 End: 02-12-2024 ambulatory SCAR SALVADOR [facility] Start: 02-11-2024 End: 02-11-2024 ambulatory JAH DAVID Not Available Start: 02-04-2024 End: 02-04-2024 ambulatory JAH DAVID Not Available Start: 01-29-2024 End: 01-29-2024 ambulatory JAH DAVID Not Available Start: 01-23-2024 End: 01-23-2024 ambulatory ANNA MARIE MILLER Not Available Start: 01-14-2024 End: 01-14-2024 ambulatory [facility] Start: 01-08-2024 End: 01-08-2024 ambulatory JAH DAVID Not Available Start: 12-17-2023 End: 12-17-2023 ambulatory UNKNOWN PROVIDER [facility] Start: 12-03-2023 End: 12-03-2023 ambulatory JAH DAVID Not Available Start: 11-21-2023 End: 11-21-2023 ambulatory [facility] Start: 11-14-2023 Telephone encounter Laila casillas [facility] Start: 11-04-2023 End: 11-04-2023 ambulatory [facility] Start: 11-04-2023 End: 11-04-2023 Subsequent care visit eBthany MÉNDEZ Work Phone: [facility] Comment on above: GA: 23w3d Start: 10-25-2023 End: 10-25-2023 ambulatory [facility] Start: 10-24-2023 End: 10-25-2023 Orders Only Rosalie Weston RN [facility] Comment on above: Multigravida of adva nced maternal age in second trimester (Primary Dx); Obesity affecting in second trimester, unspecified obesity type Start: 10-24-2023 End: 10-24-2023 Office consultation new/estab patient 80 min Kamla Lester MD Work Phone: [facility] [place] Comment on above: 21 weeks gestation o f (Primary Dx); Multigravida of advanced maternal age in second trimester; 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; Obesity affecting in second trimester, unspecified obesity type; Anxiety during ; Depression affecting ; Constipation, unspecified constipation type; Hernia of abdominal wall; Psoriasis; LGSIL on Pap smear of cervix; HPV in female Start: 10-14-2023 Orders Only Ayana Lund INCLINED RAILWAY OPERATOR-JAVA WEB ARCHITECT Work Phone: [facility] Comment on above: Constipation during in second trimester (Primary Dx) Start: 10-07-2023 End: 10-08-[address] [facility] Start: 10-07-2023 End: 10-07-2023 ambulatory [facility] Start: 10-07-2023 End: 10-07-2023 Subsequent care visit [facility] [employer] Restaurant [facility] Comment on above: GA: 19w3d Start: 09-10-2023 End: 09-10-2023 ambulatory AYANA LUND [facility] Start: 01-28-2023 End: 01-29-2023 ambulatory Jesus Duran Facility:[facility] Start: 09-07-2020 End: 09-10-2020 Evaluation and management of inpatient José Miguel Estes Facility:[facility] Start: 11-01-2017 End: 11-01-2017 Ambulatory ANJALI SIDDHARTH Facility: Start: 05-09-2017 End: 05-09-2017 Ambulatory ANJALI KARBUCK Facility: Procedures Date Procedure Procedure Detail Performing Clinician Start: 06-27-2023 Microscopic observat ion [Identifier] in Cervix by Cyto stain [facility] [employer] Plan of Treatment Date Care Activity Detail Author Start: 06-27-2026 Screening for malignant neoplasm of cervix Pap Smear [facility] Start: 11-04-2024 Adult BMI Screening Adult BMI Screen ing [facility] Start: 11-04-2024 Tobacco Screening Tobacco Screening [facility] Start: 10-24-2024 Adult BMI Screening Adult BMI Screen ing [facility] Start: 10-24-2024 Tobacco Screening Tobacco Screening [facility] Start: 10-24-2024 End: 10-24-2024 US MFM with or without consult US MFM with or without consult Imaging Routine Multigravida of advanced maternal age in second trimester Obesity affecting in second trimester, unspecified obesity type Expected: 10/24/2024 (Approximate), Expires: 10/24/2024 [facility] Work Phone: Comment on above: Expected: 10/24/2024 (Approximate), Expires: 10/24/2024 Start: 10-07-2024 Adult BMI Screening Adult BMI Screen ing [facility] Start: 10-07-2024 Tobacco Screening Tobacco Screening [facility] Start: 12-17-2023 End: 12-17-2023 Patient encounter procedure 12/17/2023 2:45 PM EDT Appointment [facility] [address] [place] [address] [facility] Start: 12-02-2023 End: 12-02-2023 Patient encounter procedure 12/02/2023 11:45 AM EDT Routine [facility] [address] [place] [address] [facility] y Start: 11-21-2023 End: 11-21-2023 Patient encounter procedure 11/21/2023 2:15 PM EST Appointment [facility] [address] [place] [address] [facility] Start: 11-04-2023 End: 11-04-2023 Patient encounter procedure 11/04/2023 11:30 AM EST Routine [facility] [address] [place] [address] [facility] Start: 10-25-2023 Subsequent hospital visit by physician 10/25/2023 10:00 AM EST Hospital Encounter [facility] [address] [place] [address] [facility] Start: 10-24-2023 End: 10-24-2024 Echo complete W/O contrast Echo complete W/O contrast Echocardiography Routine 21 weeks gestation of Multigravida of advanced maternal age in second trimester Expected: 10/24/2023, Expires: 10/24/2024 [facility] Comment on above: Expected: 10/24/2023 , Expires: 10/24/2024 Start: 10-24-2023 End: 10-24-2024 US Abdominal wall Ultrasound abdomen limited ADBOMEN WALL Imaging STAT 21 weeks gestation of Hernia of abdominal wall Expected: 10/24/2023, Expires: 10/24/2024 [facility] Comment on above: Expected: 10/24/2023 , Expires: 10/24/2024 Start: 10-24-2023 End: 10-24-2023 Patient encounter procedure [facility] Start: 10-07-2023 End: 10-07-2024 US MFM with or without consult US MFM with or without consult Imaging Routine Multigravida of advanced maternal age in second trimester Expected: 10/07/2023, Expires: 10/07/2024 [facility] Work Phone: Comment on above: Expected: 10/07/2023 , Expires: 10/07/2024 Start: 2002 DTaP,Tdap and Td Vaccines (1 - Tdap) DTaP,Tdap and Td Vaccines (1 - Tdap) [facility] Start: 2001 Adult BMI Follow Up Plan Adult BMI Follow Up Plan [facility] Start: 1995 Depression Screening Depression Scre ening [facility] End: 10-06-2024 Bacteria identified in Urine by Culture Urine Culture Microbiology Routine UTI (urinary tract infection) during , first trimester 1 Occurrences starting 10/07/2023 until 10/06/2024 [facility] Comment on above: 1 Occurrences starti ng 10/07/2023 until 10/06/2024 Bacteria identified in Urine by Culture Urine Culture Microbiology Routine UTI (urinary tract infection) during , first trimester 10/07/2023 8:25 PM EST [facility] End: 11-04-2024 CBC W Auto Differential panel - Blood CBC auto differential Lab Routine care in third trimester 1 Occurrences starting 11/04/2023 until 11/04/2024 [facility] Comment on above: 1 Occurrences starti ng 11/04/2023 until 11/04/2024 End: 10-24-2024 ECG 12 lead ECG 12 lead ECG Routine 21 weeks gestation of Multigravida of advanced maternal age in second trimester 1 Occurrences starting 10/24/2023 until 10/24/2024 [facility] Comment on above: 1 Occurrences starti ng 10/24/2023 until 10/24/2024 End: 11-04-2024 Glucose 1h post 50g load Glucose 1h post 50g load Lab Routine care in third trimester 1 Occurrences starting 11/04/2023 until 11/04/2024 [employer] Work Phone: Comment on above: 1 Occurrences starti ng 11/04/2023 until 11/04/2024 Reagin Ab [Presence] in Serum by RPR RPR Screen Response to Therapy, Serum Lab Routine 21 weeks gestation of 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 10/24/2023 7:10 PM EST [facility] End: 10-24-2024 RPR Therapy Response(Previous Positive Screen) RPR Therapy Response(Previous Positive Screen) Lab Routine 21 weeks gestation of 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 1 Occurrences starting 10/24/2023 until 10/24/2024 [employer] Work Phone: Comment on above: 1 Occurrences starti ng 10/24/2023 until 10/24/2024 End: 11-04-2024 Syphilis Total(Unknown Syphilis Status) Syphilis Total(Unknown Syphilis Status) Lab Routine care in third trimester 1 Occurrences starting 11/04/2023 until 11/04/2024 [facility] Comment on above: 1 Occurrences starti ng 11/04/2023 until 11/04/2024 Payers Date Payer Category Payer Medicaid [employer] MEDICA[employer] [facility] MEDICAID [id number] 2023-Present [address] [place] [address] [id number] 2023 Unknown [employer] BLUE ACCE SS (PPO) [id number] 2023-Present [phone] [address] [place] [address] [id number] 2023 Medicaid [id number] 2023 Unknown [id number] 2020 Self-pay 2019 Unknown [id number] 1983 Unknown [id number] 2.840.1.106998.3.579.2.718 1983 Unknown [id number] 2.840.1.264213.3.579.2.128 1983 Unknown [id number] 2840.1.364988.3.579.2.1285 1983 Unknown [id number] 2.840.1.505694.3.579.2.1285 1983 Unknown [id number] 840.1.013787.3.579.2.1285 1983 Unknown [id number] 840.1.649425.3.579.2.128 1983 Unknown [id number] 2840.1.424222.3.579.2.1285 1983 Unknown [id number] 2.840.1.455631.3.579.2.1285 1983 Unknown [id number] 840.1.360880.3.579.2.1285 1983 Unknown [id number] 840.1.980791.3.579.2.1285 1983 Unknown [id number] 2840.1.032173.3.579.2.1285 1983 Unknown [id number] 2840.1.759217.3.579.2.1285 1983 Unknown [id number] 2840.1.878286.3.579.2.1285 1983 Unknown [id number] 2.16.840.1.524200.3.579.2.1259 1983 Unknown [id number] 2.16.840.1.879793.3.579.2.1259 1983 Unknown [id number] 2.16.840.1.476709.3.579.2.9 1983 Unknown [id number] 2.16.840.1.436433.3.579.2.9 1983 Unknown [id number] 2.16.840.1.047892.3.579.2.9 1983 Unknown [id number] 2.16.840.1.753775.3.579.2.9 1983 Unknown [id number] 2.16.840.1.998161.3.579.2.1259 1959 Unknown [id number] Unknown [id number] Social History Date Type Detail Facility Start: [facility]10[facility]23 [facility] End: 06-16-2023 History of tobacco use Current smoker [facility] End: 06-16-2023 History of tobacco use Cigarette Smoker [facility] Start: 09-10-2023 Tobacco use and exposure Smokeless tobacco non-user [facility] Start: 10-07-2023 End: 11-04-2023 Alcohol intake Ex-drinker (finding) [facility] Start: 10-27-2020 End: 10-07-2023 History of Social function [facility] Start: 10-27-2020 End: 10-07-2023 Tobacco use panel [facility] Adolescent depressio n screening assessment 0 [facility] Start: 03-25-2023 Tobacco Comment quit a year an d a half ago [facility] Start: 06-07-2020 Alcohol Comment 2 days a week [facility] Start: 06-07-2023 [facility] Start: 1985 Sex Assigned At Not on file P [facility] Medical Equipment Procedure Code Equipment Code Equipment Origin al Text Equipment Identifier Dates Mesh Pco Vntrl P tch 4.6cm Rpl [id number] - [facility] [id number] Start: 07-01-2020 Clinical Notes 07-09-2022 to 11-14-2023 Telephone Encounter - Laila Gil - 11/14/2023 10:35 AM ESTTelephone Encounter - Laila Gil - 11/14/2023 10:35 AM ESTBethany Garcia APRNMECCA - 11/04/2023 11:30 AM EST Note Date [...] Cece talked to the patient at her [facility] ultrasound appt today. Patient confirmed to Cece that she is transferring care to Dr. Carranza. Cece cancelled the scheduled appointment with our office. documented in this encounter [facility] 11-14-2023 Telephone encounter Note Received a record [...] not leave a message for the patient. [facility] 11-14-2023 Telephone encounter Note Cece talked to the patient at her [facility] ultrasound appt today. Patient confirmed to Cece that she is transferring care to Dr. Carranza. Cece cancelled the scheduled appointment with our office. [facility] 11-04-2023 History of Presen t illness Narrative [...] Clifford 11/04/23 1157 documented in this encounter [facility] 10-24-2023 History of Presen t illness Narrative Images from the original note were not included. Video Visit via Real-time Synchronous Audiovisual Provider Location: [facility], MATERNAL- MEDICINE [address], [address] [place] [address] Patient Location: Other [place] Office Patient Location Battery Hand: None Video Visit Consent Statement: I discussed [...] that there are some limitations compared to bsqs-ut-vhqf evaluations. We elected to proceed. [facility]- [...] was told low risk cell free DNA Batson. 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 Test Performed By: [facility] [employer] [address] [place] [address] Truck Cleaner: Matias Menchaca III, M.D. [facility] #[id number]^ T4, free 07/16/2023 0.75 0.61 - 1.60 [...] testing algorithm link below for more information. [email or web address] h=acaea White Blood Cells 07/16/2023 9.3 4.0 [...] infection suspected, recommend repeat testing (>2 months). Syguyj-jd-flvahs ratio is <0.80. RPR with Reflex to [...] the syphilis reverse algorithm and results, see: [email or web address]/ it-[email or web address]_Serology_Alg orithm.pdf Test Performed by: [facility] [address] [place] [address] Modern Greek Studies Professor: Williams Joyce M.D. Ph.D.; CLIA# [id number] CLIA ID [id number] HGB Phoresis Interpretation 07/16/2023 See below Final [...] by Sommer Garcia MD Test Performed By: [place] [address] Truck Cleaner: Matias Menchaca III, M.D. CLIA #[id number]^ T.pallidum 07/16/2023 SEE COMMENTS 07/19/2023 12:59 PM (A) Final Comment: NOTE Test Result Flag Unit RefValue -- Syphilis Ab, TP-PA, S Positive A Negative Treponemal antibodies detected, consistent with previously treated syphilis, potentially early syphilis infection or latent disease. Clinical correlation to distinguish between these scenarios is required. For additional information on interpretation of the syphilis reverse algorithm and results, see: [email or web address]_Serology_Alg orithm.pdf Test Performed by: [place] [address] Modern Greek Studies Professor: Williams Joyce M.D. Ph.D.; CLIA# [id number] Hospital Outpatient Visit on 06/27/2023 Component Date [...] Ultrasound abdomen limited; Future - [facility] - [place], [place]; Future - RPR Therapy Response(Previous Positive [...] at delivery about the maternal syphilis PMID: [id number] 4. Obesity affecting in second trimester, unspecified [...] Future - [facility] - [place], [place]; Future She tells me that she [...] consultation and recommend also to see a Leveler Helper. 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 Colposcopy in reviewed. 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 Discussed with the patient that I would recommend that she does not run the chemicals because of her letter provided. Strongly recommended that she continues to wear her appropriate PPE. Recommendations: Continue low-dose aspirin Follow-up with titers. [place] for rising titers as per above. The patient desires to have the titers done every 4 weeks. I ordered repeat titers today please follow from then onwards. 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 Vaccination is the best method to reduce maternal and complications of SARS-CoV-2 infection. This document was created with Horrance technology. Though I make every effort to review the dictation as it is transcribed, on occasion the spoken word can be misinterpreted by the technology leading to inappropriate words, phrases, or sentences. This note is addressed to the requesting provider as a consultation for clinical guidance. Specific medical abbreviations are occasionally used and those are generally approved by the [place]?Board of?Obstetrics and?Gynecology?as well as?Moncho sepulveda abbreviations. The above plan of care was based solely on the diagnoses for which a consultation was requested. ?More frequent testing may be indicated based on her other medical/obstetrical conditions. The management of other or medical conditions is beyond the scope of requested consultation and will continue to be followed by the primary floor layer tile or primary care provider. Note to patient: [...] done this here or other office? yes, Batson testing Neg for trisomies per patient, Not on chart, will call for results. Have you been seen here at [facility] in a previous ? no Recent ER visits or hospitalizations? no Bring blood sugar log or meter with you today? (Please bring them with you for every visit at [facility]) Traveled outside the country in the past 6 month no Any concerns that you would like me to mention to the provider today? Patient states she is worried about the chemicals that she uses at her job and her constipation issues with her hernia. Taking Metamucil and Colace BID Labs ordered today per [facility]. Labs drawn on 1st attempt (L) antecubital here in our office at this time without difficulty. Patient tolerated well. documented in this encounter [facility] 10-14-2023 Miscellaneous Notes Pt states she is [...] sent to Pharmacy. documented in this encounter [facility] 10-14-2023 Telephone encounter Note Pt states she is experiencing constipation. Pt states she is constantly straining to only have a little bit come out. Pt states she is drinking approximately 4 48oz bottles of water daily. Pt states she has tried Prune juice and Metamucil with no relief. Please advise. Thank you [facility] 10-14-2023 Telephone encounter Note RX for colace sent to pharmacy [facility] 10-14-2023 Telephone encounter Note Advised Pt of RX sent to Pharmacy. [facility] 10-07-2023 History of Presen t illness Narrative 38 y.o. at 19w3d. No CTX, VB, LOF. positive FM. Pt. Reports sneezing and nasal congestion despite taking claritin daily and flonase occasionally. 1. Survey US ordered with MFM consult for AMA, positive syphilis 2. Discussed [...] Turner 10/07/23 1242 documented in this encounter [facility] 10-07-2023 Miscellaneous Notes Addended by: LEROY ANN on: 10/07/2023 12:55 PM Modules accepted: Orders documented in this encounter [facility] 10-07-2023 Note Addended by: LEROY ANN on: 10/07/2023 12:55 PM Modules accepted: Orders [facility] 01-14-2023 Note Entered by Nirali Bingham on January 14, 2023 08:38:33 EDT From: Aarti Bingham To: [facility]/pharmacy #[id number] Sent: 01/14/2023 08:38:33 EDT Subject: Medication Management Submitted: Complete:venlafaxine (venlafaxine 75 mg oral capsule, extended release) Signed by Aarti Bingham 01/14/2023 08:38:00 EDT Approved venlafaxine (VENLAFAXINE HCL ER 75 MG CAP) TAKE 1 CAPSULE BY MOUTH EVERY DAY Qty: 30 cap(s) Days Supply: 30 Refills: 5 Substitutions Allowed Route To Pharmacy - [facility]/pharmacy #[id number] Signed by Aarti Bingham From: [id number] To: Jesus Duran MD Sent: January 12, [...] 2022 07:51:14 EDT From: Aarti Bingham To: [facility]/pharmacy #[id number] Sent: 07/09/2022 07:51:14 EDT Subject: Medication Management Submitted: Complete:venlafaxine (venlafaxine 75 mg oral capsule, extended release) Signed by Aarti Bingham 07/09/2022 07:51:00 EDT Approved with modifications: venlafaxine (VENLAFAXINE HCL ER 75 MG CAP) TAKE 1 CAPSULE BY MOUTH EVERY DAY Qty: 90 cap(s) Days Supply: 90 Refills: 1 Substitutions Allowed Route To Pharmacy - [facility]/pharmacy #[id number] Signed by Aarti Bingham From: [id number] To: Jesus Duran MD Sent: July 08, [...] , first trimester [facility] Diagnosis Constipation during in second trimester- Primary [facility]* Diagnosis 21 weeks gestation [...] HPV in female [facility] Diagnosis Multigravida of advanced maternal age in second trimester- Primary Obesity affecting in second trimester, unspecified obesity type documented in this encounter [facility]* Diagnosis 23 weeks gestation of - Primary care in third trimester documented in this [facility] on filedocumented in this encounter [facility]ructionsNot on filedocumented in this encounter [facility] SystemInst[facility]* Attachments The following attachments cannot be sent through Care Everywhere. * Movement (Burkinan) * Preeclampsia (Burkinan) documented in [facility] SystemInstructionsNot on file documented in this [facility]Pro[facility] SystemInstructionsNot on file documented in this encounterPro[facility] SystemInstructionsNot on file documented [facility] Summary Purpose Family History No [...] advanced maternal age in second trimester Procedures [facility] with or without consult Kenna Bejarano, INCLINED RAILWAY OPERATOR-CNM [address] [place] [address] [facility] Maternal Med [address] [place] [address] Referral ID Status Reason Start Date Expiration Date V isits Requested Visits Authorized [id number] Pending Review 10/07/2023 10/06/2024 1 1 Specialty Diagnoses / Procedures Referred By Contac t Referred To Contact Diagnoses 21 weeks gestation of Multigravida of advanced maternal age in second trimester Procedures Echo complete W/O contrast Kamla Lester MD [address], [address] [place] [id number] Referral ID Status Reason Start Date Expiration Date V isits Requested Visits Authorized [id number] Pending Review 10/24/2023 10/23/2024 1 1 Specialty Diagnoses / Procedures Referred By Contac t Referred To Contact Diagnoses 21 weeks gestation of Multigravida of advanced maternal age in second trimester Procedures ECG 12 lead Kamla Lester MD [address], [address] [place] [id number] Referral ID Status Reason Start Date Expiration Date V isits Requested Visits Authorized [id number] Pending Review 10/24/2023 10/23/2024 1 1 Specialty Diagnoses / Procedures Referred By Contac t Referred To Contact General Surgery Diagnoses 21 weeks gestation of Hernia of abdominal wall Kamla Lester MD [address], [address] [place] [id number] [facility] Grillis Mario [address] [place] [address] Referral ID Status Reason Start Date Expiration Date Visits Requested Visits Authorized [id number] Pending Review Specialty Services Required 10/24/2023 10/23/2024 1 1 Specialty Diagnoses / Procedures Referred By Contac t Referred To Contact Maternal and Medicine Diagnoses Multigravida of advanced maternal age in second trimester Obesity affecting in second trimester, unspecified obesity type Procedures US MFM with or without consult Kamla Lester MD [address], [address] [place] [phone] [facility] Maternal Med [address] [place] [address] Referral ID Status Reason Start Date Expiration Date V isits Requested Visits Authorized [id number] Pending Review 10/24/2023 10/23/2024 1 1 Additional Source Comments INFORMATION SOURCE (unrecogn ized section and content) DATE CREATED AUTHOR 03/07/2018 [facility] DATE CREATED AUTHOR AUTHOR'S ORGANIZ ATION 01/29/2023 [facility] DATE CREATED AUTHOR AUTHOR'S ORGANIZ ATION 06/22/2023 [facility] DATE CREATED AUTHOR AUTHOR'S ORGANIZ ATION 10/30/2023 [facility] DATE CREATED AUTHOR AUTHOR'S ORGANIZ ATION 11/22/2023 [facility] DATE CREATED AUTHOR AUTHOR'S ORGANIZ ATION 02/19/2024 [facility] DATE CREATED AUTHOR AUTHOR'S ORGANIZ ATION 02/20/2024 [facility] dical Specialists EPIC Care Teams (unrecognized sec tion and content) Manufacturer Representative Relationship Specialty Start Date End Date [facility] [address] [place], [place] PCP - General Family Medicine 03/25/23 Manufacturer Representative Relationship Specialty Start Date End Date [facility] [address] [place], [place] PCP - General Family Medicine 03/25/23 Manufacturer Representative Relationship Specialty Start Date End Date Services, [facility] [address] [place], [place] PCP - General Family Medicine 03/25/23 Manufacturer Representative Relationship Specialty Start Date End Date Services, [place] [address] [address] [place] PCP General Family Medicine 03/25/23 Manufacturer Representative Relationship Specialty Start Date End Date Services, [place] [address] [address] [place] PCP General [facility] 03/25/23 Manufacturer Representative Relationship Specialty Start Date End Date Services, [facility] [address], [place] PCP General [facility] 03/25/23 Manufacturer Representative Relationship Specialty Start Date End Date Services, [facility] [address], [place] PCP - General Family Medicine 03/25/23 [...] BE BASED ON THE PRIMARY CLINICAL RECORDS. [facility] [employer] [facility]. provides no warranty or guarantee of the accuracy or completeness of information in this document.
[2024-02-21 23:28] VITALS: BP 146/72; PULSE 86; TEMP 35.6
[2024-02-21 23:40] LABS: Hematocrit 36.8 % (36.0-48.0); Hemoglobin 12.7 g/dL (12.0-16.0); Mean Corpuscular HGB Conc 34.5 g/dL (29.9-35.2); Mean Corpuscular Hemoglobin 31.8 pg (26.7-34.0); Mean Platelet Volume 10.6 fL (9.5-13.5); Platelet Count 204 10^3/uL (150-450); Red Cell Distribution Width 12.2 % (11.0-15.0); White Blood Count 14.1 10^3/uL (4.0-11.0)
[2024-02-21 23:52] LABS: Amphetamine Screen Urine NEGATIVE (NEGATIVE); Barbiturates Screen Urine NEGATIVE (NEGATIVE); Benzodiazepines Screen Urine NEGATIVE (NEGATIVE); Buprenorphine Screen Urine NEGATIVE (NEGATIVE); Cannabinoid Screen Urine NEGATIVE (NEGATIVE); Cocaine Screen Urine NEGATIVE (NEGATIVE); Methadone Screen Urine NEGATIVE (NEGATIVE); Methamphetamines Screen Urine NEGATIVE (NEGATIVE); Opiate Screen Urine NEGATIVE (NEGATIVE); Oxycodone Screen Urine NEGATIVE (NEGATIVE); Phencyclidine Screen Urine NEGATIVE (NEGATIVE); Tricyclic Antidepressant Urine NEGATIVE (NEGATIVE)
[2024-02-21] MEDS: 0.9 % SODIUM CHLORIDE 1,000 ML 125 ML IV (23:59)
[2024-02-22] VITALS (94 sets, daily range): BP systolic 86–213; BP diastolic 49–130; PULSE 65–104; TEMP 35.7–37.1
[2024-02-22] MEDS: OXYTOCIN/0.9 % SODIUM CHLORIDE 10 UNITS/500 ML PLAST..BAG 6 UNIT IV (01:08)
[2024-02-22] MEDS: 0.9 % SODIUM CHLORIDE 1,000 ML 125 ML IV ×2 (07:28→14:32)
[2024-02-22] MEDS: ROPIVACAINE HCL/PF 400 MG/200 ML PREMIX 6 MG EPIDURAL (10:46)
[2024-02-22] MEDS: FENTANYL CITRATE/PF 100 MCG/2 ML VIAL EPIDURAL (10:47)
[2024-02-22] MEDS: 0.9 % SODIUM CHLORIDE 1,000 ML 1000 ML IV (10:47)
[2024-02-22] MEDS: LIDOCAINE HCL 2% PF 100 MG/5 ML VIAL INJ (11:45)
[2024-02-22] MEDS: OXYTOCIN/0.9 % SODIUM CHLORIDE 10 UNITS/500 ML PLAST..BAG 60 UNIT IV (14:09)
--- NOTE | 2024-02-22 16:29 | PM.OBPRCVD ---
Procedure Intrapartal events: None Induction method: per pitocin protocol Delivery augmentation: rupture of membranes and pitocin Delivery monitor: external FHT and external uterine Route of delivery: Episiotomy Description: midline L&D Laceration Description: periurethral - 2nd degree Delivery repair: Vicryl Estimated blood loss (mL): 275 Anesthesia type: Epidural Disposition: floor Infant presentation: vertex
[2024-02-22] MEDS: OXYTOCIN/0.9 % SODIUM CHLORIDE 20 UNITS/1,000 ML PLAST..BAG 125 UNIT IV (16:45)
[2024-02-22] MEDS: IBUPROFEN 600 MG TABLET PO (17:40)
[2024-02-22] MEDS: GLYCERIN/WITCH HAZEL PADS 1 PAD TOPICAL (19:46)
[2024-02-22] MEDS: BENZOCAINE/MENTHOL 85 GRAM SPRAY BOTTLE 1 APPLIC TOPICAL (19:47)
[2024-02-23] VITALS (7 sets, daily range): BP systolic 114–130; BP diastolic 54–62; PULSE 75–100; TEMP 35.9–36.7
[2024-02-23] MEDS: IBUPROFEN 600 MG TABLET PO ×4 (00:20→21:56)
[2024-02-23] MEDS: ACETAMINOPHEN 325 MG TABLET 650 MG PO ×2 (00:20→08:19)
[2024-02-23 06:21] LABS: Basophils Percent Auto 0.3 % (0.2-2.0); Eosinophils Absolute Auto 0.1 10^3/uL (0.0-0.7); Hematocrit 27.8 % (36.0-48.0); Hemoglobin 9.7 g/dL (12.0-16.0); Immature Granulocytes Abs Auto 0.31 10^3/uL (0.00-0.03); Immature Granulocytes Pct Auto 2.1 % (0.0-0.5); Lymphocytes Absolute Auto 1.9 10^3/uL (1.2-3.8); Lymphocytes Percent Auto 13.4 % (20.5-60.0); Mean Corpuscular HGB Conc 34.9 g/dL (29.9-35.2); Mean Corpuscular Hemoglobin 32.9 pg (26.7-34.0); Mean Corpuscular Volume 94.2 fL (81.0-99.0); Mean Platelet Volume 10.5 fL (9.5-13.5); Monocytes Absolute Auto 1.2 10^3/uL (0.3-0.8); Monocytes Percent Auto 8.5 % (1.7-12.0); Neutrophils Absolute Auto 10.8 10^3/uL (1.4-6.5); Neutrophils Percent Auto 74.7 % (43.0-75.0); Platelet Count 193 10^3/uL (150-450); Red Blood Count 2.95 10^6/uL (4.20-5.40); Red Cell Distribution Width 12.6 % (11.0-15.0); White Blood Count 14.5 10^3/uL (4.0-11.0)
[2024-02-23] MEDS: DOCUSATE SODIUM 100 MG CAPSULE PO ×2 (08:20→21:57)
--- NOTE | 2024-02-23 10:41 | P.OBPN_ITS ---
OB - PN: Subj Subjective Patient comments: no complaints [place] status: doing well feeding status: exclusively bottle feeding Exam Constitutional Vital Signs, click to edit/add: Last Vital Signs Temp 98.0 F 02/23/24 08:20 Pulse 81 02/23/24 08:20 Resp 18 02/23/24 08:20 BP 130/62 02/23/24 08:20 O2 Del Method Room Air 02/23/24 08:20 Documenting provider has reviewed patient's vital signs: yes Common normals: no apparent distress, average body habitus and oriented x3 HENMT Common normals: normocephalic Eye Common normals: PERRL General eye: normal appearance of both eyes Neck & C-Spine Common normals: full ROM General: normal visual inspection Lymph Lymphatic: no lymphadenopathy noted Chest Common normals: inspection of chest normal Respiratory Common normals: normal respiratory effort Effort & inspection: able to speak in complete sentences Auscultation: clear to auscultation bilaterally Cardio Common normals: regular rate and regular rhythm Rate: regular rate Rhythm: regular rhythm GI Common normals: Normal to inspection, nondistended, normoactive bowel sounds present Inspection: normal to inspection Auscultation: normoactive bowel sounds Palpation: soft Common normals: no CVA tenderness Back & Pelvis Common normals: no CVA tenderness Thoracic spine/upper back: normal to inspection Lumbar spine/lower back: normal to inspection Extremity Common normals: normal to inspection Neuro Common normals: oriented x3 Sensorium/orientation: awake, alert, oriented to person, oriented to place and oriented to time Speech: speech normal Psych Common normals: mental status grossly normal, thought process normal, cooperative, affect normal, speech normal, activity/motor behavior normal, denies hallucinations, denies homicidal ideation and denies suicidal ideation Thought process: normal thought process Results Labs Labs: Short CBC 02/23/24 Range/Units 06:11 WBC 14.5 H (4.0-11.0) 10^3/uL Hgb 9.7 L (12.0-16.0) g/dL Hct 27.8 L (36.0-48.0) % Plt Count 193 (150-450) 10^3/uL OB - PN: A/P Plan - Vaginal Delivery day: 1 Plan: routine care Time Spent with Patient Time: Total time spent is greater than 50% in coordination of care (as documented) at patient's floor/unit and/or counseling patient: Total time spent with greater than 50% in coordination of care (as documented) at patient's floor/unit and/or counseling patient: less than 15 minutes
[2024-02-23] MEDS: GLYCERIN/WITCH HAZEL PADS 1 PAD TOPICAL (15:59)
[2024-02-23] MEDS: FERROUS SULFATE 325 MG TABLET PO (21:57)
[2024-02-23] MEDS: TEMAZEPAM 15 MG CAPSULE PO (22:03)
[2024-02-24] MEDS: ACETAMINOPHEN 325 MG TABLET 650 MG PO ×2 (02:28→08:05)
[2024-02-24] MEDS: IBUPROFEN 600 MG TABLET PO (04:23)
[2024-02-24 07:59] VITALS: BP 130/72; PULSE 74
[2024-02-24] MEDS: DOCUSATE SODIUM 100 MG CAPSULE PO (08:06)
--- NOTE | 2024-02-24 12:21 | PM.OBPN ---
OB - PN: Subj Subjective Patient comments: no complaints and pain well controlled [place] status: doing well Exam Constitutional Vital Signs, click to edit/add: Last Vital Signs Temp 97.0 F L 02/23/24 23:58 Pulse 74 02/24/24 07:59 Resp 18 02/24/24 00:00 BP 130/72 02/24/24 07:59 O2 Del Method Room Air 02/24/24 00:00 Documenting provider has reviewed patient's vital signs: yes Common normals: no apparent distress Respiratory Common normals: normal respiratory effort and clear to auscultation bilaterally Cardio Common normals: regular rate and regular rhythm GI Common normals: Normal to inspection, nondistended, normoactive bowel sounds present Extremity Common normals: no clubbing, cyanosis or edema and no calf tenderness OB - PN: A/P Plan - Vaginal Delivery day: 2 Plan: routine care, discharge home and follow up 6 weeks Time Spent with Patient Time: Total time spent is greater than 50% in coordination of care (as documented) at patient's floor/unit and/or counseling patient: Total time spent with greater than 50% in coordination of care (as documented) at patient's floor/unit and/or counseling patient: less than 15 minutes
== END 2024-02-24 15:35 | disposition home or self-care (01) | DRG 807 ==
PROVIDERS: Admitting Provider Obstetrics & Gynecology; PCP Family Medicine; Visit Provider Obstetrics & Gynecology
DX: O98.12 Syphilis complicating childbirth (principal); Z37.0 Single live birth; O70.1 Second degree perineal laceration during delivery; Z3A.39 39 weeks gestation of pregnancy; O99.344 Other mental disorders complicating childbirth; F41.8 Other specified anxiety disorders; A53.9 Syphilis, unspecified; O99.214 Obesity complicating childbirth; Z87.891 Personal history of nicotine dependence; Z87.440 Personal history of urinary (tract) infections; O98.32 Other infections with a predominantly sexual mode of transmission complicating childbirth; A63.0 Anogenital (venereal) warts
CPT/HCPCS: 36415; 51702; 59050; 59410; 80307; 85025; 85027; 86850; 86900; 86901; 88307; 96365; 96366; J2795; J3010

== ENCOUNTER 2024-07-27 20:08 | Outpatient (REF) | payer BC, MEDICAID, SELFPAY ==
--- OUTSIDE RECORDS SUMMARY | 2024-07-27 20:13 | XMS_ITS | CCD ---
Author Organization [facility] CliniSywy Care Team Providers Care Felt Cementer Name Role Phone ANJALI MESSINA Unavailable Unavailable KARASIK, ANJALI Unavailable Unavailable KARASIK, ANJALI Unavailable Unavailable KARASIK, ANJALI Unavailable Unavailable KARASIK, ANJALI Unavailable Unavailable KARASIK, ANJALI Unavailable Unavailable Jesus Duran Primary Care Unavailable Jesus Duran Attending Unavailable Saba Estes Admitting Unavailable Royce Charles Attending Unavailable Jesus Duran Primary Care Unavailable Ramiro Abarca Consulting Unavailable Services, [facility] Provider KENNA BEJARANO Referring Unavailable SERVICES, [facility] Unava ilable DOCHEVA, NIKOLINA P Referring Unavailable SERVICES, [facility] Unava ilable JAH CARRANZA Referring Unavailable SERVICES, [facility] Unava ilable DOCHEVA, NIKOLINA P Referring Unavailable SERVICES, [facility] Unava ilable SCAR SALVADOR Referring Unavailable SERVICES, [facility] Unava ilable DIANA SCHOFIELD Referring Unavailable SERVICES, [facility] Unava ilable SABA APPLE Referring Unavailable SERVICES, [facility] Care Unava ilable SABA APPLE Referring Unavailable SERVICES, [facility] Care Unava ilable SABA APPLE Admitting Unavailable SABA APPLE Attending Unavailable SERVICES, [facility] Unava ilable LEEROY WISE Attending Unavailable SERVICES, [facility] Unava ilable DOCHEVA, NIKOLINA P Referring Unavailable SERVICES, [facility] Unava ilable DAVID, JAH Attending Unavailable DAVID, JAH Attending Unavailable ANNA MARIE MILLER Attending Unavailable DAVID, JAH Attending Unavailable DAVID, JAH Attending Unavailable DAVID, JAH Attending Unavailable DAVID, JAH Attending Unavailable PAUL ANNA MARIE Attending Unavailable DAVID, JAH Attending Unavailable KEVON, AYANA M Attending Unavailable SERVICES, [facility] Unava ilable RADHA RUIZ Referring Unavailable SERVICES, [facility] Unava ilable SABA APPLE Attending Unavailable SERVICES, [facility] Unava ilable CASIE REYES Attending Unavailable SERVICES, [facility] Unava ilable SERVICES, [facility] Unava ilable KENNA BEJARANO Referring Unavailable SERVICES, [facility] Unava ilable RADHA RUIZ Attending Unavailable SERVICES, [facility] Unava ilable SERVICES, [facility] Unava ilable Allergies Allergy Classification Reported Allergen(s) Allergy Type Date of Onset Reaction(s) Facility (1 source) No Known Medication Allergies; Translations: [No Known Medication Allergies] Propensity to adverse reactions to drug (disorder) [facility] Repository (2 sources) Penicillins; Translations: [PENICILLINS] Drug allergy (disorder) [address] [place] [address] Repository Medications Current Medications Medication Drug Class(es) [...] nightly. 0 09/30/2023 Active polyethylene glycol 3350 31373 mg powder for oral solution (4 sources) [...] 120 tablet 1 09/10/2023 Active sennosides, senior care 8.6 mg oral tablet (4 sources) Start: [...] Date Documented Da te Episodic/Chronic Abdominal hernia (18 sources) Incisional hernia; Translations: [Incisional hernia without [...] Onset: 09-10-2023 09-10-2023 Chronic Other complications of (2 sources) Obesity complicating , unspecified trimester; Translations: [Obesity complicating , unspecified trimester] Onset: 10-24-2023 Chronic Other complications of (1 source) Obesity complicating , second trimester; Translations: [Obesity complicating , second trimester] Onset: 09-10-2023 Chronic Other complications of (10 sources) Multigravida [...] Onset: 10-23-2023 10-23-2023 Episodic Other complications of (1 source) Unspecified infection of urinary tract in , first trimester; Translations: [Unspecified infection of urinary tract in , first trimester] Onset: 10-03-2023 Episodic Other complications of (1 source) Syphilis complicating , unspecified trimester; Translations: [Syphilis complicating , unspecified trimester] Onset: 02-18-2024 Episodic Other complications of (1 source) Supervision of elderly primigravida, unspecified trimester; Translations: [Supervision of elderly primigravida, unspecified trimester] Onset: 02-18-2024 Episodic Other gastrointestinal disorders (5 sources) Constipation; Translations: [Constipation, unspecified] Onset: 10-24-2023 10-24-2023 Episodic Other gastrointestinal disorders (1 source) Personal history of other diseases of the digestive system; Translations: [Personal history of other diseases of the digestive system] Onset: 05-05-2024 Episodic Other gastrointestinal disorders (1 source) Change in bowel habit; Translations: [Change in bowel habit] Onset: 03-11-2024 Episodic Other inflammatory condition of skin (2 sources) Psoriasis, unspecified; Translations: [Psoriasis, unspecified] Onset: 09-07-2020 Chronic Other inflammatory condition of skin (8 sources) Psoriasis; Translations: [Psoriasis, unspecified] Onset: 09-10-2023 09-10-2023 Chronic Other nutritional; endocrine; and metabolic disorders (1 source) Morbid (severe) obesity due to excess calories; Translations: [Morbid (severe) obesity due to excess calories] Onset: 09-07-2020 Chronic Other nutritional; endocrine; and metabolic disorders (1 source) Obesity, unspecified; Translations: [Obesity, unspecified] Onset: 03-11-2024 Chronic Other and delivery including normal (1 source) care status; Translations: [Encounter for supervision of normal , unspecified, third trimester] 11-04-2023 Episodic Residual codes; unclassified (1 source) Gestation period, 19 weeks; Translations: [19 weeks gestation of ] 10-03-2023 Episodic Residual codes; unclassified (1 source) Gestation period, 21 weeks; Translations: [21 weeks gestation of ] 10-23-2023 Episodic Residual codes; unclassified (1 source) Gestation period, 23 weeks; Translations: [23 weeks gestation of ] 11-04-2023 Episodic Residual codes; unclassified (1 source) Other specified postprocedural states; Translations: [Other specified postprocedural states] Onset: 05-05-2024 Episodic Unclassified (1 source) Cellulitis of right lower limb; Translations: [Cellulitis of right lower limb] Onset: 09-07-2020 Unclassified (1 source) recurrent incisional ventral hernia Onset: 04-21-2024 Unclassified (1 source) Post-op Onset: 05-05-2024 Unclassified (1 source) Routine Visit Onset: 11-04-2023 Unclassified (1 source) mfm consult Onset: 10-24-2023 Unclassified (1 source) Initial Visit Onset: 09-10-2023 Viral infection (5 sources) Human papilloma virus infection; Translations: [Papillomavirus as the cause of diseases classified elsewhere] Onset: 10-24-2023 10-24-2023 Episodic Past or Other Problems Problem Classification Problem Date Documented Da te Episodic/Chronic Other complications of (2 sources) Syphilis complicating , second trimester; Translations: [Syphilis complicating , second trimester] Onset: 09-10-2023 Episodic Other complications of (1 source) Syphilis complicating , third trimester; Translations: [Syphilis complicating , third trimester] Onset: 10-30-2023 Episodic Other complications of (2 sources) Supervision of high risk , unspecified, unspecified trimester; Translations: [Supervision of high risk , unspecified, unspecified trimester] Onset: 10-24-2023 Episodic Other complications of (1 source) Supervision of elderly multigravida, second trimester; Translations: [Supervision of elderly multigravida, second trimester] Onset: 10-30-2023 Episodic Other complications of (1 source) Other mental disorders complicating , unspecified trimester; Translations: [Other mental disorders complicating , unspecified trimester] Onset: 10-23-2023 Episodic Other gastrointestinal disorders (1 source) Other constipation; Translations: [Other constipation] Onset: 10-24-2023 Episodic Other gastrointestinal disorders (1 source) Constipation, unspecified; Translations: [Constipation, unspecified] Onset: 10-24-2023 Episodic Other screening for suspected conditions (not mental disorders or infectious disease) (2 sources) Encounter for other specified screening; Translations: [Encounter for screening for cervical length] Onset: 10-24-2023 Episodic Residual codes; unclassified (3 sources) 21 weeks gestation of ; Translations: [21 weeks gestation of ] Onset: 10-24-2023 Episodic Residual codes; unclassified (1 source) 23 weeks gestation of ; Translations: [23 weeks gestation of ] Onset: 11-04-2023 Episodic Residual codes; unclassified (1 source) 19 weeks gestation of ; Translations: [19 weeks gestation of ] Onset: 10-07-2023 Episodic Skin and subcutaneous tissue infections (1 source) Cutaneous abscess of unspecified foot; Translations: [Cutaneous abscess of unspecified foot] Onset: 09-07-2020 Episodic STDs excluding HIV or hepatitis (1 source) Cervical high risk human papillomavirus (HPV) DNA test positive; Translations: [CERVICAL HIGH RISK HPV DNA TEST POS] Onset: 05-10-2017 Episodic Results Test Name Value Interpretation Reference Range Facility HCG ( test) Ql (U)o n 04-21-2024 Beta HCG ( test) Ql (U) Negative Normal NEG [facility] Comment on above: Performed By: #### 2 106-3 #### [facility] ([id number]) [address] [place] [address] Surgical Pathologyon 024 Surgical Pathology Normal [facility] Comment on above: Result Comment: [facility] [address] [place] [address] Surgical Pathology Consultation Patient Name:MEKA MEJIA:1985 (Age: 38)Gender:FTaken:04/21/2024eported:04/23/2024hysician(s):Saba Apple D.O. ([phone])Copy To: Rec. #:[id number]: #[id number] Final Pathologic Diagnosis Incarcerated contents hernia sac; excision: Membranous fibrofatty tissue consistent with hernia sac. Report Electronically Signed Out [facility]/04/23/2024Daron Mandel MD Interpretation performed at [facility], [address] [place] [address], License number: [id number]. Clinical History Recurrent incisional ventral hernia. Gross Description Received in formalin labeled, MEJIA, incarcerated hernia sac is a portion of yellow lobulated adipose tissue with attached pelayo-gauthier fibrous membrane. The specimen measures 6 x 4 x 2 cm. The specimen is serially sectioned and exhibits a yellow to pelayo-gauthier cut surface. Engraver Signature sections are submitted in a single cassette. (1, ss, [id number], m2) [facility]/04/22/2024EAK Specimen(s) Received Incarcerated contents hernia sac Fee Codes(s): 1; 95157 COMPLETE BLOOD COUNTon 04-01 Erythrocyte distribution width (RBC) [Ratio] 12.7 % Normal 11.5-15.0 [facility] Comment on above: Performed By: #### C CELINE, CMP #### [facility] ([id number]) [address], [address] [place] [address] Hematocrit (Bld) [Volume fraction] 37.9 % Normal 35-47 [facility] Comment on above: Performed By: #### C BC, CMP #### [facility] ([id number]) [address], [address] [place] [address] Hemoglobin (Bld) [Mass/Vol] 12.4 g/dL Normal 11.7-15.5 [facility] Comment on above: Performed By: #### C CELINE, CMP #### [facility] ([id number]) [address], [address] [place] [address] MCH (RBC) [Entitic mass] 30.8 pg Normal 27-34 [facility] Comment on above: Performed By: #### C CELINE, CMP #### [facility] ([id number]) [address], [address] [place] [address] MCHC (RBC) [Mass/Vol] 32.8 g/dL Normal 32-36 [facility] Comment on above: Performed By: #### C BC, CMP #### [facility] ([id number]) [address], [address] [place] [address] MCV (RBC) [Entitic vol] 94 fL Normal 80-100 [facility] Comment on above: Performed By: #### C BC, CMP #### [facility] ([id number]) [address], [address] [place] [address] Platelet mean volume (Bld) [Entitic vol] 9.3 fL Normal 7-12 [facility] Comment on above: Performed By: #### C BC, CMP #### [facility] ([id number]) [address], [address] [place] [address] Platelets (Bld) [#/Vol] 201 10*3/uL Normal 150-450 [facility] Comment on above: Performed By: #### C CELINE, CMP #### [facility] ([id number]) [address], [address] [place] [address] RBC COUNT 4.04 X10E12/L Normal 3.80-5.20 [facility] Comment on above: Performed By: #### C CELINE, CMP #### [facility] ([id number]) [address], [address] [place] [address] WBC (Bld) [#/Vol] 6.6 10*3/uL Normal 4.0-11.0 [facility] Comment on above: Performed By: #### Deagnelo BERGER, CMP #### [facility] ([id number]) [address] [place] [address] COMPREHENSIVE METABOLIC PANE Ministerio 04-01-2024 Albumin [Mass/Vol] 3.8 g/dL Normal 3.2-5.3 [facility] Comment on above: Performed By: #### Deangelo BERGER, CMP #### [facility] ([id number]) [address], [address] [place] [address] ALP [Catalytic activity/Vol] 88 U/L Normal 39-130 [facility] Comment on above: Performed By: #### Deangelo BC, CMP #### [facility] ([id number]) [address], [address] [place] [address] ALT [Catalytic activity/Vol] 14 U/L Normal 0-31 [facility] Comment on above: Performed By: #### Deangelo BC, CMP #### [facility] ([id number]) [address] [place] [address] Anion gap [Moles/Vol] 10 mmol/L Normal 5-15 [facility] Comment on above: Performed By: #### C CELINE, CMP #### [facility] ([id number]) [address] [place] [address] AST [Catalytic activity/Vol] 17 U/L Normal 0-41 [facility] Comment on above: Performed By: #### C BC, CMP #### [facility] ([id number]) [address], [address] [place] [address] Bilirubin [Mass/Vol] 0.4 mg/dL Normal 0.3-1.2 [facility] Comment on above: Performed By: #### C CELINE, CMP #### [facility] ([id number]) [address] [place] [address] Calcium [Mass/Vol] 9.0 mg/dL Normal 8.5-10.5 [facility] Comment on above: Performed By: #### C CELINE, CMP #### [facility] ([id number]) [address] [place] [address] Chloride [Moles/Vol] 105 mmol/L Normal 98-109 [facility] Comment on above: Performed By: #### C CELINE, CMP #### [facility] ([id number]) [address], [address] [place] [address] CO2 [Moles/Vol] 27 mmol/L Normal 22-32 [facility] Comment on above: Performed By: #### C CELINE, CMP #### [facility] ([id number]) [address] [place] [address] Creatinine [Mass/Vol] 0.79 mg/dL Normal 0.40-1.00 [facility] Comment on above: Result Comment: METH OD TRACEABLE TO IDMS STANDARD Performed By: #### C BC, CMP #### [facility] ([id number]) [address] [place] [address] eGFR (CKD-EPI) NON-RACE DEPENDENT >90 Normal >59 [facility] Comment on above: Result Comment: Reported eGFR is based on the CKD-EPI 2020 equation that does not use a race coefficient. Performed By: #### C BC, CMP #### [facility] ([id number]) [address] [address] [place] [address] Glucose [Mass/Vol] 82 mg/dL Normal 65-99 [facility] Comment on above: Performed By: #### C CELINE, CMP #### [facility] ([id number]) [address] [address] [place] [address] Potassium [Moles/Vol] 4.5 mmol/L Normal 3.5-5.0 [facility] Comment on above: Performed By: #### C CELINE, CMP #### [facility] ([id number]) [address] [address] Protein [Mass/Vol] 5.8 g/dL Low 6.0-8.0 [facility] Comment on above: Performed By: #### C CELINE, CMP #### [facility] ([id number]) [address] [address] [place] [address] Sodium [Moles/Vol] 142 mmol/L Normal 134-146 [facility] Comment on above: Performed By: #### C CELINE, CMP #### [facility] ([id number]) [address] [address] [place] [address] Urea nitrogen [Mass/Vol] 12 mg/dL Normal 5-23 [facility] Comment on above: Performed By: #### C CELINE, CMP #### [facility] ([id number]) [address] [address] [place] [address] Reagin Ab RPR Ql (S)on 02-11 RPR SCREEN RESPONSE TO THERAPY, SERUM Negative Normal Negative [facility] Comment on above: Result Comment: NOTE Non-treponemal antibodies not detected. For additional information on interpretation of the syphilis reverse algorithm and results, see: [email or web address] Test Performed by: [facility] [place] [facility] [place] [address] [place] [address] Police Justice: Williams Joyce M.D. Ph.D.; CLIA# [id number] Performed By: #### 2 0507-0 #### [facility] ([id number]) [address] [place] [address] US ABDOMEN LMTD ABDOMEN WALL on 10-25-2023 US ABDOMEN LMTD ABDOMEN WALL US ABDOMEN LMTD ABDOMEN WALL Ultrasound the abdominal wall. INDICATION: Pain. Prior hernia repair. . COMPARISON: CT dated 03/25/2023. TECHNIQUE: Limited ultrasound of the body wall appear pain as delineated by the patient. FINDINGS: In the periumbilical region, horse breaker demonstrates a circumscribed 5.3 x 1.3 x 5.1 cm isoechoic lesion, thought to be related to a fat-containing periumbilical hernia sac seen on CT scan of March 2023. This does not appear to significantly change with Valsalva. Media Account Executive demonstrates potential associated fascial defect measuring approximately 1.2 cm, measured on cine clips. No herniated bowel demonstrated. No fluid collection demonstrate. IMPRESSION: 1. Lipomatous circumscribed lesion in the periumbilical region thought to reflect a narrowneck fat-containingHernia (over lipoma), somewhat similar to March 2023. Correlate with clinical reducibility. 2. No herniated bowel or other fluid collection/soft tissue lesion demonstrated Finalized by Saba Kapoor MD on 10/25/2023 11:30 AM Normal [facility] Reagin Ab RPR Ql (S)on 10-24 RPR SCREEN RESPONSE TO THERAPY, SERUM Negative Normal Negative [facility] Comment on above: Result Comment: NOTE Non-treponemal antibodies not detected. For additional information on interpretation of the syphilis reverse algorithm and results, see: [email or web address] Test Performed by: [facility] [address] [place] [address] Police Justice: Williams Joyce M.D. Ph.D.; CLIA# [id number] URINALYSISon 10-07-2023 Bilirubin Ql (U) Negative Normal NEG [facility] BLOOD/HGB Negative Normal NEG [facility] CA OXALATE CRYSTALS PRESENT Abnormal NONE [facility] Color (U) YELLOW Normal YELLOW [facility] Glucose Ql (U) Negative Normal NEG [facility] Ketones Ql (U) Trace Abnormal NEG [facility] Leukocyte esterase Test strip Ql (U) Small Abnormal NEG [facility] MUCOUS PRESENT Abnormal NONE [facility] Nitrite Ql (U) Negative Normal NEG [facility] pH (U) 6.0 [pH] Normal 5.0-8.5 [facility] Protein Ql (U) Trace Abnormal NEG [facility] R.B.CELLS 4 /hpf Normal 0-5 [facility] Specific gravity (U) [Rel density] 1.023 Normal 1.003-1.035 [facility] SQUAMOUS EPITHELIUM 15 /hpf High 0-5 [facility] TURBIDITY CLEAR Normal CLEAR [facility] Urobilinogen (U) [Mass/Vol] mg/dL Normal <1.1 [facility] W.B.CELLS 5 /hpf Normal 0-5 [facility] URINE CULTUREon 10-07-2023 Bacteria identified Cx Nom (U) CULTURE RESULTS NO GROWTH AT <1000 CFU/mL Normal [facility] Comment on above: Performed By: #### 6 30-4 #### [facility] ([id number]) [address] [facility] [place] [address] Urinalysison 10-07-2023 Bilirubin Ql (U) Negative Negative^Ne gat nia [facility] Calcium oxalate crystals LM Ql (Urine sed) PRESENT Abnormal NONE^NONE [facility] Color (U) YELLOW YELLOW^YELLOW [facility] Epithelial cells Auto (Urine sed) [#/Area] 15 High [facility] Glucose (U) [Mass/Vol] Negative Negative^Negat nia mg/dL [facility] Hemoglobin Auto test strip Ql (U) Negative Negative^Negat nia [facility] Interpretation and review of laboratory results Abnormal [facility] Ketones (U) [Mass/Vol] Trace Abnormal Negative^Negat nia mg/dL [facility] Leukocyte esterase Auto test strip Ql (U) Small Abnormal Negative^Negat nia [facility] Mucus Ql (Urine sed) PRESENT Abnormal NONE^NONE [facility] Nitrite Auto test strip Ql (U) Negative Negative^Negat nia [facility] pH (U) 6.0 [pH] 5.0 - 8.5 [facility] Protein (U) [Mass/Vol] Trace Abnormal Negative^Negat nia mg/dL [facility] RBC Auto (Urine sed) [#/Area] 4 [facility] Specific gravity Refractometry automated (U) [Rel density] 1.023 1.003 - 1.035 [facility] Turbidity Ql (U) CLEAR CLEAR^CLEAR [facility] Urobilinogen Qn (U) NINF [facility] WBC Auto (Urine sed) [#/Area] 5 [facility] Outside Recordson 01-16-2023 Outside Records [id number]#[id number] 0OTGTIFF [facility] PAP RFX HPV IF ASCon 018 COMMENT Comment Normal [facility] Comment on above: Result Comment: [place] Performed By: #### P APHR7 ####[facility] [id number] DIAGNOSIS: Comment Normal [facility] Comment on above: Result Comment: NEGA TIVE FOR INTRAEPITHELIAL LESION AND MALIGNANCY. Performed By: #### P APHR7 ####[facility] [id number] [place] [address] Methodology: BDFP [facility] Comment on above: Result Comment: The TriPath(R) FocalPoint was unable to read and evaluate thisspecimen. Therefore a manual review was performed. Performed By: #### P APHR7 ####[facility] [address] [place] [address] Cristiane Note: Comment Normal [facility] Comment on above: Result Comment: The Pap smear is a screening test designed to aid in the detection ofpremalignant and malignant conditions of the uterine cervix. It is not adiagnostic procedure and should not be used as the sole means of detectingcervical cancer. Both false-positive and false-negative reports do occur. . Performed By: #### P APHR7 ####[address] Cristiane Performed by: Comment Normal [facility] Comment on above: Result Comment: [facility] abdirahman Simon, Blue Prints Trimmer (ASCP) Performed By: #### P APHR7 ####[address] [place] Reflex Criteria: Comment Normal [facility] Comment on above: Result Comment: The HPV DNA reflex criteria were not met with this specimen resulttherefore, no HPV testing was performed. . Performed By: #### P APHR7 ####[address] Cristiane Specimen adequacy: Comment Normal [facility] Comment on above: Result Comment: Sati sfactory for evaluation. Endocervical and/or squamous metaplasticcells (endocervical component) are present. Performed By: #### P APHR7 ####[facility] [address] [place] [address] Cristiane . . Normal [facility] Comment on above: Performed By: #### P APHR7 ####[facility] [address] [place] [address] Cristiane LAB TESTINGon 05-09-2017 RECV HEADER SEE SCANNED REPORT I N HPF Normal [facility] Comment on above: Performed By: #### M ISC ####[facility] [address] [place], [place] [address]Gerken Cristiane REV FROM REF LAB see scanned report Normal [facility] Comment on above: Performed By: #### M ISC ####[facility] [address] [place], [place] [address]Xrjnhw Karen SENT TO REF LAB see scanned report Normal [facility] Comment on above: Performed By: #### M ISC ####[facility] [address] [place], [place] [address]Zbuenv Cristiane Vital Signs Date Time Vital Sign Value Performing Clinician Faci lity 11-04-2023 11:26-0500 Body mass index (BMI) [Ratio] 41.14 kg/m2 Bethany Jonesville EMBLEM CUTTER-CNM Work Phone: [facility] 11-04-2023 11:26-0500 Body weight 112.13 kg Bethany Jonesville EMBLEM CUTTER-CNM Work Phone: [facility] 11-04-2023 11:26-0500 Diastolic blood pressure 68 mm[Hg] Bethany Jonesville EMBLEM CUTTER-CNM Work Phone: [facility] 11-04-2023 11:26-0500 Systolic blood pressure 120 mm[Hg] Bethany Jonesville EMBLEM CUTTER-CNM Work Phone: [facility] 10-24-2023 10:27-0500 Body height 165.1 cm Radha Ruiz MD Work Phone: [facility] 10-24-2023 10:27-0500 Body mass index (BMI) [Ratio] 40.27 kg/m2 Radha Ruiz MD Work Phone: [facility] 10-24-2023 10:27-0500 Body weight 109.77 kg Radha Ruiz MD Work Phone: [facility] 10-24-2023 10:27-0500 Diastolic blood pressure 78 mm[Hg] Radha Ruiz MD Work Phone: [facility] 10-24-2023 10:27-0500 Systolic blood pressure 118 mm[Hg] Radha Ruiz MD Work Phone: [facility] 10-07-2023 11:23050 Body mass index (BMI) [Ratio] 39.99 kg/m2 [facility] 10-07-2023 11:23-0500 Body weight 109 kg [facility] 10-07-2023 11:23-0500 Diastolic blood pressure 80 mm[Hg] [facility] 10-07-2023 11:23-0500 Systolic blood pressure 100 mm[Hg] [facility] Encounters Encounter Date Encounter Type Care Provider Facility Start: 05-05-2024 End: 05-05-2024 ambulatory CASIE Dutta REYES [facility] Start: 04-27-2024 End: 04-27-2024 ambulatory JAH DAVID Not Available Start: 04-21-2024 End: 04-21-2024 Evaluation and management of inpatient LEEROY WISE [facility] Start: 04-21-2024 End: 04-21-2024 Evaluation and management of inpatient [facility] Start: 04-01-2024 End: 04-01-2024 ambulatory ANNA MARIE MILLER Not Available Start: 04-01-2024 End: 04-01-2024 ambulatory [facility] Start: 03-11-2024 End: 03-11-2024 ambulatory [facility] Start: 02-19-2024 End: 02-19-2024 ambulatory JAH DAVID Not Available Start: 02-18-2024 End: 02-18-2024 ambulatory DIANA SCHOFIELD [facility] Start: 02-12-2024 End: 02-12-2024 ambulatory SCAR SALVADOR [facility] Start: 02-11-2024 End: 02-11-2024 ambulatory JAH DAVID Not Available Start: 02-04-2024 End: 02-04-2024 ambulatory JAH DAVID Not Available Start: 01-29-2024 End: 01-29-2024 ambulatory JAH DAVID Not Available Start: 01-23-2024 End: 01-23-2024 ambulatory ANNA MARIE MILLER Not Available Start: 01-14-2024 End: 01-14-2024 ambulatory [facility] Start: 01-08-2024 End: 01-08-2024 ambulatory JAH DAVID Not Available Start: 12-17-2023 End: 12-17-2023 ambulatory JAH R DAVID [facility] Start: 12-03-2023 End: 12-03-2023 ambulatory JAH DAVID Not Available Start: 11-21-2023 End: 11-21-2023 ambulatory [facility] Start: 11-14-2023 Telephone encounter Laila casillas [facility] Start: 11-04-2023 End: 11-04-2023 Subsequent care visit Bethany MÉNDEZ Work Phone: [facility] Comment on above: GA: 23w3d Start: 11-04-2023 End: 11-04-2023 ambulatory [facility] Start: 10-25-2023 End: 10-25-2023 ambulatory [facility] Start: 10-24-2023 End: 10-25-2023 Orders Only Rosalie Weston RN M[facility]- Medicine at [facility] Comment on above: Multigravida of adva nced maternal age in second trimester (Primary Dx); Obesity affecting in second trimester, unspecified obesity type Start: 10-24-2023 End: 10-24-2023 Office consultation new/estab patient 80 min Radha Ruiz MD Work Phone: [facility] [place] Comment on above: 21 weeks gestation o f (Primary Dx); Multigravida of advanced maternal age in second trimester; 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; Obesity affecting in second trimester, unspecified obesity type; Anxiety during ; Depression affecting ; Constipation, unspecified constipation type; Hernia of abdominal wall; Psoriasis; LGSIL on Pap smear of cervix; HPV in female Start: 10-14-2023 Orders Only Ayana Tess Lund EMBLEM CUTTER-STERILE PROCESSING MANAGER Work Phone: [facility] Comment on above: Constipation during in second trimester (Primary Dx) Start: 10-07-2023 End: 10-08-2023 ambulatory KENNA [facility] Start: 10-07-2023 End: 10-07-2023 Subsequent care visit Pfws Ob Senior Tableau Developer [facility] Comment on above: GA: 19w3d Start: 10-07-2023 End: 10-07-2023 ambulatory [facility] Start: 09-10-2023 End: 09-10-2023 ambulatory AYANA LUND [facility] Start: 01-28-2023 End: 01-29-2023 ambulatory Jesus Tess Renee Facility:[facility] Start: 09-07-2020 End: 09-10-2020 Evaluation and management of inpatient Saba Celestinederick Facility:[facility] Start: 11-01-2017 End: 11-01-2017 Ambulatory ANJALI MESSINA Facility: Start: 05-09-2017 End: 05-09-2017 Ambulatory ANJALI MESSINA Facility: Procedures Date Procedure Procedure Detail Performing Clinician Start: 06-27-2023 Microscopic observat ion [Identifier] in Cervix by Cyto stain Pfws Senior Tableau Developer Plan of Treatment Date Care Activity Detail Author Start: 06-27-2026 Screening for malignant neoplasm of cervix Pap Smear [facility] Start: 11-04-2024 Adult BMI Screening Adult BMI Screen ing [facility] Start: 11-04-2024 Tobacco Screening Tobacco Screening [facility] [place] [facility] Start: 10-24-2024 Adult BMI Screening Adult BMI Screen ing [facility] Start: 10-24-2024 Tobacco Screening Tobacco Screening [facility] [place] [facility] Start: 10-24-2024 End: 10-24-2024 US MFM with or without consult US MFM with or without consult Imaging Routine Multigravida of advanced maternal age in second trimester Obesity affecting in second trimester, unspecified obesity type Expected: 10/24/2024 (Approximate), Expires: 10/24/2024 [facility] Work Phone: Comment on above: Expected: 10/24/2024 (Approximate), Expires: 10/24/2024 Start: 10-07-2024 Adult BMI Screening Adult BMI Screen ing [facility] Start: 10-07-2024 Tobacco Screening Tobacco Screening [facility] Start: 12-17-2023 End: 12-17-2023 Patient encounter procedure 12/17/2023 2:45 PM EDT Appointment [facility] - Ultrasound [address] [place] [address] [facility] Start: 12-02-2023 End: 12-02-2023 Patient encounter procedure 12/02/2023 11:45 AM EDT Routine [facility] [address] [place] [id number] [facility] Start: 11-21-2023 End: 11-21-2023 Patient encounter procedure 11/21/2023 2:15 PM EST Appointment [facility] [place] [address] [place] [address] [facility] [place] Start: 11-04-2023 End: 11-04-2023 Patient encounter procedure 11/04/2023 11:30 AM EST Routine [facility] [address] [place] [id number] [facility] Start: 10-25-2023 Subsequent hospital visit by physician 10/25/2023 10:00 AM EST Hospital Encounter [facility] [address] [place] [address] [facility] Start: 10-24-2023 End: 10-24-2024 Echo complete W/O contrast Echo complete W/O contrast Echocardiography Routine 21 weeks gestation of Multigravida of advanced maternal age in second trimester Expected: 10/24/2023, Expires: 10/24/2024 [facility] Comment on above: Expected: 10/24/2023 , Expires: 10/24/2024 Start: 10-24-2023 End: 10-24-2024 US Abdominal wall Ultrasound abdomen limited ADBOMEN WALL Imaging STAT 21 weeks gestation of Hernia of abdominal wall Expected: 10/24/2023, Expires: 10/24/2024 [facility] Comment on above: Expected: 10/24/2023 , Expires: 10/24/2024 Start: 10-24-2023 End: 10-24-2023 Patient encounter procedure [facility] Emily Esquivel Start: 10-07-2023 End: 10-07-2024 US MFM with or without consult US MFM with or without consult Imaging Routine Multigravida of advanced maternal age in second trimester Expected: 10/07/2023, Expires: 10/07/2024 [facility] Work Phone: Comment on above: Expected: 10/07/2023 , Expires: 10/07/2024 Start: 2002 DTaP,Tdap and Td Vaccines (1 - Tdap) DTaP,Tdap and Td Vaccines (1 - Tdap) [facility] Start: 2001 Adult BMI Follow Up Plan Adult BMI Follow Up Plan [facility] Start: 1995 Depression Screening Depression Scre [facility] End: 10-06-2024 Bacteria identified in Urine by Culture Urine Culture Microbiology Routine UTI (urinary tract infection) during , first trimester 1 Occurrences starting 10/07/2023 until 10/06/2024 [facility] Comment on above: 1 Occurrences starti ng 10/07/2023 until 10/06/2024 Bacteria identified in Urine by Culture Urine Culture Microbiology Routine UTI (urinary tract infection) during , first trimester 10/07/2023 8:25 PM EST [facility] End: 11-04-2024 CBC W Auto Differential panel - Blood CBC auto differential Lab Routine care in third trimester 1 Occurrences starting 11/04/2023 until 11/04/2024 [facility] Comment on above: 1 Occurrences starti ng 11/04/2023 until 11/04/2024 End: 10-24-2024 ECG 12 lead ECG 12 lead ECG Routine 21 weeks gestation of Multigravida of advanced maternal age in second trimester 1 Occurrences starting 10/24/2023 until 10/24/2024 [facility]: 1 Occurrences starti ng 10/24/2023 until 10/24/2024 End: 11-04-2024 Glucose 1h post 50g load Glucose 1h post 50g load Lab Routine care in third trimester 1 Occurrences starting 11/04/2023 until 11/04/2024 [employer] Work Phone: Comment on above: 1 Occurrences starti ng 11/04/2023 until 11/04/2024 Reagin Ab [Presence] in Serum by RPR RPR Screen Response to Therapy, Serum Lab Routine 21 weeks gestation of 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 10/24/2023 7:10 PM [facility]24 RPR Therapy Response(Previous Positive Screen) RPR Therapy Response(Previous Positive Screen) Lab Routine 21 weeks gestation of 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 1 Occurrences starting 10/24/2023 until 10/24/2024 [employer] Work Phone: Comment on above: 1 Occurrences starti ng 10/24/2023 until 10/24/2024 End: 11-04-2024 Syphilis Total(Unknown Syphilis Status) Syphilis Total(Unknown Syphilis Status) Lab Routine care in third trimester 1 Occurrences starting 11/04/2023 until 11/04/2024 [facility] Comment on above: 1 Occurrences starti ng 11/04/2023 until 11/04/2024 Payers Date Payer Category Payer Medicaid [employer] MEDICAID [facility] MEDICAID [id number] 2023-Present [address] [place] [address] [id number] 2023 Unknown [employer] BLUE ACCE SS (PPO) [id number] 2023-Present [phone] [address] [place] [address] [id number] [id number] 2023 Medicaid [id number] 2023 Unknown [id number] 2020 Self-pay 2019 Unknown [id number] 1983 Unknown [id number] 2.840.1.413269.3.579.2.718 1983 Unknown [id number] 2.840.1.002949.3.579.2.128 1983 Unknown [id number] 2.840.1.889849.3.579.2.128 1983 Unknown [id number] 2.840.1.644126.3.579.2.1285 1983 Unknown [id number] 2.840.1.295654.3.579.2.1285 1983 Unknown [id number] .1.043634.3.579.2.1285 1983 Unknown [id number] 2.840.1.828032.3.579.2.128 1983 Unknown [id number] 2840.1.113237.3.579.2.1285 1983 Unknown [id number] 2.840.1.907434.3.579.2.1285 1983 Unknown [id number] 11.01.830.1.674040.3.579.2.128 1983 Unknown [id number] 2.840.1.153450.3.579.2.128 1983 Unknown [id number] 2840.1.112309.3.579.2.128 1983 Unknown [id number] 2.840.1.615924.3.579.2.9 1983 Unknown [id number] 2.840.1.788309.3.579.2.1259 1983 Unknown [id number] 2.840.1.725942.3.579.2.1259 1983 Unknown [id number] 2.840.1.611930.3.579.2.1258 1983 Unknown [id number] 2.840.1.744447.3.579.2.1258 1983 Unknown [id number] 2.840.1.201093.3.579.2.1258 1983 Unknown [id number] 2.840.1.322522.3.579.2.1258 1983 Unknown [id number] 2.840.1.121402.3.579.2.1258 1983 Unknown [id number] 2.840.1.166847.3.579.2.1258 1983 Unknown [id number] 11.01.830.1.972292.3.579.2.1285 1983 Unknown [id number] 11.01.830.1.664057.3.579.2.1285 1983 Unknown [id number] .1.896114.3.579.2.1285 1983 Unknown [id number] 840.1.137832.3.579.2.1285 1983 Unknown [id number] 11.01.830.1.436710.3.579.2.1285 1983 Unknown [id number] 840.1.635893.3.579.2.1285 1983 Unknown [id number] 840.1.545070.3.579.2.1285 1983 Unknown [id number] 2840.1.858010.3.579.2.1286 1959 Unknown [id number] Unknown [id number] 840.1.960546.3.579.2.531 Social History Date Type Detail Facility Start: 09-10-2023 Tobacco smoking stat us NHIS Ex-smoker [facility] End: 06-16-2023 History of tobacco use Current smoker [facility] End: 06-16-2023 History of tobacco use Cigarette Smoker [facility] Start: 09-10-2023 Tobacco use and exposure Smokeless tobacco non-user [facility] Start: 10-07-2023 End: 11-04-2023 Alcohol intake Ex-drinker (finding) [facility] Start: 10-27-2020 End: 10-07-2023 History of Social function [facility] Start: 10-27-2020 End: 10-07-2023 Tobacco use panel [facility] Adolescent depressio n screening assessment 0 [facility] Start: 03-25-2023 Tobacco Comment quit a year an d a half ago [facility] Start: 06-07-2020 Alcohol Comment 2 days a week [facility] Start: 06-07-2023 [facility] Start: 1985 Sex Assigned At Not on file P [facility] [place] [facility] Medical Equipment Procedure Code Equipment Code Equipment Origin al Text Equipment Identifier Dates Mesh Pco Vntrl P tch 4.6cm Rpl [id number] - [id number] - [id number] Start: 07-01-2020 Clinical Notes 07-09-2022 to [...] did not answer. The voicemail for for [place] so I did not leave a message for the patient. Cece talked to the patient at her [facility] ultrasound appt today. Patient confirmed to Cece that she is transferring care to Dr. Carranza. Cece cancelled the scheduled appointment with our office. documented in this encounter [facility] 11-14-2023 Telephone encounter Note Received a [...] not leave a message for the patient. [facility] 11-14-2023 Telephone encounter Note Cece talked to the patient at her [facility] ultrasound appt today. Patient confirmed to Cece that she is transferring care to Dr. Carranza. Cece cancelled the scheduled appointment with our office. [facility] 11-04-2023 History of Presen t illness [...] Clifford 11/04/23 1157 documented in this encounter [facility] 10-24-2023 History of Presen t illness Narrative Images from the original note were not included. Video Visit via Real-time Synchronous Audiovisual Provider Location: [facility], MATERNAL- MEDICINE [address], [address] [place] [address] Patient Location: Other [facility] Patient Location Choke Setter: None Video Visit Consent Statement: I discussed [...] that there are some limitations compared to wvbb-oe-aabs evaluations. We elected to proceed. [facility] Maternal- Medicine Consult Note Reason For [...] was told low risk cell free DNA [facility]. 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 09/10/23 Ayana Lund APRN-HARRY loratadine (CLARITIN) 10 mg tablet Take 1 [...] tablet (25 mg total) before bedtime. 09/10/23 Ayana Lund APRN-HARRY venlafaxine (EFFEXOR) 75 mg tablet Take 1 [...] No abnormal hemoglobin identified. Test Performed By: [facility] [address] [place] [address] Powertrain Engineer: Matias Menchaca III, M.D. IA #[id number]^ T4, free 07/16/2023 0.75 0.61 - 1.60 [...] testing algorithm link below for more information. [email or web address] White Blood Cells 07/16/2023 9.3 4.0 [...] infection suspected, recommend repeat testing (>2 months). Lebrox-ws-kmivrf ratio is <0.80. RPR with Reflex to [...] the syphilis reverse algorithm and results, see: [email or web address]/ it-[email or web address]_Serology_Alg orithm.pdf Test Performed by: [facility] [place] [address] [place] [address] Police Justice: Williams Joyce M.D. Ph.D.; CLIA# [id number] CLIA ID [id number] HGB Phoresis Interpretation 07/16/2023 See below Final [...] by Sommer Garcia MD Test Performed By: [place] [address] Powertrain Engineer: Matias Menchaca III, M.D. CLIA #[id number]^ T.pallidum 07/16/2023 SEE COMMENTS 07/19/2023 12:59 PM (A) Final Comment: NOTE Test Result Flag Unit RefValue -- Syphilis Ab, TP-PA, S Positive A Negative Treponemal antibodies detected, consistent with previously treated syphilis, potentially early syphilis infection or latent disease. Clinical correlation to distinguish between these scenarios is required. For additional information on interpretation of the syphilis reverse algorithm and results, see: [email or web address]/ it-[email or web address]/Syphilis_Serology_Alg orithm.pdf Test Performed by: [facility] [address] [place] [address] Police Justice: Williams Joyce M.D. Ph.D.; CLIA# [id number] Hospital Outpatient Visit on 06/27/2023 Component Date [...] Ultrasound abdomen limited; Future - [facility] [place], [place]; Future - RPR Therapy Response(Previous Positive [...] for patient >=40. At age 38 y.o. Meka Tess Brennan's age based aneuploidy risks are: The [...] at delivery about the maternal syphilis PMID: [id number] 4. Obesity affecting in second trimester, unspecified [...] Future - [facility] [place], [place]; Future She tells me that she [...] consultation and recommend also to see a Heavy Duty Mechanic. 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 Colposcopy in reviewed. 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 Discussed with the patient that I would recommend that she does not run the chemicals because of her letter provided. Strongly recommended that she continues to wear her appropriate PPE. Recommendations: Continue low-dose aspirin Follow-up with titers. [place] for rising titers as per above. The patient desires to have the titers done every 4 weeks. I ordered repeat titers today please follow from then onwards. Follow-up with the Health Department and recommend communication, testing and treatment of partner to avoid reinfection Serial growth assessments every 4 weeks after the anatomy scan through [facility] testing to be initiated at 32 weeks weekly with twice weekly testing at 36 weeks and weekly DVP (to be done at OB office) Delivery at 39 weeks due to advanced maternal age and obesity, sooner if clinically indicated Vaginal delivery preferred reserved section for routine indications Electronic Coils Supervisor should be notified about the syphilis in [...] contact me if you have any concerns. Radha Ruiz MD, FACOG (she/hers) Maternal- Medicine [facility] [address] [place] [address] [facility], the CDC, and other organizations representing maternal and public health professionals recommend that , , and lactating people and those considering receive the COVID-19 vaccination. Vaccination is the best method to reduce maternal and complications of SARS-CoV-2 infection. This document was created with [employer] technology. Though I make every effort to review the dictation as it is transcribed, on occasion the spoken word can be misinterpreted by the technology leading to inappropriate words, phrases, or sentences. This note is addressed to the requesting provider as a consultation for clinical guidance. Specific medical abbreviations are occasionally used and those are generally approved by the [place]?Board of?Obstetrics and?Gynecology?as well as?Moncho s abbreviations. The above plan of care was based solely on the diagnoses for which a consultation was requested. ?More frequent testing may be indicated based on her other medical/obstetrical conditions. The management of other or medical conditions is beyond the scope of requested consultation and will continue to be followed by the primary molten iron pourer or primary care provider. Note to patient: [...] done this here or other office? yes, [facility] Neg for trisomies per patient, Not on chart, will call for results. Have you been seen here at [facility] in a previous ? no Recent ER visits or hospitalizations? no Bring blood sugar log or meter with you today? (Please bring them with you for every visit at [facility]) Traveled outside the country in the past 6 month no Any concerns that you would like me to mention to the provider today? Patient states she is worried about the chemicals that she uses at her job and her constipation issues with her hernia. Taking Metamucil and Colace BID Labs ordered today per [facility]. Labs drawn on 1st attempt (L) antecubital here in our office at this time without difficulty. Patient tolerated well. documented in this encounter [facility] 10-14-2023 Miscellaneous Notes Pt states she is [...] sent to Pharmacy. documented in this encounter [facility] 10-14-2023 Telephone encounter Note Pt states she is experiencing constipation. Pt states she is constantly straining to only have a little bit come out. Pt states she is drinking approximately 4 48oz bottles of water daily. Pt states she has tried Prune juice and Metamucil with no relief. Please advise. Thank you [facility] 10-14-2023 Telephone encounter Note RX for colace sent to pharmacy [facility] 10-14-2023 Telephone encounter Note Advised Pt of RX sent to Pharmacy. [facility] 10-07-2023 History of Presen t illness [...] Turner 10/07/23 1242 documented in this encounter [facility] 10-07-2023 Miscellaneous Notes Addended by: LEROY ANN on: 10/07/2023 12:55 PM Modules accepted: [facility]-07-2023 Note Addended by: LEROY ANN on: 10/07/2023 12:55 PM Modules accepted: [facility] 01-14-2023 Note Entered by Nirali Bingham on January 14, 2023 08:38:33 EDT From: Aarti Bingham To: [facility]/pharmacy #[id number] Sent: 01/14/2023 08:38:33 EDT Subject: Medication Management Submitted: Complete:venlafaxine (venlafaxine 75 mg oral capsule, extended release) Signed by Aarti Bingham 01/14/2023 08:38:00 EDT Approved venlafaxine (VENLAFAXINE HCL ER 75 MG CAP) TAKE 1 CAPSULE BY MOUTH EVERY DAY Qty: 30 cap(s) Days Supply: 30 Refills: 5 Substitutions Allowed Route To Pharmacy - [facility]/pharmacy #[id number] Signed by Aarti Bingham From: [facility] STORE [id number] To: Jesus Duran MD Sent: January 12, 2023 6:47:36 AM CDT Subject: Medication Management Due: January 13, 2023 6:45:46 AM CDT On Hold Pending Signature Dispensed Drug: venlafaxine (venlafaxine 75 mg oral capsule, extended release), TAKE 1 CAPSULE BY MOUTH EVERY DAY Quantity: 30 cap(s) Days Supply: 30 Refills: 5 Substitutions Allowed Notes from Pharmacy: [facility] 07-09-2022 Note Entered by Nirali Bingham on July 09, 2022 07:51:14 EDT From: Aarti Bingham To: [facility]/pharmacy #[id number] Sent: 07/09/2022 07:51:14 EDT Subject: Medication Management Submitted: Complete:venlafaxine (venlafaxine 75 mg oral capsule, extended release) Signed by Aarti Bingham 07/09/2022 07:51:00 EDT Approved with modifications: venlafaxine (VENLAFAXINE HCL ER 75 MG CAP) TAKE 1 CAPSULE BY MOUTH EVERY DAY Qty: 90 cap(s) Days Supply: 90 Refills: 1 Substitutions Allowed Route To Pharmacy - [facility]/pharmacy #[id number] Signed by Aarti Bingham From: [id number] To: Jesus Duran MD Sent: July 08, 2022 7:45:20 AM CDT Subject: Medication Management Due: July 09, 2022 12:25:55 AM CDT On Hold Pending Signature Dispensed Drug: venlafaxine (venlafaxine 75 mg oral capsule, extended release), TAKE 1 CAPSULE BY MOUTH EVERY DAY Quantity: 90 cap(s) Days Supply: 90 Refills: 2 Substitutions Allowed Notes from Pharmacy: [facility] Evaluation note Diagnosis with 19 completed weeks gestation- Primary Multigravida of advanced maternal age in second trimester UTI (urinary tract infection) during , first trimester documented [facility] Diagnosis Constipation during in second trimester- Primary documented in this encounter [facility]* Diagnosis 21 weeks gestation of [...] HPV in female [facility] Diagnosis Multigravida of advanced maternal age in second trimester- Primary Obesity affecting in second trimester, unspecified obesity type [facility] this [facility] Diagnosis 23 weeks gestation of - Primary care in third trimester documented in this encounter [facility]ructionsNot on filedocumented in this encounter [facility] filedocumented in this encounter [facility]* Attachments The following attachments cannot be sent through Care Everywhere. * Movement (Faroese) * Preeclampsia (Faroese) [facility]ructionsNot on file [facility] System[facility]ructionsNot on file [facility] [place] [facility] Summary Purpose Family History No Family [...] advanced maternal age in second trimester Procedures [facility] with or without consult Kenna Bejarano, EMBLEM CUTTER-CNM [address] [place] [address] [facility]aternal [facility] [address] [place] [address] Referral ID Status Reason Start Date Expiration Date V isits Requested Visits Authorized [id number] Pending Review 10/07/2023 10/06/2024 1 1 Specialty Diagnoses / Procedures Referred By Fabiano bauer Referred To Contact Diagnoses 21 weeks gestation of Multigravida of advanced maternal age in second trimester Procedures Echo complete W/O contrast Radha Ruiz MD [address], [address] [place] [id number] Referral ID Status Reason Start Date Expiration Date V isits Requested Visits Authorized [id number] Pending Review 10/24/2023 10/23/2024 1 1 Specialty Diagnoses / Procedures Referred By Contac t Referred To Contact Diagnoses 21 weeks gestation of Multigravida of advanced maternal age in second trimester Procedures ECG 12 lead Radha Ruiz MD [address], [address] [place] [id number] Referral ID Status Reason Start Date Expiration Date V isits Requested Visits Authorized [id number] Pending Review 10/24/2023 10/23/2024 1 1 Specialty Diagnoses / Procedures Referred By Contac t Referred To Contact General Surgery Diagnoses 21 weeks gestation of Hernia of abdominal wall Radha Ruiz MD [address], [address] [place] [id number] [facility] Grillis [address] [place] [address] Referral ID Status Reason Start Date Expiration Date Visits Requested Visits Authorized [id number] Pending Review Specialty Services Required 10/24/2023 10/23/2024 1 1 Specialty Diagnoses / Procedures Referred By Contac t Referred To Contact Maternal and Medicine Diagnoses Multigravida of advanced maternal age in second trimester Obesity affecting in second trimester, unspecified obesity type Procedures US MFM with or without consult Radha Ruiz MD [address], [address] [place] [id number] [facility] [address] [place] [address] Referral ID Status Reason Start Date Expiration Date V isits Requested Visits Authorized [id number] Pending Review 10/24/2023 10/23/2024 1 1 Additional Source Comments INFORMATION SOURCE (unrecogn ized section and content) DATE CREATED AUTHOR 03/07/2018 [facility] DATE CREATED AUTHOR AUTHOR'S ORGANIZ ATION 01/29/2023 [facility] DATE CREATED AUTHOR AUTHOR'S ORGANIZ ATION 06/22/2023 [facility] DATE CREATED AUTHOR AUTHOR'S ORGANIZ ATION 10/30/2023 [facility] DATE CREATED AUTHOR AUTHOR'S ORGANIZ ATION 04/26/2024 [facility] DATE CREATED AUTHOR AUTHOR'S ORGANIZ ATION 04/29/2024 [facility] DATE CREATED AUTHOR AUTHOR'S ORGANIZ ATION 05/06/2024 [facility] Care Teams (unrecognized sec tion and content) Felt Cementer Relationship Specialty Start Date End Date Services, [facility] [address] [place] - General Family Medicine 03/25/23 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 Relationship Specialty Start Date End Date Services, [facility] [address] [place] [place] PCP - General Family Medicine 03/25/23 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 Relationship Specialty Start Date End Date Services, [facility] [address] [place] P[place] - General Family Medicine 03/25/23 Felt Cementer Relationship Specialty Start Date End Date Services, [facility] [address] [place] PCP - General Family Medicine 03/25/23 Felt Cementer Relationship Specialty Start Date End Date Services, [facility] [address] [place] PCP - General Family Medicine 03/25/23 Felt Cementer Relationship Specialty Start Date End Date Services, [facility] [address] [place] PCP - General Family Medicine 03/25/23 Felt Cementer Relationship Specialty Start Date End Date Services, [facility] [address] [place] [place] P[place] - General Family Medicine 03/25/23 [...] BE BASED ON THE PRIMARY CLINICAL RECORDS. [facility] [employer] provides no warranty or guarantee of the accuracy or completeness of information in this document.
== END 2024-07-27 20:09 | disposition home or self-care (01) ==
LOC: LAB 20:08
PROVIDERS: PCP Family Medicine; Visit Provider Obstetrics & Gynecology
DX: Z01.419 Encounter for gynecological examination (general) (routine) without abnormal findings (principal)
CPT/HCPCS: 87624; 88175